=== PATIENT | male | born 1945 | race Caucasian/White ===

== ENCOUNTER 2019-10-03 10:24 | Outpatient (CLI) | payer MEDICARE, SELFPAY ==
[2019-10-03 11:29] LABS: Alanine Aminotransferase 27 U/L (4-50); Albumin Level 4.4 g/dL (3.5-5.1); Alkaline Phosphatase 69 U/L (38-126); Anion Gap 7 mmol/L (8-16); Aspartate Amino Transferase 30 U/L (17-59); Bilirubin,Total 0.7 mg/dL (0.2-1.3); Blood Urea Nitrogen 15 mg/dL (9-20); Carbon Dioxide 29 mmol/L (22-30); Chloride 99 mmol/L (98-107); Cholesterol 149 mg/dL (0-200); Estimated Glomerular Filt Rate > 60; Glucose 99 mg/dL (75-110); HDL Direct 68 mg/dL; Potassium 4.3 mmol/L (3.4-5.0); Sodium 135 mmol/L (137-145); Triglycerides 48 mg/dL (<150)
[2019-10-03 11:46] LABS: LDL Cholesterol Direct 63 mg/dL
[2019-10-03 11:53] LABS: Hemoglobin A1C 5.6 % (<5.7)
[2019-10-03 12:16] LABS: Prostate Specific Antigen 1.8 ng/mL (< OR = 4.0)
== END 2019-10-03 10:25 | disposition home or self-care (01) ==
LOC: ANHLAB 10:26
PROVIDERS: PCP Internal Medicine; Visit Provider Internal Medicine
DX: E78.5 Hyperlipidemia, unspecified (principal); I10 Essential (primary) hypertension; Z79.899 Other long term (current) drug therapy; Z12.5 Encounter for screening for malignant neoplasm of prostate; R73.03 Prediabetes
CPT/HCPCS: 36415; 80053; 80061; 83036; 84153; G0103

== ENCOUNTER 2020-04-12 08:36 | Outpatient (CLI) | payer MEDICARE, SELFPAY ==
[2020-04-12 09:46] LABS: Alanine Aminotransferase 22 U/L (4-50); Albumin Level 4.3 g/dL (3.5-5.1); Alkaline Phosphatase 69 U/L (38-126); Anion Gap 7 mmol/L (8-16); Aspartate Amino Transferase 26 U/L (17-59); Bilirubin,Total 0.8 mg/dL (0.2-1.3); Blood Urea Nitrogen 16 mg/dL (9-20); Calcium 9.3 mg/dL (8.4-10.2); Carbon Dioxide 29 mmol/L (22-30); Chloride 98 mmol/L (98-107); Cholesterol 130 mg/dL (0-200); Estimated Glomerular Filt Rate > 60; Glucose 112 mg/dL (75-110); HDL Direct 51 mg/dL; Potassium 4.3 mmol/L (3.4-5.0); Sodium 134 mmol/L (137-145); Triglycerides 72 mg/dL (<150)
[2020-04-12 09:57] LABS: LDL Cholesterol Direct 61 mg/dL
[2020-04-12 10:00] LABS: Hemoglobin A1C 5.4 % (<5.7)
== END 2020-04-12 08:37 | disposition home or self-care (01) ==
LOC: ANHLAB 08:41
PROVIDERS: PCP Internal Medicine; Visit Provider Nurse Practitioner
DX: E78.2 Mixed hyperlipidemia (principal); R73.03 Prediabetes
CPT/HCPCS: 36415; 80053; 80061; 83036

== ENCOUNTER → 2020-04-23 10:56 | Outpatient (CLI) | payer MEDICARE, OTHER, SELFPAY ==
--- NOTE | ~2020-04-23 | XR_ITS ---
EXAMINATION: XR hand RT min 3V INDICATION: Stiffness of the hand TECHNIQUE: Three views of the right hand are obtained. COMPARISON: None available FINDINGS: There is no fracture. Moderate osteoarthritis is noted at the triscaphe and first interphal angeal joints. There is mild osteoarthritis in multiple interphalangeal joints as well as at the firs t metacarpophalangeal joint. The soft tissues are unremarkable. IMPRESSION: 1. Polyarticular osteoarthritis. Reviewed, dictated and finalized at location A. ETRICIAN AND GYNAECOLOGIST
--- NOTE | ~2020-04-23 | XR_ITS ---
EXAMINATION: XR hand LT min 3V INDICATION: Stiffness of the hand TECHNIQUE: Three views of the left hand are obtained. COMPARISON: None available FINDINGS: There is no fracture. There is moderate osteoarthritis at the first carpometacarpal joint a nd in the fifth distal interphalangeal joint. Mild osteoarthritis is present at the triscaphe joint a nd in multiple interphalangeal joints. The soft tissues are unremarkable. IMPRESSION: 1. Polyarticular osteoarthritis. Reviewed, dictated and finalized at location A. PRODUCTION MANAGER
== END ==
PROVIDERS: PCP Internal Medicine; Visit Provider Internal Medicine
DX: M18.0 Bilateral primary osteoarthritis of first carpometacarpal joints (principal); R73.03 Prediabetes; M19.042 Primary osteoarthritis, left hand; M19.041 Primary osteoarthritis, right hand; I10 Essential (primary) hypertension
CPT/HCPCS: 73130

== ENCOUNTER 2020-04-25 10:51 | Outpatient (CLI) | payer MEDICARE, SELFPAY ==
[2020-04-25 11:27] LABS: CRP < 0.5 mg/dL (<1.0); Rheumatoid Factor < 8.6 IU/ML (<12)
[2020-05-01 19:39] LABS: Anti Cyclic Citrullinated Pept <16 Units (<20)
== END 2020-04-25 10:52 | disposition home or self-care (01) ==
LOC: ANHLAB 10:53
PROVIDERS: PCP Internal Medicine; Visit Provider Internal Medicine
DX: M25.461 Effusion, right knee (principal); M25.462 Effusion, left knee; M19.041 Primary osteoarthritis, right hand; M19.042 Primary osteoarthritis, left hand
CPT/HCPCS: 36415; 86140; 86200; 86430

== ENCOUNTER 2020-10-24 11:25 | Outpatient (CLI) | payer MEDICARE, SELFPAY ==
[2020-10-24 13:08] LABS: Alanine Aminotransferase 24 U/L (4-50); Albumin Level 4.5 g/dL (3.5-5.1); Alkaline Phosphatase 79 U/L (38-126); Anion Gap 6 mmol/L (8-16); Aspartate Amino Transferase 29 U/L (17-59); Bilirubin,Total 0.9 mg/dL (0.2-1.3); Blood Urea Nitrogen 16 mg/dL (9-20); Calcium 9.4 mg/dL (8.4-10.2); Carbon Dioxide 27 mmol/L (22-30); Chloride 99 mmol/L (98-107); Cholesterol 148 mg/dL (0-200); Estimated Glomerular Filt Rate > 60; Glucose 100 mg/dL (65-110); HDL Direct 65 mg/dL; Potassium 4.3 mmol/L (3.4-5.0); Sodium 132 mmol/L (137-145); Triglycerides 48 mg/dL (<150)
[2020-10-24 13:19] LABS: LDL Cholesterol Direct 60 mg/dL
[2020-10-24 13:39] LABS: Prostate Specific Antigen 2.3 ng/mL (< OR = 4.0)
[2020-10-24 13:43] LABS: Hemoglobin A1C 5.7 % (<5.7)
== END 2020-10-24 11:26 | disposition home or self-care (01) ==
LOC: ANHLAB 11:30
PROVIDERS: PCP Internal Medicine; Visit Provider Internal Medicine
DX: Z12.5 Encounter for screening for malignant neoplasm of prostate (principal); I10 Essential (primary) hypertension; E78.5 Hyperlipidemia, unspecified; R73.03 Prediabetes
CPT/HCPCS: 36415; 80053; 80061; 83036; 84153; G0103

== ENCOUNTER 2021-04-29 14:20 | Outpatient (CLI) | payer MEDICARE, SELFPAY ==
--- NOTE | ~2021-04-29 | XR_ITS ---
XR ankle RT 2V DATE: 04/29/2021 14:38 INDICATION: Right ankle pain TECHNIQUE: AP and lateral views COMPARISON: None FINDINGS: There is plantar enthesopathy. There is distal Achilles tendon prominent calcification. No fracture or dislocation of the ankle or disruption of the ankle mortise. IMPRESSION: Plantar calcaneal enthesopathy, distal Burlison tendon calcification Reviewed, dictated and finalized at location A.
== END 2021-04-29 14:21 | disposition home or self-care (01) ==
LOC: ANHIMG 14:28
PROVIDERS: PCP Internal Medicine; Visit Provider Internal Medicine
DX: M25.579 Pain in unspecified ankle and joints of unspecified foot (principal); M77.31 Calcaneal spur, right foot
CPT/HCPCS: 73600

== ENCOUNTER 2021-05-06 08:54 | Outpatient (CLI) | payer MEDICARE, SELFPAY ==
[2021-05-06 09:32] LABS: Alanine Aminotransferase 26 U/L (4-50); Albumin Level 4.5 g/dL (3.5-5.1); Alkaline Phosphatase 68 U/L (38-126); Anion Gap 5 mmol/L (8-16); Aspartate Amino Transferase 31 U/L (17-59); Bilirubin,Total 0.9 mg/dL (0.2-1.3); Blood Urea Nitrogen 16 mg/dL (9-20); Carbon Dioxide 30 mmol/L (22-30); Chloride 96 mmol/L (98-107); Cholesterol 144 mg/dL (0-200); Estimated Glomerular Filt Rate > 60; Glucose 110 mg/dL (65-110); HDL Direct 54 mg/dL; Potassium 4.4 mmol/L (3.4-5.0); Sodium 131 mmol/L (137-145); Triglycerides 75 mg/dL (<150)
[2021-05-06 09:36] LABS: Hemoglobin A1C 5.4 % (<5.7)
[2021-05-06 09:44] LABS: LDL Cholesterol Direct 59 mg/dL
== END 2021-05-06 08:55 | disposition home or self-care (01) ==
LOC: ANHLAB 08:58
PROVIDERS: PCP Internal Medicine; Visit Provider Nurse Practitioner
DX: E78.2 Mixed hyperlipidemia (principal); R73.03 Prediabetes
CPT/HCPCS: 36415; 80053; 80061; 83036

== ENCOUNTER 2021-05-27 09:47 | Outpatient (CLI) | payer MEDICARE, SELFPAY ==
--- NOTE | 2021-05-27 10:31 | ECG_ITS ---
Measurements Intervals [place] Rate: 58 P: 172 IN: 179 QRS: 16 QRSD: 105 T: 50 QT: 370 QTc: 365 Interpretive Statements SINUS BRADYCARDIA OTHERWISE NORMAL ECG NO PREVIOUS ECG AVAILABLE FOR COMPARISON Electronically Signed On 05-27-2021 15:55:37 CDT by Rome Bustamante M.D.
[2021-05-27 11:39] LABS: Basophils Percent Auto 0.5 % (0.2-1.2); Eosinophils Absolute Auto 0.1 K/mm3 (0-0.3); Eosinophils Percent Auto 2.3 % (0-4.4); Hematocrit 44.3 % (42.0-52.0); Hemoglobin 15.3 g/dL (14.0-18.0); Immature Granulocyte Absolute 0.03 K/mm3 (0.00-0.031); Immature Granulocyte Percent A 0.5 % (0-0.5); Lymphocytes Absolute Auto 1.29 K/mm3 (0.9-3.2); Mean Corpuscular HGB Conc 34.5 g/dl (32-36); Mean Corpuscular Hemoglobin 32.2 pg (26-34); Mean Corpuscular Volume 93.3 fl (80-100); Monocytes Absolute Auto 0.8 K/mm3 (0.1-0.6); Monocytes Percent Auto 12.7 % (2.6-8.5); Neutrophils Absolute Auto 3.9 K/mm3 (1.3-6.7); Platelet Count Result 206 k/mm3 (150-375); Red Blood Count 4.75 M/mm3 (4.6-6.20); Red Cell Distribution Width 12.8 % (11.5-14.5); White Blood Count 6.1 K/mm3 (4.5-10.0)
[2021-05-27 11:43] LABS: Appearance Urine Clear (Clear); Bilirubin Urine Negative (Negative); Blood Urine Negative (Negative); Color Urine Yellow (Yellow); Glucose Urine UA Negative (Negative); Ketones Urine Negative (Negative); Leukocyte Esterase Ur Negative LEU/UL (Negative); Nitrate Urine Negative (Negative); Protein Urine Negative (Negative); Urobilinogen Urine 0.2 mg/dL (<2.0)
[2021-05-27 11:46] LABS: Sodium 129 mmol/L (137-145)
[2021-05-27 11:48] LABS: Urine Cotinine NEGATIVE
[2021-05-27 11:50] LABS: Add Urine Microscopic? NO
[2021-05-27 11:50] LABS: Partial Thromboplastin Time 25.1 SECONDS (22.3-36.8); Prothrombin Time 12.3 Seconds (11.1-14.7)
== END 2021-05-27 09:48 | disposition home or self-care (01) ==
LOC: ANHSURGERY 09:51
PROVIDERS: Anesthesiology; PCP Internal Medicine; Visit Provider Orthopaedic Surgery
DX: Z01.818 Encounter for other preprocedural examination (principal); M17.10 Unilateral primary osteoarthritis, unspecified knee; R79.89 Other specified abnormal findings of blood chemistry; R00.1 Bradycardia, unspecified; Z51.81 Encounter for therapeutic drug level monitoring; Z79.899 Other long term (current) drug therapy
CPT/HCPCS: 80307; 81003; 84295; 85025; 85610; 85730; 87081; 93005

== ENCOUNTER 2021-06-10 01:09 | Day surgery (SDC) | payer MEDICARE, SELFPAY ==
[2021-05-27 09:41] VITALS: BMI 34.0
--- NOTE | 2021-05-27 09:41 | PC.NURSE ---
Report to the Outpatient Waiting Room, entrance under the green pavilion located off [facility], at time _0900_ on date _06/10/21_. OR Time: _1100_. - You and your visitor will be asked a series of questions to screen for COVID 19 for your protection. - A mask is required within the hospital. One visitor will be allowed to accompany the patient into the hospital for pre-op. Patients visitor will be instructed to remain with patient at all times or leave the building. VISITING HOURS 10AM-8PM USE MAIN ENTRANCE Preoperative COVID Testing Requirements: NONE Patients may have clear liquids (water, carbonated beverages, clear teas, apple juice) until 3 hours prior to surgery (0800 AM) with a maximum of 20 ounces. - No food from midnight until time of surgery Take the following medications with a SIP of water the morning of surgery: _AMLODIPINE, CELECOXIB, GABAPENTIN, HYDRALAZINE, _ Medications to discontinue per physician ____N/A Date to take last dose Please no deodorant, or body powder the day of surgery. No jewelry (including any body piercings) or valuables the day of surgery, leave them at home. Please take a shower or bath the night before, or the morning of, surgery with an antibacterial soap. Wear comfortable, loose fitting clothing. - Jewelry must be removed prior to entering the operating room. Rings and piercings that are not removed may be cut off. - The hospital will not accept responsibility for valuables. - Please leave all valuables, including medications, at home the day of surgery. If you are going home after surgery, a licensed caterpillar driver must drive you home. - NO public transportation without another adult. - We recommend that an adult stay with you for 24 hours following discharge. - We also recommend that you do not drive, make important decision, drink alcoholic beverages, or take any drugs that were not prescribed by your health care provider for at least 24 hours after your discharge time. Follow any additional instructions given to you from DR. ALMONTE. Telephone instructions given to __PT & SPOUSE (AMY) __and asked if any additional questions and then verbalized understanding. Patient advised to call surgeon office or pre surgery nurse liaison [phone] if any additional questions.
--- NOTE | 2021-06-09 11:00 | WPDANESEPPF ---
Anes - Initial Pre Proc Eval Procedure: Operation Date: 06/10/21 10:30 Proposed Procedures p Right Total Knee Arthroplasty - Torito Carbajal MD Date/Time: 06/09/21 11:00 Surgeon: Torito Carbajal MD Pre Op Diagnosis: Rt Knee DJD Patient Data Age: 75 Gender: M Height: 1.7 m Weight: 98.5 kg Allergies Allergy/AdvReac Type Severity Reaction Status Date / Time No Known Allergies Allergy Verified 06/10/21 08:34 Home Medications Medication Instructions Recorded Confirmed Type omeprazole 20 mg capsule,delayed 20 mg PO DAILY PRN cap 07/10/20 05/27/21 History release hydralazine 25 mg tablet 25 mg PO BID #180 tablet 01/02/21 05/27/21 Rx celecoxib 200 mg capsule 200 mg PO BID #60 cap 02/26/21 05/27/21 Rx benazepril 40 mg tablet 40 mg PO BID #180 tablet 05/05/21 05/27/21 Rx doxycycline monohydrate 50 mg 50 mg PO DAILY PRN 05/11/21 05/27/21 History capsule metronidazole 0.75 % topical cream 1 applic TOPICAL DAILY 05/11/21 05/27/21 History cyclobenzaprine 10 mg PO HS PRN 05/27/21 05/27/21 History furosemide 20 mg QAM 05/27/21 05/27/21 History gabapentin [Neurontin] 600 mg BID 05/27/21 05/27/21 History sildenafil (pulm.hypertension) 100 mg PO DAILY PRN 05/27/21 05/27/21 History simvastatin 10 mg HS 05/27/21 05/27/21 History terazosin 1 mg PO HS 05/27/21 05/27/21 History amlodipine 5 mg tablet 5 mg PO BID #60 tablet 06/03/21 Rx Patient hx anesthesia problems: none Family hx anesthesia problems: none Results Review: All pre-operative results and documents have been reviewed as part of the pre-operative evaluation. [facility] Past Medical History Medical History (Updated 06/09/21 @ 11:01 by Daniele Schwartz MD) Colon polyps DJD (degenerative joint disease) of knee Enthesopathy of foot Erectile dysfunction Essential (primary) hypertension Gastroesophageal reflux disease without esophagitis Kidney lesion, [place], right Mixed hyperlipidemia Obesity Pre-diabetes Rectus diastasis Spinal stenosis, unspecified region other than cervical Stiffness of joints of both hands Umbilical hernia without obstruction and without gangrene Ventral hernia without obstruction or gangrene Surgical History Surgical History History of hernia repair Status post cataract extraction Family History Family History Unknown Heart disease Cerebrovascular accident High cholesterol Arthritis Kidney disease Other Diabetes mellitus Hypertension Social History Social History Second hand tobacco smoke exposure: No Additional smoking assessment comments: PT DENIES ALL FORMS OF TOBACCO USE Alcohol intake: current Drinks per week: 8 Substance use: never Substance use type: does not use Living arrangements: with family Gender identity (if verbalized by the patient): Male Spiritual care concerns: No Anes - Eval Final PreProcedure Day of Procedure 06/09/21 11:00 Patient weight: obese Heart: regular rate and rhythm Lungs: clear to auscultation and normal air movement Airway: Mallampati scale class II Neurological: alert and oriented Last oral intake: >/= 8 hours ASA classification: III Emergent: no Anesthetic plan: proceed Anesthesia type and monitoring: general LMA Results Review: All pre-operative results and documents have been reviewed as part of the pre-operative evaluation. Informed Consent: The patient's anesthetic plan and its attendant risks and benefits were discussed with the patient/family/POA. Questions were solicited and answers provided to the satisfaction of the patient/family/POA.
--- NOTE | 2021-06-09 11:02 | WPDANESPNB ---
Anes - Peripheral Nerve Block Date/Time: 06/09/21 11:02 I have discussed with the patient/family/POA the placement of a peripheral nerve block for post-operative pain management, including associated risks, benefits, complications, and side effects. Alternative methods of post-operative analgesia were detailed. Questions were solicited and answers provided to the satisfaction of the patient/family/POA. Time-Out: A pre-procedural Time-Out was completed immediately before starting the procedure and confirmed: Patient Identification, Site, Procedure, Patient Position and the Availability of Requisite Equipment. Clinical Indications: Acute post-operative pain management requested by the operative surgeon. Nerve Block Insertion Note Anes-nerve block: adductor canal right Patient position: supine Skin prep: chlorhexidine Needle: 22 gauge, stimulating, insulated echogenic needle. Needle length: 80 mm Technique: ultrasound Technique comment: in plane Injectate: bupivacaine 0.5% with epi 5 mcg/ml (30cc) Observations: tolerated well Complications: none Procedure start time:: 1025 Procedure end time:: 1030
[2021-06-10] VITALS (11 sets, daily range): BP systolic 92–162; BP diastolic 70–83; PULSE 63–87; RESP 16–20; TEMP 35.6–36.2; O2SAT 94–100
--- NOTE | ~2021-06-10 | XR_ITS ---
XR knee RT 2V DATE: 06/10/2021 13:34 INDICATION: Right total knee arthroplasty TECHNIQUE: Postoperative AP and lateral views COMPARISON: 04/27/2021 right knee FINDINGS: Status post right knee arthroplasty without patellar resurfacing. There is subcutaneous emphysema and intra-articular gas postoperatively. Boris are noted along the skin at the anterior aspect of the knee. No fracture or dislocation, periosteal reaction or bone destruction or joint effusion is noted. IMPRESSION: Status post right knee arthroplasty Reviewed, dictated and finalized at location A.
--- NOTE | 2021-06-10 07:11 | WPDHPUPDATE1 ---
History and Physical Update Update Date/Time: 06/10/21 07:11 History and Physical has been reviewed, including an updated exam of the patient. There are NO changes in the patient's condition. Risks, benefits, and alternatives have been discussed and questions answered. Patient agrees to proceed with procedure.
[2021-06-10] MEDS: ACETAMINOPHEN 500 MG TABLET 1000 MG PO (08:38)
[2021-06-10] MEDS: LACTATED RINGERS 1,000 ML 30 ML IV CONT ×3 (09:04→13:46)
[2021-06-10 09:10] LABS: Sodium 134 mmol/L (137-145)
[2021-06-10] MEDS: TRANEXAMIC ACID 1,000MG/ISO100 1,000 MG/100 ML BAG 200 MG IVPB (10:04)
[2021-06-10] MEDS: ceFAZolin 2 GM/D5W 50 ML 2 GM/50 ML BAG IVPB ×2 (10:48→18:28)
--- NOTE | 2021-06-10 13:12 | W.PM.PROC2 ---
Procedure Note - Detailed Date of Procedure 06/10/21 Pre-op Diagnosis Rt Knee DJD Post-op Diagnosis Same Procedure Performed R TKA Surgeon Torito Carbajal MD Anesthesia General Description of Procedure THE RIGHT KNEE WAS PREPPED AND DRAPED IN THE STERILE FASHION. THERE WAS A 20 DEGREE FLEXION CONTRACTURE. A MIDLINE SKIN INCISION WAS MADE. A MEDIAL PARAPATELLAR ARTHROTOMY WAS MADE. THE PATELLA WAS EVERTED. THERE WAS TRICOMPARTMENT DJD. THERE WAS MINIMAL PATELLA DJD. AN INTRAMEDULLARY LEONIDES WAS PLACED IN THE FEMUR. A DISTAL FEMORAL CUT WAS MADE IN 5 DEGREES OF VALGUS REMOVING APPROXIMATELY 11 MM OF BONE FROM THE DISTAL FEMUR. THE FEMUR WAS SIZED TO 67.5. A 67.5 FEMORAL CUTTING BLOCK WAS PLACED IN 3 DEGREES OF EXTERNAL ROTATION AND IN ALIGNMENT WITH GUERDA'S LINE AND THE TRANSEPICONDYLAR AXIS. ANTERIOR POSTERIOR AND CHAMFER CUTS WERE MADE. THE CUTS WERE EXCELLENT. NEXT AN INTRAMEDULLARY CUTTING GUIDE WAS PLACED IN THE TIBIA. A TRANS TIBIAL CUT WAS MADE ALONG THE LONG AXIS OF THE TIBIA. APPROXIMATELY 10 MM OF BONE WAS REMOVED FROM THE HIGH SIDE OF THE TIBIA. THE TIBIA WAS THEN PLANED TO A SMOOTH SURFACE. POSTERIOR FEMORAL OSTEOPHYTES WERE REMOVED FROM THE FEMORAL CONDYLES. A 75 TIBIAL TRIAL WAS PLACED IN ALIGNMENT WITH THE 1/3 MEDIAL ASPECT OF THE TIBIAL TUBERCLE. THEN A 67.5 FEMORAL TRIAL COMPONENT WAS PLACED. BOTH HAD EXCELLENT FITS. EVENTUALLY A 10 MM POLYETHYLENE TRIAL COMPONENT WAS PLACED. THE KNEE WAS TAKEN THROUGH A RANGE OF MOTION. THE KNEE CAME OUT TO FULL EXTENSION. THERE WAS NO ABNORMAL TILT TO THE PATELLA. THERE WAS GOOD A/P AND VARUS/VALGUS STABILITY. THERE WAS NO EXCESSIVE ROLL BACK WITH FLEXION. THE TRIAL COMPONENTS WERE REMOVED. THEN A 67.5 FEMORAL COMPONENT AND 75 TIBIAL COMPONENT WITH A 10 POLYETHYLENE COMPONENT WERE CEMENTED INTO PLACE. ONCE THE CEMENT WAS HARD THE KNEE WAS TAKEN THROUGH A ROM AGAIN AND FOUND TO BE STABLE WITH NO PATELLA TILT NO EXCESSIVE ROLL BACK WITH FLEXION AND GOOD STABILITY WITH COMPLETE AND FULL EXTENSION. THE KNEE WAS IRRIGATED WITH STERILE BETADINE AND WATER FOR ABOUT 3 MINUTES. THE BLEEDERS WERE CAUTERIZED. THE ARTHROTOMY WAS REPAIRED WITH NUMBER 1 VICRYL. THE SUB CUTANEOUS LAYER WITH 2-0 VICRYL AND THE SKIN WITH SUE. THE WOUND WAS WASHED AND A STERILE DRESSING WAS APPLIED. PATIENT WAS EXTUBATED. Estimated Blood Loss 50 Pathology None sent Complications No immediate complications Condition Stable Disposition PACU
[2021-06-10] MEDS: fentaNYL CITRATE INJ (*CRX) 100 MCG/2 ML VIAL 25 MCG IV PUSH ×4 (13:36→14:14)
--- NOTE | 2021-06-10 14:53 | PC.NURSE ---
This patient, Rubio Sampson, was admitted to Medical Room 245-. Patient/family oriented to hospital policies and general routines including ID bracelet, bed and alarms, visiting hours, pain management, procedures, bathroom and other care routines, personal items, smoking policy, room service/diet, and visiting hours. Information on how to activate the Rapid Response Team has been discussed. Patient/Family are encouraged to report perceived risks to care and to ask questions if they do not understand what they are told or what they should do.
[2021-06-10] MEDS: SODIUM CHLORIDE 0.9% IV 1,000 ML 125 ML IV CONT (15:33)
[2021-06-10] MEDS: oxyCODONE/ACETAMINOPHEN (*CRX) 5-325 MG TABLET 1 TABLET PO (15:57)
[2021-06-10] MEDS: lisinopriL 20 MG TABLET 40 MG PO (20:52)
[2021-06-10] MEDS: SENNA/DOCUSATE SODIUM TABLET 2 TAB PO (20:52)
[2021-06-10] MEDS: hydrALAZINE HCL 25 MG TABLET PO (20:52)
[2021-06-10] MEDS: TERAZOSIN HCL 1 MG CAPSULE PO (20:52)
[2021-06-10] MEDS: SIMVASTATIN 10 MG TABLET BY MOUTH (20:53)
[2021-06-10] MEDS: GABAPENTIN 300 MG CAPSULE 600 MG BY MOUTH (20:53)
[2021-06-10] MEDS: CELECOXIB 200 MG CAPSULE PO (20:53)
[2021-06-11 00:02] VITALS: BP 140/75; PULSE 85; RESP 20; TEMP 35.8; O2SAT 96
[2021-06-11] MEDS: ceFAZolin 2 GM/D5W 50 ML 2 GM/50 ML BAG IVPB ×2 (02:06→09:39)
[2021-06-11 04:10] VITALS: BP 136/77; PULSE 76; RESP 20; TEMP 36.4; O2SAT 97
[2021-06-11 05:41] LABS: Basophils Percent Auto 0.2 % (0.2-1.2); Eosinophils Percent Auto 0.1 % (0-4.4); Hematocrit 34.6 % (42.0-52.0); Hemoglobin 12.4 g/dL (14.0-18.0); Immature Granulocyte Absolute 0.06 K/mm3 (0.00-0.031); Immature Granulocyte Percent A 0.5 % (0-0.5); Lymphocytes Absolute Auto 0.73 K/mm3 (0.9-3.2); Lymphocytes Percent Auto 6.2 % (18.3-44.2); Mean Corpuscular HGB Conc 35.8 g/dl (32-36); Mean Corpuscular Hemoglobin 32.9 pg (26-34); Mean Corpuscular Volume 91.8 fl (80-100); Monocytes Absolute Auto 1.2 K/mm3 (0.1-0.6); Monocytes Percent Auto 9.8 % (2.6-8.5); Neutrophils Absolute Auto 9.8 K/mm3 (1.3-6.7); Neutrophils Percent Auto 83.2 % (45.5-73.1); Platelet Count Result 177 k/mm3 (150-375); Red Blood Count 3.77 M/mm3 (4.6-6.20); Red Cell Distribution Width 12.6 % (11.5-14.5); White Blood Count 11.8 K/mm3 (4.5-10.0)
[2021-06-11 05:52] LABS: Anion Gap 4 mmol/L (8-16); Blood Urea Nitrogen 12 mg/dL (9-20); Calcium 8.2 mg/dL (8.4-10.2); Carbon Dioxide 26 mmol/L (22-30); Chloride 101 mmol/L (98-107); Estimated CRCL calculation 79 ml/min; Estimated Glomerular Filt Rate > 60; Glucose 126 mg/dL (65-110); Potassium 4.3 mmol/L (3.4-5.0); Sodium 131 mmol/L (137-145)
--- NOTE | 2021-06-11 09:26 | PM.PNORT ---
Progress Note: A&P Assessment and Plan (1) S/P total knee arthroplasty: Qualifiers: Laterality: right Qualified Code(s): Z96.651 - Presence of right artificial knee joint Code(s): Z96.659 - Presence of unspecified artificial knee joint Status: Acute Assessment and Plan: POD #1: Right TKA Continue PT/OT. WBAT. Walker. HIGH FALL RISK. Continue pain control. Ice knee. Protect skin. DVT prophylaxis with Aspirin. SCDs. Incentive Spirometry Use reviewed. Monitor Dressing. Change prior to discharge. Bowel Regimen. Dispo: Home with Home Health pending progress with PT/OT likely today Time Spent With Patient Time with patient: 15 - 25 minutes Subjective Subjective Date/Time Seen: 06/11/21 09:26 Post Op day: 1 Interval history: POD #1: Right TKA Patient doing very well. Pain well controlled. Hopeful for discharge home today. Review of Systems Review of Systems: All systems reviewed & are unremarkable except as noted in HPI and below Constitutional: Constitutional: Denies fever(s) and Denies headache(s) ENT: Denies headache(s) Cardiovascular: Cardiovascular: Denies chest pain, Denies diaphoresis, Denies palpitations and Denies dyspnea Respiratory: Respiratory: Denies dyspnea Gastrointestinal: Gastrointestinal: Denies abdominal pain, Denies constipation, Denies nausea and Denies vomiting Genitourinary: Genitourinary: Denies dysuria and Reports nocturia Musculoskeletal: Musculoskeletal: Reports arthralgias (Right Knee ) and Reports joint swelling (Right Knee ) Neurologic: Denies headache(s) Endocrine: Endocrine: Denies palpitations Exam Const: General: comfortable and no acute distress Resp: Effort & Inspection: normal respiratory effort Cardio: Rate: regular rate Rhythm: regular rhythm GI: GI Palp: Yes Soft to palpation, No Tenderness to palpation present (GI) and No Guarding due to palpation present (GI) Skin: Wounds: wounds noted Other: Incision c/d/i. No surrounding redness/warmth. No hematoma. Mild ecchymosis. No wound dehiscence Neuro: Cognition (Neuro): normal cognition Other: NV intact aside from block. Moves toes. Sensation intact to light touch. +ankle dorsiflexion/plantarflexion. Extrem: Right lower extremity: normal to inspection, full ROM (ROM limited due to recent surgical intervention ) and knee Details: tenderness (diffuse, mild ) and swelling (diffuse, mild ) Psych: Mental Status: mental status grossly normal Objective Data Vital Signs Vital Signs: Vital Signs - 24 hr 06/10/21 13:25 06/10/21 13:40 06/10/21 13:55 Temperature 36.1 C L Pulse Rate 68 63 66 Respiratory Rate 20 18 16 Blood Pressure 139/73 139/76 144/70 H Pulse Oximetry 97 100 100 06/10/21 14:12 06/10/21 14:45 06/10/21 15:00 Temperature 35.6 C L 35.9 C L Pulse Rate 69 69 73 Respiratory Rate 16 16 17 Blood Pressure 92/71 L 149/73 H 162/81 H Pulse Oximetry 95 94 94 06/10/21 15:07 06/10/21 15:30 06/10/21 16:30 Temperature 36.0 C L 36.1 C L Pulse Rate 72 87 Respiratory Rate 18 17 Blood Pressure 143/83 H 144/73 H Pulse Oximetry 97 96 97 06/10/21 19:44 06/11/21 00:02 06/11/21 04:10 Temperature 35.8 C L 35.8 C L 36.4 C Pulse Rate 81 85 76 Respiratory Rate 18 20 20 Blood Pressure 148/77 H 140/75 136/77 Pulse Oximetry 95 96 97 Intake/Output Intake/Output: Intake & Output 06/08/21 06/09/21 06/10/21 06/11/21 23:59 23:59 23:59 23:59 Intake Total 2040 680 Output Total 500 1500 Balance 1540 -820 Meds/Results Medications: Active Medications Generic Name Dose Route Start Last Admin Trade Name Celestineq PRN Reason Stop Dose Admin Acetaminophen 1,000 mg 06/10/21 14:45 Acetaminophen 500 Mg Tablet PO Q6H PRN Pain Rated 1-3 Aspirin 650 mg 06/11/21 09:00 Aspirin 325 Mg Enteric Tablet PO DAILY HEATHER Celecoxib 200 mg 06/10/21 17:00 06/10/21 20:53 Celecoxib 200 Mg Capsule PO 200 mg BID HEATHER Administration Cy
[2021-06-11] MEDS: CELECOXIB 200 MG CAPSULE PO (09:37)
[2021-06-11] MEDS: FUROSEMIDE 20 MG TABLET BY MOUTH (09:37)
[2021-06-11] MEDS: GABAPENTIN 300 MG CAPSULE 600 MG BY MOUTH (09:37)
[2021-06-11] MEDS: lisinopriL 20 MG TABLET 40 MG PO (09:38)
[2021-06-11] MEDS: hydrALAZINE HCL 25 MG TABLET PO (09:38)
[2021-06-11 10:00] VITALS: BP 139/64; PULSE 84; RESP 14; TEMP 36.6; O2SAT 99
[2021-06-11] MEDS: ASPIRIN 325 MG ENTERIC TABLET 650 MG PO (10:38)
--- NOTE | 2021-06-11 11:23 | PM.DS ---
DS: Admitting Diagnosis Discharge Date 06/11/21 Admitting Diagnosis Right knee DJD DS: Discharge Diagnosis Discharge Diagnosis (1) S/P total knee arthroplasty: Qualifiers: Laterality: right Qualified Code(s): Z96.651 - Presence of right artificial knee joint Code(s): Z96.659 - Presence of unspecified artificial knee joint Status: Acute Assessment and Plan: POD #1: Right TKA Continue PT/OT. WBAT. Walker. HIGH FALL RISK. Continue pain control. Ice knee. Protect skin. DVT prophylaxis with Aspirin. SCDs. Incentive Spirometry Use reviewed. Monitor Dressing. Change prior to discharge. Bowel Regimen. Dispo: Home with Home Health pending progress with PT/OT likely today DS: Summary Hospital Course Reason for hospitalization: right total knee arthroplasty Hospital Course: 75-year-old male admitted status post right total knee arthroplasty for postoperative medical management, pain control and mobilization with physical and occupational therapy. Patient progressed very well on postop day 1. He worked well with PT and OT. Patient's pain was very well controlled. Vitals and labs have been stable. Patient was cleared to be discharged home with home health at this time. He will follow up in the outpatient orthopedic clinic with Dr. Carbajal in approximately 3 weeks. All discharge instructions discussed with patient in depth. Medications sent patient's pharmacy, patient aware. Status at Discharge Functional status at discharge: uses cane/walker Overall status at discharge: patient is progressing back to baseline Time Spent with Patient Time attestation: Total time spent providing and/or coordinating discharge services: Exam Const: General: comfortable and no acute distress Resp: Effort & Inspection: normal respiratory effort Cardio: Rate: regular rate Rhythm: regular rhythm GI: GI Palp: Yes Soft to palpation, No Tenderness to palpation present (GI) and No Guarding due to palpation present (GI) Skin: Wounds: wounds noted Other: Incision c/d/i. No surrounding redness/warmth. No hematoma. Mild ecchymosis. No wound dehiscence Neuro: Cognition (Neuro): normal cognition Other: NV intact aside from block. Moves toes. Sensation intact to light touch. +ankle dorsiflexion/plantarflexion. Extrem: Right lower extremity: normal to inspection, full ROM (ROM limited due to recent surgical intervention ) and knee Details: tenderness (diffuse, mild ) and swelling (diffuse, mild ) Psych: Mental Status: mental status grossly normal DS: Data Data Completed and Pending Labs on day of discharge: Labs from last 24 hours 06/11/21 06/11/21 05:08 05:08 WBC 11.8 H RBC 3.77 L Hgb 12.4 L Hct 34.6 L MCV 91.8 MCH 32.9 MCHC 35.8 RDW 12.6 Plt Count 177 MPV 10.0 Immature Gran % (Auto) 0.5 Neut % (Auto) 83.2 H Lymph % (Auto) 6.2 L [place] % (Auto) 9.8 H Eos % (Auto) 0.1 Baso % (Auto) 0.2 Lymph # (Auto) 0.73 L [place] # (Auto) 1.2 H Eos # (Auto) 0.0 Baso # (Auto) 0.0 Abs Immat Gran (auto) 0.06 H Absolute Neuts (auto) 9.8 H Absolute Nucleated RBC 0.0 Nucleated RBC % 0.0 Sodium 131 L Potassium 4.3 Chloride 101 Carbon Dioxide 26 Anion Gap 4 L BUN 12 Creatinine 0.80 Estim Creat Clear Calc 79 Estimated GFR > 60 Glucose 126 H Calcium 8.2 L Discharge Plan Discharge Patient Disposition: Home Health Service Discharge Instructions: Post Op Total Knee Replacement Instructions Dr. Torito Carbajal [phone] ? Your dressing will be changed prior to your discharge. You will be sent home with one additional dressing to be changed on post op day 7 by the home health RN. Your gaston will be removed on the 14th day after surgery and steri-strips will be placed. Please practice good hand hygiene and do not touch your incision in order to prevent infection. ? You may shower with your dressing but do not submerge in a bath tub. ? Do
--- NOTE | 2021-06-11 13:25 | PC.NURSE ---
On 06/11/21, the student, [Deny Rowley], provided care and completed [facility] documentation on this patient. I have reviewed the student's documentation and agree with the findings.
== END 2021-06-11 12:47 | disposition home health service (06) ==
LOC: ANHSURGERY 13:14 → ANH2MED 14:47
PROVIDERS: PCP Internal Medicine; Visit Provider Orthopaedic Surgery
PROC: (CPT 27447; principal; 2021-06-10 10:30)
DX: M17.11 Unilateral primary osteoarthritis, right knee (principal); G89.18 Other acute postprocedural pain; I10 Essential (primary) hypertension; E78.2 Mixed hyperlipidemia; K21.9 Gastro-esophageal reflux disease without esophagitis; R73.03 Prediabetes; E66.9 Obesity, unspecified; Z68.34 Body mass index [BMI] 34.0-34.9, adult
CPT/HCPCS: 27447; 64447; 36415; 73560; 80048; 84295; 85025; 86850; 86900; 86901; 97110; 97161; 97165; 97535; A9270; C1713; C1776; J0171; J0690; J1100; J1170; J1885; J2250; J2270; J2405; J2704; J2795; J3010; J7030; J7120

== ENCOUNTER 2021-11-19 10:58 | Outpatient (CLI) | payer MEDICARE, SELFPAY ==
[2021-11-19 12:02] LABS: Alanine Aminotransferase 23 U/L (6-50); Albumin Level 4.5 g/dL (3.5-5.1); Alkaline Phosphatase 68 U/L (38-126); Anion Gap 10 mmol/L (8-16); Aspartate Amino Transferase 26 U/L (17-59); Blood Urea Nitrogen 11 mg/dL (9-20); Calcium 9.2 mg/dL (8.4-10.2); Carbon Dioxide 27 mmol/L (22-30); Chloride 95 mmol/L (98-107); Cholesterol 127 mg/dL (0-200); Estimated Glomerular Filt Rate > 60; Glucose 101 mg/dL (65-110); HDL Direct 58 mg/dL; Potassium 4.1 mmol/L (3.4-5.0); Sodium 132 mmol/L (137-145); Triglycerides 45 mg/dL (<150)
[2021-11-19 12:13] LABS: LDL Cholesterol Direct 49 mg/dL
[2021-11-19 12:52] LABS: Prostate Specific Antigen 2.2 ng/mL (< OR = 4.0)
[2021-11-19 13:38] LABS: Hemoglobin A1C 5.9 % (<5.7)
== END 2021-11-19 10:59 | disposition home or self-care (01) ==
PROVIDERS: PCP Internal Medicine; Visit Provider Nurse Practitioner
DX: E78.2 Mixed hyperlipidemia (principal); R73.03 Prediabetes; Z12.5 Encounter for screening for malignant neoplasm of prostate; Z85.46 Personal history of malignant neoplasm of prostate
CPT/HCPCS: 36415; 80053; 80061; 83036; 84153; G0103

== ENCOUNTER 2022-06-25 09:45 | Outpatient (CLI) | payer MEDICARE, SELFPAY ==
[2022-06-25 10:48] LABS: Hemoglobin A1C 5.4 % (<5.7)
[2022-06-25 10:49] LABS: Alanine Aminotransferase 27 U/L (6-50); Albumin Level 4.5 g/dL (3.5-5.1); Alkaline Phosphatase 73 U/L (38-126); Anion Gap 6 mmol/L (8-16); Aspartate Amino Transferase 29 U/L (17-59); Blood Urea Nitrogen 16 mg/dL (9-20); Calcium 8.9 mg/dL (8.4-10.2); Carbon Dioxide 29 mmol/L (22-30); Chloride 96 mmol/L (98-107); Cholesterol 127 mg/dL (0-200); Estimated Glomerular Filt Rate > 60; Glucose 105 mg/dL (65-110); Potassium 4.5 mmol/L (3.4-5.0); Sodium 131 mmol/L (137-145); Triglycerides 65 mg/dL (<150)
[2022-06-25 10:59] LABS: LDL Cholesterol Direct 55 mg/dL
[2022-06-25 11:07] LABS: HDL Direct 60 mg/dL
[2022-06-25 11:15] LABS: Prostate Specific Antigen 2.8 ng/mL (< OR = 4.0)
== END 2022-06-25 09:46 | disposition home or self-care (01) ==
PROVIDERS: PCP Internal Medicine; Visit Provider Nurse Practitioner
DX: E78.2 Mixed hyperlipidemia (principal); R73.03 Prediabetes; Z12.5 Encounter for screening for malignant neoplasm of prostate; Z85.46 Personal history of malignant neoplasm of prostate
CPT/HCPCS: 36415; 80053; 80061; 83036; 84153; G0103

== ENCOUNTER 2022-11-02 10:25 | Outpatient (CLI) | payer MEDICARE, SELFPAY ==
[2022-11-02 11:50] LABS: Appearance Urine Clear (Clear); Bilirubin Urine Negative (Negative); Blood Urine Negative (Negative); Color Urine Yellow (Yellow); Glucose Urine UA Negative (Negative); Ketones Urine Negative (Negative); Leukocyte Esterase Ur Negative LEU/UL (NEGATIVE); Nitrate Urine Negative (Negative); Protein Urine Negative (Negative); Specific Grav Ur 1.008 (1.001-1.035); Urobilinogen Urine 0.2 mg/dL (<2.0); pH Urine 5.5 (5.0-9.0)
[2022-11-02 12:16] LABS: Add Urine Microscopic? NO
== END 2022-11-02 10:26 | disposition home or self-care (01) ==
LOC: ANHLAB 10:28
PROVIDERS: PCP Family Medicine; Visit Provider Nurse Practitioner Family
DX: N39.0 Urinary tract infection, site not specified (principal); R39.9 Unspecified symptoms and signs involving the genitourinary system
CPT/HCPCS: 81003; 87086

== ENCOUNTER 2023-01-03 10:30 | Outpatient (CLI) | payer MEDICARE, OTHER, SELFPAY ==
[2023-01-03 11:02] LABS: Basophils Absolute Auto 0.1 K/mm3 (0.0-0.1); Basophils Percent Auto 0.8 % (0.2-1.2); Eosinophils Absolute Auto 0.2 K/mm3 (0-0.3); Eosinophils Percent Auto 2.7 % (0-4.4); Hematocrit 42.2 % (42.0-52.0); Hemoglobin 14.7 g/dL (14.0-18.0); Immature Granulocyte Absolute 0.02 K/mm3 (0.00-0.031); Immature Granulocyte Percent A 0.3 % (0-0.5); Lymphocytes Absolute Auto 1.17 K/mm3 (0.9-3.2); Lymphocytes Percent Auto 19.6 % (18.3-44.2); Mean Corpuscular HGB Conc 34.8 g/dl (32-36); Mean Corpuscular Volume 91.7 fl (80-100); Mean Platelet Volume 9.9 fl (7.4-10.4); Monocytes Absolute Auto 0.8 K/mm3 (0.1-0.6); Monocytes Percent Auto 13.4 % (2.6-8.5); Neutrophils Absolute Auto 3.8 K/mm3 (1.3-6.7); Neutrophils Percent Auto 63.2 % (45.5-73.1); Platelet Count Result 206 k/mm3 (150-375); Red Cell Distribution Width 12.6 % (11.5-14.5)
[2023-01-03 11:11] LABS: Alanine Aminotransferase 27 U/L (6-50); Albumin Level 4.5 g/dL (3.5-5.1); Alkaline Phosphatase 70 U/L (38-126); Anion Gap 10 mmol/L (8-16); Aspartate Amino Transferase 28 U/L (17-59); Blood Urea Nitrogen 16 mg/dL (9-20); Calcium 9.3 mg/dL (8.4-10.2); Carbon Dioxide 26 mmol/L (22-30); Chloride 93 mmol/L (98-107); Estimated Glomerular Filt Rate > 60; Glucose 100 mg/dL (65-110); Potassium 4.6 mmol/L (3.4-5.0); Sodium 129 mmol/L (137-145)
== END 2023-01-03 10:31 | disposition home or self-care (01) ==
LOC: ANHLAB 10:32
PROVIDERS: PCP Nurse Practitioner Family; Visit Provider Nurse Practitioner Family
DX: E78.5 Hyperlipidemia, unspecified (principal); I10 Essential (primary) hypertension
CPT/HCPCS: 36415; 80053; 85025

== ENCOUNTER 2023-07-21 10:29 | Outpatient (CLI) | payer MEDICARE, OTHER, SELFPAY ==
[2023-07-21 12:02] LABS: Alanine Aminotransferase 24 U/L (6-50); Albumin Level 4.5 g/dL (3.5-5.1); Alkaline Phosphatase 75 U/L (38-126); Anion Gap 5 mmol/L (4-12); Aspartate Amino Transferase 28 U/L (17-59); Bilirubin,Total 1.1 mg/dL (0.2-1.3); Blood Urea Nitrogen 13 mg/dL (9-20); Calcium 9.3 mg/dL (8.4-10.2); Carbon Dioxide 29 mmol/L (22-30); Chloride 99 mmol/L (98-107); Cholesterol 127 mg/dL (0-200); Estimated Glomerular Filt Rate > 60; Glucose 105 mg/dL (65-110); HDL Direct 56 mg/dL; Potassium 4.3 mmol/L (3.4-5.0); Sodium 133 mmol/L (137-145); Triglycerides 67 mg/dL (<150)
[2023-07-21 12:13] LABS: LDL Cholesterol Direct 61 mg/dL
[2023-07-21 12:33] LABS: Prostate Specific Antigen 2.2 ng/mL (< OR = 4.0)
== END 2023-07-21 10:30 | disposition home or self-care (01) ==
PROVIDERS: PCP Nurse Practitioner Family; Visit Provider Nurse Practitioner Family
DX: R73.03 Prediabetes (principal); Z12.5 Encounter for screening for malignant neoplasm of prostate; N52.9 Male erectile dysfunction, unspecified; E78.2 Mixed hyperlipidemia; I10 Essential (primary) hypertension; Z96.659 Presence of unspecified artificial knee joint
CPT/HCPCS: 36415; 80053; 80061; 84153; G0103

== ENCOUNTER 2023-10-26 08:28 | Outpatient (CLI) | payer MEDICARE, OTHER, SELFPAY ==
--- NOTE | ~2023-10-26 | NM_ITS ---
EXAMINATION: NM michelle stress w perfusion DATE: 10/26/2023 11:00 INDICATION: Encounter for preprocedural cardiac exam TECHNIQUE: Rest images were obtained following intravenous administration of 10.7 mCi Tc99m tetrofosm in (Myoview). The patient was infused intravenously with Lexiscan (Regadenoson). Then, 33.8 mCi Tc99m tetrofosmin (Myoview) was administered intravenously, and stress images were obtained. Data was gonzalo nstructed into short axis and horizontal and vertical long axis SPECT images. Gated SPECT images were also obtained. COMPARISON: None. FINDINGS: There is no definite reversible or fixed perfusion abnormality to suggest ischemia or infar ction. There is normal left ventricular chamber size, wall motion and ejection fraction. Left ventr icular ejection fraction measures 70%. IMPRESSION: 1. Normal myocardial perfusion at rest and during stress. 2. Left ventricular ejection fraction measuring 70%. Reviewed, dictated and finalized at location B.
--- NOTE | 2023-10-26 08:36 | EST_ITS ---
Patient Info Name: Rubio Sampson Age: 77 years : 1945 Gender: Male Ht: 69 in Wt: 214 lbs BSA: 2.20 m2 HR: 69 bpm BP: 139 / 68 mmHg Exam Date: 10/26/2023 9:37 AM Exam Location: Echo Lab Patient Status: Outpatient Admit Date: 10/26/2023 Staff Ordering Physician: Samuel Hogan DO Attending Provider: Samuel Hogan DO Exercise Technologist: Georgie Godoy RDCS Exercise Physician: Samuel Hogan DO Exam Type: CA stress michelle w NM Study Info A regadenoson stress test was performed. Summary 1. 1. Negative lexiscan stress test for ischemic ST changes by ECG criteria. 2. 2. Stable hemodynamics throughout the test. 3. 3. Nuclear scan to follow and will be reported separately. Please correlate with it. 4. 4. Patient informed of the above results. Protocol: Lexiscan Stress ECG Details Stage: REST Duration (min): 4 min : 34 sec HR (bpm): 70 SBP (mmHg): 139 DBP (mmHg): 68 Stage: REST Duration (min): 14 min : 48 sec HR (bpm): 67 SBP (mmHg): 139 DBP (mmHg): 68 Stage: STAGE 1 Duration (min): 0 min : 59 sec HR (bpm): 75 SBP (mmHg): 141 DBP (mmHg): 77 Stage: RECOVERY Duration (min): 1 min : 0 sec HR (bpm): 75 SBP (mmHg): 141 DBP (mmHg): 77 Stage: RECOVERY Duration (min): 2 min : 0 sec HR (bpm): 71 SBP (mmHg): 141 DBP (mmHg): 77 Stage: RECOVERY Duration (min): 3 min : 0 sec HR (bpm): 71 SBP (mmHg): 131 DBP (mmHg): 64 Stage: RECOVERY Duration (min): 3 min : 13 sec HR (bpm): 71 SBP (mmHg): 131 DBP (mmHg): 64 Rest HR: 67 bpm Peak HR: 80 bpm Rest Sys BP: 139 mmHg Peak Sys BP: 141 mmHg Max Pred HR: 144 bpm % Max Pred HR: 56 % Target HR: 122 bpm Max RPP: 11,280 bpm*mmHg Termination Reason: Completed protocol Cardiac Symptoms: Shortness of breath Total Time: 1 min : 0 sec Rest Toure BP: 68 mmHg Peak Toure BP: 77 mmHg Total Dose: 0.4 mg Resting ECG Sinus rhythm. Stress ECG No ST changes. Arrhythmias None. Report Signatures
== END 2023-10-26 08:29 | disposition home or self-care (01) ==
PROVIDERS: PCP Nurse Practitioner Family; Visit Provider Internal Medicine Cardiovascular Disease
DX: Z01.810 Encounter for preprocedural cardiovascular examination (principal); Z01.818 Encounter for other preprocedural examination
CPT/HCPCS: 78452; 93017; A9502; J2785

== ENCOUNTER 2023-11-18 07:45 | Outpatient (CLI) | payer MEDICARE, OTHER, SELFPAY ==
[2023-11-18 09:27] LABS: Basophils Percent Auto 0.6 % (0.2-1.2); Eosinophils Absolute Auto 0.1 K/mm3 (0-0.3); Eosinophils Percent Auto 1.8 % (0-4.4); Immature Granulocyte Absolute 0.02 K/mm3 (0.00-0.031); Immature Granulocyte Percent A 0.3 % (0-0.5); Lymphocytes Absolute Auto 0.53 K/mm3 (0.9-3.2); Lymphocytes Percent Auto 8.1 % (18.3-44.2); Mean Corpuscular HGB Conc 34.9 g/dl (32-36); Mean Corpuscular Hemoglobin 32.5 pg (26-34); Mean Corpuscular Volume 93.3 fl (80-100); Monocytes Absolute Auto 0.8 K/mm3 (0.1-0.6); Monocytes Percent Auto 12.8 % (2.6-8.5); Neutrophils Percent Auto 76.4 % (45.5-73.1); Platelet Count Result 173 k/mm3 (150-375); Red Blood Count 4.61 M/mm3 (4.6-6.20); Red Cell Distribution Width 12.9 % (11.5-14.5); White Blood Count 6.5 K/mm3 (4.5-10.0)
[2023-11-18 09:37] LABS: INR 0.9; Prothrombin Time 12.8 Seconds (11.1-14.7)
[2023-11-18 09:39] LABS: Albumin Level 4.5 g/dL (3.5-5.1); Anion Gap 8 mmol/L (4-12); Blood Urea Nitrogen 14 mg/dL (9-20); Calcium 9.5 mg/dL (8.4-10.2); Carbon Dioxide 29 mmol/L (22-30); Chloride 96 mmol/L (98-107); Estimated Glomerular Filt Rate > 60; Glucose 111 mg/dL (65-110); Potassium 4.6 mmol/L (3.4-5.0); Sodium 133 mmol/L (137-145)
[2023-11-18 09:43] LABS: Hemoglobin A1C 5.8 % (<5.7)
[2023-11-18 09:43] LABS: Urine Cotinine NEGATIVE
[2023-11-18 10:43] LABS: MRSA (PCR) NOT DETECTED (NOT DETECTE)
[2023-11-18 11:35] LABS: Add Urine Microscopic? NO; Appearance Urine Clear (Clear); Bilirubin Urine Negative (Negative); Blood Urine Negative (Negative); Color Urine Yellow (Yellow); Glucose Urine UA Negative (Negative); Ketones Urine Negative (Negative); Leukocyte Esterase Ur Negative LEU/UL (Negative); Nitrate Urine Negative (Negative); Protein Urine Negative (Negative); Specific Grav Ur 1.008 (1.001-1.035); Urobilinogen Urine 0.2 mg/dL (<2.0)
== END 2023-11-18 07:46 | disposition home or self-care (01) ==
PROVIDERS: PCP Nurse Practitioner Family; Visit Provider Orthopaedic Surgery
DX: M17.12 Unilateral primary osteoarthritis, left knee (principal)
CPT/HCPCS: 80048; 80307; 81003; 82040; 83036; 85025; 85610; 85730; 86850; 86900; 86901; 87641

== ENCOUNTER 2023-11-30 01:59 | Day surgery (SDC) | payer MEDICARE, OTHER, SELFPAY ==
[2023-11-18 08:00] VITALS: BMI 33.6
--- NOTE | 2023-11-18 08:38 | PC.NURSE ---
Report to the Outpatient Waiting Room, entrance under the green pavilion located off [facility], at time _6 AM on date __11/30/23 . Planned Procedure Time: __7:30 AM .? Time changes happen often and if your time is changed the preop area will call you the afternoon before. - You and your visitor will be asked to self-screen and do not enter if you have any COVID symptoms. Please call surgeon if you need to reschedule. - A mask is optional within the hospital at this time. Patients may have clear liquids (water, carbonated beverages, clear teas, apple juice) until 3 hours prior to surgery( 4:30 AM with a maximum of 20 ounces. - No food from midnight until time of surgery and no smoking - Infants may have breast milk until 4 hours before surgery, infant formula 6 hours prior to surgery. - Children will be allowed to drink immediately following surgery.? If applicable, please bring a bottle or sippy cup to assist with drinking. Juice, water, soda, and popsicles are readily available.? For infants on formula, please bring formula the day of surgery.? Pacifiers are allowed. Take only the following medications with a SIP of water on the morning of surgery: AMLODIPINE,GABAPENTIN,HYDRALAZINE DO NOT STOP ANY OF YOUR OTHER PRESCRIPTION MEDICATIONS PRIOR TO SURGERY EXCEPT THE FOLLOWING Medications to discontinue per physician __CELECOXIB PER DR ALMONTE. PT STATES HOLD ALL VITAMINS 7 DAYS PRE OP PER DR FRANK. LAST DOSE11/22/23 Please no make-up, nail croatian, hairspray, perfume, deodorant, or body powder the day of surgery.? No jewelry (including any body piercings) or valuables the day of surgery, leave them at home.? Please take a shower or bath the night before, or the morning of, surgery with an antibacterial soap.? Wear comfortable, loose fitting clothing.? Children are encouraged to wear pajamas. - Jewelry must be removed prior to entering the operating room.? Rings and piercings that are not removed may be cut off. - The hospital will not accept responsibility for valuables.? - Please leave all valuables, including medications, at home the day of surgery. If you are going home after surgery, a licensed road train driver must drive you home.? - NO public transportation without another adult if you receive anesthesia. - We recommend that an adult stay with you for 24 hours following discharge. - We also recommend that you do not drive, make important decision, drink alcoholic beverages, or take any drugs that were not prescribed by your health care provider for at least 24 hours after your discharge time.. Follow any additional instructions given to you from your surgeon. VERBA AND WRITTEN instructions given to __PATIENT and asked if any additional questions and then verbalized understanding. Patient advised to call surgeon office or pre surgery nurse liaison [phone] if any additional questions.
[2023-11-18 08:56] VITALS: BP 129/62; PULSE 69; RESP 18; TEMP 36.9; O2SAT 98
--- NOTE | 2023-11-29 17:55 | WPDANESEPP ---
Anes - Eval Pre Procedure Procedure: Operation Date: 11/30/23 07:30 Proposed Procedures p Left Total Knee Arthroplasty - Torito Carbajal MD Date/Time: 11/29/23 17:55 Pre Op Diagnosis: left knee djd Patient Data Age: 78 Gender: M Height: 1.71 m Weight: 98.9 kg Last Vital Signs Temp 98.5 F 11/18/23 08:56 Pulse 69 11/18/23 08:56 Resp 18 11/18/23 08:56 BP 129/62 11/18/23 08:56 Pulse Ox 98 11/18/23 08:56 O2 Del Method Room Air 11/18/23 08:56 Allergies Allergy/AdvReac Type Severity Reaction Status Date / Time No Known Allergies Allergy Verified 11/18/23 10:05 Home Medications Medication Instructions Recorded Confirmed Type doxycycline monohydrate 50 mg 50 mg PO PRN PRN ROSACEA 05/11/21 11/18/23 History capsule metronidazole 0.75 % topical cream 1 applic topical DAILY ROSACEA 05/11/21 11/18/23 History sildenafil (pulm.hypertension) 20 100 mg PO PRN PRN Erectile 05/27/21 11/18/23 History mg tablet Dysfunction terazosin 1 mg capsule 1 mg PO HS #90 caps 06/20/23 11/18/23 Rx cyclobenzaprine 10 mg tablet 10 mg PO HS PRN muscle spasm #90 07/04/23 11/18/23 Rx tabs furosemide 20 mg tablet 20 mg PO QAM #90 tabs 07/19/23 11/18/23 Rx celecoxib 200 mg capsule 200 mg PO BID 90 days #180 caps 07/26/23 11/18/23 Rx gabapentin 600 mg tablet 600 mg PO BID #180 tabs 07/26/23 11/18/23 Rx hydralazine 50 mg tablet 50 mg PO TID #270 tabs 07/26/23 11/18/23 Rx hydroxyzine pamoate 50 mg capsule 50 mg PO .PRN PRN Anxiety 07/26/23 11/18/23 History benazepril 40 mg tablet 40 mg PO BID #180 tabs 10/21/23 11/18/23 Rx simvastatin 10 mg tablet 10 mg PO HS #90 tabs 10/21/23 11/18/23 Rx [id number] 300 mcg-K 60 1 tablet PO DAILY 10/04/24 10/04/24 History mcg-lycop 600 mcg-lutein 300 mcg tablet (Centrum Silver Men) omeprazole 20 mg capsule,delayed 20 mg PO PRN PRN Acid Reflux 11/18/23 11/18/23 History release chlorhexidine gluconate 4 % 1 applic topical ONCE #237 mL 11/23/23 Rx topical liquid (Hibiclens) amlodipine 10 mg tablet 10 mg PO DAILY #90 tabs 11/25/23 Rx Patient hx anesthesia problems: none Family hx anesthesia problems: none Results Review: All pre-operative results and documents have been reviewed as part of the pre-operative evaluation. [facility] Past Medical History Medical History (Updated 11/29/23 @ 17:58 by Hair Guzman Jr., CRNA) Cervical spinal stenosis Colon polyps DJD (degenerative joint disease) of knee Enthesopathy of foot Erectile dysfunction Essential (primary) hypertension Gastroesophageal reflux disease without esophagitis GERD (gastroesophageal reflux disease) H/O ETOH abuse Kidney lesion, [place], right Lumbar spinal stenosis Mixed hyperlipidemia Obesity Osteoporosis Pre-diabetes Rectus diastasis Spinal stenosis, unspecified region other than cervical Stiffness of joints of both hands Umbilical hernia without obstruction and without gangrene Ventral hernia without obstruction or gangrene Surgical History Surgical History History of hernia repair S/P total knee arthroplasty RIGHT KNEE 06/10/21 Status post cataract extraction Family History Family History Unknown Heart disease Cerebrovascular accident High cholesterol Arthritis Kidney disease Other Diabetes mellitus Hypertension Social History Social History Smoking status: Never smoker Second hand tobacco smoke exposure: No Additional smoking assessment comments: DENIES ANY FORM OF TOBACCO USE Alcohol intake: current Drinks per week: 21 Alcohol use details: LIGHT BEER Substance use: never Substance use type: does not use Living arrangements: with family Gender identity (if verbalized by the patient): Male Spiritual care concerns: No Exam Day of Procedure 11/29/23 17:55 Jas
[2023-11-30] VITALS (19 sets, daily range): BP systolic 100–148; BP diastolic 48–82; PULSE 65–106; RESP 14–23; TEMP 36.1–36.7; O2SAT 90–99; BMI 33.2
--- NOTE | ~2023-11-30 | XR_ITS ---
EXAMINATION: [id number] DATE: 11/30/2023 11:05 INDICATION: Postoperative evaluation following left total knee arthroplasty. TECHNIQUE: Anteroposterior and lateral views of the left knee were obtained. COMPARISON: 10/10/2023 FINDINGS: Left total total knee arthroplasty without patellar resurfacing appears well seated and in near anato javan alignment. No fractures identified. Anterior skin gaston and expected postoperative subcutaneou s, intramedullary and intra-articular gas. IMPRESSION: 1. Left total knee arthroplasty, negative for postoperative purposes. Reviewed, dictated and finalized at location A.
[2023-11-30] MEDS: LACTATED RINGERS 1,000 ML 30 ML IV CONT ×2 (06:35→10:26)
--- NOTE | 2023-11-30 06:51 | WPDANESEPPF ---
Anes - Initial Pre Proc Eval Procedure: Operation Date: 11/30/23 07:30 Proposed Procedures p Left Total Knee Arthroplasty - Torito Carbajal MD Date/Time: 11/30/23 06:51 Surgeon: Torito Carbajal MD Pre Op Diagnosis: left knee djd Patient Data Age: 78 Gender: M Height: 1.71 m Weight: 98.9 kg Last Vital Signs Temp 36.9 C 11/18/23 08:56 Pulse 69 11/18/23 08:56 Resp 18 11/18/23 08:56 BP 129/62 11/18/23 08:56 Pulse Ox 98 11/18/23 08:56 O2 Del Method Room Air 11/18/23 08:56 Allergies Allergy/AdvReac Type Severity Reaction Status Date / Time No Known Allergies Allergy Verified 11/18/23 10:05 Home Medications Medication Instructions Recorded Confirmed Type doxycycline monohydrate 50 mg 50 mg PO PRN PRN ROSACEA 05/11/21 11/18/23 History capsule metronidazole 0.75 % topical cream 1 applic topical DAILY ROSACEA 05/11/21 11/18/23 History sildenafil (pulm.hypertension) 20 100 mg PO PRN PRN Erectile 05/27/21 11/18/23 History mg tablet Dysfunction terazosin 1 mg capsule 1 mg PO HS #90 caps 06/20/23 11/18/23 Rx cyclobenzaprine 10 mg tablet 10 mg PO HS PRN muscle spasm #90 07/04/23 11/18/23 Rx tabs furosemide 20 mg tablet 20 mg PO QAM #90 tabs 07/19/23 11/18/23 Rx celecoxib 200 mg capsule 200 mg PO BID 90 days #180 caps 07/26/23 11/18/23 Rx gabapentin 600 mg tablet 600 mg PO BID #180 tabs 07/26/23 11/18/23 Rx hydralazine 50 mg tablet 50 mg PO TID #270 tabs 07/26/23 11/18/23 Rx hydroxyzine pamoate 50 mg capsule 50 mg PO .PRN PRN Anxiety 07/26/23 11/18/23 History benazepril 40 mg tablet 40 mg PO BID #180 tabs 10/21/23 11/18/23 Rx simvastatin 10 mg tablet 10 mg PO HS #90 tabs 10/21/23 11/18/23 Rx [id number] 300 mcg-K 60 1 tablet PO DAILY 11/18/23 11/18/23 History mcg-lycop 600 mcg-lutein 300 mcg tablet (Centrum Silver Men) omeprazole 20 mg capsule,delayed 20 mg PO PRN PRN Acid Reflux 11/18/23 11/18/23 History release chlorhexidine gluconate 4 % 1 applic topical ONCE #237 mL 11/23/23 Rx topical liquid (Hibiclens) amlodipine 10 mg tablet 10 mg PO DAILY #90 tabs 11/25/23 Rx Patient hx anesthesia problems: none Family hx anesthesia problems: none Results Review: All pre-operative results and documents have been reviewed as part of the pre-operative evaluation. [facility] Past Medical History Medical History Cervical spinal stenosis Colon polyps DJD (degenerative joint disease) of knee Enthesopathy of foot Erectile dysfunction Essential (primary) hypertension Gastroesophageal reflux disease without esophagitis GERD (gastroesophageal reflux disease) H/O ETOH abuse Kidney lesion, [place], right Lumbar spinal stenosis Mixed hyperlipidemia Obesity Osteoporosis Pre-diabetes Rectus diastasis Spinal stenosis, unspecified region other than cervical Stiffness of joints of both hands Umbilical hernia without obstruction and without gangrene Ventral hernia without obstruction or gangrene Surgical History Surgical History History of hernia repair S/P total knee arthroplasty RIGHT KNEE 06/10/21 Status post cataract extraction Family History Family History Unknown Heart disease Cerebrovascular accident High cholesterol Arthritis Kidney disease Other Diabetes mellitus Hypertension Social History Social History Smoking status: Never smoker Second hand tobacco smoke exposure: No Additional smoking assessment comments: DENIES ANY FORM OF TOBACCO USE Alcohol intake: current Drinks per week: 21 Alcohol use details: LIGHT BEER Substance use: never Substance use type: does not use Living arrangements: with family Gender identity (if verbalized by the patient): Male Spiritual care concerns: No Anes - Eval Final PreProc
[2023-11-30] MEDS: ACETAMINOPHEN 500 MG TABLET 1000 MG PO (07:05)
[2023-11-30] MEDS: TRANEXAMIC ACID 1,000MG/ISO100 1,000 MG/100 ML BAG 200 MG IVPB (07:05)
--- NOTE | 2023-11-30 07:17 | WPDHPUPDATE1 ---
History and Physical Update Update Date/Time: 11/30/23 07:17 History and Physical has been reviewed, including an updated exam of the patient. There are NO changes in the patient's condition. Risks, benefits, and alternatives have been discussed and questions answered. Patient agrees to proceed with procedure.
--- NOTE | 2023-11-30 07:28 | WPDANESPNB ---
Anes - Peripheral Nerve Block Date/Time: 11/30/23 07:28 I have discussed with the patient/family/POA the placement of a peripheral nerve block for post-operative pain management, including associated risks, benefits, complications, and side effects. Alternative methods of post-operative analgesia were detailed. Questions were solicited and answers provided to the satisfaction of the patient/family/POA. Time-Out: A pre-procedural Time-Out was completed immediately before starting the procedure and confirmed: Patient Identification, Site, Procedure, Patient Position and the Availability of Requisite Equipment. Clinical Indications: Acute post-operative pain management requested by the operative surgeon. Nerve Block Insertion Note Anes-nerve block: adductor canal left Patient position: supine Skin prep: chlorhexidine Needle: 22 gauge, stimulating, insulated echogenic needle. Needle length: 80 mm Technique: ultrasound Injectate: bupivacaine 0.5% with epi 5 mcg/ml (25 cc no epi) Observations: tolerated well Complications: none Procedure start time:: 721 Procedure end time:: 727
[2023-11-30] MEDS: ceFAZolin 2 GM/D5W 50 ML 2 GM/50 ML BAG IVPB ×2 (07:40→16:46)
[2023-11-30] MEDS: SODIUM CHLORIDE 0.9% IV 37.7 ML, MORPHINE SULFATE INJ (*CRX) 2 MG, ROPivacaine HCL 1% 2... INFILTRATE (08:04)
[2023-11-30] MEDS: GENTAMICIN BONE CEMENT REFOBACIN 1 EACH TOPICAL (08:55)
[2023-11-30] MEDS: TRANEXAMIC ACID 1,000 MG/10 ML AMPUL 1 MG IV PUSH (09:19)
--- NOTE | 2023-11-30 10:18 | W.PM.PROC2 ---
Procedure Note - Detailed Date of Procedure 11/30/23 Pre-op Diagnosis left knee djd Post-op Diagnosis Same Procedure Performed L TKA Surgeon Torito Carbajal MD Anesthesia General Description of Procedure THE LEFT KNEE WAS PREPPED AND DRAPED IN THE STERILE FASHION. THERE WAS A 20 DEGREE FLEXION CONTRACTURE. A MIDLINE SKIN INCISION WAS MADE. A MEDIAL PARAPATELLAR ARTHROTOMY WAS MADE. THE PATELLA WAS EVERTED. THERE WAS TRICOMPARTMENT DJD. THERE WAS MINIMAL PATELLA DJD. AN INTRAMEDULLARY LEONIDES WAS PLACED IN THE FEMUR. A DISTAL FEMORAL CUT WAS MADE IN 5 DEGREES OF VALGUS REMOVING APPROXIMATELY 11 MM OF BONE FROM THE DISTAL FEMUR. THE FEMUR WAS SIZED TO 67.5. A 67.5 FEMORAL CUTTING BLOCK WAS PLACED IN 3 DEGREES OF EXTERNAL ROTATION AND IN ALIGNMENT WITH GUERDA'S LINE AND THE TRANSEPICONDYLAR AXIS. ANTERIOR POSTERIOR AND CHAMFER CUTS WERE MADE. THE CUTS WERE EXCELLENT. NEXT AN INTRAMEDULLARY CUTTING GUIDE WAS PLACED IN THE TIBIA. A TRANS TIBIAL CUT WAS MADE ALONG THE LONG AXIS OF THE TIBIA. APPROXIMATELY 10 MM OF BONE WAS REMOVED FROM THE HIGH SIDE OF THE TIBIA. THE TIBIA WAS THEN PLANED TO A SMOOTH SURFACE. POSTERIOR FEMORAL OSTEOPHYTES WERE REMOVED FROM THE FEMORAL CONDYLES. A 75 TIBIAL TRIAL WAS PLACED IN ALIGNMENT WITH THE 1/3 MEDIAL ASPECT OF THE TIBIAL TUBERCLE. THEN A 67.5 FEMORAL TRIAL COMPONENT WAS PLACED. BOTH HAD EXCELLENT FITS. EVENTUALLY A 10 CR POLYETHYLENE TRIAL COMPONENT WAS PLACED. THE KNEE WAS TAKEN THROUGH A RANGE OF MOTION. THE KNEE CAME OUT TO FULL EXTENSION. THERE WAS NO ABNORMAL TILT TO THE PATELLA. THERE WAS GOOD A/P AND VARUS/VALGUS STABILITY. THERE WAS NO EXCESSIVE ROLL BACK WITH FLEXION. THE TRIAL COMPONENTS WERE REMOVED. THEN A 67.5 FEMORAL COMPONENT AND 75 TIBIAL COMPONENT WITH A 10 CR POLYETHYLENE COMPONENT WERE CEMENTED INTO PLACE. ONCE THE CEMENT WAS HARD THE KNEE WAS TAKEN THROUGH A ROM AGAIN AND FOUND TO BE STABLE WITH NO PATELLA TILT NO EXCESSIVE ROLL BACK WITH FLEXION AND GOOD STABILITY WITH COMPLETE AND FULL EXTENSION. THE KNEE WAS IRRIGATED WITH STERILE BETADINE AND WATER FOR ABOUT 3 MINUTES. THE BLEEDERS WERE CAUTERIZED. THE ARTHROTOMY WAS REPAIRED WITH NUMBER 1 VICRYL AND QUILL. THE SUB CUTANEOUS LAYER WITH 2-0 VICRYL AND THE SKIN WITH SUE. THE WOUND WAS WASHED AND A STERILE DRESSING WAS APPLIED. PATIENT WAS EXTUBATED. Estimated Blood Loss -150.0 Pathology None sent Complications No immediate complications Condition Stable Disposition PACU
[2023-11-30] MEDS: fentaNYL CITRATE INJ (*CRX) 100 MCG/2 ML VIAL 25 MCG IV PUSH ×4 (10:56→11:33)
--- NOTE | 2023-11-30 12:22 | SUR.PHASEI ---
Floor RN has to call back for report.
[2023-11-30] MEDS: SODIUM CHLORIDE 0.9% IV 1,000 ML 125 ML IV CONT (14:09)
--- NOTE | 2023-11-30 14:19 | ADMGEN ---
This patient, Rbuio Sampson, was admitted to 3 [facility] Surg Room 314-02 AT 1240. Patient/family oriented to hospital policies and general routines including ID bracelet, bed and alarms, visiting hours, pain management, procedures, bathroom and other care routines, personal items, smoking policy, room service/diet, and visiting hours. Information on how to activate the Rapid Response Team has been discussed. Patient/Family are encouraged to report perceived risks to care and to ask questions if they do not understand what they are told or what they should do.
[2023-11-30] MEDS: CELECOXIB 200 MG CAPSULE PO (14:46)
[2023-11-30] MEDS: SENNA/DOCUSATE SODIUM TABLET 2 TAB PO (14:46)
[2023-11-30] MEDS: FAMOTIDINE 20 MG TABLET PO ×2 (14:46→20:32)
[2023-11-30] MEDS: polyethylene glycoL 3350 17 GM POWD.PACK PO (14:47)
[2023-11-30] MEDS: ASPIRIN 325 MG ENTERIC TABLET PO ×2 (14:47→20:32)
[2023-11-30] MEDS: lisinopriL 20 MG TABLET 40 MG PO (16:45)
[2023-11-30] MEDS: GABAPENTIN 300 MG CAPSULE 600 MG PO (16:45)
[2023-11-30] MEDS: TERAZOSIN HCL 1 MG CAPSULE PO (20:32)
[2023-11-30] MEDS: SIMVASTATIN 10 MG TABLET PO (20:32)
[2023-12-01] MEDS: ceFAZolin 2 GM/D5W 50 ML 2 GM/50 ML BAG IVPB ×2 (00:45→08:03)
[2023-12-01 06:23] VITALS: BP 137/65; PULSE 90; RESP 18; TEMP 36.9; O2SAT 99
[2023-12-01 06:45] LABS: Basophils Percent Auto 0.1 % (0.2-1.2); Eosinophils Percent Auto 0.1 % (0-4.4); Hematocrit 37.5 % (42.0-52.0); Hemoglobin 13.3 g/dL (14.0-18.0); Immature Granulocyte Absolute 0.07 K/mm3 (0.00-0.031); Immature Granulocyte Percent A 0.5 % (0-0.5); Lymphocytes Absolute Auto 0.72 K/mm3 (0.9-3.2); Lymphocytes Percent Auto 5.1 % (18.3-44.2); Mean Corpuscular HGB Conc 35.5 g/dl (32-36); Mean Corpuscular Hemoglobin 33.6 pg (26-34); Mean Corpuscular Volume 94.7 fl (80-100); Mean Platelet Volume 10.1 fl (7.4-10.4); Monocytes Absolute Auto 1.7 K/mm3 (0.1-0.6); Monocytes Percent Auto 11.8 % (2.6-8.5); Neutrophils Absolute Auto 11.7 K/mm3 (1.3-6.7); Neutrophils Percent Auto 82.4 % (45.5-73.1); Platelet Count Result 177 k/mm3 (150-375); Red Blood Count 3.96 M/mm3 (4.6-6.20); Red Cell Distribution Width 12.7 % (11.5-14.5); White Blood Count 14.1 K/mm3 (4.5-10.0)
[2023-12-01 06:56] LABS: Anion Gap 6 mmol/L (4-12); Blood Urea Nitrogen 15 mg/dL (9-20); Calcium 9.1 mg/dL (8.4-10.2); Carbon Dioxide 30 mmol/L (22-30); Chloride 99 mmol/L (98-107); Estimated CRCL calculation 68 ml/min; Estimated Glomerular Filt Rate > 60; Glucose 133 mg/dL (65-110); Potassium 5.2 mmol/L (3.4-5.0); Sodium 135 mmol/L (137-145)
[2023-12-01 07:00] VITALS: O2SAT 98
[2023-12-01] MEDS: FAMOTIDINE 20 MG TABLET PO (08:03)
[2023-12-01] MEDS: SENNA/DOCUSATE SODIUM TABLET 2 TAB PO (08:03)
[2023-12-01] MEDS: CELECOXIB 200 MG CAPSULE PO (08:04)
[2023-12-01] MEDS: GABAPENTIN 300 MG CAPSULE 600 MG PO (08:04)
[2023-12-01] MEDS: ASPIRIN 325 MG ENTERIC TABLET PO (08:04)
[2023-12-01] MEDS: oxyCODONE/ACETAMINOPHEN (*CRX) 10-325 MG TABLET 1 TAB PO (08:04)
[2023-12-01] MEDS: polyethylene glycoL 3350 17 GM POWD.PACK PO (08:04)
[2023-12-01] MEDS: lisinopriL 20 MG TABLET 40 MG PO (08:11)
--- NOTE | 2023-12-01 09:33 | PM.PNORT ---
Progress Note: A&P Assessment and Plan (1) S/P total knee arthroplasty: Qualifiers: Laterality: left Qualified Code(s): Z96.652 - Presence of left artificial knee joint Code(s): Z96.659 - Presence of unspecified artificial knee joint Status: Acute Assessment and Plan: POD #1: Left TKA Continue PT/OT. WBAT. Walker. HIGH FALL RISK. Continue pain control. Ice Knee. Protect skin. DVT prophylaxis with Aspirin. SCDs. Incentive Spirometry Use reviewed. Monitor Dressing. Change prior to discharge. Bowel Regimen. Dispo: Home with Home Health pending progress with PT/OT Plan Reviewed history, exam, radiographs and current labs with attending MD and covering surgeon, Dr. Carbajal, who agrees with current plan as indicated above. No further recommendations from Dr. Carbajal at this time. Subjective Subjective Date/Time Seen: 12/01/23 09:33 Post Op day: 1 Interval history: POD #1: Left TKA Patient doing very well. Pain well controlled. Hopeful for discharge home today. Review of Systems Review of Systems: All systems reviewed & are unremarkable except as noted in HPI and below Constitutional: Constitutional: Denies fever(s) and Denies headache(s) ENT: Denies headache(s) Cardiovascular: Cardiovascular: Denies chest pain, Denies diaphoresis, Reports lightheadedness, Denies palpitations and Denies dyspnea Respiratory: Respiratory: Denies dyspnea Gastrointestinal: Gastrointestinal: Denies abdominal pain, Denies constipation, Denies nausea and Denies vomiting Genitourinary: Genitourinary: Denies dysuria and Reports nocturia Musculoskeletal: Musculoskeletal: Reports arthralgias (Left Knee ), Reports joint swelling (Left Knee ) and Reports limited range of motion (ROM limited due to recent surgical intervention LEFT Knee ) Neurologic: Denies headache(s) Endocrine: Endocrine: Denies palpitations Exam Const: General: comfortable and no acute distress Resp: Effort & Inspection: normal respiratory effort Cardio: Rate: regular rate Rhythm: regular rhythm GI: GI Palp: Yes Soft to palpation, No Tenderness to palpation present (GI) and No Guarding due to palpation present (GI) Skin: General skin exam: wounds noted (see extremity assessment ) Wounds: wounds noted (see extremity assessment ) Neuro: Cognition (Neuro): normal cognition Other: NV intact aside from block. Moves toes. Sensation intact to light touch. +ankle dorsiflexion/plantarflexion. Extrem: Left lower extremity: normal to inspection, normal capillary refill, knee Details: tenderness (diffuse ) Location: of the patella, swelling (moderate consistent to recent surgery ), abnormal ROM (limited due to recent surgery ) Details: pain with active ROM and pain with passive ROM and ecchymosis (as expected with recent surgery. NO hematoma. ), lower leg (Negative Aliyah's Sign ), ankle (+ankle dorsiflexion/plantarflexion ) Details: normal to inspection, no edema and normal ROM; no tenderness and no swelling and foot Details: normal capillary refill, toes with normal ROM, vascular exam Details: dorsalis pedis pulse present and motor-sensory exam light-touch normal; no tenderness Other: Incision left TKA dressing c/d/i. No hematoma. No signs of infection. No wound dehiscence. Psych: Mental Status: mental status grossly normal Objective Data Vital Signs Vital Signs: Vital Signs - 24 hr 11/30/23 10:26 11/30/23 10:38 11/30/23 10:41 Temperature 36.6 C Pulse Rate 68 65 Respiratory Rate 23 H 16 Blood Pressure 115/57 L 108/65 Pulse Oximetry 93 90 91 Oxygen Delivery Simple Face Mask Simple Face Mask Simple Face Mask Oxygen Flow Rate 6 10 10 11/30/23 10:56 11/30/23 11:13 11/30/23 11:25 Temperature Pulse Rate 68 71 75 Respiratory Rate 21 H 17 14 Blood Pressure 100/48 L 111/58 L 108/66 Pulse Oximetry 96 96 92 Oxygen Delivery Simple Face Mask Simple Face Mask Nasal Cannula Oxygen Flow Rate 10 10 4
--- NOTE | 2023-12-01 12:07 | PM.DS ---
DS: Admitting Diagnosis Discharge Date 12/01/2023 Admitting Diagnosis Left TKA DS: Discharge Diagnosis Discharge Diagnosis (1) S/P total knee arthroplasty: Qualifiers: Laterality: left Qualified Code(s): Z96.652 - Presence of left artificial knee joint Code(s): Z96.659 - Presence of unspecified artificial knee joint Status: Acute Assessment and Plan: POD #1: Left TKA Continue PT/OT. WBAT. Walker. HIGH FALL RISK. Continue pain control. Ice Knee. Protect skin. DVT prophylaxis with Aspirin. SCDs. Incentive Spirometry Use reviewed. Monitor Dressing. Change prior to discharge. Bowel Regimen. Dispo: Home with Home Health pending progress with PT/OT Plan Reviewed history, exam, radiographs and current labs with attending MD and covering surgeon, Dr. Carbajal, who agrees with current plan as indicated above. No further recommendations from Dr. Carbajal at this time. DS: Summary Hospital Course Reason for hospitalization: Left TKA Hospital Course: 78 year old male admitted s/p Left TKA for postoperative medical management, pain control and mobilization with PT/OT. Patient progressed well with PT/OT. Pain and vitals remained stable throughout. The patient has been cleared to be discharged home with home health at this time. All discharge care instructions reviewed at depth. New medications reviewed. Follow up planned for 3 weeks in the outpatient orthopedic clinic with Dr. Carbajal. Dr. Carbajal in agreement with safe discharge at this time. Status at Discharge Functional status at discharge: uses cane/walker Overall status at discharge: patient is progressing back to baseline Time Spent with Patient Time attestation: Total time spent providing and/or coordinating discharge services: Exam Const: General: comfortable and no acute distress Resp: Effort & Inspection: normal respiratory effort Cardio: Rate: regular rate Rhythm: regular rhythm Skin: General skin exam: wounds noted (see extremity assessment ) Wounds: wounds noted (see extremity assessment ) Neuro: Cognition (Neuro): normal cognition Other: NV intact aside from block. Moves toes. Sensation intact to light touch. +ankle dorsiflexion/plantarflexion. Extrem: Left lower extremity: normal to inspection, normal capillary refill, knee Details: tenderness (diffuse ) Location: of the patella, swelling (moderate consistent to recent surgery ), abnormal ROM (limited due to recent surgery ) Details: pain with active ROM and pain with passive ROM and ecchymosis (as expected with recent surgery. NO hematoma. ), lower leg (Negative Aliyah's Sign ), ankle (+ankle dorsiflexion/plantarflexion ) Details: normal to inspection, no edema and normal ROM; no tenderness and no swelling and foot Details: normal capillary refill, toes with normal ROM, vascular exam Details: dorsalis pedis pulse present and motor-sensory exam light-touch normal; no tenderness Other: Incision left TKA dressing c/d/i. No hematoma. No signs of infection. No wound dehiscence. Psych: Mental Status: mental status grossly normal DS: Data Data Completed and Pending Labs on day of discharge: Labs from last 24 hours 12/01/23 06:19 WBC 14.1 H RBC 3.96 L Hgb 13.3 L Hct 37.5 L MCV 94.7 MCH 33.6 MCHC 35.5 RDW 12.7 Plt Count 177 MPV 10.1 Immature Gran % (Auto) 0.5 Neut % (Auto) 82.4 H Lymph % (Auto) 5.1 L Fisher % (Auto) 11.8 H Eos % (Auto) 0.1 Baso % (Auto) 0.1 L Lymph # (Auto) 0.72 L Fisher # (Auto) 1.7 H Eos # (Auto) 0.0 Baso # (Auto) 0.0 Abs Immat Gran (auto) 0.07 H Absolute Neuts (auto) 11.7 H Absolute Nucleated RBC 0.000 Nucleated RBC % 0.0 Sodium 135 L Potassium 5.2 H Chloride 99 Carbon Dioxide 30 Anion Gap 6 BUN 15 Creatinine 0.90 Estim Creat Clear Calc 68 Estimated GFR > 60 Glucose 133 H Calcium 9.1 Discharge Plan Discharge Patient Disposition: Home Health Service Discharge Instructions: P
== END 2023-12-01 13:01 | disposition home health service (06) ==
LOC: ANHSURGERY 06:01 → ANH3MEDSUR 19:51
PROVIDERS: PCP Nurse Practitioner Family; Visit Provider Orthopaedic Surgery
PROC: (CPT 27447; principal; 2023-11-30 07:30)
DX: M17.12 Unilateral primary osteoarthritis, left knee (principal); G89.18 Other acute postprocedural pain; I10 Essential (primary) hypertension; K21.9 Gastro-esophageal reflux disease without esophagitis; E78.2 Mixed hyperlipidemia; M81.0 Age-related osteoporosis without current pathological fracture; E66.9 Obesity, unspecified; Z68.33 Body mass index [BMI] 33.0-33.9, adult
CPT/HCPCS: 27447; 64447; 36415; 73560; 80048; 85025; 97110; 97116; 97161; 97165; 97530; 97535; A9270; C1713; C1776; J0171; J0690; J1100; J1885; J2003; J2250; J2270; J2371; J2405; J2704; J2795; J3010; J3370; J7030; J7120

== ENCOUNTER 2023-12-14 11:11 | Emergency (ER) | payer MEDICARE, OTHER, SELFPAY ==
--- NOTE | ~2023-12-14 | XR_ITS ---
XR chest 2V Ordering provider: Beau Bryant III, DO History: 78 years Male with . fever, POSSIBLE POST OP INFECTION . Comparison: None. FINDINGS: MEDIASTINUM: The cardiac silhouette is not enlarged. LUNGS: No infiltrates, effusions or pneumothorax. Prominent markings are seen bilaterally. OTHER: No free air under the diaphragm. Degenerative changes of the spine. Multilevel compression fra ctures most likely chronic are noted. IMPRESSION: No acute cardiopulmonary pathology. Reviewed, dictated and finalized at location A.
--- NOTE | ~2023-12-14 | CT_ITS ---
CT brain wo con Ordering provider: Beau Bryant III DO History: 78 years Male with . altered mental state . Comparison: None. Technique: CT of the head without contrast. Radiation reduction technique utilized.The dose-length product was 605.33 mGy-cm. FINDINGS: BRAIN PARENCHYMA AND CSF SPACES: Mild leukoaraiosis and diffuse cortical atrophy. Mild atheromatous d isease. Mild ventricular dilatation. No midline shift, mass effect or hemorrhage. The brain parenchy ma and CSF spaces are otherwise normal. VISUALIZED PARANASAL SINUSES: Well aerated. MASTOIDS: Well aerated. BONES: The bones appear intact. SOFT TISSUES: Visualized nasopharynx is normal. Superficial soft tissues are normal. IMPRESSION: No acute intracranial findings. Reviewed, dictated and finalized at location A.
--- NOTE | ~2023-12-14 | CT_ITS ---
EXAMINATION: CTA chest PE protocol DATE: 12/14/2023 13:56 INDICATION: Fever TECHNIQUE: Computed tomography (CT) pulmonary angiogram of the chest was performed with 100 mL Omnipa que-350 intravenous contrast. Additional 3D reconstructions utilizing coronal maximum intensity proje ction (MIP) were performed. The mA was adjusted according to patient size. Iterative reconstruction t echnique was employed. The dose-length product was 749.28 mGy-cm. COMPARISON: None FINDINGS: No pulmonary embolism. Mild atelectasis in the lower lungs. No pneumonia, pulmonary edema or pleural effusion. Cardiomegaly. Atherosclerotic coronary artery calcific location. No pericardial effusion. T horacic aorta is normal in caliber with no dissection. No pathologically enlarged thoracic lymphadeno pascual. Visualized upper abdomen is unremarkable. Mild thoracic spondylosis with bridging osteophytes at multiple levels consistent with diffuse idiopathic skeletal hyperostosis (DISH). IMPRESSION: 1. No pulmonary or some other acute cardiopulmonary disease. 2. Cardiomegaly. Reviewed, dictated and finalized at location A.
[2023-12-14 11:51] VITALS: BP 110/63; PULSE 99; RESP 16; TEMP 36.7; O2SAT 93
[2023-12-14 11:55] LABS: Hematocrit 30.4 % (42.0-52.0); Hemoglobin 10.5 g/dL (14.0-18.0); Mean Corpuscular HGB Conc 34.5 g/dl (32-36); Mean Corpuscular Hemoglobin 31.7 pg (26-34); Mean Corpuscular Volume 91.8 fl (80-100); Mean Platelet Volume 9.7 fl (7.4-10.4); Platelet Count Result 281 k/mm3 (150-375); Red Blood Count 3.31 M/mm3 (4.6-6.20); Red Cell Distribution Width 12.5 % (11.5-14.5); White Blood Count 12.1 K/mm3 (4.5-10.0)
[2023-12-14 12:06] LABS: INR 1.1; Prothrombin Time 14.4 Seconds (11.1-14.7)
[2023-12-14 12:08] LABS: Partial Thromboplastin Time 29.8 Seconds (22.3-36.8)
[2023-12-14 12:21] LABS: Alanine Aminotransferase 31 U/L (6-50); Albumin Level 3.9 g/dL (3.5-5.1); Alkaline Phosphatase 100 U/L (38-126); Anion Gap 11 mmol/L (4-12); Aspartate Amino Transferase 28 U/L (17-59); Blood Urea Nitrogen 23 mg/dL (9-20); Calcium 8.8 mg/dL (8.4-10.2); Carbon Dioxide 23 mmol/L (22-30); Chloride 100 mmol/L (98-107); Estimated CRCL calculation 70 ml/min; Estimated Glomerular Filt Rate > 60; Glucose 177 mg/dL (65-110); Potassium 4.2 mmol/L (3.4-5.0); Sodium 134 mmol/L (137-145)
[2023-12-14 12:24] LABS: Add Urine Microscopic? YES; Appearance Urine Cloudy (Clear); Bacteria Urine None Seen /hpf; Bilirubin Urine 1+ (Negative); Blood Urine Negative (Negative); Color Urine Dark Yellow (Yellow); Glucose Urine UA Negative (Negative); Ketones Urine Trace mg/dL (Negative); Leukocyte Esterase Ur Negative LEU/UL (Negative); Mucus Urine Present /lpf; Need Manual Microscopic Reviewed; Nitrate Urine Negative (Negative); Protein Urine 1+ mg/dL (Negative); Specific Grav Ur 1.036 (1.001-1.035); Squamous Epithelial Cell Urine None Seen /hpf (Few); WBC Urine 0-5 /hpf (0-3); pH Urine 5.5 (5.0-9.0)
[2023-12-14 12:27] LABS: CRP 13.4 mg/dL (<1.0)
[2023-12-14 12:33] LABS: Lactic Acid Reflex 1.6 mmol/L (0.7-2.0)
[2023-12-14 12:46] LABS: Total Cells Counted 100
[2023-12-14 12:47] LABS: Band Neutrophils Percent 8 % (0-6); Eosinophils Absolute Manual 0.12 K/mm3 (0.02-0.50); Eosinophils Percent Manual 1 % (0-4); Lymphocytes Absolute Manual 0.24 K/mm3 (1.1-4.5); Lymphocytes Percent Manual 2 % (18-44); Monocytes Absolute Manual 0.72 K/mm3 (0.1-0.90); Monocytes Percent Manual 6 % (3-9); Neutrophils Absolute Manual 11.01 K/mm3 (1.3-6.7); Neutrophils Percent Manual 83 % (46-73)
[2023-12-14 12:48] LABS: Platelet Estimate Adequate (Adequate); Schistocytes None Seen
--- NOTE | 2023-12-14 12:58 | ED.LOWEXIN ---
HPI - Extremity Injury (Lower) General Chief Complaint: Extremity Injury, Lower Stated Complaint: KNEE COMPLICATIONS - 2 WEEKS POST OP. Time Seen by Provider: 12/14/23 12:06 History of Present Illness HPI Narrative: Pt presents with fever and altered mental status this morning. Pt had knee replacement a week ago and was doing well. Pt denies cough, urinary symptoms or uri symptoms. Pt has some tooth pain a couple of days ago but now has no dental pain. Related Data Home Medications Medication Instructions Recorded Confirmed doxycycline monohydrate 50 mg 50 mg PO PRN PRN ROSACEA 05/11/21 11/18/23 capsule metronidazole 0.75 % topical cream 1 applic topical DAILY ROSACEA 05/11/21 11/18/23 sildenafil (pulm.hypertension) 20 100 mg PO PRN PRN Erectile 05/27/21 11/18/23 mg tablet Dysfunction hydroxyzine pamoate 50 mg capsule 50 mg PO .PRN PRN Anxiety 07/26/23 11/18/23 ncfyopzd-pl-cacuj 300 mcg-K 60 1 tablet PO DAILY 11/18/23 11/30/23 mcg-lycop 600 mcg-lutein 300 mcg tablet (Centrum Silver Men) omeprazole 20 mg capsule,delayed 20 mg PO PRN PRN Acid Reflux 11/18/23 11/18/23 release Allergies Allergy/AdvReac Type Severity Reaction Status Date / Time No Known Allergies Allergy Verified 12/14/23 12:05 Review of Systems Review of Systems: All systems reviewed & are unremarkable except as noted in HPI and below PMFSH Past Medical History Medical History (Updated 12/14/23 @ 16:17 by Beau Bryant III, DO) Cervical spinal stenosis Colon polyps DJD (degenerative joint disease) of knee Enthesopathy of foot Erectile dysfunction Essential (primary) hypertension Gastroesophageal reflux disease without esophagitis GERD (gastroesophageal reflux disease) H/O ETOH abuse Kidney lesion, little traverse, right Lumbar spinal stenosis Mixed hyperlipidemia Obesity Osteoporosis Pre-diabetes Rectus diastasis Spinal stenosis, unspecified region other than cervical Stiffness of joints of both hands Umbilical hernia without obstruction and without gangrene Ventral hernia without obstruction or gangrene Surgical History Surgical History (Updated 12/02/23 @ 14:26 by Sherlyn Schuler MA) History of hernia repair S/P total knee arthroplasty RIGHT KNEE 06/10/21 S/P total knee arthroplasty LEFT TKA 11/30/23 Status post cataract extraction Family History Family History Unknown Heart disease Cerebrovascular accident High cholesterol Arthritis Kidney disease Other Diabetes mellitus Hypertension Social History Social History Smoking status: Never smoker Second hand tobacco smoke exposure: No Additional smoking assessment comments: DENIES ANY FORM OF TOBACCO USE Alcohol intake: current Drinks per week: 21 Alcohol use details: LIGHT BEER Substance use: never Substance use type: does not use Do You Feel Safe in your Home?: Yes Lack of Transportation: No Lack of Food: Never True Current Housing: I Have Housing Concerned About Future Housing: No Difficulty Paying Gas/Electric Bills: No Difficulty Paying for Meds: No Currently Unemployed: No Education: Master's Degree or Higher Difficulty w/ Childcare or Family Care: No Living arrangements: with family Gender identity (if verbalized by the patient): Male Spiritual care concerns: No Exam Const: General: healthy appearing and no acute distress Nutritional Appearance: well nourished Orientation/consciousness: patient oriented x3 Limitations: no limitations HENMT: Mouth: Yes Normal oral and palatal mucosa present and Yes moist mucous membranes Teeth and gingiva: dentition normal Eyes: Pupils: Equal, round and reactive pupils present EOM: EOMs intact bilaterally Resp: Effort & Inspection: normal respiratory effort Auscultation: clear to auscultation bilaterally Cardio: Rate: regular rate Rhythm: regular rhythm GI: GI Palp: Yes Soft to palpation and No Tenderness to palpation present (GI) Skin: General skin exam: normal color Rashes: no rashes Wounds: no wounds Neuro: General: patient oriented x3, moves all extremities, no meningeal signs, no focal motor deficits and CN's II-XI intact bilaterally Speech: normal speech Extrem: General: no clubbing, cyanosis or edema Other: wound looks good no erythema or drainage Psych: Mental Status: mental status grossly normal Affect: normal affect Attitude: cooperative Course Vital Signs Vital signs: Vital Signs Temperature 98.1 F 12/14/23 11:51 Pulse Rate 99 12/14/23 11:51 Respiratory Rate 16 12/14/23 11:51 Blood Pressure 110/63 12/14/23 11:51 Pulse Oximetry 93 12/14/23 11:51 Temperature 98.1 F 12/14/23 11:51 Pulse Rate 99 12/14/23 11:51 Respiratory Rate 16 12/14/23 11:51 Blood Pressure 110/63 12/14/23 11:51 Pulse Oximetry 93 12/14/23 11:51 MDM - Extremity Injury (Lower) MDM Narrative Medical decision making narrative: P a week out from total knee replacement with fever and confusion. confusion is resolved. no obvious other symptoms for fever. will get labs and cultures and us and cxr and call ortho. wbc 12k but down from last draw, cmp normal, cxr and ua unremarkable got head ct and cta chest whichwere also neg. discussed with Dr Leos said does not beleiev it is his knee. Pt afebrile here. beleive mental status may be related to oxycodone so will try hydrocodone instead. If spikes further fevers or has further menal status changes needs to be rechecked. Lab Data 12/14/23 11:44 12/14/23 11:44 Labs: Lab Results 12/14/23 12/14/23 12/14/23 Range/Units 11:44 12:07 12:18 WBC 12.1 H (4.5-10.0) K/mm3 RBC 3.31 L (4.6-6.20) M/mm3 Hgb 10.5 L (14.0-18.0) g/dL Hct 30.4 L (42.0-52.0) % MCV 91.8 (80-100) fl MCH 31.7 (26-34) pg MCHC 34.5 (32-36) g/dl RDW 12.5 (11.5-14.5) % Plt Count 281 D (150-375) k/mm3 MPV 9.7 (7.4-10.4) fl Immature Gran % (Auto) Not Reportable Neut % (Auto) Not Reportable Lymph % (Auto) Not Reportable [place] % (Auto) Not Reportable Eos % (Auto) Not Reportable Baso % (Auto) Not Reportable Lymph # (Auto) Not Reportable [place] # (Auto) Not Reportable Eos # (Auto) Not Reportable Baso # (Auto) Not Reportable Abs Immat Gran (auto) Not Reportable Absolute Neuts (auto) Not Reportable Absolute Nucleated RBC Not Reportable Total Counted 100 Neutrophils % (Manual) 83 H (46-73) % Band Neutrophils % 8 H (0-6) % Lymphocytes % (Manual) 2 L (18-44) % Monocytes % (Manual) 6 (3-9) % Eosinophils % (Manual) 1 (0-4) % Nucleated RBC % Not Reportable Abs Neuts (Manual) 11.01 H (1.3-6.7) K/mm3 Abs Lymphs (Manual) 0.24 L (1.1-4.5) K/mm3 Abs Monocytes (Manual) 0.72 (0.1-0.90) K/mm3 Absolute Eos (Manual) 0.12 (0.02-0.50) K/mm3 Platelet Estimate Adequate (Adequate) Schistocytes None seen PT 14.4 (11.1-14.7) Seconds INR 1.1 APTT 29.8 (22.3-36.8) Seconds Sodium 134 L (137-145) mmol/L Potassium 4.2 (3.4-5.0) mmol/L Chloride 100 (98-107) mmol/L Carbon Dioxide 23 (22-30) mmol/L Anion Gap 11 (4-12) mmol/L BUN 23 H (9-20) mg/dL Creatinine 0.90 (0.7-1.3) mg/dL Estim Creat Clear Calc 70 ml/min Estimated GFR > 60 (59 - ) Glucose 177 H (65-110) mg/dL Lactic Acid 1.6 (0.7-2.0) mmol/L Calcium 8.8 (8.4-10.2) mg/dL Total Bilirubin 1.0 (0.2-1.3) mg/dL AST 28 (17-59) U/L ALT 31 (6-50) U/L Alkaline Phosphatase 100 (38-126) U/L C-Reactive Protein 13.4 H (<1.0) mg/dL Total Protein 7.0 (6.3-8.2) g/dL Albumin 3.9 (3.5-5.1) g/dL Urine Color Dark yellow (Yellow) Urine Appearance Cloudy H (Clear) Urine pH 5.5 (5.0-9.0) Ur Specific [place] 1.036 H (1.001-1.035) Urine Protein 1+ H (Negative) mg/dL Urine Glucose (UA) Negative (Negative) mg/dL Urine Ketones Trace H (Negative) mg/dL Ur Blood (Man) Negative (Negative) Urine Nitrate Negative (Negative) Urine Bilirubin 1+ H (Negative) Urine Urobilinogen 1.0 (<2.0) mg/dL Add Ur Microanalysis Reviewed Leukocyte Esterase Rfl Negative (Negative) DAMIAN/UL Urine RBC 3-5 H (0-2) /hpf Urine WBC 0-5 (0-3) /hpf Ur Squamous Epith Cells None seen (Few) /hpf Urine Bacteria None seen /hpf Urine Casts 3-5 Urine Mucus Present /lpf Discharge Plan Discharge Clinical Impression: Fever, Altered mental status Patient Disposition: Home, Self-Care Condition: Stable Instructions: Antibiotic Form Prescriptions: New hydrocodone-acetaminophen 5-325 mg tablet 1 tablet PO Q8H PRN (Reason: pain) Qty: 14 0RF No Action hydroxyzine pamoate 50 mg capsule 50 mg PO .PRN PRN (Reason: Anxiety) celecoxib 200 mg capsule 200 mg PO BID 90 Days Qty: 180 1RF gabapentin 600 mg tablet 600 mg PO BID Qty: 180 1RF Rx Instructions: 600 mg orally twice a day; hydralazine 50 mg tablet 50 mg PO TID Qty: 270 1RF doxycycline monohydrate 50 mg capsule 50 mg PO PRN PRN (Reason: ROSACEA) metronidazole 0.75 % cream 1 applic topical DAILY sildenafil (pulm.hypertension) 20 mg tablet 100 mg PO PRN PRN (Reason: Erectile Dysfunction) Rx Instructions: TAKE 5 TABLETS BY ORAL ROUTE ABOUT 1 HOUR BEFORE SEXUAL ACTIVITY. omeprazole 20 mg capsule,delayed release(DR/EC) 20 mg PO PRN PRN (Reason: Acid Reflux) Centrum Silver Men [phone] mcg Tablet 1 tablet PO DAILY aspirin 325 mg Tablet,Delayed Release (Dr/Ec) 325 mg PO Q12HR 28 Days Qty: 56 0RF terazosin 1 mg capsule 1 mg PO HS Qty: 90 1RF cyclobenzaprine 10 mg tablet 10 mg PO HS PRN (Reason: muscle spasm) Qty: 90 1RF furosemide 20 mg tablet 20 mg PO QAM Qty: 90 1RF Rx Instructions: TAKE 1 TABLET BY MOUTH IN THE MORNING benazepril 40 mg tablet 40 mg PO BID Qty: 180 1RF simvastatin 10 mg tablet 10 mg PO HS Qty: 90 1RF Rx Instructions: Take 1 tablet by mouth once daily amlodipine 10 mg tablet 10 mg PO DAILY Qty: 90 1RF oxycodone-acetaminophen 5-325 mg tablet 1 - 2 tablet PO Q8H PRN (Reason: pain) Qty: 40 0RF Follow-up/Referrals: Samia Razo APRN [Primary Care Provider] -
--- NOTE | 2023-12-14 15:50 | PC.NURSE ---
28 gaston removed. Wound is well approximated. No drainage.
== END 2023-12-14 16:11 | disposition home or self-care (01) ==
PROVIDERS: Registered Nurse; Emergency Provider Emergency Medicine; PCP Nurse Practitioner Family
DX: R41.82 Altered mental status, unspecified (principal); R50.9 Fever, unspecified; I10 Essential (primary) hypertension; E78.2 Mixed hyperlipidemia; E66.9 Obesity, unspecified; Z68.37 Body mass index [BMI] 37.0-37.9, adult; M81.0 Age-related osteoporosis without current pathological fracture; K21.9 Gastro-esophageal reflux disease without esophagitis; R73.03 Prediabetes; Z96.653 Presence of artificial knee joint, bilateral; Z86.0100 Personal history of colon polyps, unspecified; Z98.49 Cataract extraction status, unspecified eye; Z79.82 Long term (current) use of aspirin; Z79.899 Other long term (current) drug therapy; I51.7 Cardiomegaly
CPT/HCPCS: 36415; 70450; 71046; 71275; 80053; 81001; 83605; 85025; 85610; 85730; 86140; 87040; 99284; Q9967

== ENCOUNTER 2024-01-23 11:06 | Outpatient (CLI) | payer MEDICARE, OTHER, SELFPAY ==
[2024-01-23 12:02] LABS: Basophils Absolute Auto 0.1 K/mm3 (0.0-0.1); Eosinophils Absolute Auto 0.2 K/mm3 (0-0.3); Eosinophils Percent Auto 3.2 % (0-4.4); Hematocrit 38.4 % (42.0-52.0); Hemoglobin 13.1 g/dL (14.0-18.0); Immature Granulocyte Absolute 0.02 K/mm3 (0.00-0.031); Immature Granulocyte Percent A 0.3 % (0-0.5); Lymphocytes Absolute Auto 0.93 K/mm3 (0.9-3.2); Lymphocytes Percent Auto 15.5 % (18.3-44.2); Mean Corpuscular HGB Conc 34.1 g/dl (32-36); Mean Corpuscular Hemoglobin 31.1 pg (26-34); Mean Corpuscular Volume 91.2 fl (80-100); Mean Platelet Volume 9.6 fl (7.4-10.4); Monocytes Absolute Auto 0.7 K/mm3 (0.1-0.6); Monocytes Percent Auto 11.2 % (2.6-8.5); Neutrophils Absolute Auto 4.1 K/mm3 (1.3-6.7); Neutrophils Percent Auto 68.8 % (45.5-73.1); Platelet Count Result 229 k/mm3 (150-375); Red Blood Count 4.21 M/mm3 (4.6-6.20); Red Cell Distribution Width 14.2 % (11.5-14.5)
[2024-01-23 12:14] LABS: Alanine Aminotransferase 20 U/L (6-50); Albumin Level 4.5 g/dL (3.5-5.1); Alkaline Phosphatase 80 U/L (38-126); Anion Gap 9 mmol/L (4-12); Aspartate Amino Transferase 26 U/L (17-59); Blood Urea Nitrogen 12 mg/dL (9-20); Calcium 9.3 mg/dL (8.4-10.2); Carbon Dioxide 24 mmol/L (22-30); Chloride 96 mmol/L (98-107); Cholesterol 114 mg/dL (0-200); Estimated Glomerular Filt Rate > 60; Glucose 90 mg/dL (65-110); HDL Direct 52 mg/dL; Potassium 4.3 mmol/L (3.4-5.0); Sodium 129 mmol/L (137-145); Triglycerides 61 mg/dL (<150)
[2024-01-23 12:25] LABS: LDL Cholesterol Direct 42 mg/dL
[2024-01-23 12:41] LABS: Hemoglobin A1C 5.5 % (<5.7)
== END 2024-01-23 11:07 | disposition home or self-care (01) ==
PROVIDERS: PCP Nurse Practitioner Family; Visit Provider Nurse Practitioner Family
DX: E78.2 Mixed hyperlipidemia (principal); I10 Essential (primary) hypertension; R73.03 Prediabetes; E66.9 Obesity, unspecified; M48.061 Spinal stenosis, lumbar region without neurogenic claudication
CPT/HCPCS: 36415; 80053; 80061; 83036; 85025

== ENCOUNTER 2024-06-21 11:27 | Outpatient (CLI) | payer MEDICARE, OTHER, SELFPAY ==
--- NOTE | ~2024-06-21 | US_ITS ---
EXAMINATION: US carotid duplex BI DATE: 06/21/2024 12:11 INDICATION: Dizziness and giddiness TECHNIQUE: Grayscale, color Doppler, and pulsed Doppler images of the cervical carotid arteries were obtained. The degree of vessel stenosis is placed in one of the following categories: normal, <50%, 5 0-69%, >=70% but less than near-occlusion, near-occlusion, or total occlusion. Note that percent sten osis relative to normal distal artery lumen diameter is indirectly measured from velocity measurement s as described by Cruz, et al. Radiology 2003; 229:340-346. COMPARISON: None. FINDINGS: RIGHT: The right common carotid artery (CCA) peak systolic velocity (PSV) is 54 cm/s. The right internal car otid artery (ICA) PSV is 118 cm/s. The right ICA end-diastolic velocity (EDV) is 24 cm/s. The right I CA/CCA PSV ratio is 2.2. Grayscale and color Doppler images yield an estimate of <50% diameter reduct ion from plaque in the ICA. The external carotid artery (ECA) PSV is 89 cm/s. There is antegrade flow in the right vertebral artery. LEFT: The left CCA PSV is 75 cm/s. The left ICA PSV is 73 cm/s. The left ICA EDV is 17 cm/s. The left ICA/C CA PSV ratio is 1.0. Grayscale and color Doppler images yield an estimate of <50% diameter reduction from plaque in the ICA. The ECA PSV is 55 cm/s. There is antegrade flow in the left vertebral artery. IMPRESSION: 1. <50% stenosis in the right internal carotid artery. 2. <50% stenosis in the left internal carotid artery. Reviewed, dictated and finalized at location A.
--- OUTSIDE RECORDS SUMMARY | 2024-06-21 11:35 | XMS_ITS | Clinical Summary ---
Author Organization [facility] Address [address] [place] [address] Care Team Providers Care Bilingual Manager Name Role Phone Jarvis Jimenez DO Primary Care Provider [phone] Allergies No known active allergies Medications benazepril 20 MG tablet Take 40 mg by mouth 2 (two) times a day. Active cyclobenzaprine 10 MG tablet Take 10 mg by mouth 3 (three) times daily as needed for Muscle Spasms. Active gabapentin 600 MG tablet Take 600 mg by mouth 4 (four) times daily. Active hydroCHLOROthia zide 12.5 MG capsule Take 12.5 mg by mouth every morning. Active amLODIPine 5 MG tablet Take 5 mg by mouth 2 (two) times a day. Active omeprazole 40 MG capsule Take 40 mg by mouth as needed. Active terazosin 1 MG capsule Take 1 mg by mouth nightly at bedtime. Active sildenafil 20 MG tablet Take 20 mg by mouth as needed. Active hydrALAZINE 25 MG tablet Take 25 mg by mouth 2 (two) times daily. Active simvastatin 10 MG tablet Take 10 mg by mouth nightly at bedtime. Active furosemide 20 MG tablet Take 20 mg by mouth daily. Active Active Problems No known active problems Encounters Date Type Department Care Team Description 06/20/2024 11:00 AM CDT Hospital Encounter [facility] [address] [place] [address] Samia Razo NP McClenahan, Krystal M, PT Arrived 06/20/2024 Travel from Last 3 Months Immunizations Immunization Administration Dates Next Due Dtap 01/14/2011 Fluzone High Dose - >Age 65 (Prefilled Syringe) 11/08/2021,11/04/2020,11/27/2018,2017,10/24/2016,10/23/2015 Influenza (Generic) 11/14/2013, 3,12/01/2010,2009,11/12/2008,12/05/2007,12/06/2006,1 ,12/01/2004,12/17/2002 Influenza Adult (Generic) 11/19/2019,,11/21/2017,2016,10/23/2015 PFIZER COVID-19 (ORIGINAL FORMULATION, PURPLE CAP) mRNA, LNP-S, PF, 30 MCG/0.3 ML DOSE 04/06/2020,03/11/2020 Pneumococcal (Generic) 11/14/2010 Pneumococcal (Prevnar 13) 10/23/2015 Pneumococcal Vaccine 11/14/2010 Social History Tobacco Use Types Packs/Day Years Used Date Smoking Tobacco: Never Smokeless Tobacco: Never Tobacco Cessation:Counseling Given: No PHQ-2 Answer Date Recorded Patient Health Questionnaire-2 Score 0 01/29/2022 Sex and Gender Information Value Date Recorded Sex Assigned at Not on file Legal Sex Male 7:05 PM CDT Gender Identity Not on file Sexual Orientation Not on file Last Filed Vital Signs Vital Sign Reading Time Taken Comments Blood Pressure 150/78 10/13/2022 11:36 AM CDT Pulse 64 02/04/2022 1:34 PM BUGGY LOADER Temperature 36.4 C (97.5 F) 02/04/2022 1:34 PM BUGGY LOADER Respiratory Rate 16 02/04/2022 1:34 PM BUGGY LOADER Oxygen Saturation 98% 02/04/2022 1:34 PM BUGGY LOADER Inhaled Oxygen Concentration - - Weight 100.2 kg (221 lb) 02/04/2022 1:34 PM BUGGY LOADER Height 175.3 cm (5' 9 ) 02/04/2022 1:34 PM BUGGY LOADER Body Mass Index 32.64 02/04/2022 1:34 PM BUGGY LOADER Plan of Treatment Upcoming Encounters Date Type Department Care Team (Late st Contact Info) Description 06/22/2024 9:00 AM CDT Appointment [facility] [address] [place] [address] [address] [place], [place] [id number] Samia Razo, BRISA [address] [place] [address] [place] [address] [place] [address] 06/25/2024 9:00 AM CDT Appointment [address] [place] [address] Samia Razo, BRISA [address] [place] [address] Trini Hoyt, GROUNDS CLEANER 06/27/2024 9:00 AM CDT Appointment [address] [place] [address] Samia Razo NP [address] [place] [address] Sarah Padilla, GROUNDS CLEANER 06/29/2024 9:00 AM CDT Appointment [address] [place] [address] Samia Razo, BRISA [address] [place] [address] [place] [address] [place] [address] 07/02/2024 9:00 AM CDT Appointment [address] [place] [address] Samia Razo, COMMERCIAL ENGINEER [address] [place] [address] [place] [address] [place] [address] 07/04/2024 9:00 AM CDT Appointment [facility] [address] [facility] [place] [address] Samia Razo, COMMERCIAL ENGINEER [address] [place] [address] Sammi Lewis, PT [address] [place] [address] 07/06/2024 9:00 AM CDT Appointment [facility] [address] [facility] [place] [address] Samia Razo, COMMERCIAL ENGINEER [address] [place] [address] [place] [address] [place] [address] 07/11/2024 9:30 AM CDT Appointment [facility] [address] [facility] [place] [address] Samia Razo, COMMERCIAL ENGINEER [address] [place] [address] [place] [address] [place] [address] 07/12/2024 9:00 AM CDT Appointment [address] [place] [address] Samia Razo, COMMERCIAL ENGINEER [address] [place] [address] [place] [address] [place] [address] Health Maintenance Due Date Last Done Comments Hepatitis C 1963 Zoster Vaccines (1 of 2) 1996 Annual Medicare Wellness Visit 11/12/2011 Pneumococcal Vaccine: 50+ Years (2 of 2 - PPSV23) 10/22/2016 10/23/2015 DTaP, Tdap and Td Vaccines (2 - Tdap) 01/14/2021 01/14/2011 RSV Immunization or 60+ Years (1 - 1-dose 75+ series) 2021 COVID-19 Vaccine ( - season) 2023 11/08/2021, 05/13/2021, 11/10/2020, Additional history exists PHQ-2 (Physician [place]) 02/15/2024 Colorectal Cancer Screening Colonoscopy (10 Years) Discontinued 09/16/2020 Meningococcal B Vaccine Aged Out No l onger eligible based on patient's age to complete this topic Meningococcal Vaccine Aged Out No valery leah eligible based on patient's age to complete this topic RSV Immunizations Under 20 Months Aged Out No longer eligible based on patient's age to complete this topic Procedures Procedure Name Priority Date/Time Associated Diagnosis Comments COLONOSCOPY GENERIC (SCAN ORDER) 09/16/2020 from Last 3 Months or Most Recently Relevant to Health Maintenance Results * COLONOSCOPY GENERIC (09/16/2020) 09/16/2020 Narrative 09/16/2020 Ordered by an unspecified provider. us Documents Scanned SCANNING Final Result from Last 3 Months or Most Recently Relevant to Health Maintenance Insurance MEDICARE [employer] [address] Advance Directives Documents on File Type Date Recorded Patient Expert Witness Expl anation Advance Directives and Living Will 09/16/2020 12:00 AM ADVANCED DIRECTIVES Advance Directives and Living Will 05/26/2015 12:00 AM ADVANCED DIRECTIVES Care Teams Bilingual Manager Relationship Specialty Start Date End Date Jarvis Jimenez DO [address] [facility] [address] PCP - General INTERNAL MEDICINE 11/07/19
--- OUTSIDE RECORDS SUMMARY | 2024-06-21 11:35 | XMS_ITS | Encounter Summary ---
Author Organization [facility] Address [address] [place] [id number] Care Team Providers Care Grant Specialist Name Role Phone Tony Jarvis Maegan HUANG Primary Care Provider [phone] Reason for Visit * Physical Therapy (Routine) - Authorized Specialty Diagnoses / Procedures Referred By Contac t Referred To Contact PHYSICAL THERAPY / [facility] Physical Therapy Diagnoses Spinal stenosis, cervical region Spinal stenosis, lumbar region without neurogenic claudication Procedures Samia Galarza, ARCHITECTURAL DRAFTER [address] [place] [address] Phone: tel: [place]: [place] [address] [place] [address] Phone: tel: fax: Referral ID Status Reason Start Date Expiration Date Visits Requested Visits Authorized [id number] Authorized Physical Therapy 06/20/2024 99 99 Encounter Details Date Type Department Care Team (Late st Contact Info) Description 06/20/2024 11:00 AM CDT Hospital Encounter [facility] Therapy [address] [facility] [place] [address] Samia Razo, ARCHITECTURAL DRAFTER [address] [place] [address] [place] [address] [place], [place] [id number] Arrived Social History Tobacco Use Types Packs/Day Years Used Date Smoking Tobacco: Never Smokeless Tobacco: Never PHQ-2 Answer Date Recorded Patient Health Questionnaire-2 Score 0 01/29/2022 Sex and Gender Information Value Date Recorded Sex Assigned at Not on file Legal Sex Male 7:05 PM CDT Gender Identity Not on file Sexual Orientation Not on file documented as of this encounter Progress Notes * Sarah Ayala, PT - 06/20/2024 11:00 AM CDT Physical Therapy Back Initial Evaluation Name: Rubio Sampson : 1945 Certification Period: 06/20/24-08/18/24 Evaluation Date: 06/20/24 Visit Diagnosis: Cervical and lumbar stenosis Referring Physician: Samia Razo NP Current Therapy Orders: Eval and treat Date of Injury/Onset: May 21, 2024 SUBJECTIVE 06/20/24: Ed comes to therapy with complaints of hand and foot numbness due to his cervical and lumbar stenosis. He reports having numbness in his R 1, 2, 3 digits during the day, with pain and numbness at night. He has a faint numbness in his L fingers with the 3rd digit being the worse. He does nottypically dropping objects, but struggles picking up small objects. He struggles with buttoning his shirt. He reports having a hard time opening jars and bottles. He has his open them for him. He reports having numbness in all the toes during the day and pain and numbness in all his toes at night. The symptoms in his fingers and toes prevent him from sleeping at night. He states that all the symptoms started on May 21 in both his fingers and toes. He states he started doing more yard work and lifting. He reports the only medication change was in March to adjusthis BP medication. He denies balance and tripping. He walks about 3 miles per day, but does have totake occasional rest breaks to flex his lumbar spine to relieve pain and pressure. His toe and finger symptoms have progressively been getting worse since they started. He reports slight balance issues in the morning that go away throughout the day. Mechanism of Injury: insidious Current Pain Level: 5/10 Lowest Pain Level: 5/10 Highest Pain Level: 10/10 at night Activities that Increase Pain: nothing that he can think of Activities that Decrease Pain: muscle cream; Ibuprofen every night the past few weeks Medication Reviewed: Yes Diagnostics: MRI that reveals stenosis Patient Stated goals for Therapy: To no longer have pain and numbness in his fingers and toes. OBJECTIVE Posture: increased thoracic kyphosis, slight increased lumbar lordosis, forward head, rounded shoulders Gait: lack of foot clearance with foot drag. Decreased step length. Slow tamar. Wide TIFFANIE CERVICAL AROM 06/20/24 Flexion (0-45??) 50 Extension (0-45??) 38?? Left side bending (0-45??) 34?? Right side bending (0-45??) 36?? Left rotation (0-80??) 56?? Right rotation (0-80??) 52?? LUMBAR ROM Evaluation 06/20/24 Flexion 105 Extension 5 SHOULDER STRENGTH 06/20/24 06/20/24 Flexion / 5/ Abduction / 5/5 Internal rotation / 5/5 External rotation / 5/5 LUMBAR STRENGTH LEVEL Evaluation L Evaluation R Iliopsoas L2 5/ 5/5 Quadriceps L3 5/ 5/5 Anterior tibialis L4 5/5 5/5 Gastrocnemius S1/S2 5/5 5/5 Hamstring L5/S1 5/5 5/5 Abdominals 1/5 1/5 Assembler Camper strength in pounds (3 trials): R: 55. 56, 54 L: 47, 36, 56 Flexibility: moderate tightness in pec major and minor resulting in rounded shoulders PALPATION: Denies tenderness with palpation to the cervical spine Other: Rhomber seconds w/ EO and 20 seconds w/ EC R tandem: 7 seconds L tandem: 20 SLS: 1 second on L and 4 seconds on R ASSESSMENT Rubio Sampson presents with signs and symptoms consistent with cervical and lumbar stenosis with complaints of finger and toe numbness. Objectively, he has limited screw machine setter strength, decreased balance, poor posture, and decreased cervical and lumbar AROM. He would benefit from skilled PT to address hissymptoms and improve his quality of life. Problem list to be addressed: -Pain and numbness in his fingers and toes -Decreased screw machine setter strength. -Decreased cervical and lumbar range of motion. -Poor posture and body mechanics. -Decreased Physical Performance and activity tolerance. -Limited functional activities of finger and toe numbness and pain preventing Ed from sleeping and making it challenging to perform fine motor tasks and high level balance. Prognosis: Patient is a good candidate for physical therapy. Good prognosis to achieve goals. PLAN Planned frequency and duration of treatment is 3/week x 8 weeks to achieve the above stated goals which were discussed with the patient. Treatment will include the following: Self -Care/Home Management - 67192, Neuromuscular Re-education - 07836, Gait Training - 14205, Therapeutic Exercise - 97040, Electrical Stimulation Unattended - 37767, Manual Therapy - 80043, Hot/Cold Pack - 17737, and Dry Needling - 63947 GOALS Patient to demonstrate normal lumbar active mobility without guarded movement pattern Timeframe:prior to DC 2. Patient to correctly demonstrate home exercises to be performed in conjunction with therapy program. Timeframe:2 weeks 3. Patient to decrease back pain complaints to <4/10 with ADLs Timeframe:prior to DC 4. Patient to demonstrate functional active spinal mobility in standing without guarded movement pattern Timeframe: prior to DC 5. Patient to demonstrate improved understanding of sitting and standing posture Timeframe: prior to DC 6. Patient to demonstrate increased lumbar extension ROM Timeframe:prior to DC 7. Patient to demonstrate increased lumbar flexion ROM Timeframe: prior to DC 8. Patient to demonstrate normal gait pattern and report no limitations with walking during ADLs Timeframe: prior to DC 9. Patient to increase LE flexibility in restricted mm groups Timeframe: prior to DC 10. Patient to increase LE strength throughout to 5/5 Timeframe: prior to DC 11. Patient to report no limitations with sitting or standing during normal ADLs Timeframe: prior to DC 12. Patient will report <20% functional impairment on standardized questionnaire Timeframe: prior to DC 13. Patient to return to normal ADL status with manageable pain levels Timeframe: prior to DC 14. Patient to return to previous functional status for ADLs, recreational activities, and sports activities, as identified by patient Timeframe: prior to DC Therapist: SARAH AYALA PT Date: 06/20/24 Time: 11:08 AM Physician certification: I certify that the above physical therapy services are required, authorized, and reviewed. Provider Signature: Date: Time: Samia Razo NP Patient Name: Rubio Sampson : 1945 * Sarah Ayala, PT - 06/20/2024 11:00 AM CDT Physical Therapy Visit Note: Patient Name: Rubio Sampson Diagnosis: Neck pain (primary encounter diagnosis) Back pain SUBJECTIVE Therapy Visit Total Approved Visits: 03/01 (eval 06/20/24) Authorization Expiration Date: 08/20/24 Current Therapy Orders: Eval and treat Diagnosis: cervical and lumbar stenosis resulting in numbness/pain in fingers/toes Referring Provider: Samia Razo NP Work Status: retired - enjoys walking 3 miles each morning Subjective Note: See eval completed today. OBJECTIVE Treatment provided today: Therapeutic Exercise - 05989 Number of Minutes - 43661: 30 Exercise: PPT Exercise: 1/2 foam calf stretch Exercise: HR Exercise: putty for hand strength Exercise: scapular retraction Exercise: chin tucks Manual Therapy - 15698 Number of Minutes - 93588: 15 Intervention: cervical manual traction Intervention: UT stretch Intervention: 1/2 foam pec stretch Intervention: long leg distraction ASSESSMENT Assessment Note: See eval completed today. PLAN Plan Next Visit Plan: progress balance, UE/LE strength, posture Total Time Total Time in Minutes: 45 Timed Code Treatment Minutes : 45 documented in this encounter Plan of Treatment Upcoming Encounters Date Type Department Care Team (Late st Contact Info) Description 06/22/2024 9:00 AM CDT Appointment [facility] [address] [facility] [address] Samia Razo NP [address] [place] [address] [place] [address] [place] [address] 06/25/2024 9:00 AM CDT Appointment [facility] [address] [facility] [place] [address] Samia Razo NP [address] [place] [address] Trini Hoyt, UNDER PRESSER 06/27/2024 9:00 AM CDT Appointment [address] [place] [address] Samia Razo, ARCHITECTURAL DRAFTER [address] [place] [address] Sarah Padilla, UNDER PRESSER 06/29/2024 9:00 AM CDT Appointment [address] [place] [address] Samia Razo, ARCHITECTURAL DRAFTER [address] [place] [address] [place] [address] [place] [address] 07/02/2024 9:00 AM CDT Appointment [address] [place] [address] Samia Razo, ARCHITECTURAL DRAFTER [address] [place] [address] [place] [address] [place] [address] 07/04/2024 9:00 AM CDT Appointment [address] [place] [address] Samia Razo, ARCHITECTURAL DRAFTER [address] [place] [address] Sammi Lewis, PT [address] [facility] [place] [address] 07/06/2024 9:00 AM CDT Appointment [address] [place] [address] Samia Razo, ARCHITECTURAL DRAFTER [address] [place] [address] [place] [address] [place] [address] 07/11/2024 9:30 AM CDT Appointment [address] [place] [address] Samia Razo, ARCHITECTURAL DRAFTER [address] [place] [address] [place] [address] [place] [address] 07/12/2024 9:00 AM CDT Appointment [address] [place] [address] Samia Razo, ARCHITECTURAL DRAFTER [address] [place] [address] [place] [address] [place] [address] documented as of this encounter Visit Diagnoses Diagnosis Neck pain- Primary Cervicalgia Back pain Backache, unspecified documented in this encounter Additional Health Concerns Assessment Noted Time PHQ-9 Depression Total Score: 0 01/30/20 22 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
--- OUTSIDE RECORDS SUMMARY | 2024-06-21 11:35 | XMS_ITS | Data Portability ---
Author Organization [facility], Main Office Address [address] [place] [address] Assessment No assessment recorded. Plan of Treatment Reminders Order Date Submit Date Provider Last Modified By Organization Details Last Modified Time Details Appointments None recorded. Lab CBC w/ auto diff 2024 025 BEL ALTON Clinical Pathology Laboratories [facility], [address], [place], [place], [address], 5 11:49:56 CMP, serum or plasma 2024 025 [facility] - [facility], [address], [place], [place], [address], 5 11:49:57 pro BNP (pro B-type natriuretic peptide), serum or plasma 2024 025 BEL ALTON Clinical [facility]ology Laboratories [facility], [address], [place], [place], [address], 5 11:49:56 Referral None recorded. Procedures None recorded. Surgeries None recorded. Imaging None recorded. Medication Orders benzonatate 200 mg capsule 2024 025 [facility], [address] [address], [place], [address], 5 11:15:51 albuterol sulfate 2.5 mg/3 mL (0.083 %) solution for nebulizatio n 2024 025 [facility], [address], [place], [address], 5 12:12:05 benzonatate 200 mg capsule 2024 025 [email or web address] 0 [facility], [address] [facility] [address], [place], [address], 5 11:02:49 guaifenesin ER 600 mg tablet, extended release 12 hr 2024 025 [facility], [address] [facility] [address], [place], [address], 5 11:15:59 clonidine HCl 0.1 mg tablet 2024 025 [email or web address] Not available 5 09:31:04 benzonatate 200 mg capsule 2024 025 [email or web address] 0 [facility], [address] [facility] [address], [place], [address], 5 11:02:49 guaifenesin ER 600 mg tablet, extended release 12 hr 2024 025 [email or web address] 0 [facility], [address] [facility] [address], [place], [address], 5 11:02:57 benzonatate 200 mg capsule 2024 025 [email or web address] 0 [facility] 413, [address] [facility] [address], [place], [address], 5 11:02:49 guaifenesin ER 600 mg tablet, extended release 12 hr 2024 025 [email or web address] 0 [facility] 413, [address] [facility] [address], [place], [address], 5 11:02:57 azithromyci n 250 mg tablet 2024 025 [email or web address] 0 [facility], [address] [facility] [address], [place], [address], 5 11:02:43 loratadine 10 mg tablet 2024 025 [email or web address] [facility], [address] [facility] [address], [place], [address], 16:09:13 Patient TargetsNo targets recorded. Patient Instructions Encounter Date Encounter Id Patient Instructions Last Modified By Organization Details Last Modified Time 02/27/2024 [id number] cough: care instructions [email or web address] Not available 02/27/2024 12:14:45 high blood pressure: care instructions [email or web address] Not available 02/27/2024 12:14:46 learning about high blood pressure Not available 02/27/2024 12:14:45 medical record request* [email or web address] Not available 03/08/2024 16:29:41 Diagnoses were discussed with the patient/family at length, all questions were answered and the patient/family verbalized understanding of these instructions and agreed with plan of care. No barriers to care are apparent at this time. Patient/family instructed to let me know if they have any difficulties affording their medications or have any further questions regarding their care [email or web address] Not available 02/27/2024 12:29:32 03/06/2024 [id number] cough: care instructions [email or web address] Not available 03/06/2024 10:33:13 high blood pressure: care instructions [email or web address] Not available 03/06/2024 10:33:13 learning about high blood pressure [email or web address] Not available 03/06/2024 10:33:13 medical record request* [email or web address] Not available 03/08/2024 16:30:16 Diagnoses were discussed with the patient/family at length, all questions were answered and the patient/family verbalized understanding of these instructions and agreed with plan of care. No barriers to care are apparent at this time. Patient/family instructed to let me know if they have any difficulties affording their medications or have any further questions regarding their care [email or web address] Not available 03/06/2024 10:22:50 03/20/2024 [id number] cough: care instructions [email or web address] Not available 03/20/2024 16:32:47 high blood pressure: care instructions [email or web address] Not available 03/20/2024 16:32:47 learning about high blood pressure Not available 03/20/2024 16:32:47 medical record request* [email or web address] Not available 04/18/2024 14:14:42 Diagnoses were discussed with the patient/family at length, all questions were answered and the patient/family verbalized understanding of these instructions and agreed with plan of care. No barriers to care are apparent at this time. Patient/family instructed to let me know if they have any difficulties affording their medications or have any further questions regarding their care [email or web address] Not available 03/20/2024 16:06:24 03/27/2024 [id number] cough: care instructions [email or web address] Not available 03/27/2024 12:11:57 bronchitis: care instructions [email or web address] Not available 03/27/2024 12:11:56 Diagnoses were discussed with the patient/family at length, all questions were answered and the patient/family verbalized understanding of these instructions and agreed with plan of care. No barriers to care are apparent at this time. Patient/family instructed to let me know if they have any difficulties affording their medications or have any further questions regarding their care [email or web address] Not available 03/27/2024 11:35:05 04/04/2024 [id number] cough: care instructions [email or web address] Not available 04/04/2024 11:36:37 Diagnoses were discussed with the patient/family at length, all questions were answered and the patient/family verbalized understanding of these instructions and agreed with plan of care. No barriers to care are apparent at this time. Patient/family instructed to let me know if they have any difficulties affording their medications or have any further questions regarding their care [email or web address] Not available 04/04/2024 11:01:55 Reason for Referral None Reported. Results Created Date Observation Date Name Description Value Unit Range Abnormal Flag Note LastModifiedBy Organization Detail LastModifiedTime 02/26/1902/28/2024 NT-MN OBNP nt-probnp 1237 pg/mL see below If NT-Pr oBNP is less than 300 PG/ML , heart failu re is unlik jessica for all ages. Age.. ..... ..... ..... Heart Failu re Likel y <50 Years ..... ..... .>=45 0 PG/ML 50-75 Years ..... ....> =900 PG/ML > 75 Years ..... ..... >=180 0 PG/ML Metho dolog y: Hayley Mely Elect hayley milum inesc ense Immun oassa y Testi ng Perfo rmed At: [facility] [address] [place] [address] Labor atory [facility] tor: Mark Bella r [id number] [place] [id number] Not Available Clinical [facility] Laboratories - Main Lab (Blood Not Drawn At This Location) [place] [place], [address], 02/28/2024 11:49:55 02/26/1902/28/2024 CBC W/AUT O DIFF WITH PLATE LETS WBC 8.4 K/uL 3.5-11 .0 Not Available [facility] - Main Lab (Blood Not Drawn At This Location) [place], [address], 02/28/2024 11:49:56 02/26/1902/28/2024 CBC W/AUT O DIFF WITH PLATE LETS RBC 4.54 M/uL 4.50-6 .10 Not Available [facility] - Main Lab (Blood Not Drawn At This Location) [place], [address], 02/28/2024 11:49:56 02/26/19 25 02/28/2024 CBC W/AUT O DIFF WITH PLATE LETS hemoglobin 13.8 g/dL 13.5-1 7.0 Not Available [facility] - Main Lab (Blood Not Drawn At This Location) [place], [address], 02/28/2024 11:49:56 02/26/19 25 02/28/2024 CBC W/AUT O DIFF WITH PLATE LETS hematocrit 40.5 % 40.0-5 1.0 Not Available [facility] - Main Lab (Blood Not Drawn At This Location) [place], [address], 02/28/2024 11:49:56 02/26/19 25 02/28/2024 CBC W/AUT O DIFF WITH PLATE LETS MCV 89.2 fL 80.0-9 9.0 Not Available [facility] - Main Lab (Blood Not Drawn At This Location) [place], [address], 02/28/2024 11:49:56 02/26/19 25 02/28/2024 CBC W/AUT O DIFF WITH PLATE LETS MCH 30.4 pg 25.0-3 3.0 Not Available [facility] - Main Lab (Blood Not Drawn At This Location) [place] [place], [address], 02/28/2024 11:49:56 02/26/19 25 02/28/2024 CBC W/AUT O DIFF WITH PLATE LETS MCHC 34.1 g/dL 31.0-3 6.0 Not Available [facility] - Main Lab (Blood Not Drawn At This Location) [place] [place], [address], 02/28/2024 11:49:56 02/26/19 25 02/28/2024 CBC W/AUT O DIFF WITH PLATE LETS RDW 13.9 % 11.5-1 5.0 Not Available [facility] - Main Lab (Blood Not Drawn At This Location) Visit [facility], [place], [address], 02/28/2024 11:49:56 02/26/19 25 02/28/2024 CBC W/AUT O DIFF WITH PLATE LETS neutrophils 76.9 % Not Available [facility] - Main Lab (Blood Not Drawn At This Location) Visit [facility], [place], [address], 02/28/2024 11:49:56 02/26/19 25 02/28/2024 CBC W/AUT O DIFF WITH PLATE LETS lymphocytes 8.7 % Not Available Clinic [facility] - Main Lab (Blood Not Drawn At This Location) Visit [facility], [place], [address], 02/28/2024 11:49:56 02/26/19 25 02/28/2024 CBC W/AUT O DIFF WITH PLATE LETS monocytes 11.2 % Not Available [facility] - Main Lab (Blood Not Drawn At This Location) Visit [facility], [place], [address], 02/28/2024 11:49:56 02/26/19 25 02/28/2024 CBC W/AUT O DIFF WITH PLATE LETS eosinophils 2.6 % Not Available [facility] - Main Lab (Blood Not Drawn At This Location) Visit [facility], [place], [address], 02/28/2024 11:49:56 02/26/19 25 02/28/2024 CBC W/AUT O DIFF WITH PLATE LETS basophils 0.4 % Not Available [facility] - Main Lab (Blood Not Drawn At This Location) Visit [facility], [place], [address], 02/28/2024 11:49:56 02/26/19 25 02/28/2024 CBC W/AUT O DIFF WITH PLATE LETS immature granulocytes 0.2 % Not Available [facility] - Main Lab (Blood Not Drawn At This Location) [place] [place], [address], 02/28/2024 11:49:56 02/26/19 25 02/28/2024 CBC W/AUT O DIFF WITH PLATE LETS nucleated RBCs 0.0 /100_ WBC's 0.0 Not Available [facility] - Main Lab (Blood Not Drawn At This Location) [place] [place], [address], 02/28/2024 11:49:56 02/26/19 25 02/28/2024 CBC W/AUT O DIFF WITH PLATE LETS platelet count 256 K/uL 130-40 0 Not Available [facility] - Main Lab (Blood Not Drawn At This Location) [place] [facility] [place], [address], 02/28/2024 11:49:56 02/26/19 25 02/28/2024 CBC W/AUT O DIFF WITH PLATE LETS absolute neutrophils 6.43 K/uL 1.50-7 .50 Not Available [facility] - Main Lab (Blood Not Drawn At This Location) [place] [place], [address], 02/28/2024 11:49:56 02/26/19 25 02/28/2024 CBC W/AUT O DIFF WITH PLATE LETS absolute lymphocytes 0.73 K/uL 1.00-4 .00 low Not Available [facility] - Main Lab (Blood Not Drawn At This Location) [place] [place], [address], 02/28/2024 11:49:56 02/26/19 25 02/28/2024 CBC W/AUT O DIFF WITH PLATE LETS absolute monocytes 0.94 K/uL 0.20-1 .00 Not Available [facility] - Main Lab (Blood Not Drawn At This Location) [place] [place], [address], 02/28/2024 11:49:56 02/26/19 25 02/28/2024 CBC W/AUT O DIFF WITH PLATE LETS absolute eosinophils 0.22 K/uL 0.00-0 .50 Not Available [facility] - Main Lab (Blood Not Drawn At This Location) [place] [place], [address], 02/28/2024 11:49:56 02/26/19 25 02/28/2024 CBC W/AUT O DIFF WITH PLATE LETS absolute basophils 0.03 K/uL 0.00-0 .20 Not Available [facility] - Main Lab (Blood Not Drawn At This Location) [place] [facility] [place], [address], 02/28/2024 11:49:56 02/26/19 25 02/28/2024 CBC W/AUT O DIFF WITH PLATE LETS abs immature granulocytes 0.02 K/uL 0.00-0 .10 Not Available [facility] - Main Lab (Blood Not Drawn At This Location) [place], [address], 02/28/2024 11:49:56 02/26/19 25 02/28/2024 CBC W/AUT O DIFF WITH PLATE LETS abs nucleated RBCs 0.00 K/uL 0.00-0 .11 Testi ng Perfo rmed At: [facility] [address] [place] [address] Labor atory [facility] tor: Mark Bella [id number] [place]. [id number] Not Available [facility] - Main Lab (Blood Not Drawn At This Location) [place] [facility] [place], [address], 02/28/2024 11:49:56 02/26/19 25 02/28/2024 COMPR EHENS JORDAN METAB OLIC PANEL + E-GFR glucose 95 mg/dL 70-99 Not Available [facility] - Main Lab (Blood Not Drawn At This Location) [place] [place], [address], 02/28/2024 11:49:57 02/26/19 25 02/28/2024 COMPR EHENS JORDAN METAB OLIC PANEL + E-GFR BUN 11 mg/dL 8-23 Not Available [facility] - Main Lab (Blood Not Drawn At This Location) [place], [address], 02/28/2024 11:49:57 02/26/19 25 02/28/2024 COMPR EHENS JORDAN METAB OLIC PANEL + E-GFR creatinine 0.78 mg/dL 0.80-1 .40 low Not Available [facility] - Main Lab (Blood Not Drawn At This Location) [place], [address], 02/28/2024 11:49:57 02/26/19 25 02/28/2024 COMPR EHENS JORDAN METAB OLIC PANEL + E-GFR eGFR (2020 CKD-epi) 92 mL/mi n/1.7 3 >60 Not Available [facility] - Main Lab (Blood Not Drawn At This Location) [place], [address], 02/28/2024 11:49:57 02/26/19 25 02/28/2024 COMPR EHENS JORDAN METAB OLIC PANEL + E-GFR calc BUN/creat 14 ratio 6-28 Not Available Clinic al [facility] - Main Lab (Blood Not Drawn At This Location) [place] [facility] [place], [address], 02/28/2024 11:49:57 02/26/19 25 02/28/2024 COMPR EHENS JORDAN METAB OLIC PANEL + E-GFR sodium 126 mEq/L 133-14 6 low Not Available [facility] - Main Lab (Blood Not Drawn At This Location) Visit [facility] [place], [address], 02/28/2024 11:49:57 02/26/19 25 02/28/2024 COMPR EHENS JORDAN METAB OLIC PANEL + E-GFR potassium 5.3 mEq/L 3.5-5. 4 Not Available [facility] - Main Lab (Blood Not Drawn At This Location) [place], [address], 02/28/2024 11:49:57 02/26/19 25 02/28/2024 COMPR EHENS JORDAN METAB OLIC PANEL + E-GFR chloride 90 mEq/L 95-107 low RESUL TS RECHE CKED AND VERIF IED Not Available [facility] - Main Lab (Blood Not Drawn At This Location) [place] [place], [address], 02/28/2024 11:49:57 02/26/19 25 02/28/2024 COMPR EHENS JORDAN METAB OLIC PANEL + E-GFR carbon dioxide 28 mEq/L 19-31 Not Available Clinic al [facility] - Main Lab (Blood Not Drawn At This Location) Visit [facility] [place], [address], 02/28/2024 11:49:57 02/26/19 25 02/28/2024 COMPR EHENS JORDAN METAB OLIC PANEL + E-GFR calcium 9.8 mg/dL 8.5-10 .5 Not Available [facility] - Main Lab (Blood Not Drawn At This Location) [place] [place], [address], 02/28/2024 11:49:57 02/26/19 25 02/28/2024 COMPR EHENS JORDAN METAB OLIC PANEL + E-GFR protein, total 7.0 g/dL 6.1-8. 3 Not Available [facility] - Main Lab (Blood Not Drawn At This Location) [place] [place], [address], 02/28/2024 11:49:57 02/26/19 25 02/28/2024 COMPR EHENS JORDAN METAB OLIC PANEL + E-GFR albumin 4.4 g/dL 3.5-5. 2 Not Available [facility] - Main Lab (Blood Not Drawn At This Location) [place], [address], 02/28/2024 11:49:57 02/26/1902/28/2024 COMPR EHENS JORDAN METAB OLIC PANEL + E-GFR calc globulin 2.6 g/dL 1.9-3. 7 Not Available [facility] - Main Lab (Blood Not Drawn At This Location) [place], [address], 02/28/2024 11:49:57 02/26/1902/28/2024 COMPR EHENS JORDAN METAB OLIC PANEL + E-GFR calc A/G ratio 1.7 ratio 1.0-2. 6 Not Available [facility] - Main Lab (Blood Not Drawn At This Location) [place], [address], 02/28/2024 11:49:57 02/26/1902/28/2024 COMPR EHENS JORDAN METAB OLIC PANEL + E-GFR bilirubin, total 0.6 mg/dL <=1.2 Not Available Clinic al [facility] - Main Lab (Blood Not Drawn At This Location) [place], [address], 02/28/2024 11:49:57 02/26/1902/28/2024 COMPR EHENS JORDAN METAB OLIC PANEL + E-GFR alkaline phosphatase 123 U/L 40-125 Not Available Clin [facility] Pathology Laboratories - Main Lab (Blood Not Drawn At This Location) [place], [address], 02/28/2024 11:49:57 02/26/1902/28/2024 COMPR EHENS JORDAN METAB OLIC PANEL + E-GFR AST 18 U/L 9-50 Not Available [facility] - Main Lab (Blood Not Drawn At This Location) [place], [address], 02/28/2024 11:49:57 02/26/19 25 02/28/2024 COMPR EHENS JORDAN METAB OLIC PANEL + E-GFR ALT 17 U/L 5-50 Testi ng Perfo rmed At: [facility] [address] [facility] [place] [address] Labor atory Dire tor: Vipul morrow M.D. CLIA Numbe r [id number] [place]. [id number] Not Available [facility] - Main Lab (Blood Not Drawn At This Location) Visit [facility], [place], [address], 02/28/2024 11:49:57 Result Notes None recorded. Problems Name Problem SNOMED Code Status Onset Date Resolution Date Notes Provider Name and Address Organization Details Recorded Time Essential hypertension 67732151 Active 2019 Tre Khan APRN, TELEPHONE OPERATOR RECEPTIONIST-BC [address] [place] [address], [phone] , [facility] 0 13:54:01 Neuropathy 888472458 Active 2024 Melinda banks NRCMA null, [facility] 5 11:46:54 Hyperlipidemi a 26971476 Active 2024 Melinda banks NRCMA null, [facility] 5 11:47:02 Spinal stenosis 50612280 Active 2024 Melinda banks NRCMA null, [facility] 5 11:47:16 Cough 52090696 Active 2024 Sherlyn Moreno PA-C [address] [place] [address], [phone] , [facility] 5 12:10:02 Non-pitting edema 485104214 Active 2024 Sherlyn Moreno PA-C [address] [place] [address], [phone] , [facility] 5 12:28:54 Hyponatremia 15602680 Active 2024 Sherlyn Moreno PA-C [address] [place] [address], [phone] , [facility] 5 14:25:12 Acute bronchitis 10761044 Active 2024 Sherlyn Moreno PA-C [address] [place], [address] , [facility] 5 17:32:36 Problem Notes None recorded. Procedures Surgical History Date Name Laterality Status Provider Name and Address Organization Details Recorded Time Hernia Repair completed Catherine Mitchell MA [facility] 03/19/2019 13:23:38 Imaging Results None recorded. Procedure Notes None recorded. Medical Equipment None Reported. Allergies No known drug allergies Medications Name Sig Start Date Stop Date Status Note LastModified by Organization Details LastModified Time celecoxib 200 mg capsule Take 1 capsule twice a day by oral route. active Not Available Not Available No t Available cyclobenz aprine 10 mg tablet Take 1 tablet every day by oral route. active Not Available Not Available No t Available amoxicill in 500 mg capsule TAKE 4 CAPSULES BY MOUTH 1 HOUR PRIOR TO APPOINTM ENT 04/04 completed not taking at this time 03/20/2024 Not Available Not Available Not Available clonidine HCl 0.1 mg tablet Take 1 tablet as needed by oral route as needed. 2024 active Not Available Not Available Not Avai lable gabapenti n 600 mg tablet Take 1 tablet twice a day by oral route. active Not Available Not Available No t Available naproxen 375 mg tablet 02/26 completed NOT TAKING 5 Not Available Not Available Not Available albuterol sulfate 2.5 mg/3 mL (0.083 %) solution for nebulizat ion Inhale 3 mL 3 times a day by nebuliza tion route as directed for 7 days. 2024 active Not Available Not Available Not Avai lable azithromy lety 250 mg tablet TAKE 2 TABLETS (500 MG) BY ORAL ROUTE ONCE DAILY FOR 1 DAY THEN 1 TABLET (250 MG) BY ORAL ROUTE ONCE DAILY FOR 4 DAYS 04/04 completed Not Available Not Available Not Available benzonata te 200 mg capsule Take 1 capsule 3 times a day by oral route for 7 days. 04/04 completed Not Available Not Available Not Available hydrocodo ne 5 mg-acetam inophen 325 mg tablet TAKE 1 TABLET BY MOUTH EVERY 8 HOURS NEEDED FOR PAIN active Not Available Not Available No t Available prednison e 20 mg tablet Take 3 tablets every day by oral route for 3 days. 04/04 completed Not Available Not Available Not Available simvastat in 10 mg tablet TAKE 1 TABLET BY MOUTH ONCE DAILY AT BEDTIME active Not Available Not Available No t Available hydroxyzi ne pamoate 50 mg capsule Take 1 capsule 4 times a day by oral route. active PRN Not Available Not Available No t Available penicilli n V potassium 500 mg tablet 03/19 completed Not Available Not Available Not Available terazosin 1 mg capsule TAKE 1 CAPSULE BY MOUTH AT BEDTIME active Not Available Not Available No t Available amlodipin e 5 mg tablet TAKE 1 TABLET BY MOUTH TWICE DAILY active Not Available Not Available No t Available tramadol 50 mg tablet 02/26 completed NOT TAKING 5 Not Available Not Available Not Available oxycodone -acetamin ophen 5 mg-325 mg tablet TAKE 1 TO 2 TABLETS BY MOUTH EVERY 8 HOURS NEEDED FOR PAIN active not taking 03/20/19 25 Not Available Not Available Not Available doxycycli ne monohydra te 50 mg tablet TAKE 1 TABLET BY MOUTH ONCE DAILY active not taking 03/20/19 25 Not Available Not Available Not Available amlodipin e 10 mg tablet Take 0.5 tablets twice a day by oral route. active Not Available Not Available No t Available benzonata te 100 mg capsule 04/04 completed Not Available Not Available Not Available metronida zole 0.75 % topical cream APPLY CREAM TOPICALL Y TO FACE ONCE DAILY FOR ROSCEA active Not Available Not Available No t Available hydrochlo rothiazid e 12.5 mg capsule 02/26 completed NOT TAKING 5 Not Available Not Available Not Available omeprazol e 20 mg capsule,d elayed release Take 1 capsule every day by oral route. active Not Available Not Available No t Available hydralazi ne 50 mg tablet Take 1 tablet 3 times a day by oral route. active Not Available Not Available No t Available furosemid e 20 mg tablet Take 1 tablet every day by oral route. active Not Available Not Available No t Available benazepri l 40 mg tablet TAKE 1 TABLET BY MOUTH TWICE DAILY active Not Available Not Available No t Available methylpre dnisolone 4 mg tablets in a dose pack 03/19 completed Not Available Not Available Not Available labetalol 100 mg tablet TAKE 1 TABLET BY MOUTH TWICE DAILY active not taking 03/20/19 25 Not Available Not Available Not Available loratadin e 10 mg tablet Take 1 tablet every day by oral route as directed for 10 days, for allergie s. 2024 active Not Available Not Available Not Avai lable azithromy lety 500 mg tablet Take 1 tablet every day by oral route for 3 days. 04/04 completed Not Available Not Available Not Available sodium chloride 1,000 mg soluble tablet Take 1 tablet by miscell. route for 3 days, for hyponatr emia. 2024 active per patient not taking Not Available Not Available Not Available hydrochlo rothiazid e 12.5 mg tablet 03/19 completed Not Available Not Available Not Available guaifenes in ER 600 mg tablet, extended release 12 hr Take 1 tablet every 12 hours by oral route for 7 days, for cough. 04/04 completed Not Available Not Available Not Available Vitals Date Recorded Body weight Respiratory rate Body temperature Body mass index (BMI) Body height Heart rate Oxygen saturation Oxygen saturation in Arterial blood by Pulse oximetry Systolic blood pressure Diastolic blood pressure Provider Name and Address Organization Details Last Updated DateTime 5 53304.5 4 g 18 /min 98.2 [degF] 32 kg/m2 175.26 cm 68 /min 98 % 98 % 134 mm[Hg] 88 mm[Hg] Melinda thakur, [facility]ARD[facility] 5 11:49:58 Date Recorded Body height Body mass index (BMI) Body weight Respiratory rate Body temperature Heart rate Oxygen saturation Oxygen saturation in Arterial blood by Pulse oximetry Systolic blood pressure Diastolic blood pressure Provider Name and Address Organization Details Last Updated DateTime 5 175.26 cm 31.3 kg/m2 70464.5 8 g 16 /min 97 [degF] 94 /min 96 % 96 % 158 mm[Hg] 80 mm[Hg] [facility] 5 10:17:54 Date Recorded Body height Body mass index (BMI) Body weight Respiratory rate Body temperature Heart rate Oxygen saturation Oxygen saturation in Arterial blood by Pulse oximetry Systolic blood pressure Diastolic blood pressure Provider Name and Address Organization Details Last Updated DateTime 5 175.26 cm 31.5 kg/m2 71453.1 7 g 16 /min 98.4 [degF] 89 /min 98 % 98 % 170 mm[Hg] 88 mm[Hg] Mel[facility]ak[facility], [facility] 5 16:13:32 Date Recorded Systolic blood pressure Diastolic blood pressure Provider Name and Address Organization Details Last Updated DateTime 03/20/2024 160 mm[Hg] 80 mm[Hg] Sherlyn Moreno PA-C [address] , [place], [address], [facility] 03/20/2024 16:35:09 Date Recorded Body height Body mass index (BMI) Body weight Heart rate Respiratory rate Body temperature Oxygen saturation Oxygen saturation in Arterial blood by Pulse oximetry Systolic blood pressure Diastolic blood pressure Provider Name and Address Organization Details Last Updated DateTime 5 175.26 cm 31.7 kg/m2 40108.3 6 g 68 /min 16 /min 98.6 [degF] 97 % 97 % 130 mm[Hg] 70 mm[Hg] Catherine Mitchell MA [facility] 5 11:35:52 Date Recorded Body height Body mass index (BMI) Body weight Heart rate Respiratory rate Body temperature Oxygen saturation Oxygen saturation in Arterial blood by Pulse oximetry Systolic blood pressure Diastolic blood pressure Provider Name and Address Organization Details Last Updated DateTime 5 175.26 cm 32.2 kg/m2 23613.1 4 g 67 /min 16 /min 97.5 [degF] 98 % 98 % 132 mm[Hg] 60 mm[Hg] Catherine Mitchell MA [facility] 5 11:02:17 Social History Question Answer Notes LastModified by Organizat ion Details LastModified Time Tobacco Smoking Status Never Smoker Not Available [employer] 12/18/2019 03:36:41 Do You Or Have You Ever Used E-cigarettes Or Vape? Never Used Electronic Cigarettes [id number] Information not available 12/18/2019 Live Alone Or With Others? With Others [email or web address] Information not available 04/04/2019 Marital Status Informatio n not available 04/04/2019 Do You Or Have You Ever Used Smokeless Tobacco? Never Used Smokeless Tobacco [id number] Information not available 12/18/2019 Sex: Unknown Functional Status Question Answer Note LastModified by Organization D etails LastModified Time Are you able to walk? YESWOREST [id number] Information not available 12/18/2019 Mental Status None recorded. Family History Nothing Reported. Medical History Condition Response Hypertension Y Past Encounters Encounter ID Performer Location Encounter Start Date Encounter Closed Date Diagnosis/Indication Diagnosis SNOMED-CT Code Diagnosis ICD10 Code Diagnosis Note [id number] Jerson Henning MD Main Office [address] [place] [id number] 03/19/2019 10:45:43 03/19/2019 14:05:36 Community acquired pneumonia 186869888 J18.9 No evidence of serious disease here today. Will start patient on some prednisone and azithromyc in advised to return to clinic in 2 weeks to review reevaluate his lungs. Sooner if his condition worsens. Patient verbalized understand ing these instructio ns. Essential hypertension 37605767 I10 pt did not take his BP meds last night. Will recheck blood pressure in 2 weeks and evaluate the need to modify his blood pressure regimen. [id number] Jerson Henning MD Main Office [address] [place] [address] [id number] 0 04/04/2019 14:54:43 04/04/2019 16:09:36 Essential hypertension 85654603 I10 uncontroll ed. Start patient on terazosin and recheck BP in 2 weeks. BP log reviewed and looks good but the patient is fairly hypertensi ve here in the clinic. [id number] Jerson Henning MD Main Office [address] [place] [address] [id number] 0 02/27/2024 10:48:48 02/27/2024 14:52:20 Cough 84594428 R05.9 Reviewed symptomati c care instructio ns, the expected course of these illnesses and explained that coughing can persist for some time. Provided precaution s for signs of worsening disease and instructio ns on contacting us if symptoms worsen. -Will order labs today-will send tessalon pearls 200mg, guaifenesi n 600mg, azithromyc in 250mg, loratadine 10mg -will follow up in one week Essential hypertension 70831796 I10 -Will order labs today-Curr ent Treatment: amlodipine 10mg, benazepril 40mg, furosemide 20mg- BP today 134/88- Patient instructed to take his medication at night-Will recheck labs in 3 months.Pat ient will monitor blood pressure and report if unable to control or if they develop new symptoms.- Patient has non pitting edema Non-pitting edema 391753 001 R60.9 Current Treatment: Furosemide 20mg-will continue to monitor-wi ll follow up in one week [id number] Jerson Henning MD Main Office [address] [place] [address] [id number] 0 03/06/2024 10:12:27 03/06/2024 10:46:19 Cough 76078994 R05.9 Reviewed symptomati c care instructio ns, the expected course of these illnesses and explained that coughing can persist for some time. Provided precaution s for signs of worsening disease and instructio ns on contacting us if symptoms worsen. -Will order labs today-will send tessalon pearls 200mg, guaifenesi n 600mg, azithromyc in 250mg, loratadine 10mg -will follow up in one week Essential hypertension 77336119 I10 -Current Treatment: amlodipine 10mg, benazepril 40mg, furosemide 20mg- BP today 158/80,-2n d BP today 146/90- Patient instructed to take his medication at night-Will recheck labs in 3 months.Pat ient will monitor blood pressure and report if unable to control or if they develop new symptoms.- Patient has non pitting edema [id number] Jerson Henning MD Main Office [address] [place] [address] [id number] 0 03/20/2024 15:25:59 03/20/2024 16:46:31 Cough 32379842 R05.9 Reviewed symptomati c care instructio ns, the expected course of these illnesses and explained that coughing can persist for some time. Provided precaution s for signs of worsening disease and instructio ns on contacting us if symptoms worsen.-Wi ll order labs today-will send tessalon pearls 200mg, guaifenesi n 600mg-will follow up in one week Essential hypertension 05247777 I10 -Current Treatment: amlodipine 10mg, benazepril 40mg, furosemide 20mg- BP today 170/88-2nd BP today 160/80- Patient instructed to take his medication at night-Will recheck labs in 3 months.Pat ient will monitor blood pressure and report if unable to control or if they develop new symptoms. [id number] Jerson Henning MD Main Office [address] [place] [address] [id number] 0 03/27/2024 11:03:28 03/27/2024 12:28:32 Cough 04703591 R05.9 Reviewed symptomati c care instructio ns, the expected course of these illnesses and explained that coughing can persist for some time. Provided precaution s for signs of worsening disease and instructio ns on contacting us if symptoms worsen.-Wi ll order labs today-will send tessalon pearls 200mg, guaifenesi n 600mg-will follow up in one week Acute bronchitis 9698853 2 J20.9 -Albuterol treatment 2.5mg and nebulizer- Advised patient to increase fluid in take-Revie wed symptomati c care instructio ns, the expected course of these illnesses and explained that coughing can persist for some time. Provided precaution s for signs of worsening disease and instructio ns on contacting us if symptoms worsen or go to his nearest ER . [id number] Jerson Henning MD Main Office [address] [place] [address] [id number] 0 04/04/2024 10:48:12 04/04/2024 11:54:03 Cough 83937215 R05.9 -All symptoms have resolved Acute bronchitis 9671410 2 J20.9 -Patient reports all symptoms have resolved at this time Health Concerns Section Related Observation LastModified by Organization Detai ls LastModified Time None Recorded Concern Status LastModified by Organization Details LastModified Time None Recorded Advance Directives Directive None Recorded Payers Insurance Date Sequence Insurance Name Policy Number Policy Moffett Covered Member ID Moffett Member ID Guarantor Name 05/07/2024 2 [employer] (MEDICARE SUPPLEMENT) Rubio Sampson [id number] Rubio Sampson 03/25/2024 2 [place] [id number] Rubio Sampson [id number] Rubio Sampson 05/07/2024 1 MEDICARE [place]: [facility] Rubio Sampson [id number] Rubio Sampson Notes Date Note Type Note Provider Name and Address Organization Details Recorded Time 02/27/2024 text/html 78 yr old Male H x of spinal stenosis, htn, hyperlipidemia presents to clinic to establish care and to discuss cough that has been present for over 9 days. Patient reports the cough us worse at night. patient reports taking OTC medication for cough. patient denies any shortness of breath,chest pain or chest palpitation.BP:134/8 8 P:68 SP02:98% R:18 Sherlyn Moreno PA-C [address] [place] [address], [phone], [facility] 02/27/2024 12:29:46 03/06/2024 text/html BP:132/88 P:94 SP02:98% R:[age] yr old Male Hx of spinal stenosis, htn, hyperlipidemia presents to clinic to follow up on cough that has been present for over two weeks. Patient was previously seen last week and was prescribed benzonatate 200mg, guaifenesin 600mg, azithromycin 250mg, loratadine 10mg. Patient reports the cough has gotten better still has some mild cough here and there. Patient denies any shortness of breath,chest pain or chest palpitation. Sherlyn Moreno PA-C [address] [place] [address], [phone], [facility] 03/06/2024 10:40:06 03/20/2024 text/html 78 yr old Male H x of spinal stenosis, htn, hyperlipidemia presents to clinic to follow up on cough, reports no longer taking antibiotic but would like a refill on cough medication due to coughing hacks. Patient was previously seen last week and was prescribed benzonatate 200mg, guaifenesin 600mg, azithromycin 250mg, loratadine 10mg. Patient denies any shortness of breath,chest pain or chest palpitation. Sherlyn Moreno PA-C [address] [place] [address], [phone], [facility] 03/20/2024 16:35:49 03/27/2024 text/html BP 130/70 pulse 68 temp 98.6 78 yr old Male History of spinal stenosis, htn, hyperlipidemia presents to clinic to follow up on cough, reports still having cough has some drainage at night would like a refill on cough medication due to coughing hacks. Patient was previously seen last week and was prescribed benzonatate 200mg, guaifenesin 600mg, azithromycin 250mg, loratadine 10mg. Patient denies any shortness of breath,chest pain or chest palpitation. Sherlyn Moreno PA-C [address] [place] [address], [phone], [facility] 03/27/2024 12:22:53 04/04/2024 text/html BP 132/60 pulse 67 temp 98.6 78 yr old Male History of spinal stenosis, htn, hyperlipidemia presents to clinic to follow up on cough, reports feeling alot better since last visit and reports all symptoms have resolved. At night not coughing as much still using his nebulizer it did help him. Patient was previously seen last week and was prescribed benzonatate 200mg, guaifenesin 600mg, azithromycin 250mg, loratadine 10mg. Patient denies any shortness of breath,chest pain or chest palpitation. Sherlyn Moreno PA-C [address] [place] [address], [phone], [facility] 04/04/2024 11:36:58
--- OUTSIDE RECORDS SUMMARY | 2024-06-21 11:35 | XMS_ITS | Encounter Summary ---
Author Organization [facility] Address [address] [place] [id number] Care Team Providers Care Leasing Assistant Name Role Phone Jarvis Jimenez DO Primary Care Provider [phone] Encounter Details Date Type Department Care Team (Latest Contact Info) Description 06/20/2024 Travel Social History Tobacco Use Types Packs/Day Years Used Date Smoking Tobacco: Never Smokeless Tobacco: Never PHQ-2 Answer Date Recorded Patient Health Questionnaire-2 Score 0 01/29/2022 Sex and Gender Information Value Date Recorded Sex Assigned at Not on file Legal Sex Male 7:05 PM CDT Gender Identity Not on file Sexual Orientation Not on file documented as of this encounter Plan of Treatment Upcoming Encounters Date Type Department Care Team (Late st Contact Info) Description 06/22/2024 9:00 AM CDT Appointment [facility] [address] [place] [address] Samia Razo, [employer] PROGRAMMER [address] [place] [address] [place] [id number] [place] [address] 06/25/2024 9:00 AM CDT Appointment [facility] [address] [place] [address] Samia Razo, [employer] PROGRAMMER [address] [place] [address] Trini Hoyt PTA 06/27/2024 9:00 AM CDT Appointment [facility] [address] [place] [address] Samia Razo, [employer] PROGRAMMER [address] [place] [address] Sarah Padilla, ALLOCATION ANALYST 06/29/2024 9:00 AM CDT Appointment [address] [place] [address] Samia Razo, [employer] PROGRAMMER [address] [place] [address] [place] [address] [place] [address] 07/02/2024 9:00 AM CDT Appointment [address] [place] [address] Samia Razo, [employer] PROGRAMMER [address] [place] [address] [place] [address] [place] [address] 07/04/2024 9:00 AM CDT Appointment [address] [place] [address] Samia Razo, [employer] PROGRAMMER [address] [place] [address] Sammi Lewis, PT [address] [place] [address] 07/06/2024 9:00 AM CDT Appointment [facility] [address] [place] [address] Samia Razo, [employer] PROGRAMMER [address] [place] [address] [place] [address] [place] [address] 07/11/2024 9:30 AM CDT Appointment [address] [place] [address] Samia Razo, [employer] PROGRAMMER [address] [place] [address] [place] [address] [place] [address] 07/12/2024 9:00 AM CDT Appointment [address] [place] [address] Samia Razo NP [address] [place] [address] [place] [address] [place] [address] documented as of this encounter Visit Diagnoses Not on filedocumented in this encounter Additional Health Concerns Assessment Noted Time PHQ-9 Depression Total Score: 0 01/30/20 22 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
== END 2024-06-21 11:28 | disposition home or self-care (01) ==
PROVIDERS: PCP Nurse Practitioner Family; Visit Provider Nurse Practitioner Family
DX: I65.23 Occlusion and stenosis of bilateral carotid arteries (principal)
CPT/HCPCS: 93880

== ENCOUNTER 2024-08-23 08:30 | Outpatient (CLI) | payer MEDICARE, OTHER, SELFPAY ==
--- NOTE | ~2024-08-23 | MR_ITS ---
MRI of the cervical spine Clinical History: Spinal stenosis Technique: Axial T2-weighted and gradient images, and sagittal T1-weighted, T2-weighted, and STIR woo ges were acquired. Findings: There is no fracture or subluxation of the cervical spine. Vertebral bodies maintain normal height and alignment. No bone marrow signal abnormality seen. At C2-C3, there is no significant disc bulge or herniation. No spinal canal stenosis, cord compressio n, or neural foraminal narrowing. At C3-C4, there is minimal disc osteophyte complexes with bilateral facet arthropathy. There is left neural foraminal narrowing, and possible mild right neural foraminal narrowing. No canal stenosis or cord compression. At C4-C5, there is disc osteophyte complex with bilateral facet hypertrophy. There is severe left kyrie ral foraminal narrowing and mild right neural foraminal narrowing. There is mild canal stenosis and m ild flattening of the ventral cord. At C5-C6, there is mild disc osteophyte complex with bilateral facet arthropathy. There is mild right neural foraminal narrowing. Left neural foramen probably preserved. No tayla canal stenosis or cord compression. At C6-C7, there is moderate degenerative disc narrowing with mild disc osteophyte complex. Probable m ild left neural foraminal narrowing. Right neural foramen preserved. No tayla canal stenosis or cord compression. No abnormal signal seen in the spinal cord. Paravertebral soft tissues are unremarkable. Impression: [id number]-[id number] degenerative spondylosis, as above, worst at C4-C5. Reviewed, dictated and finalized at [facility]. Impression: Kztr-ju-[id number] degenerative spondylosis, as above, worst at C4-C5.
--- NOTE | ~2024-08-23 | MR_ITS ---
MRI of the lumbar spine Clinical History: Spinal stenosis Technique: Axial T2-weighted images, and sagittal T1-weighted, T2-weighted, and T2 fat-sat images wer e acquired. Findings: No acute fracture seen. There is 3 mm retrolisthesis of L3 over L4. No suspicious bone citlaly ow signal abnormality seen. At L1-L2, there is mild degenerative disc narrowing. There is moderate facet arthropathy. No disc bul ge or herniation. No spinal canal stenosis. There is mild to moderate right neural foraminal narrowin g. Left neural foramen preserved. At L2-L3, there is mild degenerative disc narrowing. There is mild disc bulge with moderate facet art hropathy. There is mild central canal stenosis. There is moderate left neural foraminal narrowing, an d mild right neural foraminal narrowing. At L3-L4, there is degenerative disc narrowing. Diffuse disc bulge and moderate facet arthropathy res ult in severe spinal canal stenosis/thecal sac compression, and advanced bilateral neural foraminal n arrowing, left worse than right. At L4-L5, diffuse disc bulge and moderate facet arthropathy result in severe spinal canal stenosis/th ecal sac compression and severe bilateral neural foraminal narrowing. At L5-S1, there is diffuse disc bulge with mild to moderate facet arthropathy. There is mild central canal stenosis. There is severe bilateral neural foraminal compromise. Paravertebral soft tissues are unremarkable. Impression: Severe degenerative spondylosis, especially at L3-L4 and L4-L5. Please see details above. Reviewed, dictated and finalized at [facility]. Impression: Severe degenerative spondylosis, especially at L3-L4 and L4-L5. Please see deta shine above.
--- OUTSIDE RECORDS SUMMARY | 2024-08-23 08:35 | XMS_ITS | Data Portability ---
Author Organization [facility], Main Office Address [address] [place] [address] Assessment No assessment recorded. Plan of Treatment Reminders Order Date Submit Date Provider Last Modified By Organization Details Last Modified Time Details Appointments None recorded. Lab CBC w/ auto diff 2024 025 [place] [facility], [address], [place], [place], [address], 5 11:49:56 CMP, serum or plasma 2024 025 [facility], [address], [place], [place], [address], 5 11:49:57 pro BNP (pro B-type natriuretic peptide), serum or plasma 2024 025 [facility], [address], [place], [place], [address], 5 11:49:56 Referral None recorded. Procedures None recorded. Surgeries None recorded. Imaging None recorded. Medication Orders benzonatate 200 mg capsule 2024 025 [facility], [address] [address], [place], [address], 5 11:15:51 albuterol sulfate 2.5 mg/3 mL (0.083 %) solution for nebulizatio n 2024 025 [facility] 413, [address] [facility] [address], [place], [address], 5 12:12:05 benzonatate 200 mg capsule 2024 025 [email or web address] 0 [facility] 413, [address] [address], [place], [address], 5 11:02:49 guaifenesin ER 600 mg tablet, extended release 12 hr 2024 025 [facility] 413, [address] [address], [place], [address], 5 11:15:59 clonidine HCl 0.1 mg tablet 2024 025 [email or web address] 0 Not available 5 09:31:04 benzonatate 200 mg capsule 2024 025 [email or web address] 0 [facility] [address], [address] [address], [place], [address], 5 11:02:49 guaifenesin ER 600 mg tablet, extended release 12 hr 2024 025 [email or web address] 0 [facility] [address], [address] [facility] [address], [place], [address], 5 11:02:57 benzonatate 200 mg capsule 2024 025 [email or web address] 0 [facility] [address], [address] [address], [place], [address], 5 11:02:49 guaifenesin ER 600 mg tablet, extended release 12 hr 2024 025 [email or web address] 0 [facility] [address], [address] [place] [address], [place], [address], 5 11:02:57 azithromyci n 250 mg tablet 2024 025 [email or web address] 0 [facility] 413, [address] [facility] [address], [place], [address], 5 11:02:43 loratadine 10 mg tablet 2024 025 [email or web address] [facility] [address], [address], [place], [address], 16:09:13 Patient TargetsNo targets recorded. Patient Instructions Encounter Date Encounter Id Patient Instructions Last Modified By Organization Details Last Modified Time 02/27/2024 [id number] cough: care instructions [email or web address] Not available 02/27/2024 12:14:45 high blood pressure: care instructions [email or web address] Not available 02/27/2024 12:14:46 learning about high blood pressure [email or web address] Not available 02/27/2024 12:14:45 medical record request* [email or web address] Not available 03/08/2024 16:29:41 Diagnoses were discussed with the patient/family at length, all questions were answered and the patient/family verbalized understanding of these instructions and agreed with plan of care. No barriers to care are apparent at this time. Patient/family instructed to let me know if they have any difficulties affording their medications or have any further questions regarding their care [email or web address] Not available 02/27/2024 12:29:32 03/06/2024 [id number] cough: care instructions [email or web address] Not available 03/06/2024 10:33:13 high blood pressure: care instructions [email or web address] Not available 03/06/2024 10:33:13 learning about high blood pressure [email or web address] Not available 03/06/2024 10:33:13 medical record request* [email or web address] Not available 03/08/2024 16:30:16 Diagnoses were discussed with the patient/family at length, all questions were answered and the patient/family verbalized understanding of these instructions and agreed with plan of care. No barriers to care are apparent at this time. Patient/family instructed to let me know if they have any difficulties affording their medications or have any further questions regarding their care Not available 03/06/2024 10:22:50 03/20/2024 [id number] cough: care instructions [email or web address] Not available 03/20/2024 16:32:47 high blood pressure: care instructions [email or web address] Not available 03/20/2024 16:32:47 learning about high blood pressure [email or web address] Not available 03/20/2024 16:32:47 medical record request* [email or web address] Not available 04/18/2024 14:14:42 Diagnoses were discussed [...] [email or web address] Not available 03/20/2024 16:06:24 03/27/2024 [id number] cough: care instructions [email or web address] Not available 03/27/2024 12:11:57 bronchitis: care instructions [email or web address] Not available 03/27/2024 12:11:56 Diagnoses were discussed with the patient/family at length, all questions were answered and the patient/family verbalized understanding of these instructions and agreed with plan of care. No barriers to care are apparent at this time. Patient/family instructed to let me know if they have any difficulties affording their medications or have any further questions regarding their care [email or web address] Not available 03/27/2024 11:35:05 04/04/2024 [id number] cough: care instructions Not available 04/04/2024 11:36:37 Diagnoses were discussed with the patient/family at length, all questions were answered and the patient/family verbalized understanding of these instructions and agreed with plan of care. No barriers to care are apparent at this time. Patient/family instructed to let me know if they have any difficulties affording their medications or have any further questions regarding their care Not available 04/04/2024 11:01:55 Reason for Referral None Reported. Results Created Date Observation Date Name Description Value Unit Range Abnormal Flag Note LastModifiedBy Organization Detail LastModifiedTime 02/26/1902/28/2024 NT-NE OBNP nt-probnp 1237 pg/mL see below If [...] [facility] [address] [place] [address] Labor atory [facility] tor: Mark BellaIA Barak r [id number] [place]. [id number] Not Available [facility] (Blood Not Drawn At This Location) Visit [employer] [place], [address], 02/28/2024 11:49:55 02/26/1902/28/2024 CBC W/AUT O DIFF WITH PLATE LETS WBC 8.4 K/uL 3.5-11 .0 Not Available [facility] (Blood Not Drawn At This Location) Visit [employer] [place], [address], 02/28/2024 11:49:56 02/26/1902/28/2024 CBC W/AUT O DIFF WITH PLATE LETS RBC 4.54 M/uL 4.50-6 .10 Not Available [facility] (Blood Not Drawn At This Location) Visit [employer] [place], [address], 02/28/2024 11:49:56 02/26/19 25 02/28/2024 CBC W/AUT O DIFF WITH PLATE LETS hemoglobin 13.8 g/dL 13.5-1 7.0 Not Available [facility] (Blood Not Drawn At This Location) Visit [employer] [place], [address], 02/28/2024 11:49:56 02/26/1902/28/2024 CBC W/AUT O DIFF WITH PLATE LETS hematocrit 40.5 % 40.0-5 1.0 Not Available [facility] (Blood Not Drawn At This Location) Visit [employer] [place], [address], 02/28/2024 11:49:56 02/26/19 25 02/28/2024 CBC W/AUT O DIFF WITH PLATE LETS MCV 89.2 fL 80.0-9 9.0 Not Available [facility] (Blood Not Drawn At This Location) Visit [employer] [place], [address], 02/28/2024 11:49:56 02/26/1902/28/2024 CBC W/AUT O DIFF WITH PLATE LETS MCH 30.4 pg 25.0-3 3.0 Not Available [facility] (Blood Not Drawn At This Location) Visit [employer] [place], [address], 02/28/2024 11:49:56 02/26/1902/28/2024 CBC W/AUT O DIFF WITH PLATE LETS MCHC 34.1 g/dL 31.0-3 6.0 Not Available [facility] (Blood Not Drawn At This Location) Visit [employer] [place], [address], 02/28/2024 11:49:56 02/26/1902/28/2024 CBC W/AUT O DIFF WITH PLATE LETS RDW 13.9 % 11.5-1 5.0 Not Available [facility] Main Lab (Blood Not Drawn At This Location) Visit [facility] For Location Nearest [facility], [place], [address], 02/28/2024 11:49:56 02/26/19 25 02/28/2024 CBC W/AUT O DIFF WITH PLATE LETS neutrophils 76.9 % Not Available [facility] - Main Lab (Blood Not Drawn At This Location) Visit [facility] For Location Nearest [facility], [place], [address], 02/28/2024 11:49:56 02/26/19 25 02/28/2024 CBC W/AUT O DIFF WITH PLATE LETS lymphocytes 8.7 % Not Available [facility] - Main Lab (Blood Not Drawn At This Location) Visit [facility] For Location Nearest [facility], [place], [address], 02/28/2024 11:49:56 02/26/19 25 02/28/2024 CBC W/AUT O DIFF WITH PLATE LETS monocytes 11.2 % Not Available [facility] Main Lab (Blood Not Drawn At This Location) Visit [facility] For Location Nearest [facility], [place], [address], 02/28/2024 11:49:56 02/26/19 25 02/28/2024 CBC W/AUT O DIFF WITH PLATE LETS eosinophils 2.6 % Not Available [facility] - Main Lab (Blood Not Drawn At This Location) Visit [facility] For Location Nearest [facility], [place], [address], 02/28/2024 11:49:56 02/26/1902/28/2024 CBC W/AUT O DIFF WITH PLATE LETS basophils 0.4 % Not Available [facility] Main Lab (Blood Not Drawn At This Location) Visit [employer] [facility] For Location Nearest [facility], [place], [address], 02/28/2024 11:49:56 02/26/19 25 02/28/2024 CBC W/AUT O DIFF WITH PLATE LETS immature granulocytes 0.2 % Not Available [facility] - Main Lab (Blood Not Drawn At This Location) Visit [employer] [place], [address], 02/28/2024 11:49:56 02/26/1902/28/2024 CBC W/AUT O DIFF WITH PLATE LETS nucleated RBCs 0.0 /100_ WBC's 0.0 Not Available [facility] (Blood Not Drawn At This Location) Visit [employer] [place], [address], 02/28/2024 11:49:56 02/26/19 25 02/28/2024 CBC W/AUT O DIFF WITH PLATE LETS platelet count 256 K/uL 130-40 0 Not Available [facility] Main Lab (Blood Not Drawn At This Location) Visit [facility] For Location Nearest [facility], [place], [address], 02/28/2024 11:49:56 02/26/19 25 02/28/2024 CBC W/AUT O DIFF WITH PLATE LETS absolute neutrophils 6.43 K/uL 1.50-7 .50 Not Available [facility] (Blood Not Drawn At This Location) Visit [employer] [place], [address], 02/28/2024 11:49:56 02/26/19 25 02/28/2024 CBC W/AUT O DIFF WITH PLATE LETS absolute lymphocytes 0.73 K/uL 1.00-4 .00 low Not Available [facility] (Blood Not Drawn At This Location) Visit [employer] [place], [address], 02/28/2024 11:49:56 02/26/1902/28/2024 CBC W/AUT O DIFF WITH PLATE LETS absolute monocytes 0.94 K/uL 0.20-1 .00 Not Available [facility] (Blood Not Drawn At This Location) Visit [employer] [place], [address], 02/28/2024 11:49:56 02/26/19 02/28/2024 CBC W/AUT O DIFF WITH PLATE LETS absolute eosinophils 0.22 K/uL 0.00-0 .50 Not Available [facility] (Blood Not Drawn At This Location) Visit [employer] [place], [address], 02/28/2024 11:49:56 02/26/19 25 02/28/2024 CBC W/AUT O DIFF WITH PLATE LETS absolute basophils 0.03 K/uL 0.00-0 .20 Not Available [facility] (Blood Not Drawn At This Location) Visit [employer] [place], [address], 02/28/2024 11:49:56 02/26/19 25 02/28/2024 CBC W/AUT O DIFF WITH PLATE LETS abs immature granulocytes 0.02 K/uL 0.00-0 .10 Not Available [facility] (Blood Not Drawn At This Location) Visit [employer] [place], [address], 02/28/2024 11:49:56 02/26/19 25 02/28/2024 CBC W/AUT O DIFF WITH PLATE LETS abs nucleated RBCs 0.00 K/uL 0.00-0 .11 Testi ng Perfo rmed At: [facility] [address] [place] [address] Labor atory [facility] tor: Mark Bella [id number] [place] [id number] Not Available [facility] (Blood Not Drawn At This Location) Visit [employer] [place], [address], 02/28/2024 11:49:56 02/26/19 25 02/28/2024 COMPR EHENS JORDAN METAB OLIC PANEL + E-GFR glucose 95 mg/dL 70-99 Not Available [facility] (Blood Not Drawn At This Location) Visit [employer] [place], [address], 02/28/2024 11:49:57 02/26/19 25 02/28/2024 COMPR EHENS JORDAN METAB OLIC PANEL + E-GFR BUN 11 mg/dL 8-23 Not Available [facility] (Blood Not Drawn At This Location) Visit [employer] [place], [address], 02/28/2024 11:49:57 02/26/19 25 02/28/2024 COMPR EHENS JORDAN METAB OLIC PANEL + E-GFR creatinine 0.78 mg/dL 0.80-1 .40 low Not Available [facility] (Blood Not Drawn At This Location) Visit [employer] [place], [address], 02/28/2024 11:49:57 02/26/19 25 02/28/2024 COMPR EHENS JORDAN METAB OLIC PANEL + E-GFR eGFR (2020 CKD-epi) 92 mL/mi n/1.7 3 >60 Not Available [facility] Main Lab (Blood Not Drawn At This Location) Visit [employer] [place], [address], 02/28/2024 11:49:57 02/26/19 25 02/28/2024 COMPR EHENS JORDAN METAB OLIC PANEL + E-GFR calc BUN/creat 14 ratio 6-28 Not Available Clinic al [facility] - Main Lab (Blood Not Drawn At This Location) Visit [employer] [place], [address], 02/28/2024 11:49:57 02/26/19 25 02/28/2024 COMPR EHENS JORDAN METAB OLIC PANEL + E-GFR sodium 126 mEq/L 133-14 6 low Not Available [facility] (Blood Not Drawn At This Location) Visit [employer] [place], [address], 02/28/2024 11:49:57 02/26/19 25 02/28/2024 COMPR EHENS JORDAN METAB OLIC PANEL + E-GFR potassium 5.3 mEq/L 3.5-5. 4 Not Available [facility] (Blood Not Drawn At This Location) Visit [employer] [place], [address], 02/28/2024 11:49:57 02/26/19 25 02/28/2024 COMPR EHENS JORDAN METAB OLIC PANEL + E-GFR chloride 90 mEq/L 95-107 low RESUL TS RECHE CKED AND VERIF IED Not Available [facility] (Blood Not Drawn At This Location) Visit [employer] [place], [address], 02/28/2024 11:49:57 02/26/19 25 02/28/2024 COMPR EHENS JORDAN METAB OLIC PANEL + E-GFR carbon dioxide 28 mEq/L 19-31 Not Available Clinic [facility] - Main Lab (Blood Not Drawn At This Location) Visit [employer] [place], [address], 02/28/2024 11:49:57 02/26/19 25 02/28/2024 COMPR EHENS JORDAN METAB OLIC PANEL + E-GFR calcium 9.8 mg/dL 8.5-10 .5 Not Available [facility] Main Lab (Blood Not Drawn At This Location) Visit [employer] [place], [address], 02/28/2024 11:49:57 02/26/19 25 02/28/2024 COMPR EHENS JORDAN METAB OLIC PANEL + E-GFR protein, total 7.0 g/dL 6.1-8. 3 Not Available [facility] (Blood Not Drawn At This Location) Visit [employer] [place], [address], 02/28/2024 11:49:57 02/26/19 25 02/28/2024 COMPR EHENS JORDAN METAB OLIC PANEL + E-GFR albumin 4.4 g/dL 3.5-5. 2 Not Available [facility] Main Lab (Blood Not Drawn At This Location) Visit [employer] [place], [address], 02/28/2024 11:49:57 02/26/1902/28/2024 COMPR EHENS JORDAN METAB OLIC PANEL + E-GFR calc globulin 2.6 g/dL 1.9-3. 7 Not Available [facility] (Blood Not Drawn At This Location) Visit [employer] [place], [address], 02/28/2024 11:49:57 02/26/1902/28/2024 COMPR EHENS JORDAN METAB OLIC PANEL + E-GFR calc A/G ratio 1.7 ratio 1.0-2. 6 Not Available [facility] Main Lab (Blood Not Drawn At This Location) Visit [employer] [place] [place], [address], 02/28/2024 11:49:57 02/26/19 25 02/28/2024 COMPR EHENS JORDAN METAB OLIC PANEL + E-GFR bilirubin, total 0.6 mg/dL <=1.2 Not Available Clinic [facility] - Main Lab (Blood Not Drawn At This Location) Visit [employer] [place] [place], [address], 02/28/2024 11:49:57 02/26/1902/28/2024 COMPR EHENS JORDAN METAB OLIC PANEL + E-GFR alkaline phosphatase 123 U/L 40-125 Not Available [facility] - Main Lab (Blood Not Drawn At This Location) Visit [employer] [place], [address], 02/28/2024 11:49:57 02/26/1902/28/2024 COMPR EHENS JORDAN METAB OLIC PANEL + E-GFR AST 18 U/L 9-50 Not Available [facility] Main Lab (Blood Not Drawn At This Location) Visit [employer] [place], [address], 02/28/2024 11:49:57 02/26/19 25 02/28/2024 COMPR EHENS JORDAN METAB OLIC PANEL + E-GFR ALT 17 U/L 5-50 Testi ng Perfo rmed At: [facility] [address] [facility], [place] [address] Labor atory [facility] tor: Vipul morrow, Segundo. ABDIEL Cancino r [id number] [place] [id number] Not Available [facility] Main Lab (Blood Not Drawn At This Location) Visit [facility] For Location Nearest [place], [place], [address], 02/28/2024 11:49:57 Result Notes None recorded. Problems Name Problem SNOMED Code Status Onset Date Resolution Date Notes Provider Name and Address Organization Details Recorded Time Essential hypertension 04364339 Active 2019 Tre Khan, TELECASTING ENGINEER, HOTEL OPERATION MANAGER-BC [address] [place] [address], [address] , [facility] 0 13:54:01 Neuropathy 337648001 Active 2024 Melinda banks NRCMA null, [facility] 5 11:46:54 Hyperlipidemi a 65024746 Active 2024 Melinda banks NRCMA null, [facility] 5 11:47:02 Spinal stenosis 45272585 Active 2024 Melinda banks NRCMA null, [facility] 5 11:47:16 Cough 63191148 Active 2024 Sherlyn Moreno PA-C [address] [place] [address], [address] , [facility] 5 12:10:02 Non-pitting edema 987260280 Active 2024 Sherlyn Moreno PA-C [address] [place] [address], [address] , [facility] 5 12:28:54 Hyponatremia 17267844 Active 2024 Sherlyn Moreno PA-C [address] [place] [address], [address] , [facility] 5 14:25:12 Acute bronchitis 70322958 Active 2024 Sherlyn Moreno PA-C [address] [place], [address] , [facility] 5 17:32:36 Problem Notes None recorded. Procedures Surgical History Date Name Laterality Status Provider Name and Address Organization Details Recorded Time Hernia Repair completed Catherine Mitchell MA [facility] 03/19/2019 13:23:38 Imaging Results None [...] in Arterial blood by Pulse oximetry Systolic And Diastolic Provider Name and Address Organization Details Last Updated DateTime 5 95048.5 4 g 18 /min 98.2 [degF] 32 kg/m2 175.26 cm 68 /min 98 % 98 % 134/88 mm[Hg] MEDARDO JenkinsA [facility] 5 11:49:58 Date Recorded Body height Body mass index (BMI) Body weight Respiratory rate Body temperature Heart rate Oxygen saturation Oxygen saturation in Arterial blood by Pulse oximetry Systolic And Diastolic Provider Name and Address Organization Details Last Updated DateTime 5 175.26 cm 31.3 kg/m2 73552.5 8 g 16 /min 97 [degF] 94 /min 96 % 96 % 158/80 mm[Hg] MAXIMO FRANCO [facility] 5 10:17:54 Date Recorded Systolic And Diastolic Provider Name and Address Organization Details Last Updated DateTime 03/20/2024 160/80 mm[Hg] Sherlyn Moreno PA-C [address], [place], [address], [facility] 03/20/2024 16:35:09 Date Recorded Body height Body mass index (BMI) Body weight Respiratory rate Body temperature Heart rate Oxygen saturation Oxygen saturation in Arterial blood by Pulse oximetry Systolic And Diastolic Provider Name and Address Organization Details Last Updated DateTime 5 175.26 cm 31.5 kg/m2 11560.1 7 g 16 /min 98.4 [degF] 89 /min 98 % 98 % 170/88 mm[Hg] Melinda thakur, [facility] 5 16:13:32 Date Recorded Body height Body mass index (BMI) Body weight Heart rate Respiratory rate Body temperature Oxygen saturation Oxygen saturation in Arterial blood by Pulse oximetry Systolic And Diastolic Provider Name and Address Organization Details Last Updated DateTime 5 175.26 cm 31.7 kg/m2 02840.3 6 g 68 /min 16 /min 98.6 [degF] 97 % 97 % 130/70 mm[Hg] Catherine Mitchell MA [facility] 5 11:35:52 Date Recorded Body height Body mass index (BMI) Body weight Heart rate Respiratory rate Body temperature Oxygen saturation Oxygen saturation in Arterial blood by Pulse oximetry Systolic And Diastolic Provider Name and Address Organization Details Last Updated DateTime 5 175.26 cm 32.2 kg/m2 13246.1 4 g 67 /min 16 /min 97.5 [degF] 98 % 98 % 132/60 mm[Hg] Catherine Mitchell MA [facility] 5 11:02:17 Social History Question Answer Notes LastModified by Organizat ion Details LastModified Time Tobacco Smoking Status Never Smoker Not Available [employer] 12/18/2019 03:36:41 Live Alone Or With Others? With Others [email or web address] Information not available 04/04/2019 Marital Status [email or web address] Informatio n not available 04/04/2019 Sex: Unknown Functional Status Question Answer Note LastModified by Organizat ion Details LastModified Time Do you or have you ever used smokeless tobacco? Never used smokeless tobacco [id number] Information not available 12/18/2019 Are you able to walk? YESWOREST [id number] Information not available 12/18/2019 Do you or have you ever used e-cigarettes or vape? Never used electronic cigarettes [id number] Information not available 12/18/2019 Mental Status None recorded. Family History Nothing Reported. Medical History Condition Response Hypertension Y Past Encounters Encounter ID Performer Location Encounter Start Date Encounter Closed Date Diagnosis/Indication Diagnosis SNOMED-CT Code Diagnosis ICD10 Code Diagnosis Note [id number] Jerson Henning MD Main Office [address] [place] [id number] 03/19/2019 10:45:43 03/19/2019 14:05:36 Community acquired pneumonia 826430871 J18.9 No evidence of serious disease here today. Will start patient on some prednisone and azithromyc in advised to return to clinic in 2 weeks to review reevaluate his lungs. Sooner if his condition worsens. Patient verbalized understand ing these instructio ns. Essential hypertension 09392881 I10 pt did not take his BP meds last night. Will recheck blood pressure in 2 weeks and evaluate the need to modify his blood pressure regimen. [id number] Jerson Henning MD Main Office [address] [place] [id number] 04/04/2019 14:54:43 04/04/2019 16:09:36 Essential hypertension 15511982 I10 uncontroll ed. Start patient on terazosin and recheck BP in 2 weeks. BP log reviewed and looks good but the patient is fairly hypertensi ve here in the clinic. [id number] Jerson Henning MD Main Office [address] [place] [address] [phone] 0 02/27/2024 10:48:48 02/27/2024 14:52:20 Cough [id number] R05.9 Reviewed symptomati c care instructio ns, the expected course of these illnesses and explained that coughing can persist for some time. Provided precaution s for signs of worsening disease and instructio ns on contacting us if symptoms worsen. -Will order labs today-will send tessalon pearls 200mg, guaifenesi n 600mg, azithromyc in 250mg, loratadine 10mg -will follow up in one week Essential hypertension [id number] I10 -Will order labs today-Curr ent Treatment: amlodipine 10mg, benazepril 40mg, furosemide 20mg- BP today 134/88- Patient instructed to take his medication at night-Will recheck labs in 3 months.Pat ient will monitor blood pressure and report if unable to control or if they develop new symptoms.- Patient has non pitting edema Non-pitting edema [id number] R60.9 Current Treatment: Furosemide 20mg-will continue to monitor-wi ll follow up in one week [id number] Jerson Henning MD Main Office [address] [place] [address] [phone] 03/06/2024 10:12:27 03/06/2024 10:46:19 Cough [id number] R05.9 Reviewed symptomati c care instructio ns, the expected course of these illnesses and explained that coughing can persist for some time. Provided precaution s for signs of worsening disease and instructio ns on contacting us if symptoms worsen. -Will order labs today-will send tessalon pearls 200mg, guaifenesi n 600mg, azithromyc in 250mg, loratadine 10mg -will follow up in one week Essential hypertension [id number] I10 -Current Treatment: amlodipine 10mg, benazepril 40mg, furosemide 20mg- BP today 158/80,-2n d BP today 146/90- Patient instructed to take his medication at night-Will recheck labs in 3 months.Pat ient will monitor blood pressure and report if unable to control or if they develop new symptoms.- Patient has non pitting edema [id number] Jerson Henning MD Main Office [address] [place] [address] [phone] 03/20/2024 15:25:59 03/20/2024 16:46:31 Cough [id number] R05.9 Reviewed symptomati c care instructio ns, the expected course of these illnesses and explained that coughing can persist for some time. Provided precaution s for signs of worsening disease and instructio ns on contacting us if symptoms worsen.-Wi ll order labs today-will send tessalon pearls 200mg, guaifenesi n 600mg-will follow up in one week Essential hypertension [id number] I10 -Current Treatment: amlodipine 10mg, benazepril 40mg, furosemide 20mg- BP today 170/88-2nd BP today 160/80- Patient instructed to take his medication at night-Will recheck labs in 3 months.Pat ient will monitor blood pressure and report if unable to control or if they develop new symptoms. [id number] Jerson Henning MD Main Office [address] [place] [address] [phone] 03/27/2024 11:03:28 03/27/2024 12:28:32 Cough [id number] R05.9 Reviewed symptomati c care instructio ns, the expected course of these illnesses and explained that coughing can persist for some time. Provided precaution s for signs of worsening disease and instructio ns on contacting us if symptoms worsen.-Wi ll order labs today-will send tessalon pearls 200mg, guaifenesi n 600mg-will follow up in one week Acute bronchitis [id number] J20.9 -Albuterol treatment 2.5mg and nebulizer- Advised patient to increase fluid in take-Revie wed symptomati c care instructio ns, the expected course of these illnesses and explained that coughing can persist for some time. Provided precaution s for signs of worsening disease and instructio ns on contacting us if symptoms worsen or go to his nearest ER . [id number] Jerson Henning MD Main Office [address] [place] [address] [phone] 0 04/04/2024 10:48:12 04/04/2024 11:54:03 Cough [id number] R05.9 -All symptoms have resolved Acute bronchitis [id number] 2 J20.9 -Patient reports all symptoms have resolved at this time Health Concerns Section Related Observation LastModified by Organization Contrerasai anders LastModified Time None Recorded Concern Status LastModified by Organization Details LastModified Time None Recorded Advance Directives Directive None Recorded Payers Insurance Date Sequence Insurance Name Policy Number Policy Moffett Covered Member ID Moffett Member ID Guarantor Name 05/07/2024 2 [facility] (MEDICARE SUPPLEMENT) Rubio Sampson [id number] Rubio Sampson 03/25/2024 2 [facility] [id number] Rubio Sampson [id number] Rubio Sampson 05/07/2024 1 MEDICARE-IN - PART A - [facility] (MEDICARE) Rubio Sampson [id number] Rubio Sampson Notes Date Note Type [...] SP02:98% R:18 Sherlyn Moreno PA-C [address] [place] [address], [phone], [facility] 02/27/2024 12:29:46 03/06/2024 text/html BP:132/88 P:94 SP02:98% [...] chest palpitation. Sherlyn Moreno PA-C [address] [place] [address], [phone], [facility] 03/06/2024 10:40:06 03/20/2024 text/html 78 yr old [...] chest palpitation. Sherlyn Moreno PA-C [address] [facility] [place], [place], [phone], [facility] 03/20/2024 16:35:49 03/27/2024 text/html BP 130/70 pulse [...] chest palpitation. Sherlyn Moreno PA-C [address] [place] [address], [phone], [facility] 03/27/2024 12:22:53 04/04/2024 text/html BP 132/60 pulse [...] chest palpitation. Sherlyn Moreno PA-C [address] [facility] [place], [place], [phone], [facility] 04/04/2024 11:36:58
--- OUTSIDE RECORDS SUMMARY | 2024-08-23 08:35 | XMS_ITS | Encounter Summary ---
Author Organization [facility] Address [address] [place] [address] Care Team Providers Care Writing Center Director Name Role Phone Jarvis Jimenez Maegan HUANG Primary Care Provider [phone] Reason for Visit * Physical Therapy (Routine) - Authorized Specialty Diagnoses / Procedures Referred By Contac t Referred To Contact PHYSICAL THERAPY / [facility] Physical Therapy Diagnoses Spinal stenosis, cervical region Spinal stenosis, lumbar region without neurogenic claudication Procedures Samia Galarza, BRISA [address] [place] [address] Phone: tel: fax: [place] [address] [place] [address] Phone: tel: fax: Referral ID Status Reason Start Date Expiration Date Visits Requested Visits Authorized [id number] Authorized Physical Therapy 06/20/2024 99 99 Encounter Details Date Type Department Care Team (Late st Contact Info) Description 08/21/2024 7:57 AM CDT - 08/21/2024 11:59 PM T Hospital Encounter [facility] Therapy [address] [place] [address] Samia Razo, BRISA [address] [place] [address] Suzi Dillard, TRACK LAYER HEAD Arrived Discharge Disposition: Home or Self Care (Routine Discharge) Social History Tobacco Use Types Packs/Day Years Used Date Smoking Tobacco: Never Smokeless Tobacco: Never PHQ-2 Answer Date Recorded Patient Health Questionnaire-2 Score 0 01/29/2022 Sex and Gender Information Value Date Recorded Sex Assigned at Not on file Legal Sex Male 7:05 PM CDT Gender Identity Not on file Sexual Orientation Not on file documented as of this encounter Medications at Time of Discharge amLODIPine 5 MG tablet Take 5 mg by mouth 2 (two) times a day. benazepril 20 MG tablet Take 40 mg by mouth 2 (two) times a day. cyclobenzaprine 10 MG tablet Take 10 mg by mouth 3 (three) times daily as needed for Muscle Spasms. furosemide 20 MG tablet Take 20 mg by mouth daily. gabapentin 600 MG tablet Take 600 mg by mouth 4 (four) times daily. hydrALAZINE 25 MG tablet Take 25 mg by mouth 2 (two) times daily. hydroCHLOROthiazi de 12.5 MG capsule Take 12.5 mg by mouth every morning. omeprazole 40 MG capsule Take 40 mg by mouth as needed. sildenafil 20 MG tablet Take 20 mg by mouth as needed. simvastatin 10 MG tablet Take 10 mg by mouth nightly at bedtime. terazosin 1 MG capsule Take 1 mg by mouth nightly at bedtime. documented as of this encounter Progress Notes * Suzi Dillard, TRACK LAYER HEAD - 08/21/2024 8:00 AM CDT Physical Therapy Visit Note: Patient Name: Rubio Sampson Diagnosis: Neck pain (primary encounter diagnosis) Back pain SUBJECTIVE Therapy Visit Total Approved Visits: 19 (eval 06/20/24; re-eval 08/09/24) Therapy Plan of Care: Maintenance Current Therapy Orders: Eval and treat Diagnosis: cervical and lumbar stenosis resulting in numbness/pain in fingers/toes Referring Provider: Samia Razo NP Work Status: retired - enjoys walking 3 miles each morning Subjective Note: Pt reports that he has 2 MRIs this for his neck and his back. He says he does not have any pain, but continues to suffer from numbness. Pain Current Location of Pain: B feet Other (comments): Denies pain - just has numbness OBJECTIVE Treatment provided today: Therapeutic Exercise - 53093 Cardio Equipment: Nustep lvl 5 - 10 mins Exercise: PPT x30 Exercise: 1/2 foam calf stretch 10x10 Exercise: HR x30 Exercise: red theraband flex bar/digi flex x30 Exercise: scapular retraction x30 Exercise: chin tucks x30 Exercise: SB seated flexion stretch 10x10 Exercise: theraweb finger flex/ext Exercise: Corner pectoralis stretch 10x10 Exercise: wall slide lift off x20 Exercise: B ER/ horz abd with green TB x30 Exercise: seated hs stretch x 5 Exercise: seated sciatic nerve glide x 10 Exercise: hltr x10 Manual Therapy - 30631 Intervention: cervical manual traction Intervention: UT stretch Intervention: 1/2 foam pec stretch Intervention: long leg distraction Intervention: cupping to B UT Modalities Non-Timed Hot Pack - 24326: cervical region post ASSESSMENT Assessment Note: Ed continues to struggle with numbness throughout his UE and LE. He is scheduled for an MRI for his cervical and lumbar regions this . He shows good tolerance and recall of exs this session, requiring minimal cueing. Moderate tightness continues to linger throughout bilateral UT currently. Finished tx with MHP to cervical region. PLAN Plan Next Visit Plan: progress balance, UE/LE strength, posture Total Time Total Time in Minutes: 60 Timed Code Treatment Minutes : 50 documented in this encounter Plan of Treatment Upcoming Encounters Date Type Department Care Team (Late st Contact Info) Description 08/28/2024 8:00 AM CDT Appointment [address] [place] [address] Samia Razo, EXPLOSIVE SPECIALIST [address] [place] [address] Suzi Dillard PTA 09/04/2024 8:00 AM CDT Appointment [address] [place] [address] Samia Razo NP [address] [place] [address] Laxmi Whiting PTA 09/11/2024 8:00 AM CDT Appointment [facility] [address] [facility] [place] [address] Samia Razo NP [address] [place] [address] Trini Hoyt PTA 09/18/2024 8:00 AM CDT Appointment [facility] Therapy [address] [place] [address] Matthew Raygoza, PT [address] [facility] [place] [address] documented as of this encounter Visit Diagnoses Diagnosis Neck pain- Primary Cervicalgia Back pain Backache, unspecified documented in this encounter Additional Health Concerns Assessment Noted Time PHQ-9 Depression Total Score: 0 01/30/20 22 10:05 AM PLATINUM SMITH documented as of this encounter Care Teams Writing Center Director Relationship Specialty Start Date End Date Jarvis Jimenez DO [address] [facility] [address] [place] [address] PCP - General INTERNAL MEDICINE 11/07/19 documented as of this encounter
--- OUTSIDE RECORDS SUMMARY | 2024-08-23 08:35 | XMS_ITS | Clinical Summary ---
Author Organization [facility] Address [address] [place] [address] Care Team Providers Care Sheet Metal Supervisor Name Role Phone Jarvis Jimenez DO Primary Care Provider Allergies No known active allergies Medications benazepril [...] Encounters Date Type Department Care Team Description 08/21/2024 7:57 AM CDT - 08/21/2024 11:59 PM CDT Hospital Encounter [facility] Therapy [address] [facility] [place] [address] Samia Razo NP Davidson, Brooke M, MOLD CLEANER Arrived Discharge Disposition: Home or Self Care (Routine Discharge) 08/21/2024 Travel 08/09/2024 8:59 AM CDT - 08/09/2024 11:59 PM CDT Hospital Encounter [facility] [address] [facility] [place] [address] Samia Razo, Matthew Spring, PT Neck And Back Pain Discharge Disposition: Home or Self Care (Routine Discharge) 08/09/2024 Travel 08/07/2024 9:00 AM CDT - 08/07/2024 11:59 PM CDT Hospital Encounter [facility] [address] [facility] [place] [address] Samia Razo NP Emerick, Noah D, PT Neck And Back Pain Discharge Disposition: Home or Self Care (Routine Discharge) 08/07/2024 Travel 07/31/2024 9:00 AM CDT - 07/31/2024 11:59 PM CDT Hospital Encounter [facility] [address] [facility] [place] [address] Samia Razo NP Timmermann, Candice P, MOLD CLEANER Discharge Disposition: Home or Self Care (Routine Discharge) 07/31/2024 Travel 07/30/2024 8:29 AM CDT - 07/30/2024 11:59 PM CDT Hospital Encounter [facility] [address] [facility] [place] [address] Samia Razo NP Davidson, Brooke M, MOLD CLEANER Discharge Disposition: Home or Self Care (Routine Discharge) 07/30/2024 Travel 07/26/2024 8:56 AM CDT - 07/26/2024 11:59 PM CDT Hospital Encounter [facility] [address] [facility] [place] [address] Samia Razo NP McClenahan, Krystal M, PT Discharge Disposition: Home or Self Care (Routine Discharge) 07/26/2024 Travel 07/24/2024 9:00 AM CDT - 07/24/2024 11:59 PM CDT Hospital Encounter [facility] [address] [facility] [place] [address] Samia Razo NP Emerick, Noah D, PT Discharge Disposition: Home or Self Care (Routine Discharge) 07/24/2024 Travel 07/19/2024 8:24 AM CDT - 07/19/2024 11:59 PM CDT Hospital Encounter [facility] [address] [facility] [place] [address] Samia Razo, Matthew Spring, PT Neck And Back Pain Discharge Disposition: Home or Self Care (Routine Discharge) 07/19/2024 Travel 07/17/2024 9:00 AM CDT - 07/17/2024 11:59 PM CDT Hospital Encounter [facility] [address] [facility] [place] [address] Samia Razo NP Emerick, Noah D, PT Neck And Back Pain Discharge Disposition: Home or Self Care (Routine Discharge) 07/17/2024 Travel 07/13/2024 9:23 AM CDT - 07/13/2024 11:59 PM CDT Hospital Encounter [facility] [address] [facility] [place] [address] Samia Razo NP Hays, Michelle, MOLD CLEANER Discharge Disposition: Home or Self Care (Routine Discharge) 07/13/2024 Travel 07/12/2024 8:55 AM CDT - 07/12/2024 11:59 PM CDT Hospital Encounter [facility] [address] [facility] [place] [address] Samia Razo NP McClenahan, Krystal M, PT Discharge Disposition: Home or Self Care (Routine Discharge) 07/12/2024 Travel 07/06/2024 8:59 AM CDT - 07/06/2024 11:59 PM CDT Hospital Encounter [facility] [address] [facility] [place] [address] Samia Razo NP Wiegmann, Lacey M, PT Back Pain; Neck Pain Discharge Disposition: Home or Self Care (Routine Discharge) 07/06/2024 Travel 07/04/2024 8:57 AM CDT - 07/04/2024 11:59 PM CDT Hospital Encounter [facility] [address] [facility] [place] [address] Samia Razo NP Wiegmann, Lacey M, PT Neck And Back Pain Discharge Disposition: Home or Self Care (Routine Discharge) 07/04/2024 Travel 07/02/2024 8:58 AM CDT - 07/02/2024 11:59 PM CDT Hospital Encounter [facility] [address] [facility] [place] [address] Samia Razo NP Wiegmann, Lacey M, PT Neck And Back Pain Discharge Disposition: Home or Self Care (Routine Discharge) 07/02/2024 Travel 06/29/2024 8:57 AM CDT - 06/29/2024 11:59 PM CDT Hospital Encounter [facility] [address] [facility] [place] [address] Samia Razo NP McClenahan, Krystal M, PT Discharge Disposition: Home or Self Care (Routine Discharge) 06/29/2024 Travel 06/27/2024 8:53 AM CDT - 06/27/2024 11:59 PM CDT Hospital Encounter [facility] [address] [facility] [place] [address] Samia Razo NP Wiegmann, Lacey M, PT Neck And Back Pain Discharge Disposition: Home or Self Care (Routine Discharge) 06/27/2024 Travel 06/25/2024 9:00 AM CDT - 06/25/2024 11:59 PM CDT Hospital Encounter [facility] [address] [facility] [place] [address] Samia Razo, Trini Etienne, MOLD CLEANER Discharge Disposition: Home or Self Care (Routine Discharge) 06/25/2024 Travel 06/22/2024 8:55 AM CDT - 06/22/2024 11:59 PM CDT Hospital Encounter [facility] [address] [facility] [place] [address] Samia Razo NP Davidson, Brooke M, MOLD CLEANER Discharge Disposition: Home or Self Care (Routine Discharge) 06/22/2024 Travel 06/20/2024 11:00 AM CDT - 06/20/2024 11:59 PM CDT Hospital Encounter [facility] [address] [facility] [place] [address] Samia Razo NP McClenahan, Krystal M, PT Discharge Disposition: Home or Self Care (Routine Discharge) 06/20/2024 Travel from Last 3 Months Immunizations [...] AM CDT Pulse 64 02/04/2022 1:34 PM [facility] Temperature 36.4 C (97.5 F) 02/04/2022 1:34 PM [facility] Respiratory Rate 16 02/04/2022 1:34 PM [facility] Oxygen Saturation 98% 02/04/2022 1:34 PM [facility] Inhaled Oxygen Concentration - - Weight 100.2 kg (221 lb) 02/04/2022 1:34 PM [facility] Height 175.3 cm (5' 9) 02/04/2022 1:34 PM [facility] Body Mass Index 32.64 02/04/2022 1:34 PM [facility] Plan of Treatment Upcoming Encounters Date Type Department Care Team (Late st Contact Info) Description 08/28/2024 8:00 AM CDT Appointment [facility] [address] [facility] [place] [address] Samia Razo, SENIOR CONTROLS TECHNICIAN [address] [place] [address] Suzi Dillard, MOLD CLEANER 09/04/2024 8:00 AM CDT Appointment [address] [place] [address] Samia Razo, SENIOR CONTROLS TECHNICIAN [address] [place] [address] Laxmi Whiting, MOLD CLEANER 09/11/2024 8:00 AM CDT Appointment [address] [place] [address] Samia Razo, SENIOR CONTROLS TECHNICIAN [address] [place] [address] Trini Hoyt, MOLD CLEANER 09/18/2024 8:00 AM CDT Appointment [address] [place], [place] [id number] Matthew Raygoza, PT [address] [place] [address] Health Maintenance Due Date Last Done Comments Hepatitis C 1963 Zoster Vaccines (1 of 2) 1996 Annual Medicare Wellness Visit 11/12/2011 Pneumococcal Vaccine: 50+ Years (2 of 2 - PPSV23) 10/22/2016 10/23/2015 DTaP, Tdap and Td Vaccines (2 - Tdap) 01/14/2021 01/14/2011 RSV Immunization or 60+ Years (1 - 1-dose 75+ series) 2021 COVID-19 Vaccine ( season) 2023 11/08/2021, 05/13/2021, 11/10/2020, Additional history exists PHQ-2 (Physician [place]) 02/15/2024 Colorectal Cancer Screening Colonoscopy (10 Years) [...] Relevant to Health Maintenance Insurance MEDICARE [employer] [address] Advance Directives Documents on File Type Date Recorded Patient Dye Lab Technician Expl anation Advance Directives and Living Will 09/16/2020 12:00 AM ADVANCED DIRECTIVES Advance Directives and Living Will 05/26/2015 12:00 AM ADVANCED DIRECTIVES Care Teams Sheet Metal Supervisor Relationship Specialty Start Date End Date Jarvis Jimenez DO [address] [place] [address] PCP - General INTERNAL MEDICINE 11/07/19
== END 2024-08-23 08:31 | disposition home or self-care (01) ==
PROVIDERS: PCP Nurse Practitioner Family; Visit Provider Nurse Practitioner Family
DX: M48.00 Spinal stenosis, site unspecified (principal); M48.061 Spinal stenosis, lumbar region without neurogenic claudication; M48.02 Spinal stenosis, cervical region; M47.22 Other spondylosis with radiculopathy, cervical region; M47.26 Other spondylosis with radiculopathy, lumbar region
CPT/HCPCS: 72141; 72148

== ENCOUNTER 2024-10-17 10:18 | Outpatient (CLI) | payer MEDICARE, OTHER, SELFPAY ==
--- OUTSIDE RECORDS SUMMARY | 2024-10-16 07:59 | XMS_ITS | Encounter Summary ---
Author Organization [facility] Address [address] [place] [address] Care Team Providers Care Facilities Maintenance Engineer Name Role Phone Tony Jarvis Maegan HUANG Primary Care Provider [phone] Reason for Visit * Physical Therapy (Routine) - Authorized Specialty Diagnoses / Procedures Referred By Contac t Referred To Contact PHYSICAL THERAPY / [facility] Physical Therapy Diagnoses Spinal stenosis, cervical region Spinal stenosis, lumbar region without neurogenic claudication Procedures Samia Galarza, SYSTEM SUPPORT TECHNICIAN [address] [place] [address] Phone: tel: fax: [place] [address] [place] [address] Phone: tel: fax: Referral ID Status Reason Start Date Expiration Date Visits Requested Visits Authorized [id number] Authorized Physical Therapy 06/20/2024 99 99 Encounter Details Date Type Department Care Team (Late st Contact Info) Description 10/16/2024 7:59 AM CDT Hospital Encounter [facility] Therapy [address] [place] [phone] Samia Razo, SYSTEM SUPPORT TECHNICIAN [address] [place] [address] Kelley Young PTA [address] [place] [address] Arrived Social History Tobacco Use Types Packs/Day Years Used Date Smoking Tobacco: Never Smokeless Tobacco: Never PHQ-2 Answer Date Recorded Patient Health Questionnaire-2 Score 0 01/29/2022 Sex and Gender Information Value Date Recorded Sex Assigned at Not on file Legal Sex Male 7:05 PM CDT Gender Identity Not on file Sexual Orientation Not on file documented as of this encounter Progress Notes * Kelley Young, BILLET RECORDER - 10/16/2024 8:00 AM CDT Physical Therapy Visit Note: Patient Name: Rubio Sampson Diagnosis: Neck pain (primary encounter diagnosis) Back pain SUBJECTIVE Therapy Visit Treatment Day: 32 Total Approved Visits: 30 (eval 06/20/24; re-eval 08/09/24) Therapy Plan of Care: Maintenance Current Therapy Orders: Eval and treat Diagnosis: cervical and lumbar stenosis resulting in numbness/pain in fingers/toes Referring Provider: Samia Razo NP Next MD Visit: 10/09/24 with neuro Work Status: retired - enjoys walking 3 miles each morning Subjective Note: pt reports he does not really have any pain at time of treatment today, but states the neuropathy in the fingers and toes is what is most bothersome to him. Pain Current Location of Pain: L hip/Lower R back/ B shoulder/ N&T in hands and feet. OBJECTIVE Treatment provided today: Neuromuscular Re-education - 61447 Intervention: carioca Intervention: hurdles forward and lateral Intervention: airex step up and over Intervention: airex standing with rhythmic stabilization Intervention: lateral/fwd stepping over airex Therapeutic Exercise - 47819 Cardio Equipment: Nustep lvl 5 - 10 mins Exercise: scap ret 5 x 25 Exercise: 1/2 foam calf stretch 10x10 Exercise: HR x30 Exercise: RED pincher x30 B Exercise: seated HR/TR Exercise: wrist flexion/ext/RD/UD 3# Exercise: bicep curl/overhead press 5# x 30 Exercise: Petroleum knee flexion 40#/ext 30# 2x 20 Exercise: Petroleum Row/lat pull 20# 2x20 Exercise: seated hs stretch x 5 Manual Therapy - 82149 Intervention: cervical manual traction Intervention: UT stretch Intervention: carpal metacarpal extension stretching Modalities Non-Timed Electrical Stimulation Unattended - 39304/G0283: 15' neck/low back Hot Pack - 16047: cervical region post ASSESSMENT Assessment Note: pt tolerated treatment moderately well. pt balance was off especially noted during fwd/lat charbel step overs. pt did note he had not had any water this date, only coffee. it was recommended that he drink water first thing in the morning before his coffee. also spoke to pt about the importanceof hydration with his dizziness and to limit coffee intake. pt did well with all other exercises including manual therapy. Treatment ended with heat combined with PMES to decrease pain and promote healing with no adverse effects noted. PLAN Plan Next Visit Plan: progress balance, UE/LE strength, posture documented in this encounter Plan of Treatment Upcoming Encounters Date Type Department Care Team (Late st Contact Info) Description 10/18/2024 8:00 AM CDT Appointment [facility] Therapy [address] [place] [address] Samia Razo, SYSTEM SUPPORT TECHNICIAN [address] [place] [address] Matthew Raygoza, PT [address] [place] [address] documented as of this encounter Visit Diagnoses Diagnosis Neck pain- Primary Cervicalgia Back pain Backache, unspecified documented in this encounter Additional Health Concerns Assessment Noted Time PHQ-9 Depression Total Score: 0 01/30/20 22 10:05 AM JUKE BOX SERVICER documented as of this encounter Care Teams Facilities Maintenance Engineer Relationship Specialty Start Date End Date Jarvis Jimenez DO [address] [facility] [address] [place] [address] PCP - General INTERNAL MEDICINE 11/07/19 documented as of this encounter
[2024-10-17 10:39] LABS: Hematocrit 44.4 % (42.0-52.0); Hemoglobin 16.3 g/dL (14.0-18.0); Immature Granulocyte Percent A 0.4 % (0-0.5); Lymphocytes Absolute Auto 0.90 K/mm3 (0.9-3.2); Mean Corpuscular HGB Conc 36.7 g/dl (32-36); Mean Corpuscular Hemoglobin 33.5 pg (26-34); Mean Corpuscular Volume 91.2 fl (80-100); Nucleated Red Blood Cells Absolute Auto 0.000 K/mm3 (0.0-0.012); Nucleated Red Blood Cells Perc 0.0 % (0.0-0.2); Platelet Count Result 199 k/mm3 (150-375); Red Blood Count 4.87 M/mm3 (4.6-6.20); White Blood Count 6.9 K/mm3 (4.5-10.0)
[2024-10-17 11:02] LABS: Alanine Aminotransferase 30 U/L (6-50); Albumin Level 4.7 g/dL (3.5-5.1); Alkaline Phosphatase 76 U/L (38-126); Anion Gap 9 mmol/L (4-12); Aspartate Amino Transferase 35 U/L (17-59); Bilirubin,Total 1.6 mg/dL (0.2-1.3); Blood Urea Nitrogen 13 mg/dL (9-20); Calcium 9.5 mg/dL (8.4-10.2); Carbon Dioxide 25 mmol/L (22-30); Chloride 94 mmol/L (98-107); Cholesterol 116 mg/dL (0-200); Estimated Glomerular Filt Rate > 60; Glucose 106 mg/dL (65-110); HDL Direct 61 mg/dL; Potassium 4.5 mmol/L (3.4-5.0); Sodium 128 mmol/L (137-145); Total Protein 7.7 g/dL (6.3-8.2); Triglycerides 45 mg/dL (<150)
[2024-10-17 11:35] LABS: Hemoglobin A1C 5.8 % (<5.7)
--- OUTSIDE RECORDS SUMMARY | 2024-10-17 11:36 | XMS_ITS | Clinical Summary ---
Author Organization [facility] Address [address] [place] [address] Care Team Providers Care Remelt Operator Name Role Phone Jarvis Jimenez DO Primary Care Provider [phone] Allergies No known active allergies Medications benazepril [...] Encounters Date Type Department Care Team Description 10/16/2024 7:59 AM T Hospital Encounter [address] [place] [phone] Samia Razo NP Mollett, Heather, PTA Arrived 10/16/2024 Travel 10/11/2024 7:55 AM CDT - 10/11/2024 11:59 PM CDT Hospital Encounter [address] [place] [address] Samia Razo NP Hays, Michelle, CERTIFIED MEDICAL BILLER Discharge Disposition: Home or Self Care (Routine Discharge) 10/11/2024 Travel 10/08/2024 8:13 AM CDT - 10/08/2024 11:59 PM CDT Hospital Encounter [facility] [address] [facility] [place] [address] Samia Razo NP McClenahan, Krystal M, PT Discharge Disposition: Home or Self Care (Routine Discharge) 10/08/2024 Travel 10/04/2024 7:53 AM CDT - 10/04/2024 11:59 PM CDT Hospital Encounter [facility] [address] [facility] [place] [address] Samia Razo NP Wiegmann, Lacey M, PT Neck And Back Pain Discharge Disposition: Home or Self Care (Routine Discharge) 10/04/2024 Travel 10/02/2024 7:55 AM CDT - 10/02/2024 11:59 PM CDT Hospital Encounter [facility] [address] [facility] [place] [address] Samia Razo NP Timmermann, Candice P, CERTIFIED MEDICAL BILLER Discharge Disposition: Home or Self Care (Routine Discharge) 10/02/2024 Travel 09/27/2024 7:54 AM CDT - 09/27/2024 11:59 PM CDT Hospital Encounter [facility] [address] [facility] [place] [address] Samia Razo NP Timmermann, Candice P, CERTIFIED MEDICAL BILLER Discharge Disposition: Home or Self Care (Routine Discharge) 09/27/2024 Travel 09/25/2024 7:50 AM CDT - 09/25/2024 11:59 PM CDT Hospital Encounter [facility] [address] [facility] [place] [address] Samia Razo NP Hays, Michelle, CERTIFIED MEDICAL BILLER Discharge Disposition: Home or Self Care (Routine Discharge) 09/25/2024 Travel 09/20/2024 7:50 AM CDT - 09/20/2024 11:59 PM CDT Hospital Encounter [facility] [address] [facility] [place] [address] Samia Razo, Laxmi Stanford, CERTIFIED MEDICAL BILLER Discharge Disposition: Home or Self Care (Routine Discharge) 09/20/2024 Travel 09/18/2024 7:48 AM CDT - 09/18/2024 11:59 PM CDT Hospital Encounter [facility] [address] [facility] [place] [address] Samia Razo, Matthew Spring, PT Neck And Back Pain Discharge Disposition: Home or Self Care (Routine Discharge) 09/18/2024 Travel 09/12/2024 7:50 AM CDT - 09/12/2024 11:59 PM CDT Hospital Encounter [facility] [address] [facility] [place] [address] Samia Razo, Sarah uFnes, PT Discharge Disposition: Home or Self Care (Routine Discharge) 09/11/2024 7:52 AM CDT - 09/11/2024 11:59 PM CDT Hospital Encounter [facility] [address] [facility] [place] [address] Samia Razo, Sarah Funes, PT Discharge Disposition: Home or Self Care (Routine Discharge) 09/11/2024 Travel 09/04/2024 7:54 AM CDT - 09/04/2024 11:59 PM CDT Hospital Encounter [facility] [address] [facility] [place] [address] Samia Razo NP Timmermann, Candice P, CERTIFIED MEDICAL BILLER Discharge Disposition: Home or Self Care (Routine Discharge) 09/04/2024 Travel 08/28/2024 7:52 AM CDT - 08/28/2024 11:59 PM CDT Hospital Encounter [facility] [address] [facility] [place] [address] Samia Razo, Trini Etienne, CERTIFIED MEDICAL BILLER Discharge Disposition: Home or Self Care (Routine Discharge) 08/28/2024 Travel 08/21/2024 7:57 AM CDT - 08/21/2024 11:59 PM CDT Hospital Encounter [facility] [address] [facility] [place] [address] Samia Razo, Suzi Odonnell, CERTIFIED MEDICAL BILLER Discharge Disposition: Home or Self Care (Routine Discharge) 08/21/2024 Travel 08/09/2024 8:59 AM CDT - 08/09/2024 11:59 PM CDT Hospital Encounter [facility] [address] [facility] [place] [address] Samia Razo, Matthew Spring, PT Neck And Back Pain Discharge Disposition: Home or Self Care (Routine Discharge) 08/09/2024 Travel 08/07/2024 9:00 AM CDT - 08/07/2024 11:59 PM CDT Hospital Encounter [facility] [address] [facility] [place] [address] Samia Razo, Matthew Spring, PT Neck And Back Pain Discharge Disposition: Home or Self Care (Routine Discharge) 08/07/2024 Travel 07/31/2024 9:00 AM CDT - 07/31/2024 11:59 PM CDT Hospital Encounter [facility] [address] [facility] [place] [address] Samia Razo, Laxmi Stanford, CERTIFIED MEDICAL BILLER Discharge Disposition: Home or Self Care (Routine Discharge) 07/31/2024 Travel 07/30/2024 8:29 AM CDT - 07/30/2024 11:59 PM CDT Hospital Encounter [facility] [address] [facility] [place] [address] Samia Razo, Suzi Odonnell, CERTIFIED MEDICAL BILLER Discharge Disposition: Home or Self Care (Routine Discharge) 07/30/2024 Travel 07/26/2024 8:56 AM CDT - 07/26/2024 11:59 PM CDT Hospital Encounter [facility] [address] [facility] [place] [address] Samia Razo, Sarah Funes, PT Discharge Disposition: Home or Self Care (Routine Discharge) 07/26/2024 Travel 07/24/2024 9:00 AM CDT - 07/24/2024 11:59 PM CDT Hospital Encounter [facility] [address] [facility] [place] [address] Samia Razo, EDUCATION TECHNICIAN Matthew Raygoza, PT Discharge Disposition: Home or Self Care (Routine Discharge) 07/24/2024 Travel 07/19/2024 8:24 AM CDT - 07/19/2024 11:59 PM CDT Hospital Encounter [facility] [address] [facility] [place] [address] Samia Razo, EDUCATION TECHNICIAN Matthew Raygoza, PT Neck And Back Pain Discharge Disposition: Home or Self Care (Routine Discharge) 07/19/2024 Travel 07/17/2024 9:00 AM CDT - 07/17/2024 11:59 PM CDT Hospital Encounter [facility] [address] [facility] [place] [address] Samia Razo, EDUCATION TECHNICIAN Matthew Raygoza, PT Neck And Back Pain Discharge Disposition: Home or Self Care (Routine Discharge) 07/17/2024 Travel from Last 3 Months Immunizations Immunization [...] AM CDT Pulse 64 02/04/2022 1:34 PM BUILDING TECH Temperature 36.4 C (97.5 F) 02/04/2022 1:34 PM BUILDING TECH Respiratory Rate 16 02/04/2022 1:34 PM BUILDING TECH Oxygen Saturation 98% 02/04/2022 1:34 PM BUILDING TECH Inhaled Oxygen Concentration - - Weight 100.2 kg (221 lb) 02/04/2022 1:34 PM BUILDING TECH Height 175.3 cm (5' 9) 02/04/2022 1:34 PM BUILDING TECH Body Mass Index 32.64 02/04/2022 1:34 PM BUILDING TECH Plan of Treatment Upcoming Encounters Date Type Department Care Team (Late st Contact Info) Description 10/18/2024 8:00 AM CDT Appointment [facility] Therapy [address] [facility] [place], [place] [phone] Samia Razo, EDUCATION TECHNICIAN [address] [place], [place] [phone] Matthew Raygoza, PT [address] [place], [place] [phone] Health Maintenance Due Date Last Done Comments Hepatitis C 1963 Zoster Vaccines (1 of 2) 1996 Annual Medicare Wellness Visit 11/12/2011 Pneumococcal Vaccine: 50+ Years (2 of 2 - PPSV23) 10/22/2016 10/23/2015 DTaP, Tdap and Td Vaccines (2 - Tdap) 01/14/2021 01/14/2011 RSV Immunization or 60+ Years (1 - 1-dose 75+ series) 2021 COVID-19 Vaccine ( - season) 2024 11/08/2021, 05/13/2021, 11/10/2020, Additional history exists Colorectal Cancer Screening Colonoscopy (10 Years) Discontinued [...] Relevant to Health Maintenance Insurance MEDICARE [employer] [address] Advance Directives Documents on File Type Date Recorded Patient Batch Still Operator Expl anation Advance Directives and Living Will 09/16/2020 12:00 AM ADVANCED DIRECTIVES Advance Directives and Living Will 05/26/2015 12:00 AM ADVANCED DIRECTIVES Care Teams Remelt Operator Relationship Specialty Start Date End Date Jarvis Jimenez DO [address] [place] [address] PCP - General INTERNAL MEDICINE 11/07/19
--- OUTSIDE RECORDS SUMMARY | 2024-10-17 11:36 | XMS_ITS | Encounter Summary ---
Author Organization [facility] Address [address] [place] [address] Care Team Providers Care Community Outreach Director Name Role Phone Jarvis Jimenez DO Primary Care Provider [phone] Encounter Details Date Type Department Care Team (Latest Contact Info) Description 10/16/2024 Travel Social History Tobacco Use Types Packs/Day [...] Info) Description 10/18/2024 8:00 AM CDT Appointment [facility] Therapy [address] [place] [address] Samia Razo ENVIRONMENTAL HEALTH SPECIALIST [address] [place] [address] Matthew Raygoza, PT [address] [place] [address] documented as of this encounter Visit Diagnoses Not on filedocumented in this encounter Additional Health Concerns Assessment Noted Time PHQ-9 Depression Total Score: 0 01/30/20 22 10:05 AM KIDNEY TRIMMER documented as of this encounter Care Teams Community Outreach Director Relationship Specialty Start Date End Date Jarvis Jimenez DO [address] [address] PCP - General INTERNAL MEDICINE 11/07/19 documented as of this encounter
[2024-10-17 11:53] LABS: Prostate Specific Antigen 2.1 ng/mL (< OR = 4.0)
== END 2024-10-17 10:19 | disposition home or self-care (01) ==
LOC: ANHLAB 10:19
PROVIDERS: PCP Nurse Practitioner Family; Visit Provider Nurse Practitioner Family
DX: M48.00 Spinal stenosis, site unspecified (principal); I10 Essential (primary) hypertension; R73.03 Prediabetes; E78.2 Mixed hyperlipidemia; E66.9 Obesity, unspecified; Z12.5 Encounter for screening for malignant neoplasm of prostate
CPT/HCPCS: 36415; 80053; 80061; 83036; 84153; 85025; G0103

== ENCOUNTER 2024-12-06 09:52 | Outpatient (CLI) | payer MEDICARE, OTHER, SELFPAY ==
--- OUTSIDE RECORDS SUMMARY | 2024-11-13 07:54 | XMS_ITS | Encounter Summary ---
Author Organization [facility] Address [address] [place] [address] Care Team Providers Care Harness Cutter Name Role Phone Jarvis Jimenez Maegan HUANG Primary Care Provider [phone] Reason for Visit * Physical Therapy (Routine) - Authorized Specialty Diagnoses / Procedures Referred By Contac t Referred To Contact PHYSICAL THERAPY / [facility] Physical Therapy Diagnoses Spinal stenosis, cervical region Spinal stenosis, lumbar region without neurogenic claudication Procedures Samia Galarza, BRISA [address] [place] [address] Phone: tel: fax: [place] [address] [place] [address] Phone: tel: fax: Referral ID Status Reason Start Date Expiration Date Visits Requested Visits Authorized [id number] Authorized Physical Therapy 06/20/2024 99 99 Encounter Details Date Type Department Care Team (Late st Contact Info) Description 11/13/2024 7:54 AM CDT Hospital Encounter [facility] Therapy [address] [facility] [place] [address] Samia Razo, BRISA [address] [place] [address] Suzi Dillard, AIRCRAFT ORDNANCE TECHNICIAN Arrived Social History Tobacco Use Types Packs/Day [...] this encounter Progress Notes * Suzi Dillard, AIRCRAFT ORDNANCE TECHNICIAN - 11/13/2024 8:00 AM CDT Physical Therapy Visit Note: Patient Name: Rubio Sampson Diagnosis: Neck pain (primary encounter diagnosis) Back pain SUBJECTIVE Therapy Visit Treatment Day: 40 Total Approved Visits: 40 (eval 06/20/24; re-eval 10/18/24) Therapy Plan of Care: Maintenance Current Therapy Orders: Eval and treat Diagnosis: cervical and lumbar stenosis resulting in numbness/pain in fingers/toes Referring Provider: Samia Razo NP Next MD Visit: 11/07/24 EMG Work Status: retired - enjoys walking 3 miles each morning Subjective Note: Ed reports that his nerve test confirmed he has B carpal tunnel, with the R being worse than the L. He is hopeful he can continue to golf, and is considering investing in a night brace for his R hand. Compliance to Home Program: [facility] Current Location of Pain: L hip/Lower R back/ B shoulder/ N&T in hands and feet. OBJECTIVE Treatment provided today: Neuromuscular Re-education - 13164 Intervention: carioca Intervention: hurdles forward and lateral Intervention: airex step up and over Intervention: airex standing with rhythmic stabilization Intervention: lateral/fwd stepping over airex Intervention: heel to toe walking Intervention: balancing on 1/2 foam roll Intervention: cone weaving Intervention: obstacle course Intervention: walking with head turns up/down/side Therapeutic Exercise - 85202 Cardio Equipment: Nustep lvl 5 - 10 mins Exercise: scap ret 5 x 25 Exercise: 1/2 foam calf stretch 10x10 Exercise: HR x30 Exercise: RED pincher x30 B Exercise: seated HR/TR Exercise: wrist flexion/ext/RD/UD 3# x20 Exercise: bicep curl/overhead press 5# x 30 Exercise: [place] knee flexion 40#/ext 30# 2x 20 Exercise: [place] Row/lat pull 40# 2x20 Exercise: seated hs stretch x 5 Manual Therapy - 02261 Intervention: cervical manual traction Intervention: UT stretch Intervention: R shoulder PROM Intervention: carpal metacarpal extension stretching Modalities Non-Timed Hot Pack - 79136: cervical and low back post 10 Education Was Education Provided: Yes Topic: HEP review Recipient: Patient Method: Demonstration, Verbal Response: Demonstrates adequately, Verbalized understanding Barriers: None ASSESSMENT Assessment Note: Ed demonstrates good effort and recall with therapy session today. He was instructed on wristflexor/extensor stretches he can do at home to help with carpal tunnel symptoms. He was progressed to more dynamic balance activities this session, in which he did well with but deficits are still present. Ended session with manual cervical traction and wrist extensor stretches. He declined MHP post session. Response to Treatment : Good Continue on Functional Deficit of: B UE/LE strength; cervical mobility PLAN Plan Next Visit Plan: progress balance, UE/LE strength, posture Total Time Total Time in Minutes: 65 Timed Code Treatment Minutes : 65 documented in this encounter Plan of Treatment Upcoming Encounters Date Type Department Care Team (Late st Contact Info) Description 11/15/2024 8:00 AM CDT Appointment [address] [place] [address] Samia Razo, POLICY CANCELLATION CLERK [address] [place] [address] Matthew Raygoza, PT [address] [place] [address] 11/20/2024 8:00 AM CDT Appointment [address] [place] [address] Samia Razo, POLICY CANCELLATION CLERK [address] [place] [address] Trini Hoyt PTA 11/22/2024 8:00 AM CDT Appointment [address] [place] [address] Samia Razo, POLICY CANCELLATION CLERK [address] [place] [address] Matthew Raygoza, PT [address] [place] [address] documented as of this encounter Visit Diagnoses Diagnosis Neck pain- Primary Cervicalgia Back pain Backache, unspecified documented in this encounter Additional Health Concerns Assessment Noted Time PHQ-9 Depression Total Score: 0 01/30/20 22 10:05 AM A OPERATOR documented as of this encounter Care Teams Harness Cutter Relationship Specialty Start Date End Date Jarvis Jimenez DO [address] [address] PCP - General INTERNAL MEDICINE 11/07/19 documented as of this encounter
--- OUTSIDE RECORDS SUMMARY | 2024-11-14 08:00 | XMS_ITS | Clinical Summary ---
Author Organization [facility] Address [address] [place] [address] Care Team Providers Care Data Systems Manager Name Role Phone Jarvis Jimenez DO Primary Care Provider [phone] Allergies No known active allergies Medications benazepril [...] Encounters Date Type Department Care Team Description 11/13/2024 7:54 AM CDT Hospital Encounter [address] [place], [place] [id number] Samia Razo NP Davidson, Brooke M, BLIND EYELETTER Arrived 11/13/2024 Travel 11/08/2024 7:54 AM CDT - 11/08/2024 11:59 PM CDT Hospital Encounter [address] [place] [address] Samia Razo, Trini Etienne, BLIND EYELETTER Discharge Disposition: Home or Self Care (Routine Discharge) 11/08/2024 Travel 11/06/2024 7:54 AM CDT - 11/06/2024 11:59 PM CDT Hospital Encounter [facility] [address] [facility] [place] [address] Samia Razo, Suzi Odonnell, BLIND EYELETTER Discharge Disposition: Home or Self Care (Routine Discharge) 11/06/2024 Travel 11/01/2024 7:55 AM CDT - 11/01/2024 11:59 PM CDT Hospital Encounter [facility] [address] [facility] [place] [address] Samia Razo, Trini Etienne, BLIND EYELETTER Discharge Disposition: Home or Self Care (Routine Discharge) 11/01/2024 Travel 10/30/2024 7:53 AM CDT - 10/30/2024 11:59 PM CDT Hospital Encounter [facility] [address] [facility] [place] [address] Samia Razo, Matthew Spring, PT Neck And Back Pain Discharge Disposition: Home or Self Care (Routine Discharge) 10/30/2024 Travel 10/25/2024 7:55 AM CDT - 10/25/2024 11:59 PM CDT Hospital Encounter [facility] [address] [facility] [place] [address] Samia Razo NP Hays, Michelle, BLIND EYELETTER Discharge Disposition: Home or Self Care (Routine Discharge) 10/25/2024 Travel 10/23/2024 7:58 AM CDT - 10/23/2024 11:59 PM CDT Hospital Encounter [facility] [address] [facility] [place] [address] Samia Razo, Sarah Sterling, ORTEGA Neck And Back Pain Discharge Disposition: Home or Self Care (Routine Discharge) 10/23/2024 Travel 10/18/2024 7:56 AM CDT - 10/18/2024 11:59 PM CDT Hospital Encounter [facility] [address] [facility] [place] [address] Samia Razo, Matthew Spring, PT Neck Pain; Back Pain Discharge Disposition: Home or Self Care (Routine Discharge) 10/18/2024 Travel 10/16/2024 7:59 AM CDT - 10/16/2024 11:59 PM CDT Hospital Encounter [facility] [address] [facility] [place] [address] Samia Razo NP Mollett, Heather, BLIND EYELETTER Discharge Disposition: Home or Self Care (Routine Discharge) 10/16/2024 Travel 10/11/2024 7:55 AM CDT - 10/11/2024 11:59 PM CDT Hospital Encounter [facility] [address] [facility] [place] [address] Samia Razo, Trini Etienne, BLIND EYELETTER Discharge Disposition: Home or Self Care (Routine Discharge) 10/11/2024 Travel 10/08/2024 8:13 AM CDT - 10/08/2024 11:59 PM CDT Hospital Encounter [facility] [address] [facility] [place] [address] Samia Razo, Sarah Funes, PT Discharge Disposition: Home or Self Care (Routine Discharge) 10/08/2024 Travel 10/04/2024 7:53 AM CDT - 10/04/2024 11:59 PM CDT Hospital Encounter [facility] [address] [facility] [place] [address] Samia Razo NP Wiegmann, Lacey M, PT Neck And Back Pain Discharge Disposition: Home or Self Care (Routine Discharge) 10/04/2024 Travel 10/02/2024 7:55 AM CDT - 10/02/2024 11:59 PM CDT Hospital Encounter [facility] [address] [facility] [place] [address] Samia Razo NP Timmermann, Candice P, BLIND EYELETTER Discharge Disposition: Home or Self Care (Routine Discharge) 10/02/2024 Travel 09/27/2024 7:54 AM CDT - 09/27/2024 11:59 PM CDT Hospital Encounter [facility] [address] [facility] [place] [address] Samia Razo, Laxmi Stanford, BLIND EYELETTER Discharge Disposition: Home or Self Care (Routine Discharge) 09/27/2024 Travel 09/25/2024 7:50 AM CDT - 09/25/2024 11:59 PM CDT Hospital Encounter [facility] [address] [facility] [place] [address] Samia Razo, Trini Etienne, BLIND EYELETTER Discharge Disposition: Home or Self Care (Routine Discharge) 09/25/2024 Travel 09/20/2024 7:50 AM CDT - 09/20/2024 11:59 PM CDT Hospital Encounter [facility] [address] [facility] [place] [address] Samia Razo NP Timmermann, Candice P, BLIND EYELETTER Discharge Disposition: Home or Self Care (Routine Discharge) 09/20/2024 Travel 09/18/2024 7:48 AM CDT - 09/18/2024 11:59 PM CDT Hospital Encounter [facility] [address] [facility] [place] [address] Samia Razo, Matthew [place], PT Neck And Back Pain Discharge Disposition: Home or Self Care (Routine Discharge) 09/18/2024 Travel 09/12/2024 7:50 AM CDT - 09/12/2024 11:59 PM CDT Hospital Encounter [facility] [address] [facility] [place] [address] Samia Razo NP McClenahan, Krystal M, PT Discharge Disposition: Home or Self Care (Routine Discharge) 09/11/2024 7:52 AM CDT - 09/11/2024 11:59 PM CDT Hospital Encounter [facility] [address] [facility] [place] [address] Samia Razo NP McClenahan, Krystal M, PT Discharge Disposition: Home or Self Care (Routine Discharge) 09/11/2024 Travel 09/04/2024 7:54 AM CDT - 09/04/2024 11:59 PM CDT Hospital Encounter [facility] [address] [place] [address] Samia Razo, Laxmi Stanford, BLIND EYELETTER Discharge Disposition: Home or Self Care (Routine Discharge) 09/04/2024 Travel 08/28/2024 7:52 AM CDT - 08/28/2024 11:59 PM CDT Hospital Encounter [facility] [address] [facility] [place] [address] Samia Razo, Trini Etienne, BLIND EYELETTER Discharge Disposition: Home or Self Care (Routine Discharge) 08/28/2024 Travel 08/21/2024 7:57 AM CDT - 08/21/2024 11:59 PM CDT Hospital Encounter [facility] [address] [facility] [place] [address] Samia Razo, Suzi Odonnell, BLIND EYELETTER Discharge Disposition: Home or Self Care (Routine Discharge) 08/21/2024 Travel from Last 3 Months Immunizations Immunization [...] AM CDT Pulse 64 02/04/2022 1:34 PM DRAFTER PLUMBING Temperature 36.4 C (97.5 F) 02/04/2022 1:34 PM DRAFTER [place] Respiratory Rate 16 02/04/2022 1:34 PM DRAFTER [place]UMB[place] Oxygen Saturation 98% 02/04/2022 1:34 PM DRAFTER [employer]UM[employer] Inhaled Oxygen Concentration - - Weight 100.2 kg (221 lb) 02/04/2022 1:34 PM DRAFTER [place] Height 175.3 cm (5' 9) 02/04/2022 1:34 PM DRAFTER [place] Body Mass Index 32.64 02/04/2022 1:34 PM DRAFTER [place]UM[employer] Plan of Treatment Upcoming Encounters Date Type Department Care Team (Late st Contact Info) Description 11/15/2024 8:00 AM CDT Appointment [address] [place] [address] Samia Razo, ELECTRIC LOCOMOTIVE FIRER/FIREMAN [address] [place] [address] Matthew Raygoza, PT [address] [place] [address] 11/20/2024 8:00 AM CDT Appointment [address] [place] [address] Samia Razo, ELECTRIC LOCOMOTIVE FIRER/FIREMAN [address] [place] [address] Trini Hoyt PTA 11/22/2024 8:00 AM CDT Appointment [address] [place] [address] Samia Razo, ELECTRIC LOCOMOTIVE FIRER/FIREMAN [address] [place] [address] Matthew Raygoza, PT [address] [place] [id number] Health Maintenance Due Date Last Done Comments [...] Relevant to Health Maintenance Insurance MEDICARE [employer] [address] Advance Directives Documents on File Type Date Recorded Patient Event Staff Expl anation Advance Directives and Living Will 09/16/2020 12:00 AM ADVANCED DIRECTIVES Advance Directives and Living Will 05/26/2015 12:00 AM ADVANCED DIRECTIVES Care Teams Data Systems Manager Relationship Specialty Start Date End Date aJrvis Jimenez DO [address] [place] [id number] PCP - General INTERNAL MEDICINE 11/07/19
--- OUTSIDE RECORDS SUMMARY | 2024-11-14 08:01 | XMS_ITS | Encounter Summary ---
Author Organization [facility] Address [address] [place] [address] Care Team Providers Care Waste Removalist Name Role Phone Jarvis Jimenez DO Primary Care Provider [phone] Encounter Details Date Type Department Care Team (Latest Contact Info) Description 11/13/2024 Travel Social History Tobacco Use Types Packs/Day [...] Info) Description 11/15/2024 8:00 AM CDT Appointment [facility] [address] [facility] [place] [address] Samia Razo, WRITING MANAGER [address] [place] [address] Matthew Raygoza, PT [address] [place] [address] 11/20/2024 8:00 AM CDT Appointment [facility] [address] [facility] [place] [address] Samia Razo, WRITING MANAGER [address] [place] [address] Trini Hoyt PTA 11/22/2024 8:00 AM CDT Appointment [facility] Therapy [address] [place] [address] Samia Razo NP [address] [place] [address] Matthew Raygoza, PT [address] [place] [address] documented as of this encounter Visit Diagnoses Not on filedocumented in this encounter Additional Health Concerns Assessment Noted Time PHQ-9 Depression Total Score: 0 01/30/20 22 10:05 AM PARK RECREATION MANAGER documented as of this encounter Care Teams Waste Removalist Relationship Specialty Start Date End Date Jarvis Jimenez DO [address] [address] PCP - General INTERNAL MEDICINE 11/07/19 documented as of this encounter
[2025-01-01 12:15] VITALS: BMI 32.5
--- NOTE | 2025-01-01 12:15 | P.SLEEP_ITS ---
Sleep Study Date of Study: 12/06/24 Ordering Provider: Samia Razo APRN Interpreting Physician: Alicia Xie DO Sleep Study Type: Split Polysomnogram Height: 1.73 m Weight: 97.069 kg Body Mass Index: 32.5 Neck Circumference (inches): 18 [place]: 10 Reason for Sleep Study snoring, daytime hypersomnia Sleep History The patient is a 79-year-old male that had a sleep study ordered by his primary care for evaluation sleep. The patient denies awakening from sleep short of breath. He occasionally awakens at night with heartburn, belching or cough. He constantly snores loudly enough that others complain. He frequently has trouble sleeping when he has a cold. He denies waking up gasping for air throughout the night. He frequently has breathing problems at night observed by himself or others. He denies sweating excessively at night. He denies having heart palpitations or irregular heartbeats during the night. He occasionally falls asleep during the day and occasionally falls asleep while driving. He denies sleep paralysis, cataplexy and hypnagogic/ hypnopompic hallucinations. He denies having trouble at school or work due to sleepiness. He denies feeling afraid of going to sleep. He rarely has nightmares. He occasionally remembers his dreams. He denies having thoughts racing through his mind. He denies feeling sad or depressed. He occasionally has anxiety. He rarely has muscular tension. He denies noticing parts of his body jerk. He denies kicking during the night. He denies having crawling and aching feelings in his legs but rarely has leg pain during the night. He denies grinding his teeth during sleep and denies awakening with morning jaw pain. He is frequently bothered by pain during the day and occasionally awakened by pain during the night. He denies waking up feeling stiff in the morning. He denies waking up with sore or achy muscles. He rarely wakes up with pain in the neck, spine and other joints. He goes to bed at 9:30 p.m. on weekdays and at 10:00 p.m. on the weekends. The amount of time it takes for him to fall asleep is variable. He wakes up once throughout the night to urinate. He wakes up at 6:00 a.m. on weekdays and at 7:00 a.m. on the weekends. He typically gets 8 hours of sleep per night. He stays in bed for 10 minutes after waking up in the morning. He currently lives with his . He denies consuming any caffeinated beverages within 2 hours of bedtime. He denies engaging in physical exercise before bedtime. He will watch television before falling asleep. He occasionally takes naps in the afternoon or the evening. He consumes 3 cups of caffeinated beverage in the morning. He denies tobacco use. He consumes 3 alcoholic beverages per day. He denies recreational drug use. FORMERLY [facility], [facility] Past Medical History Medical History H/O ETOH abuse GERD (gastroesophageal reflux disease) Osteoporosis Cervical spinal stenosis Lumbar spinal stenosis Obesity Enthesopathy of foot DJD (degenerative joint disease) of knee Colon polyps Stiffness of joints of both hands Erectile dysfunction Essential (primary) hypertension Gastroesophageal reflux disease without esophagitis Kidney lesion, [place], right Mixed hyperlipidemia Pre-diabetes Rectus diastasis Spinal stenosis, unspecified region other than cervical Umbilical hernia without obstruction and without gangrene Ventral hernia without obstruction or gangrene Surgical History Surgical History S/P total knee arthroplasty LEFT TKA 11/30/23 S/P total knee arthroplasty RIGHT KNEE 06/10/21 History of hernia repair Status post cataract extraction Family History Family History Unknown Heart disease Cerebrovascular accident High cholesterol Arthritis Kidney disease Mother Cerebrovascular accident Father Diabetes mellitus Hypertension Social History Social History Smoking status: Never smoker Second hand tobacco smoke exposure: No Additional smoking assessment comments: DENIES ANY FORM OF TOBACCO USE Alcohol intake: current Drinks per week: 21 Alcohol use details: LIGHT BEER Substance use: never Substance use type: does not use Do You Feel Safe in your Home?: Yes Lack of Transportation: No Lack of Food: Never True Current Housing: I Have Housing Concerned About Future Housing: No Difficulty Paying Gas/Electric Bills: No Difficulty Paying for Meds: No Currently Unemployed: No Education: Master's Degree or Higher Difficulty w/ Childcare or Family Care: No Living arrangements: with family Additional living arrangements comments: Gender identity (if verbalized by the patient): Male Spiritual care concerns: No Medications Home Medications ?Medication ?Instructions ?Recorded ?Confirmed ?Type doxycycline monohydrate 50 mg 50 mg PO PRN PRN ROSACEA 05/11/21 12/19/24 History capsule metronidazole 0.75 % topical cream 1 applic topical DA MED ROSACEA 05/11/21 12/19/24 History sildenafil (pulm.hypertension) 20 100 mg PO PRN PRN Er ectile 05/27/21 12/19/24 History mg tablet Dysfunction [id number] 300 mcg-K 60 1 tablet PO DAILY 11/1712/19/24 History mcg-lycop 600 mcg-lutein 300 mcg tablet (Centrum Silver Men) omeprazole 20 mg capsule,delayed 20 mg PO PRN PRN Acid Reflux 11/18/23 12/19/24 History release fluticasone propionate 50 2 spray intranasal DAILY #16 mL 05/21/24 12/19/24 Rx mcg/actuation nasal spray,suspension (Flonase Allergy Relief) furosemide 20 mg tablet See Rx Instructions .Route 0 06/12/24 12/19/24 Rx .COMPLEX #90 tabs cyclobenzaprine 10 mg tablet 10 mg PO HS PRN muscle sp asm #90 07/10/24 12/19/24 Rx tabs celecoxib 200 mg capsule 200 mg PO BID 90 days #180 c aps 08/20/24 12/19/24 Rx Held on 12/25/24. Instructions: Resume on 01/01/25. gabapentin 600 mg tablet 600 mg PO BID #180 tabs 07/0 09/0712/19/24 Rx benazepril 40 mg tablet 40 mg PO BID #180 tabs 10/1912/19/24 Rx amlodipine 5 mg tablet (Norvasc) 5 mg PO BID #180 tabs 10/24/24 12/19/24 Rx rosuvastatin 10 mg tablet 10 mg PO DAILY #90 tabs 10/2 06/0812/19/24 Rx terazosin 1 mg capsule See Rx Instructions .Route 1 02/17/24 12/19/24 Rx .COMPLEX #90 caps hydrocodone 5 mg-acetaminophen 325 1 tablet PO Q4H PRN pain #20 tabs 12/25/24 Rx mg tablet Sleep Procedure A full night split study using the [employer] multi-channel system recor ded the standard physiologic parameters including EEG, EOG, submentalis EMG, anterior tibialis EMG, EKG, body position, nasal and oral airflow using nasal pressure sensor and thermistor.? Respiratory parameters of chest and abdominal movements were recorded with Respiratory Inductance Plethysmography belts. Oxygen saturation was recorded by pulse oximetry. Video monitoring was also performed. Sleep stages, periodic limb movements, and EEG arousals were scored in 30 second epochs according to the criteria of the AASM Scoring Manual. The Apnea-Hypopnea Index was calculated using [facility] guidelines for definition of hypopnea with 4% O2 desaturations while scoring respiratory events. Sleep Architecture During the diagnostic portion of the study, the total recording time was 159.0 minutes. The total sleep time was 131.5 minutes. Sleep latency was 10.0 minutes.? REM latency was - minutes. Sleep Efficiency was 82.7%. The patient had 8 awakenings for an awakening index of 3.7. Wake after sleep onset time was 17.5 minutes. The patient spent 12.0 minutes, 9.1% of total sleep time in Stage N1. The patient spent 115.5 minutes, 87.8% in Stage N2. The patient spent 4.0 minutes, 3.0% in Stage N3. The patient spent 0.0 minutes, 0.0% in Stage REM sleep. At 11:59:08 PM the patient was placed on PAP treatment and was titrated at pressures ranging from 5 cm H20 up to 16 cm H20. During the treatment portion of the study, the total recording time was 391.9 minutes.? The total sleep time was 352.0 minutes. Sleep latency was 0.5 minutes. REM latency was 55.0 minutes. Sleep Efficiency was 89.8%. Wake after Sleep Onset time was 39.5 minutes. The patient spent 37.5 minutes, 10.7% of total sleep time in Stage N1. The patient spent 210.0 minutes, 59.7% in Stage N2. The patient spent 21.5 minutes, 6.1% in Stage N3. The patient spent 83.0 minutes, 23.6% in Stage REM. Respiratory Analysis During the diagnostic portion of the study, the patient had 31 hypopneas and 27 obstructive apneas for an overall Apnea Hypopnea Index of 26.5 events per hour. The REM Apnea Hypopnea Index was 0. The NREM Apnea Hypopnea Index was 26.5. The patient had a Central Apnea Hypopnea Index of 0. There was no evidence of Homero-Sibley Respirations. During the treatment portion of the study, the patient had 24 hypopneas and 9 central apneas for an overall Apnea Hypopnea Index of 5.6 events per hour. The REM Apnea Hypopnea Index was 8.7. The NREM Apnea Hypopnea Index was 4.7. The patient had a Central Apnea Hypopnea Index of 1.5. There was no evidence of Homero-Sibley Respirations. The patient was started on CPAP 5 cm H2O and titrated to CPAP 16 cm H2O due to central apneas and hypopneas. The patient was able to fall asleep starting on CPAP 5 cm H2O. The patient was able to achieve REM sleep starting on CPAP 9 cm H2O. The patient was able to achieve a residual AHI less than 5 with both NREM and REM sleep in the supine position on the final pressure setting. On CPAP 16 cm H2O, the patient spent 144.5 minutes in NREM and 43 minutes in REM with 5 central apneas and 2 hypopneas, resulting in an AHI of 2.2. The patient had a sleep efficiency of 84.7% on this pressure setting. Arousals During the diagnostic portion of the study, there were a total of 53 arousals for an arousal index of 24.2.? There were 14 respiratory arousals for an index of 6.4. There were 0 periodic limb movement arousals for an index of 0.? There were 1 isolated limb movement arousals for an index of 0.5. There were 38 spontaneous arousals for an index of 17.3. During the treatment portion of the study, there were a total of 89 arousals for an index of 15.2.? There were 5 respiratory arousals for an index of 0.9. There were 13 periodic limb movement arousals for an index of 2.2.? There were 15 isolated limb movement arousals for an index of 2.6. There were 56 spontaneous a rousals for an index of 9.5. Periodic Limb Movements During the diagnostic portion of the study, the patient had 4 isolated limb movements with an index of 1.8. The patient had 0 periodic limb movements with an index of 0. The patient had a total of 4 limb movements with a total limb movement index of 1.8. During the treatment portion of the study, the patient had 34 isolated limb movements with an index of 5.8. The patient had 27 periodic limb movements with an index of 4.6. The patient had a total of 61 limb movements with a total limb movement index of 10.4. Oximetry Data During the diagnostic portion of the study, the patient had an average oxygen saturation of 90.7% in wake with a minimum oxygen saturation of 81% and a maximum oxygen saturation of 98%. The patient had an average oxygen saturation of 88.3% in sleep with a minimum oxygen saturation of 82.0% and a maximum oxygen saturation of 96.0%. The patient had 74 oxygen desaturations resulting in an Oxygen Desaturation Index of 34.7. The patient spent 80.8 minutes, 53.4% of total sleep time with an oxygen saturation less than 88%. During the treatment portion of the study, the patient had an average oxygen saturation of 95.7% in wake with a minimum oxygen saturation of 81.0% and a maximum oxygen saturation of 99.0%. The patient had an average oxygen saturation of 92.4% in sleep with a minimum oxygen saturation of 81.0% and a maximum oxygen saturation of 98.0%. The patient had 63 oxygen desaturations resulting in an Oxygen Desaturation Index of 10.7. The patient spent 56.7 minutes, 15.1% of total sleep time with an oxygen saturation less than 88%. Snoring Profile Moderate to loud snoring was present in the baseline portion of the study. The snoring resolved once the patient was titrated to CPAP 16 cm H2O. Cardiac Profile The EKG lead showed atrial fibrillation with frequent PVCs. The patient does not have atrial fibrillation listed in his medical history. I recommend that the patient get a 12 lead EKG as well as a Holter monitor for further evaluation. During the diagnostic portion of the study, the average pulse rate was 65.4 bpm.? The minimum pulse rate was 47.0 bpm. The maximum pulse rate was 89.0 bpm. During the treatment portion of the study, the average pulse rate was 57.4 bpm.? The minimum pulse rate was 44.0 bpm. The maximum pulse rate was 85.0 bpm. EEG Profile No signs of seizure activity seen. Assessment and Plan Assessment and Plan (1) SRUTHI (obstructive sleep apnea): Code(s): G47.33 - Obstructive sleep apnea (adult) (pediatric) Status: Acute Assessment and Plan: In the baseline portion of the study, the patient had an overall AHI of 26.5 with desaturation down to 82%. This is consistent with moderate sleep apnea. The patient was started on CPAP 5 cm H2O and titrated to CPAP 16 cm H2O due to central apneas and hypopneas. The patient's sleep apnea resolved on the final pressure setting with a high sleep efficiency. I recommend that the patient be prescribed CPAP 16 cm H2O, CPAP mask/filters/ heated tubing and heated humidity. The patient used a size large F&P solo nasal mask but was noted to have a high leak. The patient might benefit from a full face mask. This should be used with all episodes of sleep.? Compliance should be reviewed within 31-90 days of starting therapy for usage greater than 4 hours per night greater than 70% of the nights. The patient should be asked about symptoms such as?excessive daytime sleepiness, quality of sleep, decreased nocturia, increased?mental functioning such as memory, mood, and concentration. Data The data obtained during this sleep study is adequate for interpretation. Certification This sleep study has been reviewed by a board certified sleep medicine physician.
== END 2024-12-07 07:07 | disposition home or self-care (01) ==
PROVIDERS: PCP Nurse Practitioner Family; Visit Provider Nurse Practitioner Family
DX: G47.30 Sleep apnea, unspecified (principal); G47.33 Obstructive sleep apnea (adult) (pediatric)
CPT/HCPCS: 95811

== ENCOUNTER 2024-12-20 11:28 | Outpatient (CLI) | payer MEDICARE, OTHER, SELFPAY ==
--- OUTSIDE RECORDS SUMMARY | 2024-12-18 07:52 | XMS_ITS | Encounter Summary ---
Author Organization [facility] Address [address] [place] [address] Care Team Providers Care Account Relationship Manager Name Role Phone Jarvis Jimenez Maegan HUANG Primary Care Provider [phone] Reason for Visit * Physical Therapy (Routine) - Authorized Specialty Diagnoses / Procedures Referred By Contac t Referred To Contact PHYSICAL THERAPY / [facility] Physical Therapy Diagnoses Spinal stenosis, cervical region Spinal stenosis, lumbar region without neurogenic claudication Procedures Samia Galarza, BRISA [address] [place] [address] Phone: tel: fax: [place] [address] [place] [address] Phone: tel: fax: Referral ID Status Reason Start Date Expiration Date Visits Requested Visits Authorized [id number] Authorized Physical Therapy 06/20/2024 99 99 Encounter Details Date Type Department Care Team (Late st Contact Info) Description 12/18/2024 7:52 AM SOFT TOP INSTALLER - 12/18/2024 11:59 PM SOFT TOP INSTALLER Hospital Encounter [facility] Therapy [address] [place] [address] Samia Razo, SPOOLING MACHINE OPERATOR [address] [place] [address] Trini Hoyt PTA Arrived Discharge Disposition: Home or Self Care [...] as of this encounter Progress Notes * Trini Hoyt PTA - 12/18/2024 8:00 AM CSTEncounter addended by: Trini Hoyt PTA on: 12/18/2024 9:55 AM Actions taken: Charge Capture section accepted TOP INSTALLER * Trini Hoyt PTA - 12/18/2024 8:00 AM CST Physical Therapy Visit Note: Patient Name: Rubio Sampson Diagnosis: Cervical spinal stenosis (primary encounter diagnosis) SUBJECTIVE Therapy Visit Treatment Day: 50 Total Approved Visits: (eval 06/20/24; re-eval 10/18/24) Therapy Plan of Care: Maintenance Current Therapy Orders: Eval and treat Diagnosis: cervical and lumbar stenosis resulting in numbness/pain in fingers/toes Referring Provider: Samia Razo NP Work Status: retired - enjoys walking 3 miles each morning Subjective Note: Ed reports his neurologist apt was moved up and he is going to [place] this afternoon. Compliance to Home Program: Fair Pain Current Location of Pain: L hip/Lower R back/ B shoulder/ N&T in hands and feet. OBJECTIVE Treatment provided today: Neuromuscular Re-education - 81492 Number of Minutes - 05394: 15 Intervention: carioca Intervention: hurdles forward and lateral Intervention: airex step up and over Intervention: airex standing with rhythmic stabilization Intervention: lateral/fwd stepping over airex Intervention: heel to toe walking Intervention: balancing on 02/15 foam roll Intervention: SLS on firm surface Intervention: cone weaving Intervention: obstacle course Intervention: walking with head turns up/down/side Therapeutic Exercise - 67818 Number of Minutes - 90641: 45 Exercise: scap ret 5 x 25 Exercise: /2 foam calf stretch 10x10 Exercise: HR x30 on 02/15 foam roll Exercise: therabar wrist twists - red Exercise: seated HR/TR Exercise: bicep curl/overhead press 5# x 30 Exercise: Jackson knee flexion 40#/ext 40# 2x 20 Exercise: Jackson Row/lat pull 40# 2x20 Exercise: wrist pronation/supination/Radial deviation/flex/ext 5# Exercise: seated hs stretch x 5 Manual Therapy - 03872 Intervention: cervical manual traction Intervention: UT stretch Intervention: R shoulder PROM Intervention: carpal metacarpal extension stretching Education Was Education Provided: Yes Topic: HEP review Recipient: Patient Method: Demonstration, Verbal Response: Demonstrates adequately, Verbalized understanding Barriers: None ASSESSMENT Assessment Note: Ed displays good effort and understanding with therapy exercise session. He does well with obstacle course with min LOB today. He tolerates manual stretching to cervical region and R shoulder without adverse effects. He is seeing the neurologist today and is hoping that he will get some relief with his neuropathy. Completed therapy session with hot pack to LB and cervical region. Response to Treatment : Good Continue on Functional Deficit of: B UE/LE strength; cervical mobility PLAN Plan Next Visit Plan: progress balance, UE/LE strength, posture Total Time Total Time in Minutes: 60 Timed Code Treatment Minutes : 60 TOP INSTALLER documented in this encounter Plan of Treatment Upcoming Encounters Date Type Department Care Team (Late st Contact Info) Description 12/24/2024 7:45 AM SOFT TOP INSTALLER Appointment [facility] Therapy [address] [place] [address] [place] [address] Samia Razo, SPOOLING MACHINE OPERATOR [address] [place] [address] Sammi Lewis, PT [address] [place] [address] 12/27/2024 8:15 AM SOFT TOP INSTALLER Appointment [facility] Therapy [address] [place] [address] Samia Razo, SPOOLING MACHINE OPERATOR [address] [place] [address] Matthew Raygoza, PT [address] [place] [address] documented as of this encounter Visit Diagnoses Diagnosis Cervical spinal stenosis- Primary Spinal stenosis in cervical region documented in this encounter Additional Health Concerns Assessment Noted Time PHQ-9 Depression Total Score: 0 01/30/20 22 10:05 AM SOFT TOP INSTALLER documented as of this encounter Care Teams Account Relationship Manager Relationship Specialty Start Date End Date Jarvis Jimenez DO [address] [address] PCP - General INTERNAL MEDICINE 11/07/19 documented as of this encounter
--- OUTSIDE RECORDS SUMMARY | 2024-12-20 07:42 | XMS_ITS | Encounter Summary ---
Author Organization [facility] Address [address] [place] [address] Care Team Providers Care Database Support Name Role Phone Jarvis Jimenez Maegan HUANG Primary Care Provider [phone] Reason for Visit * Reason Comments Neck And Back Pain * Physical Therapy (Routine) - Authorized Specialty Diagnoses / Procedures Referred By Contac t Referred To Contact PHYSICAL THERAPY / [facility] Physical Therapy Diagnoses Spinal stenosis, cervical region Spinal stenosis, lumbar region without neurogenic claudication Procedures Samia Galarza, BRISA [address] [place] [address] Phone: tel: fax: [place] [address] [place] [address] Phone: tel: fax: Referral ID Status Reason Start Date Expiration Date Visits Requested Visits Authorized [id number] Authorized Physical Therapy 06/20/2024 99 99 Encounter Details Date Type Department Care Team (Late st Contact Info) Description 12/20/2024 7:42 AM PSYCHOLOGY ASSISTANT Hospital Encounter [facility] Therapy [address] [place] [address] Samia Razo, BRISA [address] [place] [address] Matthew Raygoza, PT [address] [place] [address] Neck And Back Pain Social History Tobacco Use Types Packs/Day Years [...] st Contact Info) Description 12/24/2024 7:45 AM PSYCHOLOGY ASSISTANT Appointment [address] [place] [address] Samia Razo, FRAUD INVESTIGATOR [address] [place] [address] Sammi Lewis, PT [address] [facility] [place] [address] 12/27/2024 8:15 AM PSYCHOLOGY ASSISTANT Appointment [address] [place] [address] Samia Razo, FRAUD INVESTIGATOR [address] [place] [address] Matthew Raygoza, PT [address] [place] [address] documented as of this encounter Visit Diagnoses Not on filedocumented in this encounter Additional Health Concerns Assessment Noted Time PHQ-9 Depression Total Score: 0 01/30/20 22 10:05 AM PSYCHOLOGY ASSISTANT documented as of this encounter Care Teams Database Support Relationship Specialty Start Date End Date Jarvis Jimenez DO [address] [address] PCP - General INTERNAL MEDICINE 11/07/19 documented as of this encounter
[2024-12-20 12:29] LABS: Anion Gap 10 mmol/L (4-12); Blood Urea Nitrogen 18 mg/dL (9-20); Calcium 9.0 mg/dL (8.4-10.2); Carbon Dioxide 24 mmol/L (22-30); Chloride 95 mmol/L (98-107); Estimated Glomerular Filt Rate > 60; Glucose 101 mg/dL (65-110); Potassium 4.5 mmol/L (3.4-5.0); Sodium 129 mmol/L (137-145)
--- OUTSIDE RECORDS SUMMARY | 2024-12-20 19:13 | XMS_ITS | Clinical Summary ---
Author Organization [facility] Address [address] [place] [address] Care Team Providers Care Paper Stacker Name Role Phone Jarvis Jimenez DO Primary Care Provider [phone] Allergies No known active allergies Medications benazepril [...] Encounters Date Type Department Care Team Description 12/20/2024 7:42 AM [facility] [facility] [employer] Hospital Encounter [address] [place] [id number] Samia Razo NP Emerick, Noah D, PT Neck And Back Pain 12/20/2024 Travel 12/18/2024 7:52 AM [employer] [facility] - 12/18/2024 11:59 PM [facility] [employer] Hospital Encounter [address] [place] [address] Samia Razo, Trini Etienne, PRODUCTION SAMPLER Arrived Discharge Disposition: Home or Self Care (Routine Discharge) 12/18/2024 Travel 12/13/2024 7:44 AM CDT - 12/13/2024 11:59 PM CDT Hospital Encounter [facility] [address] [place] [address] Samia Razo NP Hays, Michelle, PRODUCTION SAMPLER Discharge Disposition: Home or Self Care (Routine Discharge) 12/13/2024 Travel 12/11/2024 7:45 AM CDT - 12/11/2024 11:59 PM CDT Hospital Encounter [facility] [address] [place] [address] Samia Razo, Trini Etienne, PRODUCTION SAMPLER Discharge Disposition: Home or Self Care (Routine Discharge) 12/11/2024 Travel 12/06/2024 7:50 AM CDT - 12/06/2024 11:59 PM CDT Hospital Encounter [facility] [address] [place] [address] Samia Razo NP Hays, Michelle, PRODUCTION SAMPLER Discharge Disposition: Home or Self Care (Routine Discharge) 12/06/2024 Travel 12/04/2024 7:48 AM CDT - 12/04/2024 11:59 PM CDT Hospital Encounter [facility] [address] [place] [address] Samia Razo, Sarah Sterling, PRODUCTION SAMPLER Neck And Back Pain Discharge Disposition: Home or Self Care (Routine Discharge) 12/04/2024 Travel 11/29/2024 7:50 AM CDT - 11/29/2024 11:59 PM CDT Hospital Encounter [facility] [address] [place] [address] Samia Razo NP McClenahan, Krystal M, PT Discharge Disposition: Home or Self Care (Routine Discharge) 11/29/2024 Travel 11/27/2024 7:46 AM CDT - 11/27/2024 11:59 PM CDT Hospital Encounter [facility] [address] [place] [address] Samia Razo, Suzi Odonnell, PRODUCTION SAMPLER Discharge Disposition: Home or Self Care (Routine Discharge) 11/27/2024 Travel 11/22/2024 7:49 AM CDT - 11/22/2024 11:59 PM CDT Hospital Encounter [facility] [address] [place] [address] Samia Razo, Matthew Spring, PT Neck And Back Pain Discharge Disposition: Home or Self Care (Routine Discharge) 11/22/2024 Travel 11/20/2024 7:58 AM CDT - 11/20/2024 11:59 PM CDT Hospital Encounter [facility] [address] [place] [address] Samia Razo NP Hays, Michelle, PRODUCTION SAMPLER Discharge Disposition: Home or Self Care (Routine Discharge) 11/20/2024 Travel 11/15/2024 7:52 AM CDT - 11/15/2024 11:59 PM CDT Hospital Encounter [facility] [address] [place] [address] Samia Razo, Matthew [place], PT Neck And Back Pain Discharge Disposition: Home or Self Care (Routine Discharge) 11/15/2024 Travel 11/13/2024 7:54 AM CDT - 11/13/2024 11:59 PM CDT Hospital Encounter [facility] [address] [place] [address] Samia Razo, Suzi Odonnell, PRODUCTION SAMPLER Discharge Disposition: Home or Self Care (Routine Discharge) 11/13/2024 Travel 11/08/2024 7:54 AM CDT - 11/08/2024 11:59 PM CDT Hospital Encounter [facility] [address] [place] [address] Samia Razo NP Hays, Michelle, PRODUCTION SAMPLER Discharge Disposition: Home or Self Care (Routine Discharge) 11/08/2024 Travel 11/06/2024 7:54 AM CDT - 11/06/2024 11:59 PM CDT Hospital Encounter [facility] [address] [place] [address] Samia Razo, Suzi Odonnell, PRODUCTION SAMPLER Discharge Disposition: Home or Self Care (Routine Discharge) 11/06/2024 Travel 11/01/2024 7:55 AM CDT - 11/01/2024 11:59 PM CDT Hospital Encounter [facility] [address] [place] [address] Samia Razo, Trini Etienne, PRODUCTION SAMPLER Discharge Disposition: Home or Self Care (Routine Discharge) 11/01/2024 Travel 10/30/2024 7:53 AM CDT - 10/30/2024 11:59 PM CDT Hospital Encounter [facility] [address] [place] [address] Samia Razo NP Emerick, Matthew Delgado, PT Neck And Back Pain Discharge Disposition: Home or Self Care (Routine Discharge) 10/30/2024 Travel 10/25/2024 7:55 AM CDT - 10/25/2024 11:59 PM CDT Hospital Encounter [facility] [address] [place] [address] Samia Razo NP Hays, Michelle, PRODUCTION SAMPLER Discharge Disposition: Home or Self Care (Routine Discharge) 10/25/2024 Travel 10/23/2024 7:58 AM CDT - 10/23/2024 11:59 PM CDT Hospital Encounter [facility] [address] [place] [address] Samia Razo, Sarah Sterling, PRODUCTION SAMPLER Neck And Back Pain Discharge Disposition: Home or Self Care (Routine Discharge) 10/23/2024 Travel 10/18/2024 7:56 AM CDT - 10/18/2024 11:59 PM CDT Hospital Encounter [facility] [address] [place] [address] Samia Razo NP Emerick, Noah D, PT Neck Pain; Back Pain Discharge Disposition: Home or Self Care (Routine Discharge) 10/18/2024 Travel 10/16/2024 7:59 AM CDT - 10/16/2024 11:59 PM CDT Hospital Encounter [facility] [address] [place] [address] Samia Razo, Kelley Abreu, PRODUCTION SAMPLER Discharge Disposition: Home or Self Care (Routine Discharge) 10/16/2024 Travel 10/11/2024 7:55 AM CDT - 10/11/2024 11:59 PM CDT Hospital Encounter [facility] [address] [place] [address] Samia Razo NP Hays, Michelle, PRODUCTION SAMPLER Discharge Disposition: Home or Self Care (Routine Discharge) 10/11/2024 Travel 10/08/2024 8:13 AM CDT - 10/08/2024 11:59 PM CDT Hospital Encounter [facility] [address] [place] [address] Samia Razo, Sarah Funes, PT Discharge Disposition: Home or Self Care (Routine Discharge) 10/08/2024 Travel 10/04/2024 7:53 AM CDT - 10/04/2024 11:59 PM CDT Hospital Encounter [address] [place] [address] Samia Razo NP Wiegmann, Lacey M, PT Neck And Back Pain Discharge Disposition: Home or Self Care (Routine Discharge) 10/04/2024 Travel 10/02/2024 7:55 AM CDT - 10/02/2024 11:59 PM CDT Hospital Encounter [address] [place] [address] Samia Razo NP Timmermann, Candice P, PRODUCTION SAMPLER Discharge Disposition: Home or Self Care (Routine Discharge) 10/02/2024 Travel 09/27/2024 7:54 AM CDT - 09/27/2024 11:59 PM CDT Hospital Encounter [facility] [address] [place] [address] Samia Razo NP Timmermann, Candice P, PRODUCTION SAMPLER Discharge Disposition: Home or Self Care (Routine Discharge) 09/27/2024 Travel 09/25/2024 7:50 AM CDT - 09/25/2024 11:59 PM CDT Hospital Encounter [facility] [address] [place] [address] Samia Razo NP Hays, Michelle, PRODUCTION SAMPLER Discharge Disposition: Home or Self Care (Routine Discharge) 09/25/2024 Travel 09/20/2024 7:50 AM CDT - 09/20/2024 11:59 PM CDT Hospital Encounter [facility] [address] [place] [address] Samia Razo NP Timmermann, Candice P, PRODUCTION SAMPLER Discharge Disposition: Home or Self Care (Routine Discharge) 09/20/2024 Travel from Last 3 Months Immunizations Immunization [...] AM CDT Pulse 64 02/04/2022 1:34 PM [facility] [facility] [employer] Temperature 36.4 C (97.5 F) 02/04/2022 1:34 PM [employer] [facility] [employer] Respiratory Rate 16 02/04/2022 1:34 PM [employer] [facility] [employer] Oxygen Saturation 98% 02/04/2022 1:34 PM [employer] [facility] [employer] Inhaled Oxygen Concentration - - Weight 100.2 kg (221 lb) 02/04/2022 1:34 PM [facility] [facility] [employer] Height 175.3 cm (5' 9) 02/04/2022 1:34 PM [facility] [facility] [employer] Body Mass Index 32.64 02/04/2022 1:34 PM [employer] [facility] [employer] Plan of Treatment Upcoming Encounters Date Type Department Care Team (Late st Contact Info) Description 12/24/2024 7:45 AM [facility] [facility] Appointment [facility] [address] [place] [address] Samia Razo, DRY HOUSE TENDER [address] [place] [address] Sammi Lewis, PT [address] [place] [address] 12/27/2024 8:15 AM [facility] [facility] [employer] Appointment [facility] [address] [place] [address] Samia Razo, DRY HOUSE TENDER [address] [place] [address] Matthew Raygoza, PT [address] [place] [address] Health Maintenance Due Date Last Done Comments Hepatitis C 1963 Zoster Vaccines (1 of 2) 1996 Annual Medicare Wellness Visit 11/12/2011 Pneumococcal Vaccine: 50+ Years (2 of 2 - PCV20 or PCV21) 10/22/2016 10/23/2015 DTaP, Tdap and Td Vaccines (2 - Tdap) 01/14/2021 01/14/2011 RSV Immunization or 60+ Years (1 - 1-dose 75+ series) 2021 COVID-19 Vaccine ( season) 2024 11/08/2021, 05/13/2021, 11/10/2020, Additional history exists Influenza Adult (#1) 2024 11/08/2021, 11/04/2020, 11/19/2019, Additional history exists Colorectal Cancer Screening Colonoscopy (10 Years) Discontinued 09/16/2020 Hepatitis A Vaccines Aged Out No long er eligible based on patient's age to complete this topic Meningococcal B Vaccine Aged Out No l [...] Recently Relevant to Health Maintenance Insurance [place] [address] [address] [place] [id number] [facility] [address] [place] Advance Directives Documents on File Type Date Recorded Patient On Air Host Expl anation Advance Directives and Living Will 09/16/2020 12:00 AM ADV[employer]ED DIRECTIVES Advance Directives and Living Will 05/26/2015 12:00 AM [employer] Care Teams Paper Stacker Relationship Specialty Start Date End Date Jarvis Jimenez DO [address] [place] [id number] PCP - General INTERNAL MEDICINE 11/07/19
--- OUTSIDE RECORDS SUMMARY | 2024-12-20 19:13 | XMS_ITS | Data Portability ---
Author Organization [facility], Main Office Address [address] [place] [address] Assessment No assessment recorded. Plan of Treatment Reminders Order Date Submit Date Provider Last Modified By Organization Details Last Modified Time Details Appointments None recorded. Lab CBC w/ auto diff 2024 025 [place] [facility], [address], Leandro A, [place], [address], 5 11:49:56 CMP, serum or plasma 2024 025 [facility], [address], [place], [place], [address], 5 11:49:57 pro BNP (pro B-type natriuretic peptide), serum or plasma 2024 025 [facility], [address], [address], [place], [address], 5 11:49:56 Referral None recorded. Procedures None recorded. Surgeries None recorded. Imaging None recorded. Medication Orders benzonatate 200 mg capsule 2024 025 [facility] [address], [address] [address], [place], [address], 5 11:15:51 albuterol sulfate 2.5 mg/3 mL (0.083 %) solution for nebulizatio n 2024 025 [facility] 413, [address] [facility] [address], [place], [address], 5 12:12:05 benzonatate 200 mg capsule 2024 025 [email or web address] 0 [facility] 413, [address] [address], [place], [address], 5 11:02:49 guaifenesin ER 600 mg tablet, extended release 12 hr 2024 025 [facility] 413, [address] [address], [place], [address], 5 11:15:59 clonidine HCl 0.1 mg tablet 2024 025 [email or web address] Not available 5 09:31:04 benzonatate 200 mg capsule 2024 025 [email or web address] 0 [facility] [address], [address] [address], [place], [address], 5 11:02:49 guaifenesin ER 600 mg tablet, extended release 12 hr 2024 025 [email or web address] 0 [facility] 413, [address] [facility] [address], [place], [address], 5 11:02:57 benzonatate 200 mg capsule 2024 025 [email or web address] 0 [facility] [address], [address] [address], [place], [address], 5 11:02:49 guaifenesin ER 600 mg tablet, extended release 12 hr 2024 025 [email or web address] 0 [facility] [address], [address] [place] [address], [place], [address], 5 11:02:57 azithromyci n 250 mg tablet [email or web address] [facility], [address] [facility] [address], [place], [address], 5 11:02:43 loratadine 10 mg tablet [email or web address] [facility], [address], [place], [address], 16:09:13 Patient TargetsNo targets recorded. Patient Instructions Encounter Date Encounter Id Patient Instructions Last Modified By Organization Details Last Modified Time 02/27/2024 [id number] cough: care instructions [email or web address] Not available 02/27/2024 12:14:45 high blood pressure: care instructions [email or web address] Not available 02/27/2024 12:14:46 learning about high blood pressure [email or web address] Not available 02/27/2024 12:14:45 medical record request* [email or web address] Not available 03/08/2024 16:29:41 Diagnoses were discussed with the patient/family at length, all questions were answered and the patient/family verbalized understanding of these instructions and agreed with plan of care. No barriers to care are apparent at this time. Patient/family instructed to let me know if they have any difficulties affording their medications or have any further questions regarding their care [email or web address] Not available 02/27/2024 12:29:32 03/06/2024 [id number] cough: care instructions [email or web address] Not available 03/06/2024 10:33:13 high blood pressure: care instructions [email or web address] Not available 03/06/2024 10:33:13 learning about high blood pressure [email or web address] Not available 03/06/2024 10:33:13 medical record request* [email or web address] Not available 03/08/2024 16:30:16 Diagnoses were discussed with the patient/family at length, all questions were answered and the patient/family verbalized understanding of these instructions and agreed with plan of care. No barriers to care are apparent at this time. Patient/family instructed to let me know if they have any difficulties affording their medications or have any further questions regarding their care [email or web address] Not available 03/06/2024 10:22:50 03/20/2024 [id number] cough: care instructions [email or web address] Not available 03/20/2024 16:32:47 high blood pressure: care instructions [email or web address] Not available 03/20/2024 16:32:47 learning about high blood pressure [email or web address] Not available 03/20/2024 16:32:47 medical record request* [email or web address] Not available 04/18/2024 14:14:42 Diagnoses were discussed [...] [email or web address] Not available 03/20/2024 16:06:24 03/27/2024 [id number] cough: care instructions [email or web address] Not available 03/27/2024 12:11:57 bronchitis: care instructions Not available 03/27/2024 12:11:56 Diagnoses were discussed with the patient/family at length, all questions were answered and the patient/family verbalized understanding of these instructions and agreed with plan of care. No barriers to care are apparent at this time. Patient/family instructed to let me know if they have any difficulties affording their medications or have any further questions regarding their care [email or web address] Not available 03/27/2024 11:35:05 04/04/2024 [id number] cough: care instructions [email or web address] Not available 04/04/2024 11:36:37 Diagnoses were discussed with the patient/family at length, all questions were answered and the patient/family verbalized understanding of these instructions and agreed with plan of care. No barriers to care are apparent at this time. Patient/family instructed to let me know if they have any difficulties affording their medications or have any further questions regarding their care [email or web address] Not available 04/04/2024 11:01:55 Reason for Referral None Reported. Results Created Date Observation Date Name Description Value Unit Range Abnormal Flag Note LastModifiedBy Organization Detail LastModifiedTime 02/26/1902/28/2024 NT-NV OBNP nt-probnp 1237 pg/mL see below If [...] [facility] [address] [place] [address] Labor atory [facility] tor: Mark BellaIA Barak r [id number] [place]. [id number] Not Available [facility] Main Lab (Blood Not Drawn At This Location) Visit [facility] [place], [address], 02/28/2024 11:49:55 02/26/1902/28/2024 CBC W/AUT O DIFF WITH PLATE LETS WBC 8.4 K/uL 3.5-11 .0 Not Available [facility] Main Lab (Blood Not Drawn At This Location) Visit [facility] [place], [address], 02/28/2024 11:49:56 02/26/1902/28/2024 CBC W/AUT O DIFF WITH PLATE LETS RBC 4.54 M/uL 4.50-6 .10 Not Available [facility] Lab (Blood Not Drawn At This Location) Visit [facility] [place], [address], 02/28/2024 11:49:56 02/26/19 25 02/28/2024 CBC W/AUT O DIFF WITH PLATE LETS hemoglobin 13.8 g/dL 13.5-1 7.0 Not Available [facility] Lab (Blood Not Drawn At This Location) Visit [facility] [place], [address], 02/28/2024 11:49:56 02/26/1902/28/2024 CBC W/AUT O DIFF WITH PLATE LETS hematocrit 40.5 % 40.0-5 1.0 Not Available [facility] Main Lab (Blood Not Drawn At This Location) Visit [facility] [place], [address], 02/28/2024 11:49:56 02/26/19 25 02/28/2024 CBC W/AUT O DIFF WITH PLATE LETS MCV 89.2 fL 80.0-9 9.0 Not Available [facility] (Blood Not Drawn At This Location) Visit [facility] [place], [address], 02/28/2024 11:49:56 02/26/1902/28/2024 CBC W/AUT O DIFF WITH PLATE LETS MCH 30.4 pg 25.0-3 3.0 Not Available [facility] (Blood Not Drawn At This Location) Visit [facility] [place], [address], 02/28/2024 11:49:56 02/26/1902/28/2024 CBC W/AUT O DIFF WITH PLATE LETS MCHC 34.1 g/dL 31.0-3 6.0 Not Available [facility] Main Lab (Blood Not Drawn At This Location) Visit [facility] [place], [address], 02/28/2024 11:49:56 02/26/1902/28/2024 CBC W/AUT O DIFF WITH PLATE LETS RDW 13.9 % 11.5-1 5.0 Not Available [facility] Main Lab (Blood Not Drawn At This Location) Visit [facility], [place], [address], 02/28/2024 11:49:56 02/26/19 25 02/28/2024 CBC W/AUT O DIFF WITH PLATE LETS neutrophils 76.9 % Not Available [facility] - Main Lab (Blood Not Drawn At This Location) Visit [facility] Location [facility]arest [facility], [place], [address], 02/28/2024 11:49:56 02/26/19 25 02/28/2024 CBC W/AUT O DIFF WITH PLATE LETS lymphocytes 8.7 % Not Available [facility] - Main Lab (Blood Not Drawn At This Location) Visit [facility] For Location Nearest [facility], [place], [address], 02/28/2024 11:49:56 02/26/19 25 02/28/2024 CBC W/AUT O DIFF WITH PLATE LETS monocytes 11.2 % Not Available [facility] Main Lab (Blood Not Drawn At This Location) Visit [facility] Location [facility]arest [facility], [place], [address], 02/28/2024 11:49:56 02/26/19 25 02/28/2024 CBC W/AUT O DIFF WITH PLATE LETS eosinophils 2.6 % Not Available [facility] - Main Lab (Blood Not Drawn At This Location) Visit [facility] For Location Nearest [facility], [place], [address], 02/28/2024 11:49:56 02/26/1902/28/2024 CBC W/AUT O DIFF WITH PLATE LETS basophils 0.4 % Not Available [facility] Main Lab (Blood Not Drawn At This Location) Visit [facility] For Location Nearest [facility], [place], [address], 02/28/2024 11:49:56 02/26/19 25 02/28/2024 CBC W/AUT O DIFF WITH PLATE LETS immature granulocytes 0.2 % Not Available [facility] - Main Lab (Blood Not Drawn At This Location) Visit [facility] [place], [address], 02/28/2024 11:49:56 02/26/1902/28/2024 CBC W/AUT O DIFF WITH PLATE LETS nucleated RBCs 0.0 /100_ WBC's 0.0 Not Available [facility] Main Lab (Blood Not Drawn At This Location) Visit [facility] [place], [address], 02/28/2024 11:49:56 02/26/19 25 02/28/2024 CBC W/AUT O DIFF WITH PLATE LETS platelet count 256 K/uL 130-40 0 Not Available [facility] Main Lab (Blood Not Drawn At This Location) Visit [facility] For Location Nearest [facility], [place], [address], 02/28/2024 11:49:56 02/26/19 25 02/28/2024 CBC W/AUT O DIFF WITH PLATE LETS absolute neutrophils 6.43 K/uL 1.50-7 .50 Not Available [facility] Main Lab (Blood Not Drawn At This Location) Visit [facility] [place], [address], 02/28/2024 11:49:56 02/26/19 25 02/28/2024 CBC W/AUT O DIFF WITH PLATE LETS absolute lymphocytes 0.73 K/uL 1.00-4 .00 low Not Available [facility] (Blood Not Drawn At This Location) Visit [facility] [place], [address], 02/28/2024 11:49:56 02/26/1902/28/2024 CBC W/AUT O DIFF WITH PLATE LETS absolute monocytes 0.94 K/uL 0.20-1 .00 Not Available [facility] Lab (Blood Not Drawn At This Location) Visit [facility] [place], [address], 02/28/2024 11:49:56 02/26/19 02/28/2024 CBC W/AUT O DIFF WITH PLATE LETS absolute eosinophils 0.22 K/uL 0.00-0 .50 Not Available [facility] Lab (Blood Not Drawn At This Location) Visit [facility] [place], [address], 02/28/2024 11:49:56 02/26/19 25 02/28/2024 CBC W/AUT O DIFF WITH PLATE LETS absolute basophils 0.03 K/uL 0.00-0 .20 Not Available [facility] Main Lab (Blood Not Drawn At This Location) Visit [facility] [place], [address], 02/28/2024 11:49:56 02/26/19 25 02/28/2024 CBC W/AUT O DIFF WITH PLATE LETS abs immature granulocytes 0.02 K/uL 0.00-0 .10 Not Available [facility] Main Lab (Blood Not Drawn At This Location) Visit [facility] [place], [address], 02/28/2024 11:49:56 02/26/19 25 02/28/2024 CBC W/AUT O DIFF WITH PLATE LETS abs nucleated RBCs 0.00 K/uL 0.00-0 .11 Testi ng Perfo rmed At: [facility] [address] [place] [address] Labor atory [facility] tor: Mark Bella [id number] [place] [id number] Not Available [facility] Main Lab (Blood Not Drawn At This Location) Visit [facility] [place], [address], 02/28/2024 11:49:56 02/26/19 25 02/28/2024 COMPR EHENS JORDAN METAB OLIC PANEL + E-GFR glucose 95 mg/dL 70-99 Not Available [facility] Lab (Blood Not Drawn At This Location) Visit [facility] [place], [address], 02/28/2024 11:49:57 02/26/19 25 02/28/2024 COMPR EHENS JORDAN METAB OLIC PANEL + E-GFR BUN 11 mg/dL 8-23 Not Available [facility] Lab (Blood Not Drawn At This Location) Visit [facility] [place], [address], 02/28/2024 11:49:57 02/26/19 25 02/28/2024 COMPR EHENS JORDAN METAB OLIC PANEL + E-GFR creatinine 0.78 mg/dL 0.80-1 .40 low Not Available [facility] Main Lab (Blood Not Drawn At This Location) Visit [facility] [place], [address], 02/28/2024 11:49:57 02/26/19 25 02/28/2024 COMPR EHENS JORDAN METAB OLIC PANEL + E-GFR eGFR (2020 CKD-epi) 92 mL/mi n/1.7 3 >60 Not Available [facility] Main Lab (Blood Not Drawn At This Location) Visit [facility] [place], [address], 02/28/2024 11:49:57 02/26/19 25 02/28/2024 COMPR EHENS JORDAN METAB OLIC PANEL + E-GFR calc BUN/creat 14 ratio 6-28 Not Available [facility] - Main Lab (Blood Not Drawn At This Location) Visit [facility] [place], [address], 02/28/2024 11:49:57 02/26/19 25 02/28/2024 COMPR EHENS JORDAN METAB OLIC PANEL + E-GFR sodium 126 mEq/L 133-14 6 low Not Available [facility] Main Lab (Blood Not Drawn At This Location) Visit [facility] [place], [address], 02/28/2024 11:49:57 02/26/19 25 02/28/2024 COMPR EHENS JORDAN METAB OLIC PANEL + E-GFR potassium 5.3 mEq/L 3.5-5. 4 Not Available [facility] Main Lab (Blood Not Drawn At This Location) Visit [facility] [place], [address], 02/28/2024 11:49:57 02/26/19 25 02/28/2024 COMPR EHENS JORDAN METAB OLIC PANEL + E-GFR chloride 90 mEq/L 95-107 low RESUL TS RECHE CKED AND VERIF IED Not Available [facility] Main Lab (Blood Not Drawn At This Location) Visit [facility] [place], [address], 02/28/2024 11:49:57 02/26/19 25 02/28/2024 COMPR EHENS JORDAN METAB OLIC PANEL + E-GFR carbon dioxide 28 mEq/L 19-31 Not Available [facility] - Main Lab (Blood Not Drawn At This Location) Visit [facility] [place], [address], 02/28/2024 11:49:57 02/26/19 25 02/28/2024 COMPR EHENS JORDAN METAB OLIC PANEL + E-GFR calcium 9.8 mg/dL 8.5-10 .5 Not Available [facility] Main Lab (Blood Not Drawn At This Location) Visit [facility] [place], [address], 02/28/2024 11:49:57 02/26/19 25 02/28/2024 COMPR EHENS JORDAN METAB OLIC PANEL + E-GFR protein, total 7.0 g/dL 6.1-8. 3 Not Available [facility] Main Lab (Blood Not Drawn At This Location) Visit [facility] [place], [address], 02/28/2024 11:49:57 02/26/19 25 02/28/2024 COMPR EHENS JORDAN METAB OLIC PANEL + E-GFR albumin 4.4 g/dL 3.5-5. 2 Not Available [facility] Main Lab (Blood Not Drawn At This Location) Visit [facility] [place], [address], 02/28/2024 11:49:57 02/26/1902/28/2024 COMPR EHENS JORDAN METAB OLIC PANEL + E-GFR calc globulin 2.6 g/dL 1.9-3. 7 Not Available [facility] Main Lab (Blood Not Drawn At This Location) Visit [facility] [place], [address], 02/28/2024 11:49:57 02/26/1902/28/2024 COMPR EHENS JORDAN METAB OLIC PANEL + E-GFR calc A/G ratio 1.7 ratio 1.0-2. 6 Not Available [facility] Main Lab (Blood Not Drawn At This Location) Visit [facility] [place], [address], 02/28/2024 11:49:57 02/26/19 25 02/28/2024 COMPR EHENS JORDAN METAB OLIC PANEL + E-GFR bilirubin, total 0.6 mg/dL <=1.2 Not Available [facility] - Main Lab (Blood Not Drawn At This Location) Visit [facility] [place], [address], 02/28/2024 11:49:57 02/26/1902/28/2024 COMPR EHENS JORDAN METAB OLIC PANEL + E-GFR alkaline phosphatase 123 U/L 40-125 Not Available [facility] - Main Lab (Blood Not Drawn At This Location) Visit [facility] [place], [address], 02/28/2024 11:49:57 02/26/1902/28/2024 COMPR EHENS JORDAN METAB OLIC PANEL + E-GFR AST 18 U/L 9-50 Not Available [facility] Main Lab (Blood Not Drawn At This Location) Visit [facility] [place], [address], 02/28/2024 11:49:57 02/26/19 25 02/28/2024 COMPR EHENS JORDAN METAB OLIC PANEL + E-GFR ALT 17 U/L 5-50 Testi ng Perfo rmed At: [facility] [address] [facility], [place] [address] Labor atory [facility] tor: Vipul morrow, Segundo. ABDIEL Cancino r [id number] [place] [id number] Not Available [facility] Main Lab (Blood Not Drawn At This Location) Visit [facility], [place], [address], 02/28/2024 11:49:57 Result Notes None recorded. 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 [address] [place] [address], [address] , [facility] 0 13:54:01 Neuropathy 792353470 Active 2024 Melinda banks NRCMA null, [facility] 5 11:46:54 Hyperlipidemi a 89727845 Active 2024 Melinda banks NRCMA null, [facility] 5 11:47:02 Spinal stenosis 84314744 Active 2024 Melinda banks NRCMA null, [facility] 5 11:47:16 Cough 41710125 Active 2024 Sherlyn Moreno PA-C [address] [place] [address], [address] , [facility] 5 12:10:02 Non-pitting edema 769649738 Active 2024 Sherlyn Moreno PA-C [address] [place] [address], [address] , [facility] 5 12:28:54 Hyponatremia 90494214 Active 2024 Sherlyn Moreno PA-C [address] [place] [address], [address] , [facility] 5 14:25:12 Acute bronchitis 87505609 Active 2024 Sherlyn Moreno PA-C [address] [place], [address] , [facility] 5 17:32:36 Problem Notes None recorded. Procedures Surgical History Date Name Laterality Status Provider Name and Address Organization Details Recorded Time Hernia Repair completed Catherine Mitchell MA [facility] 03/19/2019 13:23:38 Imaging Results None recorded. Procedure [...] Address Organization Details Last Updated DateTime 5 98281.5 4 g 18 /min 98.2 [degF] 32 kg/m2 175.26 cm 68 /min 98 % 98 % 134/88 mm[Hg] MEDARDO JenkinsA [facility] 5 11:49:58 Date Recorded Body height Body mass index (BMI) Body weight Respiratory rate Body temperature Heart rate Oxygen saturation Oxygen saturation in Arterial blood by Pulse oximetry Systolic And Diastolic Provider Name and Address Organization Details Last Updated DateTime 5 175.26 cm 31.3 kg/m2 05386.5 8 g 16 /min 97 [degF] 94 /min 96 % 96 % 158/80 mm[Hg] MAXIMO FRANCO [facility] 5 10:17:54 Date Recorded Systolic And Diastolic Provider Name and Address Organization Details Last Updated DateTime 03/20/2024 160/80 mm[Hg] Sherlyn Moreno PA-C [address], [place], [address], [facility] 03/20/2024 16:35:09 Date Recorded Body height Body mass index (BMI) Body weight Respiratory rate Body temperature Heart rate Oxygen saturation Oxygen saturation in Arterial blood by Pulse oximetry Systolic And Diastolic Provider Name and Address Organization Details Last Updated DateTime 5 175.26 cm 31.5 kg/m2 52244.1 7 g 16 /min 98.4 [degF] 89 /min 98 % 98 % 170/88 mm[Hg] Melinda thakur, [facility] 5 16:13:32 Date Recorded Body height Body mass index (BMI) Body weight Heart rate Respiratory rate Body temperature Oxygen saturation Oxygen saturation in Arterial blood by Pulse oximetry Systolic And Diastolic Provider Name and Address Organization Details Last Updated DateTime 5 175.26 cm 31.7 kg/m2 18087.3 6 g 68 /min 16 /min 98.6 [degF] 97 % 97 % 130/70 mm[Hg] Catherine Mitchell MA [facility] 5 11:35:52 Date Recorded Body height Body mass index (BMI) Body weight Heart rate Respiratory rate Body temperature Oxygen saturation Oxygen saturation in Arterial blood by Pulse oximetry Systolic And Diastolic Provider Name and Address Organization Details Last Updated DateTime 5 175.26 cm 32.2 kg/m2 82399.1 4 g 67 /min 16 /min 97.5 [degF] 98 % 98 % 132/60 mm[Hg] Catherine Mitchell MA [facility] 5 11:02:17 Social History Question Answer Notes LastModified by Organizat ion Details LastModified Time Tobacco Smoking Status Never Smoker Not Available [facility] 12/18/2019 03:36:41 Live Alone Or With Others? With Others [email or web address] Information not available 04/04/2019 Marital Status Informatio n not available 04/04/2019 Sex: Unknown Functional Status Question Answer Note LastModified by Organizat ion Details LastModified Time Do you or have you ever used smokeless tobacco? Never used smokeless tobacco [id number] Information not available 12/18/2019 Are you able to walk independently without assistance or assistive devices? YESWOREST [id number] Information not available 12/18/2019 Do you or have you ever used e-cigarettes or vape? Never used electronic cigarettes [id number] Information not available 12/18/2019 Mental Status None recorded. Family History Nothing Reported. Medical History Condition Response Hypertension Y Past Encounters Encounter ID Performer Location Encounter Start Date Encounter Closed Date Diagnosis/Indication Diagnosis SNOMED-CT Code Diagnosis ICD10 Code Diagnosis IMO Codes Diagnosis Note [id number] Jerson Henning MD Main Office [address] [place] [phone] 03/19/2019 10:45:43 03/19/2019 14:05:36 Community acquired pneumonia 703435140 J18.9 No evidence of serious disease here today. Will start patient on some prednisone and azithromyc in advised to return to clinic in 2 weeks to review reevaluate his lungs. Sooner if his condition worsens. Patient verbalized understand ing these instructio ns. Essential hypertension 45921960 I10 pt did not take his BP meds last night. Will recheck blood pressure in 2 weeks and evaluate the need to modify his blood pressure regimen. [id number] Jerson Henning MD Main Office [address] [place] [phone] 04/04/2019 14:54:43 04/04/2019 16:09:36 Essential hypertension 97432556 I10 uncontroll ed. Start patient on terazosin and recheck BP in 2 weeks. BP log reviewed and looks good but the patient is fairly hypertensi ve here in the clinic. [id number] Jerson Henning MD Main Office [address] [place] [phone] 02/27/2024 10:48:48 02/27/2024 14:52:20 Cough 75438442 R05.9 Reviewed symptomati c care instructio ns, the expected course of these illnesses and explained that coughing can persist for some time. Provided precaution s for signs of worsening disease and instructio ns on contacting us if symptoms worsen. -Will order labs today-will send tessalon pearls 200mg, guaifenesi n 600mg, azithromyc in 250mg, loratadine 10mg -will follow up in one week Essential hypertension [id number] I10 -Will order labs today-Curr ent Treatment: amlodipine 10mg, benazepril 40mg, furosemide 20mg- BP today 134/88- Patient instructed to take his medication at night-Will recheck labs in 3 months.Pat ient will monitor blood pressure and report if unable to control or if they develop new symptoms.- Patient has non pitting edema Non-pitting edema 301063 001 R60.9 Current Treatment: Furosemide 20mg-will continue to monitor-wi ll follow up in one week [id number] Jerson Henning MD Main Office [address] [place] [address] [phone] 03/06/2024 10:12:27 03/06/2024 10:46:19 Cough [id number] R05.9 Reviewed symptomati c care instructio ns, the expected course of these illnesses and explained that coughing can persist for some time. Provided precaution s for signs of worsening disease and instructio ns on contacting us if symptoms worsen. -Will order labs today-will send tessalon pearls 200mg, guaifenesi n 600mg, azithromyc in 250mg, loratadine 10mg -will follow up in one week Essential hypertension [id number] I10 -Current Treatment: amlodipine 10mg, benazepril 40mg, furosemide 20mg- BP today 158/80,-2n d BP today 146/90- Patient instructed to take his medication at night-Will recheck labs in 3 months.Pat ient will monitor blood pressure and report if unable to control or if they develop new symptoms.- Patient has non pitting edema [id number] Jerson Henning MD Main Office [address] [place] [address] [phone] 03/20/2024 15:25:59 03/20/2024 16:46:31 Cough [id number] R05.9 Reviewed symptomati c care instructio ns, the expected course of these illnesses and explained that coughing can persist for some time. Provided precaution s for signs of worsening disease and instructio ns on contacting us if symptoms worsen.-Wi ll order labs today-will send tessalon pearls 200mg, guaifenesi n 600mg-will follow up in one week Essential hypertension [id number] I10 -Current Treatment: amlodipine 10mg, benazepril 40mg, furosemide 20mg- BP today 170/88-2nd BP today 160/80- Patient instructed to take his medication at night-Will recheck labs in 3 months.Pat iedana will monitor blood pressure and report if unable to control or if they develop new symptoms. [id number] Jerson Henning MD Main Office [address] [place] [address] [phone] 03/27/2024 11:03:28 03/27/2024 12:28:32 Cough [id number] R05.9 Reviewed symptomati c care instructio ns, the expected course of these illnesses and explained that coughing can persist for some time. Provided precaution s for signs of worsening disease and instructio ns on contacting us if symptoms worsen.-Wi ll order labs today-will send tessalon pearls 200mg, guaifenesi n 600mg-will follow up in one week Acute bronchitis 1357337 2 J20.9 -Albuterol treatment 2.5mg and nebulizer- Advised patient to increase fluid in take-Revie wed symptomati c care instructio ns, the expected course of these illnesses and explained that coughing can persist for some time. Provided precaution s for signs of worsening disease and instructio ns on contacting us if symptoms worsen or go to his nearest ER . [id number] Jerson Henning MD Main Office [address] [place] [address] [phone] 04/04/2024 10:48:12 04/04/2024 11:54:03 Cough [id number] R05.9 -All symptoms have resolved Acute bronchitis [id number] 2 J20.9 -Patient reports all symptoms have resolved at this time Health Concerns Section Related Observation LastModified by Organization Detai ls LastModified Time None Recorded Concern Status LastModified by Organization Details LastModified Time None Recorded Advance Directives Directive None Recorded Payers Insurance Date Sequence Insurance Name Policy Number Policy Moffett Covered Member ID Moffett Member ID Guarantor Name 05/07/2024 2 [employer] (MEDICARE SUPPLEMENT) Rubio Sampson [id number] Rubio Sampson 03/25/2024 2 [id number] Rubio Sampson [id number] Rubio Sampson 05/07/2024 1 [place] - [facility] (MEDICARE) Rubio Sampson [id number] Rubio Sampson Notes Date Note Type Note Provider Name and Address Organization Details Recorded Time 02/27/2024 text/html 78 yr old Male Hx of spinal stenosis, htn, hyperlipidemia presents to clinic to establish care and to discuss cough that has been present for over 9 days. Patient reports the cough us worse at night. patient reports taking OTC medication for cough. patient denies any shortness of breath,chest pain or chest palpitation.BP:134/8 8 P:68 SP02:98% R:18 Sherlyn Moreno PA-C [address] [place] [address], [phone], [facility] 02/27/2024 12:29:46 03/06/2024 text/html BP:132/88 P:94 SP02:98% [...] chest palpitation. Sherlyn Moreno PA-C [address] [place] [address], [phone], [facility] 03/06/2024 10:40:06 03/20/2024 text/html 78 yr old Male Hx of spinal stenosis, [...] chest palpitation. Sherlyn Moreno PA-C [address] [place] [address], [phone], [facility] 03/20/2024 16:35:49 03/27/2024 text/html BP 130/70 pulse [...] chest palpitation. Sherlyn Moreno PA-C [address] [place] [address], [phone], [facility] 03/27/2024 12:22:53 04/04/2024 text/html BP 132/60 pulse [...] chest palpitation. Sherlyn Moreno PA-C [address] [facility] [place], [phone], [facility] 04/04/2024 11:36:58
--- OUTSIDE RECORDS SUMMARY | 2024-12-20 19:13 | XMS_ITS | Encounter Summary ---
Author Organization [facility] Address [address] [place] [id number] Care Team Providers Care Cray Fishing Hand Name Role Phone Jarvis Jimenez DO Primary Care Provider [phone] Encounter Details Date Type Department Care Team (Latest Contact Info) Description 12/20/2024 Travel Social History Tobacco Use Types Packs/Day [...] st Contact Info) Description 12/24/2024 7:45 AM SENIOR PASTOR Appointment [address] [place] [address] Samia Razo, FBI SPECIAL AGENT [address] [place] [address] Sammi Lewis, PT [address] [facility] [place] [address] 12/27/2024 8:15 AM SENIOR PASTOR Appointment [facility] [address] [facility] [place] [address] Samia Razo, FBI SPECIAL AGENT [address] [place] [address] Matthew Raygoza, PT [address] [place] [address] documented as of this encounter Visit Diagnoses Not on filedocumented in this encounter Additional Health Concerns Assessment Noted Time PHQ-9 Depression Total Score: 0 01/30/20 22 10:05 AM SENIOR PASTOR documented as of this encounter Care Teams Cray Fishing Hand Relationship Specialty Start Date End Date Jarvis Jimenez DO [address] [address] PCP - General INTERNAL MEDICINE 11/07/19 documented as of this encounter
== END 2024-12-20 11:29 | disposition home or self-care (01) ==
PROVIDERS: Anesthesiology; PCP Nurse Practitioner Family; Visit Provider Neurological Surgery
DX: Z01.818 Encounter for other preprocedural examination (principal); Z79.899 Other long term (current) drug therapy
CPT/HCPCS: 36415; 80048

== ENCOUNTER 2024-12-25 00:39 | Day surgery (SDC) | payer MEDICARE, OTHER, SELFPAY ==
[2024-12-19 10:45] VITALS: BMI 33.8
--- NOTE | 2024-12-19 10:58 | PC.NURSE ---
[facility] has started construction of its new state of the art ER which will open Spring 2026. With this, we anticipate parking may be a challenge for some our surgical patients and families. Parking spaces are limited but are available for all Surgical, obstetrics, and ER patients sharing this lot. If you arrive and find you are having a hard time finding a parking space, please note that we understand the challenges, please drive around the hospital and park near Hospital Entrance 1. When you enter this entrance, you can ask a volunteer to direct or take you back to the surgical waiting area to check in. We appreciate everyone?s understanding of these expected challenges while we build for your future. Report to the Outpatient Waiting Room, entrance under the green pavilion located off [address], at time __08:15am on date __12/25/24 . Planned Procedure Time: __10:15am .? Time changes happen often and if your time is changed the preop area will call you the afternoon before. - You and your visitor will be asked to self-screen and do not enter if you have any COVID symptoms. Please call surgeon if you need to reschedule. - A mask is optional within the hospital at this time. Patients may have clear liquids (water, carbonated beverages, clear teas, apple juice) until 3 hours prior to surgery with a maximum of 20 ounces. - No food from midnight until time of surgery and no smoking, or chewing tobacco (or any form of nicotine). No chewing gum, candy or mints. ( 0715am) Take only the following medications with a SIP of water on the morning of surgery: Amlodipine and Gabapentin, Tyelenol if needed DO NOT STOP ANY OF YOUR OTHER PRESCRIPTION MEDICATIONS PRIOR TO SURGERY EXCEPT THE FOLLOWING Hold all vitamins and supplements for 3 days per anesthesiologist. Date of last dose 12/21/24 Medications to discontinue per physician HOLD all NSAIDS, Celebrex and any aspirin containing products per Dr Albert. Date to take last dose 12/17/24 Please no make-up, nail turkish, hairspray, perfume, deodorant, or body powder the day of surgery.? No jewelry (including any body piercings) or valuables the day of surgery, leave them at home.? Please take a shower or bath the night before, or the morning of, surgery with an antibacterial soap GOLD DIAL? Wear comfortable, loose fitting clothing.? - Jewelry must be removed prior to entering the operating room.? Rings and piercings that are not removed may be cut off. - The hospital will not accept responsibility for valuables.? - Please leave all valuables, including medications, at home the day of surgery. If you are going home after surgery, a licensed driver education road instructor must drive you home.? - NO public transportation without another adult if you receive anesthesia. - We recommend that an adult stay with you for 24 hours following discharge. - We also recommend that you do not drive, make important decision, drink alcoholic beverages, or take any drugs that were not prescribed by your health care provider for at least 24 hours after your discharge time. Follow any additional instructions given to you from your surgeon. Telephone instructions given to __Patient and asked if any additional questions and then verbalized understanding. Patient advised to call surgeon office or pre surgery nurse liaison [phone] if any additional questions.
--- OUTSIDE RECORDS SUMMARY | 2024-12-24 07:39 | XMS_ITS | Encounter Summary ---
Author Organization [facility] Address [address] [place] [address] Care Team Providers Care Stars Specialist Name Role Phone Jarvis Jimenez Maegan HUANG Primary Care Provider Reason for Visit * Reason Comments Neck And Back Pain * Physical Therapy (Routine) - Authorized Specialty Diagnoses / Procedures Referred By Contac t Referred To Contact PHYSICAL THERAPY / [facility] Physical Therapy Diagnoses Spinal stenosis, cervical region Spinal stenosis, lumbar region without neurogenic claudication Procedures Samia Galarza, MANAGED CARE LIAISON [address] [place] [address] Phone: tel: fax: [place] [address] [place] [address] Phone: tel: fax: Referral ID Status Reason Start Date Expiration Date Visits Requested Visits Authorized [id number] Authorized Physical Therapy 06/20/2024 99 99 Encounter Details Date Type Department Care Team (Late st Contact Info) Description 12/24/2024 7:39 AM [facility] Hospital Encounter [facility] [address] [place] [address] Samia Razo, BRISA [address] [place] [address] Sammi Lewis, PT [address] [place] [address] Neck And Back Pain Social History Tobacco [...] as of this encounter Progress Notes * Sammi Eduardo Lewis, PT - 12/24/2024 7:45 AM CST Physical Therapy Visit Note: Patient Name: Rubio Sampson Diagnosis: Cervical spinal stenosis (primary encounter diagnosis) SUBJECTIVE Therapy Visit Treatment Day: 52 Total Approved Visits: (eval 06/20/24; re-eval 10/18/24) Therapy Plan of Care: Maintenance Current Therapy Orders: Eval and treat Diagnosis: cervical and lumbar stenosis resulting in numbness/pain in fingers/toes Referring Provider: Samia Razo NP Work Status: retired - enjoys walking 3 miles each morning Subjective Note: Patient reports that he is doing okay today. He is eager for carpal tunnel surgery tomorrow on the R hand. He reports that the surgeon wasn't ready to do surgery on the L hand yet. Compliance to Home Program: [facility] Current Location of Pain: L hip/Lower R back/ B shoulder/ N&T in hands and feet. Current Pain Level: 3/10 OBJECTIVE Treatment provided today: Neuromuscular Re-education - 16146 Intervention: carioca Intervention: hurdles forward and lateral Intervention: airex step up and over Intervention: airex standing with rhythmic stabilization Intervention: lateral/fwd stepping over airex Intervention: heel to toe walking Intervention: balancing on /2 foam roll Intervention: SLS on firm surface Intervention: cone weaving Intervention: obstacle course Intervention: walking with head turns up/down/side Therapeutic Exercise - 52730 Cardio Equipment: nu-step x 10 minutes Exercise: scap ret 5 x 25 Exercise: 1/2 foam calf stretch 10x10 Exercise: HR x30 on /2 foam roll Exercise: therabar wrist twists - red Exercise: seated HR/TR Exercise: bicep curl/overhead press 5# x 30 Exercise: [place] knee flexion 40#/ext 40# 2x 20 Exercise: [place] Row/lat pull 40# 2x20 Exercise: wrist pronation/supination/Radial deviation/flex/ext 5# Exercise: seated hs stretch x 5 Manual Therapy - 00790 Intervention: cervical manual traction Intervention: UT stretch Intervention: R shoulder PROM Intervention: carpal metacarpal extension stretching Education Was Education Provided: Yes Topic: HEP review Recipient: Patient Method: Demonstration, Verbal Response: Demonstrates adequately, Verbalized understanding Barriers: None ASSESSMENT Note: Patient completes all exercises with minimal verbal cueing for proper technique. He denies pain with all exercises and continues to demonstrate overall improvements in his balance both statically and dynamically. He does continue to exhibit overall cervial fleixbility tightness but demonstrates realtive equal tightness from side to side. Response to Treatment : Good Continue on Functional Deficit of: B UE/LE strength; cervical mobility PLAN Next Visit Plan: progress balance, UE/LE strength, posture MEL MAKER documented in this encounter Plan of Treatment Upcoming Encounters Date Type Department Care Team (Late st Contact Info) Description 12/31/2024 8:15 AM CARAMEL MAKER Appointment [facility] [address] [place] [address] Samia Razo, MANAGED CARE LIAISON [address] [place] [address] Matthew Raygoza, PT [address] [place] [address] documented as of this encounter Visit Diagnoses Diagnosis Cervical spinal stenosis- Primary Spinal stenosis in cervical region documented in this encounter Additional Health Concerns Assessment Noted Time PHQ-9 Depression Total Score: 0 01/30/20 22 10:05 AM CARAMEL MAKER documented as of this encounter Care Teams Stars Specialist Relationship Specialty Start Date End Date Jarvis Jimenez DO [address] [address] PCP - General INTERNAL MEDICINE 11/07/19 documented as of this encounter
--- OUTSIDE RECORDS SUMMARY | 2024-12-25 00:42 | XMS_ITS | Data Portability ---
Author Organization [facility], Main Office Address [address] [place] [address] Assessment No assessment recorded. Plan of Treatment Reminders Order Date Submit Date Provider Last Modified By Organization Details Last Modified Time Details Appointments None recorded. Lab CBC w/ auto diff 2024 025 [facility], [address], [place], [place], [address], 5 11:49:56 CMP, serum or plasma 2024 025 [facility], [address], [place], [place], [address], 5 11:49:57 pro BNP (pro B-type natriuretic peptide), serum or plasma 2024 025 [facility], [address], [place], [place], [address], 5 11:49:56 Referral None recorded. Procedures None recorded. Surgeries None recorded. Imaging None recorded. Medication Orders benzonatate 200 mg capsule 2024 025 [facility] [address], [address] [address], [place], [address], 5 11:15:51 albuterol sulfate 2.5 mg/3 mL (0.083 %) solution for nebulizatio n 2024 025 [facility] 413, [address] [facility] [address], [place], [address], 5 12:12:05 benzonatate 200 mg capsule 2024 025 [email or web address] 0 [facility] 413, [address] [address], [place], [address], 5 11:02:49 guaifenesin ER 600 mg tablet, extended release 12 hr 2024 025 [facility] 413, [address] [address], [place], [address], 5 11:15:59 clonidine HCl 0.1 mg tablet 2024 025 [email or web address] Not available 5 09:31:04 benzonatate 200 mg capsule 2024 025 [email or web address] 0 [facility] 413, [address] [address], [place], [address], 5 11:02:49 guaifenesin ER 600 mg tablet, extended release 12 hr 2024 025 [email or web address] 0 [facility] 413, [address] [facility] [address], [place], [address], 5 11:02:57 benzonatate 200 mg capsule 2024 025 [email or web address] 0 [facility] [address], [address] [address], [place], [address], 5 11:02:49 guaifenesin ER 600 mg tablet, extended release 12 hr 2024 025 [email or web address] 0 [facility] [address], [address] [place] [address], [place], [address], 5 11:02:57 azithromyci n 250 mg tablet 2024 025 [email or web address] 0 [facility] [address], [address] [facility], [place], [address], 5 11:02:43 loratadine 10 mg tablet 2024 025 [email or web address] [facility] [address], [address], [place], [address], 16:09:13 Patient TargetsNo targets recorded. Patient Instructions Encounter Date Encounter Id Patient Instructions Last Modified By Organization Details Last Modified Time 02/27/2024 [id number] cough: care instructions Not available 02/27/2024 12:14:45 high blood pressure: care instructions [email or web address] Not available 02/27/2024 12:14:46 learning about high blood pressure [email or web address] Not available 02/27/2024 12:14:45 medical record request* [email or web address] Not available 03/08/2024 16:29:41 Diagnoses were discussed with the patient/family at length, all questions were answered and the patient/family verbalized understanding of these instructions and agreed with plan of care. No barriers to care are apparent at this time. Patient/family instructed to let me know if they have any difficulties affording their medications or have any further questions regarding their care [email or web address] Not available 02/27/2024 12:29:32 03/06/2024 [id number] cough: care instructions [email or web address] Not available 03/06/2024 10:33:13 high blood pressure: care instructions [email or web address] Not available 03/06/2024 10:33:13 learning about high blood pressure [email or web address] Not available 03/06/2024 10:33:13 medical record request* [email or web address] Not available 03/08/2024 16:30:16 Diagnoses were discussed with the patient/family at length, all questions were answered and the patient/family verbalized understanding of these instructions and agreed with plan of care. No barriers to care are apparent at this time. Patient/family instructed to let me know if they have any difficulties affording their medications or have any further questions regarding their care [email or web address] Not available 03/06/2024 10:22:50 03/20/2024 [id number] cough: care instructions [email or web address] Not available 03/20/2024 16:32:47 high blood pressure: care instructions Not available 03/20/2024 16:32:47 learning about high blood pressure [email or web address] Not available 03/20/2024 16:32:47 medical record request* [email or web address] Not available 04/18/2024 14:14:42 Diagnoses were discussed [...] [email or web address] Not available 03/20/2024 16:06:24 03/27/2024 [id number] cough: care instructions [email or web address] Not available 03/27/2024 12:11:57 bronchitis: care instructions [email or web address] Not available 03/27/2024 12:11:56 Diagnoses were discussed with the patient/family at length, all questions were answered and the patient/family verbalized understanding of these instructions and agreed with plan of care. No barriers to care are apparent at this time. Patient/family instructed to let me know if they have any difficulties affording their medications or have any further questions regarding their care [email or web address] Not available 03/27/2024 11:35:05 04/04/2024 [id number] cough: care instructions [email or web address] Not available 04/04/2024 11:36:37 Diagnoses were discussed with the patient/family at length, all questions were answered and the patient/family verbalized understanding of these instructions and agreed with plan of care. No barriers to care are apparent at this time. Patient/family instructed to let me know if they have any difficulties affording their medications or have any further questions regarding their care [email or web address] Not available 04/04/2024 11:01:55 Reason for Referral None Reported. Results Created Date Observation Date Name Description Value Unit Range Abnormal Flag Note LastModifiedBy Organization Detail LastModifiedTime 02/26/1902/28/2024 NT-MD OBNP nt-probnp 1237 pg/mL see below If [...] [facility] [address] [place] [address] Labor atory [facility] tor: Mark BellaIA Barak r [id number] [place] [id number] Not Available [facility] - Main Lab (Blood Not Drawn At This Location) Visit [facility] [place], [address], 02/28/2024 11:49:55 02/26/1902/28/2024 CBC W/AUT O DIFF WITH PLATE LETS WBC 8.4 K/uL 3.5-11 .0 Not Available [facility] Main Lab (Blood Not Drawn At This Location) Visit [facility] [place], [address], 02/28/2024 11:49:56 02/26/1902/28/2024 CBC W/AUT O DIFF WITH PLATE LETS RBC 4.54 M/uL 4.50-6 .10 Not Available [facility] Main Lab (Blood Not Drawn At This Location) Visit [facility] [place], [address], 02/28/2024 11:49:56 02/26/19 25 02/28/2024 CBC W/AUT O DIFF WITH PLATE LETS hemoglobin 13.8 g/dL 13.5-1 7.0 Not Available [facility] Main Lab (Blood Not Drawn At This Location) Visit [facility] [place], [address], 02/28/2024 11:49:56 02/26/1902/28/2024 CBC W/AUT O DIFF WITH PLATE LETS hematocrit 40.5 % 40.0-5 1.0 Not Available [facility] Main Lab (Blood Not Drawn At This Location) Visit [facility] [place], [address], 02/28/2024 11:49:56 02/26/19 25 02/28/2024 CBC W/AUT O DIFF WITH PLATE LETS MCV 89.2 fL 80.0-9 9.0 Not Available [facility] Main Lab (Blood Not Drawn At This Location) Visit [facility] [place], [address], 02/28/2024 11:49:56 02/26/1902/28/2024 CBC W/AUT O DIFF WITH PLATE LETS MCH 30.4 pg 25.0-3 3.0 Not Available [facility] Main Lab (Blood Not Drawn At This Location) Visit [facility] [place], [address], 02/28/2024 11:49:56 02/26/1902/28/2024 CBC W/AUT O DIFF WITH PLATE LETS MCHC 34.1 g/dL 31.0-3 6.0 Not Available [facility] Main Lab (Blood Not Drawn At This Location) Visit [facility] [place], [address], 02/28/2024 11:49:56 02/26/1902/28/2024 CBC W/AUT O DIFF WITH PLATE LETS RDW 13.9 % 11.5-1 5.0 Not Available [facility] Main Lab (Blood Not Drawn At This Location) Visit [facility] For Location [facility]arest [facility], [place], [address], 02/28/2024 11:49:56 02/26/19 25 02/28/2024 CBC W/AUT O DIFF WITH PLATE LETS neutrophils 76.9 % Not Available [facility] - Main Lab (Blood Not Drawn At This Location) Visit [facility] For Location [facility]arest [facility], [place], [address], 02/28/2024 11:49:56 02/26/19 25 02/28/2024 CBC W/AUT O DIFF WITH PLATE LETS lymphocytes 8.7 % Not Available [facility] - Main Lab (Blood Not Drawn At This Location) Visit [facility] For Location [facility]arest [facility], [place], [address], 02/28/2024 11:49:56 02/26/19 25 02/28/2024 CBC W/AUT O DIFF WITH PLATE LETS monocytes 11.2 % Not Available [facility] Main Lab (Blood Not Drawn At This Location) Visit [facility] For Location [facility]arest [facility], [place], [address], 02/28/2024 11:49:56 02/26/19 25 02/28/2024 CBC W/AUT O DIFF WITH PLATE LETS eosinophils 2.6 % Not Available [facility] - Main Lab (Blood Not Drawn At This Location) Visit [facility] For Location [facility]arest [facility], [place], [address], 02/28/2024 11:49:56 02/26/1902/28/2024 CBC W/AUT O DIFF WITH PLATE LETS basophils 0.4 % Not Available [facility] Main Lab (Blood Not Drawn At This Location) Visit [facility] For Location [facility], [place], [address], 02/28/2024 11:49:56 02/26/19 25 02/28/2024 CBC W/AUT O DIFF WITH PLATE LETS immature granulocytes 0.2 % Not Available [facility] - Main Lab (Blood Not Drawn At This Location) Visit [facility] [place], [address], 02/28/2024 11:49:56 02/26/1902/28/2024 CBC W/AUT O DIFF WITH PLATE LETS nucleated RBCs 0.0 /100_ WBC's 0.0 Not Available [facility] Main Lab (Blood Not Drawn At This Location) Visit [facility] [place], [address], 02/28/2024 11:49:56 02/26/19 25 02/28/2024 CBC W/AUT O DIFF WITH PLATE LETS platelet count 256 K/uL 130-40 0 Not Available [facility] Main Lab (Blood Not Drawn At This Location) Visit [facility] For Location [facility]arest [facility], [place], [address], 02/28/2024 11:49:56 02/26/19 25 02/28/2024 CBC W/AUT O DIFF WITH PLATE LETS absolute neutrophils 6.43 K/uL 1.50-7 .50 Not Available [facility] Main Lab (Blood Not Drawn At This Location) Visit [facility] [place], [address], 02/28/2024 11:49:56 02/26/19 25 02/28/2024 CBC W/AUT O DIFF WITH PLATE LETS absolute lymphocytes 0.73 K/uL 1.00-4 .00 low Not Available [facility] Lab (Blood Not Drawn At This Location) Visit [facility] [place], [address], 02/28/2024 11:49:56 02/26/1902/28/2024 CBC W/AUT O DIFF WITH PLATE LETS absolute monocytes 0.94 K/uL 0.20-1 .00 Not Available [facility] Main Lab (Blood Not Drawn At This Location) Visit [facility] [place], [address], 02/28/2024 11:49:56 02/26/19 02/28/2024 CBC W/AUT O DIFF WITH PLATE LETS absolute eosinophils 0.22 K/uL 0.00-0 .50 Not Available [facility] Main Lab (Blood Not Drawn At This Location) Visit [facility] [place], [address], 02/28/2024 11:49:56 02/26/19 25 02/28/2024 CBC W/AUT O DIFF WITH PLATE LETS absolute basophils 0.03 K/uL 0.00-0 .20 Not Available [facility] Main Lab (Blood Not Drawn At This Location) Visit [facility] [place], [address], 02/28/2024 11:49:56 02/26/19 25 02/28/2024 CBC W/AUT O DIFF WITH PLATE LETS abs immature granulocytes 0.02 K/uL 0.00-0 .10 Not Available [facility] Main Lab (Blood Not Drawn At This Location) Visit [facility] [place], [address], 02/28/2024 11:49:56 02/26/19 25 02/28/2024 CBC W/AUT O DIFF WITH PLATE LETS abs nucleated RBCs 0.00 K/uL 0.00-0 .11 Testi ng Perfo rmed At: [facility] [address] [place] [address] Labor atory [facility] tor: Mark Bella [id number] [place] [id number] Not Available [facility] Main Lab (Blood Not Drawn At This Location) Visit [facility] [place], [address], 02/28/2024 11:49:56 02/26/19 25 02/28/2024 COMPR EHENS JORDAN METAB OLIC PANEL + E-GFR glucose 95 mg/dL 70-99 Not Available [facility] Main Lab (Blood Not Drawn At This Location) Visit [facility] [place], [address], 02/28/2024 11:49:57 02/26/19 25 02/28/2024 COMPR EHENS JORDAN METAB OLIC PANEL + E-GFR BUN 11 mg/dL 8-23 Not Available [facility] Main Lab (Blood Not Drawn At This Location) Visit [facility] [place], [address], 02/28/2024 11:49:57 02/26/19 25 02/28/2024 COMPR EHENS JORDAN METAB OLIC PANEL + E-GFR creatinine 0.78 mg/dL 0.80-1 .40 low Not Available [facility] Main Lab (Blood Not Drawn At This Location) Visit [facility] [place], [address], 02/28/2024 11:49:57 02/26/19 25 02/28/2024 COMPR EHENS JORDAN METAB OLIC PANEL + E-GFR eGFR (2020 CKD-epi) 92 mL/mi n/1.7 3 >60 Not Available [facility] Main Lab (Blood Not Drawn At This Location) Visit [facility] [place], [address], 02/28/2024 11:49:57 02/26/19 25 02/28/2024 COMPR EHENS JORDAN METAB OLIC PANEL + E-GFR calc BUN/creat 14 ratio 6-28 Not Available Clinic al [facility] - Main Lab (Blood Not Drawn At This Location) Visit [facility] [place], [address], 02/28/2024 11:49:57 02/26/19 25 02/28/2024 COMPR EHENS JORDAN METAB OLIC PANEL + E-GFR sodium 126 mEq/L 133-14 6 low Not Available [facility] Main Lab (Blood Not Drawn At This Location) Visit [facility] [place], [address], 02/28/2024 11:49:57 02/26/19 25 02/28/2024 COMPR EHENS JORDAN METAB OLIC PANEL + E-GFR potassium 5.3 mEq/L 3.5-5. 4 Not Available [facility] Main Lab (Blood Not Drawn At This Location) Visit [facility] [place], [address], 02/28/2024 11:49:57 02/26/19 25 02/28/2024 COMPR EHENS JORDAN METAB OLIC PANEL + E-GFR chloride 90 mEq/L 95-107 low RESUL TS RECHE CKED AND VERIF IED Not Available [facility] Main Lab (Blood Not Drawn At This Location) Visit [facility] [place], [address], 02/28/2024 11:49:57 02/26/19 25 02/28/2024 COMPR EHENS JORDAN METAB OLIC PANEL + E-GFR carbon dioxide 28 mEq/L 19-31 Not Available Clinic [facility] - Main Lab (Blood Not Drawn At This Location) Visit [facility] [place], [address], 02/28/2024 11:49:57 02/26/19 25 02/28/2024 COMPR EHENS JORDAN METAB OLIC PANEL + E-GFR calcium 9.8 mg/dL 8.5-10 .5 Not Available [facility] Main Lab (Blood Not Drawn At This Location) Visit [facility] [place], [address], 02/28/2024 11:49:57 02/26/19 25 02/28/2024 COMPR EHENS JORDAN METAB OLIC PANEL + E-GFR protein, total 7.0 g/dL 6.1-8. 3 Not Available [facility] Main Lab (Blood Not Drawn At This Location) Visit [facility] [place], [address], 02/28/2024 11:49:57 02/26/19 25 02/28/2024 COMPR EHENS JORDAN METAB OLIC PANEL + E-GFR albumin 4.4 g/dL 3.5-5. 2 Not Available [facility] Main Lab (Blood Not Drawn At This Location) Visit [facility] [place], [address], 02/28/2024 11:49:57 02/26/1902/28/2024 COMPR EHENS JORDAN METAB OLIC PANEL + E-GFR calc globulin 2.6 g/dL 1.9-3. 7 Not Available [facility] Main Lab (Blood Not Drawn At This Location) Visit [facility] [place], [address], 02/28/2024 11:49:57 02/26/1902/28/2024 COMPR EHENS JORDAN METAB OLIC PANEL + E-GFR calc A/G ratio 1.7 ratio 1.0-2. 6 Not Available [facility] Main Lab (Blood Not Drawn At This Location) Visit [facility] [place], [address], 02/28/2024 11:49:57 02/26/19 25 02/28/2024 COMPR EHENS JORDAN METAB OLIC PANEL + E-GFR bilirubin, total 0.6 mg/dL <=1.2 Not Available [facility] - Main Lab (Blood Not Drawn At This Location) Visit [facility] [place], [address], 02/28/2024 11:49:57 02/26/1902/28/2024 COMPR EHENS JORDAN METAB OLIC PANEL + E-GFR alkaline phosphatase 123 U/L 40-125 Not Available [facility] - Main Lab (Blood Not Drawn At This Location) Visit [facility] [place], [address], 02/28/2024 11:49:57 02/26/1902/28/2024 COMPR EHENS JORDAN METAB OLIC PANEL + E-GFR AST 18 U/L 9-50 Not Available [facility] Main Lab (Blood Not Drawn At This Location) Visit [facility] [place], [address], 02/28/2024 11:49:57 02/26/19 25 02/28/2024 COMPR EHENS JORDAN METAB OLIC PANEL + E-GFR ALT 17 U/L 5-50 Testi ng Perfo rmed At: [facility] [address] [facility], [place] [address] Labor atory [facility] tor: Vipul morrow, Segundo. ABDIEL Cancino r [id number] [place] [id number] Not Available [facility] - Main Lab (Blood Not Drawn At This Location) Visit [facility] For Location Nearest [facility], [place], [address], 02/28/2024 11:49:57 Result Notes None recorded. 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, [employer]DOWN MAN-BC [address] [place] [address], [address] , [facility] 0 13:54:01 Neuropathy 786563148 Active 2024 Melinda banks NRCMA null, [facility] 5 11:46:54 Hyperlipidemi a 76563709 Active 2024 Melinda banks NRCMA null, [facility] 5 11:47:02 Spinal stenosis 01692024 Active 2024 Melinda banks NRCMA null, [facility] 5 11:47:16 Cough 27866892 Active 2024 Sherlyn Moreno PA-C [address] [place] [address], [address] , [facility] 5 12:10:02 Non-pitting edema 968976883 Active 2024 Sherlyn Moreno PA-C [address] [place] [address], [address] , [facility] 5 12:28:54 Hyponatremia 25216164 Active 2024 Sherlyn Moreno PA-C [address] [place] [address], [address] , [facility] 5 14:25:12 Acute bronchitis 11157704 Active 2024 Sherlyn Moreno PA-C [address] [place], [address] , [facility] 5 17:32:36 Problem Notes None recorded. Procedures Surgical History Date Name Laterality Status Provider Name and Address Organization Details Recorded Time Hernia Repair completed Catherine Mitchell MA [facility] 03/19/2019 13:23:38 Imaging Results None recorded. Procedure [...] Address Organization Details Last Updated DateTime 5 48908.5 4 g 18 /min 98.2 [degF] 32 kg/m2 175.26 cm 68 /min 98 % 98 % 134/88 mm[Hg] MEDARDO JenkinsA [facility] 5 11:49:58 Date Recorded Body height Body mass index (BMI) Body weight Respiratory rate Body temperature Heart rate Oxygen saturation Oxygen saturation in Arterial blood by Pulse oximetry Systolic And Diastolic Provider Name and Address Organization Details Last Updated DateTime 5 175.26 cm 31.3 kg/m2 18686.5 8 g 16 /min 97 [degF] 94 /min 96 % 96 % 158/80 mm[Hg] MAXIMO FRANCO [facility] 5 10:17:54 Date Recorded Systolic And Diastolic Provider Name and Address Organization Details Last Updated DateTime 03/20/2024 160/80 mm[Hg] Sherlyn Moreno PA-C [address], [place], [address], [facility] 03/20/2024 16:35:09 Date Recorded Body height Body mass index (BMI) Body weight Respiratory rate Body temperature Heart rate Oxygen saturation Oxygen saturation in Arterial blood by Pulse oximetry Systolic And Diastolic Provider Name and Address Organization Details Last Updated DateTime 5 175.26 cm 31.5 kg/m2 42311.1 7 g 16 /min 98.4 [degF] 89 /min 98 % 98 % 170/88 mm[Hg] Melinda thakur, [facility] 5 16:13:32 Date Recorded Body height Body mass index (BMI) Body weight Heart rate Respiratory rate Body temperature Oxygen saturation Oxygen saturation in Arterial blood by Pulse oximetry Systolic And Diastolic Provider Name and Address Organization Details Last Updated DateTime 5 175.26 cm 31.7 kg/m2 91901.3 6 g 68 /min 16 /min 98.6 [degF] 97 % 97 % 130/70 mm[Hg] Catherine Mitchell MA [facility] 5 11:35:52 Date Recorded Body height Body mass index (BMI) Body weight Heart rate Respiratory rate Body temperature Oxygen saturation Oxygen saturation in Arterial blood by Pulse oximetry Systolic And Diastolic Provider Name and Address Organization Details Last Updated DateTime 5 175.26 cm 32.2 kg/m2 25076.1 4 g 67 /min 16 /min 97.5 [degF] 98 % 98 % 132/60 mm[Hg] Catherine Mitchell MA [facility] 5 11:02:17 Social History Question Answer Notes LastModified by Organizat ion Details LastModified Time Tobacco Smoking Status Never Smoker Not Available [employer] 12/18/2019 03:36:41 Live Alone Or With Others? With Others [email or web address] Information not available 04/04/2019 Marital Status [email or web address] Informatio n not available 04/04/2019 Sex: Unknown Functional Status Question Answer Note LastModified by Organizat ion Details LastModified Time Do you or have you ever used smokeless tobacco? Never used smokeless tobacco [id number] Information not available 12/18/2019 Are you able to walk independently without assistance or assistive devices? YESWOREST [id number] Information not available 12/18/2019 Do you or have you ever used e-cigarettes or vape? Never used electronic cigarettes [id number] Information not available 12/18/2019 Mental Status None recorded. Family History Nothing Reported. Medical History Condition Response Hypertension Y Past Encounters Encounter ID Performer Location Encounter Start Date Encounter Closed Date Diagnosis/Indication Diagnosis SNOMED-CT Code Diagnosis ICD10 Code Diagnosis IMO Codes Diagnosis Note [id number] Jerson Henning MD Main Office [address] [place] [id number] 03/19/2019 10:45:43 03/19/2019 14:05:36 Community acquired pneumonia 804322393 J18.9 No evidence of serious disease here today. Will start patient on some prednisone and azithromyc in advised to return to clinic in 2 weeks to review reevaluate his lungs. Sooner if his condition worsens. Patient verbalized understand ing these instructio ns. Essential hypertension 80959171 I10 pt did not take his BP meds last night. Will recheck blood pressure in 2 weeks and evaluate the need to modify his blood pressure regimen. [id number] Jerson Henning MD Main Office [address] [place] [phone] 04/04/2019 14:54:43 04/04/2019 16:09:36 Essential hypertension 53863166 I10 uncontroll ed. Start patient on terazosin and recheck BP in 2 weeks. BP log reviewed and looks good but the patient is fairly hypertensi ve here in the clinic. [id number] Jerson Henning MD Main Office [address] [place] [id number] 02/27/2024 10:48:48 02/27/2024 14:52:20 Cough 21349906 R05.9 Reviewed symptomati c care instructio ns, the expected course of these illnesses and explained that coughing can persist for some time. Provided precaution s for signs of worsening disease and instructio ns on contacting us if symptoms worsen. -Will order labs today-will send tessalon pearls 200mg, guaifenesi n 600mg, azithromyc in 250mg, loratadine 10mg -will follow up in one week Essential hypertension [id number] I10 -Will order labs today-Curr ent Treatment: amlodipine 10mg, benazepril 40mg, furosemide 20mg- BP today 134/88- Patient instructed to take his medication at night-Will recheck labs in 3 months.Pat ient will monitor blood pressure and report if unable to control or if they develop new symptoms.- Patient has non pitting edema Non-pitting edema [id number] 001 R60.9 Current Treatment: Furosemide 20mg-will continue to monitor-wi ll follow up in one week [id number] Jerson Henning MD Main Office [address] [place] [phone] 03/06/2024 10:12:27 03/06/2024 10:46:19 Cough [id number] R05.9 Reviewed symptomati c care instructio ns, the expected course of these illnesses and explained that coughing can persist for some time. Provided precaution s for signs of worsening disease and instructio ns on contacting us if symptoms worsen. -Will order labs today-will send tessalon pearls 200mg, guaifenesi n 600mg, azithromyc in 250mg, loratadine 10mg -will follow up in one week Essential hypertension [id number] I10 -Current Treatment: amlodipine 10mg, benazepril 40mg, furosemide 20mg- BP today 158/80,-2n d BP today 146/90- Patient instructed to take his medication at night-Will recheck labs in 3 months.Pat ient will monitor blood pressure and report if unable to control or if they develop new symptoms.- Patient has non pitting edema [id number] Jerson Henning MD Main Office [address] [place] [address] [phone] 03/20/2024 15:25:59 03/20/2024 16:46:31 Cough [id number] R05.9 Reviewed symptomati c care instructio ns, the expected course of these illnesses and explained that coughing can persist for some time. Provided precaution s for signs of worsening disease and instructio ns on contacting us if symptoms worsen.-Wi ll order labs today-will send tessalon pearls 200mg, guaifenesi n 600mg-will follow up in one week Essential hypertension [id number] I10 -Current Treatment: amlodipine 10mg, benazepril 40mg, furosemide 20mg- BP today 170/88-2nd BP today 160/80- Patient instructed to take his medication at night-Will recheck labs in 3 months.Pat iedana will monitor blood pressure and report if unable to control or if they develop new symptoms. [id number] Jerson Henning MD Main Office [address] [place] [address] [phone] 03/27/2024 11:03:28 03/27/2024 12:28:32 Cough [id number] R05.9 Reviewed symptomati c care instructio ns, the expected course of these illnesses and explained that coughing can persist for some time. Provided precaution s for signs of worsening disease and instructio ns on contacting us if symptoms worsen.-Wi ll order labs today-will send tessalon pearls 200mg, guaifenesi n 600mg-will follow up in one week Acute bronchitis [id number] 2 J20.9 -Albuterol treatment 2.5mg and nebulizer- Advised patient to increase fluid in take-Revie wed symptomati c care instructio ns, the expected course of these illnesses and explained that coughing can persist for some time. Provided precaution s for signs of worsening disease and instructio ns on contacting us if symptoms worsen or go to his nearest ER . [id number] Jerson Henning MD Main Office [address] [place] [address] [phone] 04/04/2024 10:48:12 04/04/2024 11:54:03 Cough [id number] R05.9 -All symptoms have resolved Acute bronchitis [id number] 2 J20.9 -Patient reports all symptoms have [...] MUTUAL OF SANDIP (MEDICARE SUPPLEMENT) Rubio Sampson [id number] Rubio Sampson 03/25/2024 2 [id number] Rubio Sampson [id number] Rubio Sampson 05/07/2024 1 MEDICARE-[place] - PART A - [facility] (MEDICARE) Rubio Sampson [id number] Rubio Sampson Notes Date Note Type [...] SP02:98% R:18 Sherlyn Moreno PA-C [address] [place] [address], [phone], [facility] 02/27/2024 12:29:46 03/06/2024 text/html BP:132/88 P:94 SP02:98% [...] chest palpitation. Sherlyn Moreno PA-C [address] [place] [address], [phone], [facility] 03/06/2024 10:40:06 03/20/2024 text/html 78 yr old [...] chest palpitation. Sherlyn Moreno PA-C [address] [place] [address], [phone], [facility] 03/20/2024 16:35:49 03/27/2024 text/html BP 130/70 pulse [...] chest palpitation. Sherlyn Moreno PA-C [address] [place] [address], [phone], [facility] 03/27/2024 12:22:53 04/04/2024 text/html BP 132/60 pulse [...] chest palpitation. Sherlyn Moreno PA-C [address] [facility], [place], [phone], [facility] 04/04/2024 11:36:58
--- OUTSIDE RECORDS SUMMARY | 2024-12-25 00:42 | XMS_ITS | Clinical Summary ---
Author Organization [facility] Address [address] [place] [address] Care Team Providers Care Tub Tender Name Role Phone Jarvis Jimenez DO Primary Care Provider [phone] Allergies No known active allergies Medications benazepril [...] Encounters Date Type Department Care Team Description 12/24/2024 7:39 AM PROGRAM ELIGIBILITY SPECIALIST Hospital Encounter [address] [place] [id number] Samia Razo NP Wiegmann, Lacey M, PT Neck And Back Pain 12/24/2024 Travel 12/20/2024 7:42 AM PROGRAM ELIGIBILITY SPECIALIST - 12/20/2024 11:59 PM PROGRAM ELIGIBILITY SPECIALIST Hospital Encounter [facility] [address] [place] [address] Samia Razo, Matthew Spring, PT Neck And Back Pain Discharge Disposition: Home or Self Care (Routine Discharge) 12/20/2024 Travel 12/18/2024 7:52 AM PROGRAM ELIGIBILITY SPECIALIST - 12/18/2024 11:59 PM PROGRAM ELIGIBILITY SPECIALIST Hospital Encounter [facility] [address] [address] Samia Razo, Trini Etienne, INTERNATIONAL BANK MANAGER Discharge Disposition: Home or Self Care (Routine Discharge) 12/18/2024 Travel 12/13/2024 7:44 AM CDT - 12/13/2024 11:59 PM CDT Hospital Encounter [facility] [address] [address] Samia Rzao NP Hays, Michelle, INTERNATIONAL BANK MANAGER Discharge Disposition: Home or Self Care (Routine Discharge) 12/13/2024 Travel 12/11/2024 7:45 AM CDT - 12/11/2024 11:59 PM CDT Hospital Encounter [facility] [address] [address] Samia Razo, Trini Etienne, INTERNATIONAL BANK MANAGER Discharge Disposition: Home or Self Care (Routine Discharge) 12/11/2024 Travel 12/06/2024 7:50 AM CDT - 12/06/2024 11:59 PM CDT Hospital Encounter [facility] [address] [address] Samia Razo NP Hays, Michelle, INTERNATIONAL BANK MANAGER Discharge Disposition: Home or Self Care (Routine Discharge) 12/06/2024 Travel 12/04/2024 7:48 AM CDT - 12/04/2024 11:59 PM CDT Hospital Encounter [facility] [address] [place] [address] Samia Razo, Sarah Sterling, INTERNATIONAL BANK MANAGER Neck And Back Pain Discharge Disposition: Home or Self Care (Routine Discharge) 12/04/2024 Travel 11/29/2024 7:50 AM CDT - 11/29/2024 11:59 PM CDT Hospital Encounter [facility] [address] [address] Samia Razo, Sarah Funes, PT Discharge Disposition: Home or Self Care (Routine Discharge) 11/29/2024 Travel 11/27/2024 7:46 AM CDT - 11/27/2024 11:59 PM CDT Hospital Encounter [facility] [address] [address] Samia Razo, Suzi Odonnell, INTERNATIONAL BANK MANAGER Discharge Disposition: Home or Self Care (Routine Discharge) 11/27/2024 Travel 11/22/2024 7:49 AM CDT - 11/22/2024 11:59 PM CDT Hospital Encounter [facility] [address] [address] Samia Razo, Matthew Spring, PT Neck And Back Pain Discharge Disposition: Home or Self Care (Routine Discharge) 11/22/2024 Travel 11/20/2024 7:58 AM CDT - 11/20/2024 11:59 PM CDT Hospital Encounter [facility] [address] [address] Samia Razo, Trini Etienne, INTERNATIONAL BANK MANAGER Discharge Disposition: Home or Self Care (Routine Discharge) 11/20/2024 Travel 11/15/2024 7:52 AM CDT - 11/15/2024 11:59 PM CDT Hospital Encounter [facility] [address] [address] Samia Razo, Matthew Spring, PT Neck And Back Pain Discharge Disposition: Home or Self Care (Routine Discharge) 11/15/2024 Travel 11/13/2024 7:54 AM CDT - 11/13/2024 11:59 PM CDT Hospital Encounter [facility] [address] [address] Samia Razo, Suzi Odonnell, INTERNATIONAL BANK MANAGER Discharge Disposition: Home or Self Care (Routine Discharge) 11/13/2024 Travel 11/08/2024 7:54 AM CDT - 11/08/2024 11:59 PM CDT Hospital Encounter [facility] [address] [place] [address] Samia Razo, Trini Etienne, INTERNATIONAL BANK MANAGER Discharge Disposition: Home or Self Care (Routine Discharge) 11/08/2024 Travel 11/06/2024 7:54 AM CDT - 11/06/2024 11:59 PM CDT Hospital Encounter [facility] [address] [address] Samia Razo, Suzi Odonnell, INTERNATIONAL BANK MANAGER Discharge Disposition: Home or Self Care (Routine Discharge) 11/06/2024 Travel 11/01/2024 7:55 AM CDT - 11/01/2024 11:59 PM CDT Hospital Encounter [facility] [address] [address] Samia Razo, Trini Etienne, INTERNATIONAL BANK MANAGER Discharge Disposition: Home or Self Care (Routine Discharge) 11/01/2024 Travel 10/30/2024 7:53 AM CDT - 10/30/2024 11:59 PM CDT Hospital Encounter [facility] [address] [address] Samia Razo, Matthew Spring, PT Neck And Back Pain Discharge Disposition: Home or Self Care (Routine Discharge) 10/30/2024 Travel 10/25/2024 7:55 AM CDT - 10/25/2024 11:59 PM CDT Hospital Encounter [facility] [address] [address] Samia Razo, Trini Etienne, INTERNATIONAL BANK MANAGER Discharge Disposition: Home or Self Care (Routine Discharge) 10/25/2024 Travel 10/23/2024 7:58 AM CDT - 10/23/2024 11:59 PM CDT Hospital Encounter [facility] [address] [address] Samia Razo, Sarah Sterling, INTERNATIONAL BANK MANAGER Neck And Back Pain Discharge Disposition: Home or Self Care (Routine Discharge) 10/23/2024 Travel 10/18/2024 7:56 AM CDT - 10/18/2024 11:59 PM CDT Hospital Encounter [facility] [address] [place] [address] Samia Razo, Matthew Spring, PT Neck Pain; Back Pain Discharge Disposition: Home or Self Care (Routine Discharge) 10/18/2024 Travel 10/16/2024 7:59 AM CDT - 10/16/2024 11:59 PM CDT Hospital Encounter [facility] [address] [address] Samia Razo, Kelley Abreu, INTERNATIONAL BANK MANAGER Discharge Disposition: Home or Self Care (Routine Discharge) 10/16/2024 Travel 10/11/2024 7:55 AM CDT - 10/11/2024 11:59 PM CDT Hospital Encounter [facility] [address] [address] Samia Razo NP Hays, Michelle, INTERNATIONAL BANK MANAGER Discharge Disposition: Home or Self Care (Routine Discharge) 10/11/2024 Travel 10/08/2024 8:13 AM CDT - 10/08/2024 11:59 PM CDT Hospital Encounter [address] [place] [address] Samia Razo NP McClenahan, Krystal M, PT Discharge Disposition: Home or Self Care (Routine Discharge) 10/08/2024 Travel 10/04/2024 7:53 AM CDT - 10/04/2024 11:59 PM CDT Hospital Encounter [address] [place] [address] Samia Razo NP Wiegmann, Lacey M, PT Neck And Back Pain Discharge Disposition: Home or Self Care (Routine Discharge) 10/04/2024 Travel 10/02/2024 7:55 AM CDT - 10/02/2024 11:59 PM CDT Hospital Encounter [address] [place] [address] Samia Razo NP Timmermann, Candice P, INTERNATIONAL BANK MANAGER Discharge Disposition: Home or Self Care (Routine Discharge) 10/02/2024 Travel 09/27/2024 7:54 AM CDT - 09/27/2024 11:59 PM CDT Hospital Encounter [facility] [address] [place] [address] Samia Razo, Laxmi Stanford, INTERNATIONAL BANK MANAGER Discharge Disposition: Home or Self Care (Routine Discharge) 09/27/2024 Travel 09/25/2024 7:50 AM CDT - 09/25/2024 11:59 PM CDT Hospital Encounter [facility] [address] [place] [address] Samia Razo NP Hays, Michelle, INTERNATIONAL BANK MANAGER Discharge Disposition: Home or Self Care (Routine Discharge) 09/25/2024 Travel from Last 3 Months Immunizations Immunization [...] AM CDT Pulse 64 02/04/2022 1:34 PM PROGRAM ELIGIBILITY SPECIALIST Temperature 36.4 C (97.5 F) 02/04/2022 1:34 PM PROGRAM ELIGIBILITY SPECIALIST Respiratory Rate 16 02/04/2022 1:34 PM PROGRAM ELIGIBILITY SPECIALIST Oxygen Saturation 98% 02/04/2022 1:34 PM PROGRAM ELIGIBILITY SPECIALIST Inhaled Oxygen Concentration - - Weight 100.2 kg (221 lb) 02/04/2022 1:34 PM PROGRAM ELIGIBILITY SPECIALIST Height 175.3 cm (5' 9) 02/04/2022 1:34 PM PROGRAM ELIGIBILITY SPECIALIST Body Mass Index 32.64 02/04/2022 1:34 PM PROGRAM ELIGIBILITY SPECIALIST Plan of Treatment Upcoming Encounters Date Type Department Care Team (Late st Contact Info) Description 12/31/2024 8:15 AM PROGRAM ELIGIBILITY SPECIALIST Appointment [facility] [address] [place] [address] Samia Razo, SENIOR CARE ASSISTANT [address] [place], [place] [id number] Matthew Raygoza, PT [address] [place] [address] Health Maintenance Due Date Last Done Comments [...] Recently Relevant to Health Maintenance Insurance [place] [place] [id number] Advance Directives Documents on File Type Date Recorded 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
--- OUTSIDE RECORDS SUMMARY | 2024-12-25 00:42 | XMS_ITS | Encounter Summary ---
Author Organization [facility] Address [address] [place] [address] Care Team Providers Care Debt Recovery Officer Name Role Phone Jarvis Jimenez DO Primary Care Provider [phone] Encounter Details Date Type Department Care Team (Latest Contact Info) Description 12/24/2024 Travel Social History Tobacco Use Types Packs/Day [...] st Contact Info) Description 12/31/2024 8:15 AM MEDIA TECHNICIAN Appointment [facility] [address] [place] [address] Samia Razo TRUCK DOCK MATERIAL MOVER [address] [place] [address] Matthew Raygoza, PT [address] [place] [address] documented as of this encounter Visit Diagnoses Not on filedocumented in this encounter Additional Health Concerns Assessment Noted Time PHQ-9 Depression Total Score: 0 01/30/20 10:05 AM MEDIA TECHNICIAN documented as of this encounter Care Teams Debt Recovery Officer Relationship Specialty Start Date End Date Jarvis Jimenez DO [address] [address] PCP - General INTERNAL MEDICINE 11/07/19 documented as of this encounter
[2024-12-25] MEDS: LACTATED RINGERS 1,000 ML 30 ML IV CONT ×2 (10:00→13:40)
[2024-12-25 10:21] VITALS: BP 149/79; PULSE 73; RESP 16; TEMP 37.1; O2SAT 99; BMI 33.9
[2024-12-25 11:26] LABS: Sodium 130 mmol/L (137-145)
--- NOTE | 2024-12-25 12:41 | P.PNAN_ITS ---
Anes - Initial Pre Proc Eval Procedure: Operation Date: 12/25/24 12:30 Proposed Procedures p Right Carpal Tunnel Release - Randy Albert MD Date/Time: 12/25/24 12:41 Surgeon: Randy Albert MD Pre Op Diagnosis: right carpal tunnel syndrome Patient Data Age: 79 Gender: M Height: 1.7 m Weight: 98.3 kg Last Vital Signs Temp 37.1 C 12/25/24 10:21 Pulse 73 12/25/24 10:21 Resp 16 12/25/24 10:21 BP 149/79 H 12/25/24 10:21 Pulse Ox 99 12/25/24 10:21 O2 Del Method Room Air 12/25/24 10:21 Allergies Allergy/AdvReac Type Severity Reaction Status Date / Time oxycodone (From OxyContin) Allergy Mild Confusion Verified 12/19/24 10:37 Home Medications ?Medication ?Instructions ?Recorded ?Confirmed ?Type doxycycline monohydrate 50 mg 50 mg PO PRN PRN ROSACEA 05/11/21 12/19/24 History capsule Held on 12/19/24. Instructions: Patient no longer taking metronidazole 0.75 % topical cream 1 applic topical DA MED ROSACEA 05/11/21 12/19/24 History sildenafil (pulm.hypertension) 20 100 mg PO PRN PRN Er ectile 05/27/21 12/19/24 History mg tablet Dysfunction [id number]-[id number] 300 mcg-K 60 1 tablet PO DAILY 11/1712/19/24 History mcg-lycop 600 mcg-lutein 300 mcg tablet (Centrum Silver Men) omeprazole 20 mg capsule,delayed 20 mg PO PRN PRN Acid Reflux 11/18/23 12/19/24 History release fluticasone propionate 50 2 spray intranasal DAILY #16 mL 05/21/24 12/19/24 Rx mcg/actuation nasal spray,suspension (Flonase Allergy Relief) Held on 12/19/24. Instructions: Patient no longer taking furosemide 20 mg tablet See Rx Instructions .Route 0 06/12/24 12/19/24 Rx .COMPLEX #90 tabs cyclobenzaprine 10 mg tablet 10 mg PO HS PRN muscle sp asm #90 07/10/24 12/19/24 Rx tabs celecoxib 200 mg capsule 200 mg PO BID 90 days #180 c aps 08/20/24 12/19/24 Rx Held on 12/19/24. Instructions: .Provider Order gabapentin 600 mg tablet 600 mg PO BID #180 tabs 09/0712/19/24 Rx benazepril 40 mg tablet 40 mg PO BID #180 tabs 10/1912/19/24 Rx amlodipine 5 mg tablet (Norvasc) 5 mg PO BID #180 tabs 10/24/24 12/19/24 Rx rosuvastatin 10 mg tablet 10 mg PO DAILY #90 tabs 11/1512/19/24 Rx terazosin 1 mg capsule See Rx Instructions .Route 1 02/17/24 12/19/24 Rx .COMPLEX #90 caps Laboratory Tests 12/25/24 11:04 Sodium 130 L mmol/L (137-145) Patient hx anesthesia problems: none Family hx anesthesia problems: none Results Review: All pre-operative results and documents have been reviewed as part of the pre- operative evaluation. [facility], [facility] Past Medical History Medical History H/O ETOH abuse GERD (gastroesophageal reflux disease) Osteoporosis Cervical spinal stenosis Lumbar spinal stenosis Obesity Enthesopathy of foot DJD (degenerative joint disease) of knee Colon polyps Stiffness of joints of both hands Erectile dysfunction Essential (primary) hypertension Gastroesophageal reflux disease without esophagitis Kidney lesion, [place], right Mixed hyperlipidemia Pre-diabetes Rectus diastasis Spinal stenosis, unspecified region other than cervical Umbilical hernia without obstruction and without gangrene Ventral hernia without obstruction or gangrene Surgical History Surgical History S/P total knee arthroplasty LEFT TKA 11/30/23 S/P total knee arthroplasty RIGHT KNEE 06/10/21 History of hernia repair Status post cataract extraction Family History Family History Unknown Heart disease Cerebrovascular accident High cholesterol Arthritis Kidney disease Mother Cerebrovascular accident Father Diabetes mellitus Hypertension Social History Social History Smoking status: Never smoker Second hand tobacco smoke exposure: No Additional smoking assessment comments: DENIES ANY FORM OF TOBACCO USE Alcohol intake: current Drinks per week: 21 Alcohol use details: LIGHT BEER Substance use: never Substance use type: does not use Do You Feel Safe in your Home?: Yes Lack of Transportation: No Lack of Food: Never True Current Housing: I Have Housing Concerned About Future Housing: No Difficulty Paying Gas/Electric Bills: No Difficulty Paying for Meds: No Currently Unemployed: No Education: Master's Degree or Higher Difficulty w/ Childcare or Family Care: No Living arrangements: with family Additional living arrangements comments: Gender identity (if verbalized by the patient): Male Spiritual care concerns: No Anes - Eval Final PreProcedure Day of Procedure 12/25/24 12:41 Patient weight: obese Heart: regular rate and rhythm Lungs: clear to auscultation Airway: Mallampati scale class III Neurological: alert and oriented Last oral intake: >/= 8 hours ASA classification: III Emergent: no Anesthetic plan: proceed Anesthesia type and monitoring: general GIVS and standard monitoring Results Review: All pre-operative results and documents have been reviewed as part of the pre- operative evaluation. Informed Consent: The patient's anesthetic plan and its attendant risks and benefits were discussed with the patient/family/POA. Questions were solicited and answers provided to the satisfaction of the patient/family/POA.
--- NOTE | 2024-12-25 12:52 | P.HP_ITS ---
H&P: HPI History of Present Illness Date/Time: 12/25/24 12:52 Chief Complaint: right CTS Narrative: Rubio is here today with a new EMG nerve conduction study of his bilateral upper and lower extremities. He is a 78-year-old gentleman with a several month history of numbness in his fingertips right greater than left and to a certain extent also in his toes. His main complaints are his right hand were involves the 1st 2nd and 3rd digit. It is fairly constant but does seem to come and go especially in his feet. He has had episodes in the past of this that did not last as long. He notices that he cannot walk as long was used to from the standpoint of in dura and 6. Whether not there is actual pain or discomfort is not clear to me. He feels as though weaning forward for a short time relieves much of the problem and then he can walk farther. He does not report bowel or bladder difficulty or other constitutional problems. He does not have specific muscle group weakness or dermatomal numbness. He has undergone injections in the past without permanent benefit. He is participating in physical therapy now but is unclear whether not this is helping. He notes some imbalance and some discoordination in his hands with fine dextrous movements. he has not changed appreciably since we last saw him. Review of Systems Review of Systems: All systems reviewed & are unremarkable except as noted in HPI and below Denies chills, Denies fever, Denies weight gain and Denies weight loss Eyes Denies change in vision and Denies diplopia ENT Denies disequilibrium Card Denies chest pain and Denies dyspnea Resp Denies cough and Denies dyspnea GI Denies abdominal pain, Denies change in bowel habits, Denies fecal incontinence and Denies vomiting Denies hematuria, Denies oliguria, Denies difficulty urinating, Denies dysuria, Denies urinary frequency, Denies urinary hesitancy, Denies urinary incontinence and Denies urinary urgency Musc Reports as per HPI Skin/ Breast Reports system reviewed and no additional complaints, except as documented Neuro Reports as per HPI Psych Reports no additional complaints, Denies depression and Denies hopelessness Endo Reports no additional complaints and Denies polyuria Aren/ Lymph Reports no additional complaints Aller/ Immun Reports no additional complaints PMF Past Medical History Medical History H/O ETOH abuse GERD (gastroesophageal reflux disease) Osteoporosis Cervical spinal stenosis Lumbar spinal stenosis Obesity Enthesopathy of foot DJD (degenerative joint disease) of knee Colon polyps Stiffness of joints of both hands Erectile dysfunction Essential (primary) hypertension Gastroesophageal reflux disease without esophagitis Kidney lesion, [place], right Mixed hyperlipidemia Pre-diabetes Rectus diastasis Spinal stenosis, unspecified region other than cervical Umbilical hernia without obstruction and without gangrene Ventral hernia without obstruction or gangrene Surgical History Surgical History S/P total knee arthroplasty LEFT TKA 11/30/23 S/P total knee arthroplasty RIGHT KNEE 06/10/21 History of hernia repair Status post cataract extraction Family History Family History Unknown Heart disease Cerebrovascular accident High cholesterol Arthritis Kidney disease Mother Cerebrovascular accident Father Diabetes mellitus Hypertension Social History Social History Smoking status: Never smoker Second hand tobacco smoke exposure: No Additional smoking assessment comments: DENIES ANY FORM OF TOBACCO USE Alcohol intake: current Drinks per week: 21 Alcohol use details: LIGHT BEER Substance use: never Substance use type: does not use Do You Feel Safe in your Home?: Yes Lack of Transportation: No Lack of Food: Never True Current Housing: I Have Housing Concerned About Future Housing: No Difficulty Paying Gas/Electric Bills: No Difficulty Paying for Meds: No Currently Unemployed: No Education: Master's Degree or Higher Difficulty w/ Childcare or Family Care: No Living arrangements: with family Additional living arrangements comments: Gender identity (if verbalized by the patient): Male Spiritual care concerns: No Meds Home Medications and Allergies Home Medications ?Medication ?Instructions ?Recorded ?Confirmed ?Type doxycycline monohydrate 50 mg 50 mg PO PRN PRN ROSACEA 05/11/21 12/19/24 History capsule Held on 12/19/24. Instructions: Patient no longer taking metronidazole 0.75 % topical cream 1 applic topical DA MED ROSACEA 05/11/21 12/19/24 History sildenafil (pulm.hypertension) 20 100 mg PO PRN PRN Er ectile 05/27/21 12/19/24 History mg tablet Dysfunction rvyoziev-yp-rfpvr 300 mcg-K 60 1 tablet PO DAILY 11/1712/19/24 History mcg-lycop 600 mcg-lutein 300 mcg tablet (Centrariadne Baldwin) omeprazole 20 mg capsule,delayed 20 mg PO PRN PRN Acid Reflux 11/18/23 12/19/24 History release fluticasone propionate 50 2 spray intranasal DAILY #16 mL 05/21/24 12/19/24 Rx mcg/actuation nasal spray,suspension (Flonase Allergy Relief) Held on 12/19/24. Instructions: Patient no longer taking furosemide 20 mg tablet See Rx Instructions .Route 0 06/12/24 12/19/24 Rx .COMPLEX #90 tabs cyclobenzaprine 10 mg tablet 10 mg PO HS PRN muscle sp asm #90 07/10/24 12/19/24 Rx tabs celecoxib 200 mg capsule 200 mg PO BID 90 days #180 c aps 08/20/24 12/19/24 Rx Held on 12/19/24. Instructions: .Provider Order gabapentin 600 mg tablet 600 mg PO BID #180 tabs 09/0712/19/24 Rx benazepril 40 mg tablet 40 mg PO BID #180 tabs 10/1912/19/24 Rx amlodipine 5 mg tablet (Norvasc) 5 mg PO BID #180 tabs 10/24/24 12/19/24 Rx rosuvastatin 10 mg tablet 10 mg PO DAILY #90 tabs 11/1512/19/24 Rx terazosin 1 mg capsule See Rx Instructions .Route 1 02/17/24 12/19/24 Rx .COMPLEX #90 caps Allergies Allergy/AdvReac Type Severity Reaction Status Date / Time oxycodone (From OxyContin) Allergy Mild Confusion Verified 12/19/24 10:37 Vital Signs Vital Signs - 24 hr 12/25/24 10:21 Temperature 98.8 F Pulse Rate 73 Respiratory Rate 16 Blood Pressure 149/79 H Pulse Oximetry 99 Oxygen Delivery Room Air Exam Narrative: Exam Exam Const Other: General: cooperative, no acute distress, well developed, alert and awake Orientation/Consciousness: oriented to person, oriented to place and oriented to time Constitutional Limitations: no limitations Other: The patient is a normally developed, normal appearing male sitting on the examination table in no acute distress. He is awake, alert, and oriented x3 with good fund of knowledge, recall of events, and fluent speech. [facility] Head: normocephalic and atraumatic Ears: external ears normal Face/Nose/Sinus: Normal external nose present Eyes Eyelids: eyelids normal Pupils: Yes Pupils normal by confrontation EOM: EOMs intact bilaterally Neck General: Yes no meningeal signs, Yes supple and Yes no JVD Resp Effort/Inspection: normal respiratory effort and able to speak in complete sentences Cardio Rate: Yes regular rate GI Inspection: No abdominal distension Musc Other: Examination of the back reveals no tenderness. Range of motion of the back is full without pain in forward flexion, extension, and lateral rotation to both sides. Straight leg raise is negative bilaterally. Jose?s test is negative bilaterally. Skin General: normal color Neuro General: Yes oriented to person, Yes oriented to place, Yes oriented to time, Yes normal cognition and Yes no meningeal signs Cranial Nerves: Yes CN's II-XII intact bilaterally Other: Motor: Strength is normal, 5/5, throughout all muscle groups of the bilateral upper and lower extremities to direct confrontation. Sensory: Sensation is intact to light touch throughout the upper and lower extremities bilaterally. Reflexes: Deep tendon reflexes are difficult to elicit at the knees or ankles bilaterally. they were normal of the biceps and difficult to elicit as the brachioradialis or triceps. There was no clonus. There was no Dotson's. Gait: Gait, station, and transfers are independent and steady for short periods of time and over short distances. Psych Appearance: grossly normal Mental status: Yes mental status grossly normal Mood: congruent mood Affect: Yes normal affect Speech/Movement: Normal speech and movement present Attitude: Yes cooperative Thought Content: Normal thought content present review of studies: EMG nerve conduction study of the bilateral upper and lower extremities demonstrates severe carpal tunnel syndrome bilaterally right greater than left. There is mild ulnar neuropathy at the elbow on the right. H&P: Results Labs Labs: [facility] 12/25/24 11:04 Sodium 130 L Assessment and Plan Assessment and plan (1) Carpal tunnel syndrome: Code(s): G56.00 - Carpal tunnel syndrome, unspecified upper limb Status: Acute Plan Plan and when is a 71-year-old gentleman who is post verifiable and symptomatic problem is a right carpal tunnel syndrome. I recommended him a right carpal tunnel release and described to him that operation, its risks, potential benefits, the operative and postoperative course in detail and answered all of his questions personally. We discussed risks including but not limited to permanent neurologic deficit secondary to injury to the median nerve roots branches, need for reoperation secondary to infection, bleeding, recurrent or residual pathology, failure of the procedure to relieve his pain or symptoms, persistent pain, medical complications related anesthesia or surgery, etc.. He indicates understanding and elects to proceed with that operation.
--- NOTE | 2024-12-25 12:54 | WPDHPUPDATE1 ---
History and Physical Update Update Date/Time: 12/25/24 12:54 History and Physical has been reviewed, including an updated exam of the patient. There are NO changes in the patient's condition. Risks, benefits, and alternatives have been discussed and questions answered. Patient agrees to proceed with procedure.
[2024-12-25] MEDS: ceFAZolin 2 GM in SODIUM CHLORIDE 0.9% IV 50 ML 100 ML IVPB (12:55)
[2024-12-25] MEDS: LIDO 1%/EPINEPHRINE 1:100,000 50 ML VIAL (13:17)
[2024-12-25 13:40] VITALS: BP 87/54; PULSE 63; O2SAT 92
[2024-12-25 13:55] VITALS: BP 96/55; PULSE 63; O2SAT 95
[2024-12-25 14:38] VITALS: BP 130/80; PULSE 68
--- NOTE | 2024-12-27 09:38 | W.PM.PROC2 ---
Procedure Note - Detailed Date of Procedure 12/27/24 Pre-op Diagnosis right carpal tunnel syndrome Post-op Diagnosis Same Procedure Performed Right carpal tunnel release Surgeon Randy Albert MD Anesthesia General Description of Procedure patient was brought to the operating room in the supine position. His right arm was placed out over an arm board. The area of operation of the base of the palm at the wrist crease was marked, prepped and draped in routine sterile fashion. Incision was marked 2 cm long from the wrist crease distally just medial to the palmar crease. This area was injected with 0.5% lidocaine with 1 200,000 epinephrine. The patient was sedated. Incision was made with a 15 blade scalpel. Bleeding was stopped with bipolar cautery. A self-retaining retractor was placed. A separate 15 blade scalpel was used to come through the soft tissues until the carpal ligament was discovered and incised exposing the median nerve below. The incision of the median nerve was carried distally into the palm using the 15 blade scalpel until the palmar fat was discovered. Proximally small tenotomy scissors were used to incise the ligament until a 4. [place] could be placed above the nerve in the sheath to confirm lack of compression. The wound was then copiously irrigated with irrigation and all bleeding was stopped with bipolar cautery. The wound was then closed in single-layer fashion with 3-0 nylon vertical mattress interrupted sutures and the wound was dressed with iodoform, fluffy gauze, Kerlix and Reynaldo wrap and placed in a sling. The patient was allowed to wake up in the operating room and was taken to the recovery room in stable condition. There were no immediate complications of this operation. All counts were reported correct at the end of the case. Blood loss was 1 cc. The patient was neurologically at his baseline postoperatively. Estimated Blood Loss 1 Complications None Condition Stable Disposition PACU [facility] Billing Surgery - Charge Forward: Surgery Billing
== END 2024-12-25 14:47 | disposition home or self-care (01) ==
PROVIDERS: PCP Nurse Practitioner Family; Visit Provider Neurological Surgery
PROC: (CPT 64721; principal; 2024-12-25 12:30)
DX: G56.01 Carpal tunnel syndrome, right upper limb (principal); K21.9 Gastro-esophageal reflux disease without esophagitis; I10 Essential (primary) hypertension; E78.2 Mixed hyperlipidemia; R73.03 Prediabetes; N52.9 Male erectile dysfunction, unspecified; M81.0 Age-related osteoporosis without current pathological fracture; M48.02 Spinal stenosis, cervical region; M48.061 Spinal stenosis, lumbar region without neurogenic claudication; M17.10 Unilateral primary osteoarthritis, unspecified knee; E66.9 Obesity, unspecified; Z68.33 Body mass index [BMI] 33.0-33.9, adult; Z79.899 Other long term (current) drug therapy; Z79.1 Long term (current) use of non-steroidal anti-inflammatories (NSAID); Z98.890 Other specified postprocedural states; Z86.0100 Personal history of colon polyps, unspecified; Z87.19 Personal history of other diseases of the digestive system; Z82.49 Family history of ischemic heart disease and other diseases of the circulatory system
CPT/HCPCS: 64721; 36415; 84295; J0690; J1100; J2003; J2004; J2312; J2405; J2704; J3010; J7120

== ENCOUNTER 2025-01-01 15:16 | Outpatient (CLI) | payer MEDICARE, OTHER, SELFPAY ==
--- NOTE | 2025-01-01 15:30 | ECG_ITS ---
Test Date: 2025-01-01 15:37:48 Measurements Intervals [place] Rate: 79 P: 0 CO: 0 QRS: 34 QRSD: 89 T: 75 QT: 350 QTc: 402 Interpretive Statements ATRIAL FIBRILLATION NONSPECIFIC ST ABNORMALITY ABNORMAL ECG No previous ECG available for comparison Electronically Signed On 01-01-2025 16:02:24 LICENSED PHYSICAL THERAPY ASSISTANT by Rome Bustamante M.D.
--- OUTSIDE RECORDS SUMMARY | 2025-01-02 02:48 | XMS_ITS | Data Portability ---
Author Organization [facility], Main Office Address [address] [place] [address] Assessment No assessment recorded. Plan of Treatment Reminders Order Date Submit Date Provider Last Modified By Organization Details Last Modified Time Details Appointments None recorded. Lab CBC w/ auto diff 2024 025 [facility], [address], [place] [address], [place], [address], 5 11:49:56 CMP, serum or plasma 2024 025 [facility], [address], [place] [address], [place], [address], 5 11:49:57 pro BNP (pro B-type natriuretic peptide), serum or plasma 2024 025 [facility], [address], [place] [address], [place], [address], 5 11:49:56 Referral None recorded. Procedures None recorded. Surgeries None recorded. Imaging None recorded. Medication Orders benzonatate 200 mg capsule 2024 025 [facility] [address], [address] [address], [place], [address], 5 11:15:51 albuterol sulfate 2.5 mg/3 mL (0.083 %) solution for nebulizatio n 2024 025 [facility] 413, [address] [facility] [address], [place], [address], 5 12:12:05 benzonatate 200 mg capsule 2024 025 [email or web address] 0 [facility] 413, [address] [address], [place], [address], 5 11:02:49 guaifenesin ER 600 mg tablet, extended release 12 hr 2024 025 [facility] 413, [address] [address], [place], [address], 5 11:15:59 clonidine HCl 0.1 mg tablet 2024 025 [email or web address] 0 Not available 5 09:31:04 benzonatate 200 mg capsule 2024 025 [email or web address] 0 [facility] 413, [address] [address], [place], [address], 5 11:02:49 guaifenesin ER 600 mg tablet, extended release 12 hr 2024 025 [email or web address] 0 [facility] 413, [address] [facility] [address], [place], [address], 5 11:02:57 benzonatate 200 mg capsule 2024 025 [email or web address] 0 [facility] 413, [address] [address], [place], [address], 5 11:02:49 guaifenesin ER 600 mg tablet, extended release 12 hr 2024 025 [email or web address] 0 [facility] [address], [address] [place] [address], [place], [address], 5 11:02:57 azithromyci n 250 mg tablet 2024 025 [email or web address] 0 [facility] 413, [address] [facility] [address], [place], [address], 5 11:02:43 loratadine 10 mg tablet 2024 025 [email or web address] [facility] [address], [address], [place], [address], 16:09:13 Patient TargetsNo targets recorded. Patient Instructions Encounter Date Encounter Id Patient Instructions Last Modified By Organization Details Last Modified Time 02/27/2024 [id number] cough: care instructions [email or web address] Not available 02/27/2024 12:14:45 high blood pressure: care instructions [email or web address] Not available 02/27/2024 12:14:46 learning about high blood pressure [email or web address] Not available 02/27/2024 12:14:45 medical record request* [email or web address] Not available 03/08/2024 16:29:41 Diagnoses were discussed with the patient/family at length, all questions were answered and the patient/family verbalized understanding of these instructions and agreed with plan of care. No barriers to care are apparent at this time. Patient/family instructed to let me know if they have any difficulties affording their medications or have any further questions regarding their care [email or web address] Not available 02/27/2024 12:29:32 03/06/2024 [id number] cough: care instructions [email or web address] Not available 03/06/2024 10:33:13 high blood pressure: care instructions [email or web address] Not available 03/06/2024 10:33:13 learning about high blood pressure [email or web address] Not available 03/06/2024 10:33:13 medical record request* [email or web address] Not available 03/08/2024 16:30:16 Diagnoses were discussed with the patient/family at length, all questions were answered and the patient/family verbalized understanding of these instructions and agreed with plan of care. No barriers to care are apparent at this time. Patient/family instructed to let me know if they have any difficulties affording their medications or have any further questions regarding their care [email or web address] Not available 03/06/2024 10:22:50 03/20/2024 [id number] cough: care instructions [email or web address] Not available 03/20/2024 16:32:47 high blood pressure: care instructions Not available 03/20/2024 16:32:47 learning about high blood pressure [email or web address] Not available 03/20/2024 16:32:47 medical record request* [email or web address] Not available 04/18/2024 14:14:42 Diagnoses were discussed [...] [email or web address] Not available 03/20/2024 16:06:24 03/27/2024 [id number] cough: care instructions Not available 03/27/2024 12:11:57 bronchitis: care instructions [email or web address] Not available 03/27/2024 12:11:56 Diagnoses were discussed with the patient/family at length, all questions were answered and the patient/family verbalized understanding of these instructions and agreed with plan of care. No barriers to care are apparent at this time. Patient/family instructed to let me know if they have any difficulties affording their medications or have any further questions regarding their care [email or web address] Not available 03/27/2024 11:35:05 04/04/2024 [id number] cough: care instructions [email or web address] Not available 04/04/2024 11:36:37 Diagnoses were discussed with the patient/family at length, all questions were answered and the patient/family verbalized understanding of these instructions and agreed with plan of care. No barriers to care are apparent at this time. Patient/family instructed to let me know if they have any difficulties affording their medications or have any further questions regarding their care [email or web address] Not available 04/04/2024 11:01:55 Reason for Referral None Reported. Results Created Date Observation Date Name Description Value Unit Range Abnormal Flag Note LastModifiedBy Organization Detail LastModifiedTime 02/26/1902/28/2024 NT-CA OBNP nt-probnp 1237 pg/mL see below If [...] [facility] [address] [place] [address] Labor atory [facility] tor: Mark BellaIA Barak r [id number] [place] [id number] Not Available [facility] - Main Lab (Blood Not Drawn At This Location) Visit [facility] [place], [address], 02/28/2024 11:49:55 02/26/1902/28/2024 CBC W/AUT O DIFF WITH PLATE LETS WBC 8.4 K/uL 3.5-11 .0 Not Available [facility] Main Lab (Blood Not Drawn At This Location) Visit [facility] [place], [address], 02/28/2024 11:49:56 02/26/1902/28/2024 CBC W/AUT O DIFF WITH PLATE LETS RBC 4.54 M/uL 4.50-6 .10 Not Available [facility] Main Lab (Blood Not Drawn At This Location) Visit [facility] [place], [address], 02/28/2024 11:49:56 02/26/19 25 02/28/2024 CBC W/AUT O DIFF WITH PLATE LETS hemoglobin 13.8 g/dL 13.5-1 7.0 Not Available [facility] Main Lab (Blood Not Drawn At This Location) Visit [facility] [place], [address], 02/28/2024 11:49:56 02/26/1902/28/2024 CBC W/AUT O DIFF WITH PLATE LETS hematocrit 40.5 % 40.0-5 1.0 Not Available [facility] Main Lab (Blood Not Drawn At This Location) Visit [facility] [place], [address], 02/28/2024 11:49:56 02/26/19 25 02/28/2024 CBC W/AUT O DIFF WITH PLATE LETS MCV 89.2 fL 80.0-9 9.0 Not Available [facility] Main Lab (Blood Not Drawn At This Location) Visit [facility] [place], [address], 02/28/2024 11:49:56 02/26/1902/28/2024 CBC W/AUT O DIFF WITH PLATE LETS MCH 30.4 pg 25.0-3 3.0 Not Available [facility] Main Lab (Blood Not Drawn At This Location) Visit [facility] [place], [address], 02/28/2024 11:49:56 02/26/1902/28/2024 CBC W/AUT O DIFF WITH PLATE LETS MCHC 34.1 g/dL 31.0-3 6.0 Not Available [facility] Main Lab (Blood Not Drawn At This Location) Visit [facility] [place], [address], 02/28/2024 11:49:56 02/26/1902/28/2024 CBC W/AUT O DIFF WITH PLATE LETS RDW 13.9 % 11.5-1 5.0 Not Available [facility] Main Lab (Blood Not Drawn At This Location) Visit [facility] For Location [facility]arest [facility], [place], [address], 02/28/2024 11:49:56 02/26/19 25 02/28/2024 CBC W/AUT O DIFF WITH PLATE LETS neutrophils 76.9 % Not Available [facility] - Main Lab (Blood Not Drawn At This Location) Visit [facility] For Location [facility], [place], [address], 02/28/2024 11:49:56 02/26/19 25 02/28/2024 CBC W/AUT O DIFF WITH PLATE LETS lymphocytes 8.7 % Not Available [facility] - Main Lab (Blood Not Drawn At This Location) Visit [facility] For Location [facility], [place], [address], 02/28/2024 11:49:56 02/26/19 25 02/28/2024 CBC W/AUT O DIFF WITH PLATE LETS monocytes 11.2 % Not Available [facility] Main Lab (Blood Not Drawn At This Location) Visit [facility] For Location [facility]arest [facility], [place], [address], 02/28/2024 11:49:56 02/26/19 25 02/28/2024 CBC W/AUT O DIFF WITH PLATE LETS eosinophils 2.6 % Not Available [facility] - Main Lab (Blood Not Drawn At This Location) Visit [facility] For Location [facility]arest [facility], [place], [address], 02/28/2024 11:49:56 02/26/1902/28/2024 CBC W/AUT O DIFF WITH PLATE LETS basophils 0.4 % Not Available [facility] Main Lab (Blood Not Drawn At This Location) Visit [facility] For Location [facility]arest [facility], [place], [address], 02/28/2024 11:49:56 02/26/19 25 02/28/2024 CBC W/AUT O DIFF WITH PLATE LETS immature granulocytes 0.2 % Not Available [facility] - Main Lab (Blood Not Drawn At This Location) Visit [facility] [place], [address], 02/28/2024 11:49:56 02/26/1902/28/2024 CBC W/AUT O DIFF WITH PLATE LETS nucleated RBCs 0.0 /100_ WBC's 0.0 Not Available [facility] Main Lab (Blood Not Drawn At This Location) Visit [facility] [place], [address], 02/28/2024 11:49:56 02/26/19 25 02/28/2024 CBC W/AUT O DIFF WITH PLATE LETS platelet count 256 K/uL 130-40 0 Not Available [facility] Main Lab (Blood Not Drawn At This Location) Visit [facility] For Location Nearest [facility], [place], [address], 02/28/2024 11:49:56 02/26/19 25 02/28/2024 CBC W/AUT O DIFF WITH PLATE LETS absolute neutrophils 6.43 K/uL 1.50-7 .50 Not Available [facility] Main Lab (Blood Not Drawn At This Location) Visit [facility] [place], [address], 02/28/2024 11:49:56 02/26/19 25 02/28/2024 CBC W/AUT O DIFF WITH PLATE LETS absolute lymphocytes 0.73 K/uL 1.00-4 .00 low Not Available [facility] Main Lab (Blood Not Drawn At This Location) Visit [facility] [place], [address], 02/28/2024 11:49:56 02/26/1902/28/2024 CBC W/AUT O DIFF WITH PLATE LETS absolute monocytes 0.94 K/uL 0.20-1 .00 Not Available [facility] Main Lab (Blood Not Drawn At This Location) Visit [facility] [place], [address], 02/28/2024 11:49:56 02/26/19 02/28/2024 CBC W/AUT O DIFF WITH PLATE LETS absolute eosinophils 0.22 K/uL 0.00-0 .50 Not Available [facility] Main Lab (Blood Not Drawn At This Location) Visit [facility] [place], [address], 02/28/2024 11:49:56 02/26/19 25 02/28/2024 CBC W/AUT O DIFF WITH PLATE LETS absolute basophils 0.03 K/uL 0.00-0 .20 Not Available [facility] Main Lab (Blood Not Drawn At This Location) Visit [facility] [place], [address], 02/28/2024 11:49:56 02/26/19 25 02/28/2024 CBC W/AUT O DIFF WITH PLATE LETS abs immature granulocytes 0.02 K/uL 0.00-0 .10 Not Available [facility] Main Lab (Blood Not Drawn At This Location) Visit [facility] [place], [address], 02/28/2024 11:49:56 02/26/19 25 02/28/2024 CBC W/AUT O DIFF WITH PLATE LETS abs nucleated RBCs 0.00 K/uL 0.00-0 .11 Testi ng Perfo rmed At: [facility] [address] [place] [address] Labor [facility] tor: Mark Bella [id number] [place] [id number] Not Available [facility] Main Lab (Blood Not Drawn At This Location) Visit [facility] [place], [address], 02/28/2024 11:49:56 02/26/19 25 02/28/2024 COMPR EHENS JORDAN METAB OLIC PANEL + E-GFR glucose 95 mg/dL 70-99 Not Available [facility] Main Lab (Blood Not Drawn At This Location) Visit [facility] [place], [address], 02/28/2024 11:49:57 02/26/19 25 02/28/2024 COMPR EHENS JORDAN METAB OLIC PANEL + E-GFR BUN 11 mg/dL 8-23 Not Available [facility] Main Lab (Blood Not Drawn At This Location) Visit [facility] [place], [address], 02/28/2024 11:49:57 02/26/19 25 02/28/2024 COMPR EHENS JORDAN METAB OLIC PANEL + E-GFR creatinine 0.78 mg/dL 0.80-1 .40 low Not Available [facility] Main Lab (Blood Not Drawn At This Location) Visit [facility] [place], [address], 02/28/2024 11:49:57 02/26/19 25 02/28/2024 COMPR EHENS JORDAN METAB OLIC PANEL + E-GFR eGFR (2020 CKD-epi) 92 mL/mi n/1.7 3 >60 Not Available [facility] Main Lab (Blood Not Drawn At This Location) Visit [facility] [place], [address], 02/28/2024 11:49:57 02/26/19 25 02/28/2024 COMPR EHENS JORDAN METAB OLIC PANEL + E-GFR calc BUN/creat 14 ratio 6-28 Not Available Clinic [facility] - Main Lab (Blood Not Drawn At This Location) Visit [facility] [place], [address], 02/28/2024 11:49:57 02/26/19 25 02/28/2024 COMPR EHENS JORDAN METAB OLIC PANEL + E-GFR sodium 126 mEq/L 133-14 6 low Not Available [facility] Main Lab (Blood Not Drawn At This Location) Visit [facility] [place], [address], 02/28/2024 11:49:57 02/26/19 25 02/28/2024 COMPR EHENS JORDAN METAB OLIC PANEL + E-GFR potassium 5.3 mEq/L 3.5-5. 4 Not Available [facility] Main Lab (Blood Not Drawn At This Location) Visit [facility] [place], [address], 02/28/2024 11:49:57 02/26/19 25 02/28/2024 COMPR EHENS JORDAN METAB OLIC PANEL + E-GFR chloride 90 mEq/L 95-107 low RESUL TS RECHE CKED AND VERIF IED Not Available [facility] Main Lab (Blood Not Drawn At This Location) Visit [facility] [place], [address], 02/28/2024 11:49:57 02/26/19 25 02/28/2024 COMPR EHENS JORDAN METAB OLIC PANEL + E-GFR carbon dioxide 28 mEq/L 19-31 Not Available [facility] - Main Lab (Blood Not Drawn At This Location) Visit [facility] [place], [address], 02/28/2024 11:49:57 02/26/19 25 02/28/2024 COMPR EHENS JORDAN METAB OLIC PANEL + E-GFR calcium 9.8 mg/dL 8.5-10 .5 Not Available [facility] Main Lab (Blood Not Drawn At This Location) Visit [facility] [place], [address], 02/28/2024 11:49:57 02/26/19 25 02/28/2024 COMPR EHENS JORDAN METAB OLIC PANEL + E-GFR protein, total 7.0 g/dL 6.1-8. 3 Not Available [facility] - Main Lab (Blood Not Drawn At This Location) Visit [facility] [place], [address], 02/28/2024 11:49:57 02/26/19 25 02/28/2024 COMPR EHENS JORDAN METAB OLIC PANEL + E-GFR albumin 4.4 g/dL 3.5-5. 2 Not Available [facility] Main Lab (Blood Not Drawn At This Location) Visit [facility] [place], [address], 02/28/2024 11:49:57 02/26/1902/28/2024 COMPR EHENS JORDAN METAB OLIC PANEL + E-GFR calc globulin 2.6 g/dL 1.9-3. 7 Not Available [facility] Main Lab (Blood Not Drawn At This Location) Visit [facility] [place], [address], 02/28/2024 11:49:57 02/26/1902/28/2024 COMPR EHENS JORDAN METAB OLIC PANEL + E-GFR calc A/G ratio 1.7 ratio 1.0-2. 6 Not Available [facility] Main Lab (Blood Not Drawn At This Location) Visit [facility] [place], [address], 02/28/2024 11:49:57 02/26/19 25 02/28/2024 COMPR EHENS JORDAN METAB OLIC PANEL + E-GFR bilirubin, total 0.6 mg/dL <=1.2 Not Available [facility] Main Lab (Blood Not Drawn At This Location) Visit [facility] [place], [address], 02/28/2024 11:49:57 02/26/1902/28/2024 COMPR EHENS JORDAN METAB OLIC PANEL + E-GFR alkaline phosphatase 123 U/L 40-125 Not Available [facility] - Main Lab (Blood Not Drawn At This Location) Visit [facility] [place], [address], 02/28/2024 11:49:57 02/26/1902/28/2024 COMPR EHENS JORDAN METAB OLIC PANEL + E-GFR AST 18 U/L 9-50 Not Available [facility] - Main Lab (Blood Not Drawn At This Location) Visit [facility] [place], [address], 02/28/2024 11:49:57 02/26/19 25 02/28/2024 COMPR EHENS JORDAN METAB OLIC PANEL + E-GFR ALT 17 U/L 5-50 Testi ng Perfo rmed At: [facility] [address] [facility], [place] [address] Labor [facility] tor: Vipul morrow, Segundo. ABDIEL Cancino r [id number] [place] [id number] Not Available [facility] Main Lab (Blood Not Drawn At This Location) Visit [facility] For Location [facility]arest [facility], [place], [address], 02/28/2024 11:49:57 Result Notes None recorded. Problems Name Problem SNOMED Code Status Onset Date Resolution Date Notes Provider Name and Address Organization Details Recorded Time Essential hypertension 91211484 Active 2019 Tre Khan, [employer]MENT REPA[employer]ER, RIDE ATTENDANT-BC [address] [place] [address], [address] , [facility] 0 13:54:01 Neuropathy 114673146 Active 2024 Melinda banks NRCMA null, [facility] 5 11:46:54 Hyperlipidemi a 90917808 Active 2024 Melinda banks NRCMA null, [facility] 5 11:47:02 Spinal stenosis 62911986 Active 2024 Melinda banks NRCMA null, [facility] 5 11:47:16 Cough 56239958 Active 2024 Sherlyn Moreno PA-C [address] [place] [address], [address] , [facility] 5 12:10:02 Non-pitting edema 850848656 Active 2024 Sherlyn Moreno PA-C [address] [place] [address], [address] , [facility] 5 12:28:54 Hyponatremia 92806900 Active 2024 Sherlyn Moreno PA-C [address] [place] [address], [address] , [facility] 5 14:25:12 Acute bronchitis 12377210 Active 2024 Sherlyn Moreno PA-C [address] [place], [address] , [facility] 5 17:32:36 Problem Notes None recorded. Procedures Surgical History Date Name Laterality Status Provider Name and Address Organization Details Recorded Time Hernia Repair completed Catherine Mitchell MA [facility] 03/19/2019 13:23:38 Imaging Results None recorded. [...] Address Organization Details Last Updated DateTime 5 08286.5 4 g 18 /min 98.2 [degF] 32 kg/m2 175.26 cm 68 /min 98 % 98 % 134/88 mm[Hg] MEDARDO JenkinsA [facility] 5 11:49:58 Date Recorded Body height Body mass index (BMI) Body weight Respiratory rate Body temperature Heart rate Oxygen saturation Oxygen saturation in Arterial blood by Pulse oximetry Systolic And Diastolic Provider Name and Address Organization Details Last Updated DateTime 5 175.26 cm 31.3 kg/m2 26881.5 8 g 16 /min 97 [degF] 94 /min 96 % 96 % 158/80 mm[Hg] MAXIMO FRANCO [facility] 5 10:17:54 Date Recorded Systolic And Diastolic Provider Name and Address Organization Details Last Updated DateTime 03/20/2024 160/80 mm[Hg] Sherlyn Moreno PA-C [address], [place], [address], [facility] 03/20/2024 16:35:09 Date Recorded Body height Body mass index (BMI) Body weight Respiratory rate Body temperature Heart rate Oxygen saturation Oxygen saturation in Arterial blood by Pulse oximetry Systolic And Diastolic Provider Name and Address Organization Details Last Updated DateTime 5 175.26 cm 31.5 kg/m2 56183.1 7 g 16 /min 98.4 [degF] 89 /min 98 % 98 % 170/88 mm[Hg] Melinda thakur, [facility] 5 16:13:32 Date Recorded Body height Body mass index (BMI) Body weight Heart rate Respiratory rate Body temperature Oxygen saturation Oxygen saturation in Arterial blood by Pulse oximetry Systolic And Diastolic Provider Name and Address Organization Details Last Updated DateTime 5 175.26 cm 31.7 kg/m2 09031.3 6 g 68 /min 16 /min 98.6 [degF] 97 % 97 % 130/70 mm[Hg] Catherine Mitchell MA [facility] 5 11:35:52 Date Recorded Body height Body mass index (BMI) Body weight Heart rate Respiratory rate Body temperature Oxygen saturation Oxygen saturation in Arterial blood by Pulse oximetry Systolic And Diastolic Provider Name and Address Organization Details Last Updated DateTime 5 175.26 cm 32.2 kg/m2 65017.1 4 g 67 /min 16 /min 97.5 [degF] 98 % 98 % 132/60 mm[Hg] Catherine Mitchell MA [facility] 5 11:02:17 Social History Question Answer Notes LastModified by Organizat ion Details LastModified Time Tobacco Smoking Status Never Smoker Not Available [facility] 12/18/2019 03:36:41 Live Alone Or With Others? With Others [email or web address] Information not available 04/04/2019 Marital Status [email or web address] Informatio n not available 04/04/2019 Sex: Unknown Functional Status Question Answer Note LastModified by Organizat ion Details LastModified Time Do you or have you ever used smokeless tobacco? Never used smokeless tobacco [id number] Information not available 12/18/2019 Are you able to walk independently without assistance or assistive devices? YESWOREST [id number] Information not available 12/18/2019 Do you or have you ever used e-cigarettes or vape? Never used electronic cigarettes [id number] Information not available 12/18/2019 Mental Status None recorded. Family History Nothing Reported. Medical History Condition Response Hypertension Y Past Encounters Encounter ID Performer Location Encounter Start Date Encounter Closed Date Diagnosis/Indication Diagnosis SNOMED-CT Code Diagnosis ICD10 Code Diagnosis IMO Codes Diagnosis Note [id number] Jerson Henning MD Main Office [address] [place] [id number] 03/19/2019 10:45:43 03/19/2019 14:05:36 Community acquired pneumonia 245785808 J18.9 No evidence of serious disease here today. Will start patient on some prednisone and azithromyc in advised to return to clinic in 2 weeks to review reevaluate his lungs. Sooner if his condition worsens. Patient verbalized understand ing these instructio ns. Essential hypertension 86604271 I10 pt did not take his BP meds last night. Will recheck blood pressure in 2 weeks and evaluate the need to modify his blood pressure regimen. [id number] Jerson Henning MD Main Office [address] [place] [phone] 04/04/2019 14:54:43 04/04/2019 16:09:36 Essential hypertension 40830696 I10 uncontroll ed. Start patient on terazosin and recheck BP in 2 weeks. BP log reviewed and looks good but the patient is fairly hypertensi ve here in the clinic. [id number] Jerson Henning MD Main Office [address] [place] [phone] 02/27/2024 10:48:48 02/27/2024 14:52:20 Cough 91598092 R05.9 Reviewed symptomati c care instructio ns, the expected course of these illnesses and explained that coughing can persist for some time. Provided precaution s for signs of worsening disease and instructio ns on contacting us if symptoms worsen. -Will order labs today-will send tessalon pearls 200mg, guaifenesi n 600mg, azithromyc in 250mg, loratadine 10mg -will follow up in one week Essential hypertension [id number] I10 -Will order labs today-Curr ent Treatment: amlodipine 10mg, benazepril 40mg, furosemide 20mg- BP today 134/88- Patient instructed to take his medication at night-Will recheck labs in 3 months.Pat ient will monitor blood pressure and report if unable to control or if they develop new symptoms.- Patient has non pitting edema Non-pitting edema [id number] R60.9 Current Treatment: Furosemide 20mg-will continue to monitor-wi ll follow up in one week [id number] Jerson Henning MD Main Office [address] [place] [phone] 03/06/2024 10:12:27 03/06/2024 10:46:19 Cough [id number] R05.9 Reviewed symptomati c care instructio ns, the expected course of these illnesses and explained that coughing can persist for some time. Provided precaution s for signs of worsening disease and instructio ns on contacting us if symptoms worsen. -Will order labs today-will send tessalon pearls 200mg, guaifenesi n 600mg, azithromyc in 250mg, loratadine 10mg -will follow up in one week Essential hypertension [id number] I10 -Current Treatment: amlodipine 10mg, benazepril 40mg, furosemide 20mg- BP today 158/80,-2n d BP today 146/90- Patient instructed to take his medication at night-Will recheck labs in 3 months.Pat ient will monitor blood pressure and report if unable to control or if they develop new symptoms.- Patient has non pitting edema [id number] Jerson Henning MD Main Office [address] [place] [address] [phone] 03/20/2024 15:25:59 03/20/2024 16:46:31 Cough [id number] R05.9 Reviewed symptomati c care instructio ns, the expected course of these illnesses and explained that coughing can persist for some time. Provided precaution s for signs of worsening disease and instructio ns on contacting us if symptoms worsen.-Wi ll order labs today-will send tessalon pearls 200mg, guaifenesi n 600mg-will follow up in one week Essential hypertension [id number] I10 -Current Treatment: amlodipine 10mg, benazepril 40mg, furosemide 20mg- BP today 170/88-2nd BP today 160/80- Patient instructed to take his medication at night-Will recheck labs in 3 months.Pat iedana will monitor blood pressure and report if unable to control or if they develop new symptoms. [id number] Jerson Henning MD Main Office [address] [place] [address] [phone] 03/27/2024 11:03:28 03/27/2024 12:28:32 Cough [id number] R05.9 Reviewed symptomati c care instructio ns, the expected course of these illnesses and explained that coughing can persist for some time. Provided precaution s for signs of worsening disease and instructio ns on contacting us if symptoms worsen.-Wi ll order labs today-will send tessalon pearls 200mg, guaifenesi n 600mg-will follow up in one week Acute bronchitis [id number] 2 J20.9 -Albuterol treatment 2.5mg and nebulizer- Advised patient to increase fluid in take-Revie wed symptomati c care instructio ns, the expected course of these illnesses and explained that coughing can persist for some time. Provided precaution s for signs of worsening disease and instructio ns on contacting us if symptoms worsen or go to his nearest ER . [id number] Jerson Henning MD Main Office [address] [place] [address] [phone] 04/04/2024 10:48:12 04/04/2024 11:54:03 Cough [id number] R05.9 -All symptoms have resolved Acute bronchitis [id number] 2 J20.9 -Patient reports all symptoms have [...] [employer] (MEDICARE SUPPLEMENT) Rubio Sampson [id number] Rubio Sampson 03/25/2024 2 [place] [id number] Rubio Sampson [id number] Rubio Sampson 05/07/2024 1 [place] - PART A - [facility] (MEDICARE) Rubio Sampson [id number] Rubio Sampson Notes Date Note Type [...] SP02:98% R:18 Sherlyn Moreno PA-C [address] [place] [address], [phone], [facility] 02/27/2024 12:29:46 03/06/2024 text/html BP:132/88 [...] chest palpitation. Sherlyn Moreno PA-C [address] [place] [address], [phone], [facility] 03/06/2024 10:40:06 03/20/2024 text/html 77 [...] chest palpitation. Sherlyn Moreno PA-C [address] [place] [address], [phone], [facility] 03/20/2024 16:35:49 03/27/2024 text/html BP [...] chest palpitation. Sherlyn Moreno PA-C [address] [place] [address], [phone], [facility] 03/27/2024 12:22:53 04/04/2024 text/html BP [...] chest palpitation. Sherlyn Moreno PA-C [address] [facility], [place], [phone], [facility] 04/04/2024 11:36:58
== END 2025-01-01 15:17 | disposition home or self-care (01) ==
LOC: ANHCARD 15:20
PROVIDERS: PCP Nurse Practitioner Family; Visit Provider Nurse Practitioner Family
DX: R94.31 Abnormal electrocardiogram [ECG] [EKG] (principal); I48.91 Unspecified atrial fibrillation
CPT/HCPCS: 93005